=== PATIENT | male | born 1950 | race Caucasian/White ===

== ENCOUNTER 2016-10-09 05:18 | Inpatient (IN) | payer OTHER, MEDICAID ==
[2016-10-09 05:25] VITALS: BMI 26.4
--- NOTE | 2016-10-09 05:57 | ED PDOC ---
Arrival/HPI - General Chief Complaint: GI Problem Time Seen by Provider: 10/09/16 05:21 Historian: Patient, Family - History of Present Illness Narrative History of Present Illness (Text): 10/09/16 05:55 Everton Hearn is a 65 year old male, whose past medical history includes hyperparathyroidismm, perforated gastric ulcers, hypertension, and hypercalcemia , who presents to the ED tonight complaining of diffuse abdominal pain since yesterday. Patient also reports associated nausea and with one episode of vomiting this morning. Patient denies any fever, chills, chest pain, diarrhea, urinary symptoms, back pain, neck pain, headache, dizziness, or any other complaints. PMD: Dr. Carli Mercado Surgeon: Dr. Abdalla Time/Duration: Other (yesterday) Symptom Onset: Gradual Symptom Course: Unchanged Activities at Onset: Rest, Light Context: Home Past Medical History - Provider Review Nursing Documentation Reviewed: Yes - Infectious Disease Hx of Infectious Diseases: None - Tetanus Immunization Tetanus Immunization: Unknown - Reproductive Currently : No - Cardiac Hx MT: No - Neurological HX Cerebrovascular Accident: No Hx Transient Ischemic Attacks (TIA): No - Endocrine/Metabolic Hx Endocrine Disorders: Yes Hx Hyperthyroidism: Yes - Hematological/Oncological Hx Blood Transfusions: No - Musculoskeletal/Rheumatological Hx Falls: No Hx Fractures: No - Gastrointestinal Hx Gastrointestinal Disorders: Yes Hx Hemorrhoids: Yes - Psychiatric Hx Substance Use: No - Surgical History Other/Comment: HEMORRHOIDECTOMY - Anesthesia Hx Anesthesia: Yes Hx Anesthesia Reactions: No Hx Malignant Hyperthermia: No Family/Social History - Physician Review Nursing Documentation Reviewed: Yes Family/Social History: No Known Family HX Smoking Status: Never Smoked Hx Alcohol Use: No Hx Substance Use: No Allergies/Home Meds Allergies/Adverse Reactions: Allergies No Known Allergies Allergy (Verified 10/09/16 06:33) Home Medications: Home Meds Medication Instructions Recorded Confirmed Docusate Sodium/Sennosides A 1 tab PO DAILY PRN 09/09/16 09/09/16 [Senokot S 50 MG-8.6 MG] Review of Systems - Physician Review All systems were reviewed & negative as marked: Yes - Review of Systems Constitutional: Normal. absent: Fevers Eyes: Normal ENT: Normal Respiratory: Normal. absent: SOB, Cough Cardiovascular: Normal Gastrointestinal: Abdominal Pain, Nausea, Vomiting. absent: Diarrhea Genitourinary Male: Normal. absent: Dysuria, Frequency, Hematuria, Urinary Output Changes Musculoskeletal: Normal. absent: Back Pain, Neck Pain Skin: Normal. absent: Rash Neurological: Normal. absent: Headache, Dizziness Endocrine: Normal Hemo/Lymphatic: Normal Psychiatric: Normal Physical Exam Vital Signs Reviewed: Yes Vital Signs Temp Pulse Resp BP Pulse Ox 10/09/16 05:29 97.7 F 88 20 180/106 H 100 Temperature: Afebrile Blood Pressure: Normal Pulse: Regular Respiratory Rate: Normal Appearance: Positive for: Well-Appearing, Non-Toxic, Comfortable Pain Distress: None Mental Status: Positive for: Alert and Oriented X 3 - Systems Exam Head: Present: Atraumatic, Normocephalic Pupils: Present: PERRL Extroacular Muscles: Present: EOMI Conjunctiva: Present: Normal Mouth: Present: Moist Mucous Membranes Neck: Present: Normal Range of Motion Respiratory/Chest: Present: Clear to Auscultation, Good Air Exchange. No: Respiratory Distress, Accessory Muscle Use Cardiovascular: Present: Regular Rate and Rhythm, Normal S1, S2. No: Murmurs Abdomen: Present: Tenderness (LLQ tenderness), Normal Bowel Sounds. No: Distention, Peritoneal Signs Genitourinary Male: No: Testicle Tenderness, Hernias, Testicle Swelling Back: Present: Normal Inspection Upper Extremity: Present: Normal Inspection. No: Cyanosis, Edema Lower Extremity: Present: Normal Inspection. No: Edema Neurological: Present: GCS=15, CN II-XII Intact, Speech Normal Skin: Present: Warm, Dry, Normal Color. No: Rashes Psychiatric: Present: Alert, Oriented x 3, Normal Insight, Normal Concentration Medical Decision Making ED Course and Treatment: 10/09/16 05:55 Impression: 65 y/o male c/o diffuse lower abdominal pain since yesterday with nausea and 1 episode of vomiting today. Plan: -- CT Abdomen and Pelvis with PO and IV contrast -- Labs, lipase -- UA -- IV fluids -- Protonix -- Zofran -- Morphine -- Reassess and disposition Progress Notes: 10/09/16 07:[address] Manzanares, pending labs, CT Abdomen and Pelvis, re-assessment , and final disposition. - Lab Interpretations Lab Results: 10/09/16 05:56 Lab Results 10/09/16 06:10: Urine Color Yellow, Urine Appearance Slight-cloudy, Urine pH 8.5 , Ur Specific [place] 1.020, Urine Protein 30 H, Urine Glucose (UA) Negative, Urine Ketones Negative, Urine Blood Negative, Urine Nitrate Negative, Urine Bilirubin Negative, Urine Urobilinogen 0.2, Ur Leukocyte Esterase Negative, Urine RBC 0 - 2, Urine WBC 0 - 2, Ur Epithelial Cells 0 - 2, Urine Bacteria Mod 10/09/16 05:56: WBC 5.5, RBC 3.43 L, Hgb 9.6 L, Hct 30.3 L, MCV 88.3, MCH 28.0, MCHC 31.7, RDW 15.3 H, Plt Count 314, MPV 10.5 - RAD Interpretation Radiology Orders: 10/09/16 05:56 ABD PELVIS PO & IV CONTRAST [CT] Stat - Medication Orders Current Medication Orders: Sodium Chloride (Sodium Chloride 0.9%) 1,000 mls @ 100 mls/hr IV .Q10H JESSICA Last Admin: 10/09/16 06:20 Dose: 100 MLS/HR eMAR Start Stop Document 10/09/16 06:20 MIGUEL (Rec: 10/09/16 06:23 MIGUEL [id number]) Intravenous Solution Start Date 10/09/16 Start Time 06:20 Discontinued Medications Iohexol (Omnipaque 240 (50 Ml)) Confirm Administered Dose 50 ml .ROUTE .STK-MED ONE Stop: 10/09/16 06:05 Morphine Sulfate (Morphine) 4 mg IVP STAT STA Stop: 10/09/16 05:57 Last Admin: 10/09/16 06:20 Dose: 4 MG MAR Pain Assessment Document 10/09/16 06:20 MIGUEL (Rec: 10/09/16 06:[address] [id number] Pain Reassessment Is this a pain reassessment? Yes Sleep Is patient sleeping during reassessment? No Presence of Pain Presence of Pain Yes Location Left, Right or Bilateral Left Upper or Lower Lower Pain Location Body Site Abdomen IVP Administration Document 10/09/16 06:20 MIGUEL (Rec: 10/09/16 06:23 [facility]IGUEL [id number]) Charges for Administration # of IVP Administrations 1 Ondansetron HCl (Zofran Inj) 4 mg IVP ONCE ONE Stop: 10/09/16 05:57 Last Admin: 10/09/16 06:20 Dose: 4 MG IVP Administration Document 10/09/16 06:20 MIGUEL (Rec: 10/09/16 06:23 [facility]EL [id number]) Charges for Administration # of IVP Administrations 1 Pantoprazole Sodium (Protonix Inj) 40 mg IVP ONCE STA Stop: 10/09/16 05:57 Last Admin: 10/09/16 06:20 Dose: 40 MG IVP Administration Document 10/09/16 06:20 MIGUEL (Rec: 10/09/16 06:23 [id number]) Charges for Administration # of IVP Administrations 1 - Scribe Statement The provider has reviewed the documentation as recorded by the Betty El Provider Attestation: All medical record entries made by the Betty were at my direction and personally dictated by me. I have reviewed the chart and agree that the record accurately reflects my personal performance of the history, physical exam, medical decision making, and the department course for this patient. I have also personally directed, reviewed, and agree with the discharge instructions and disposition. Disposition/Present on Arrival - Present on Arrival Any Indicators Present on Arrival: No History of DVT/PE: No History of Uncontrolled Diabetes: No Urinary Catheter: No History of Decub. Ulcer: No History Surgical Site Infection Following: None - Disposition Have Diagnosis and Disposition been Completed?: No Diagnosis: Abdominal pain Disposition Time: 07:00 Patient Problems: Current Active Problems Problem Status Diagnosed Abdominal pain Acute Condition: GOOD
[2016-10-09] MEDS ORDERED: Iohexol 240 (50 ml) ONE (06:04)
[2016-10-09 06:12] LABS: HEMATOCRIT 30.3 % (42.0-52.0); MEAN CELL VOLUME 88.3 fL (80.0-105.0); MEAN CORPUSCULAR HGB CONC 31.7 g/dl (31.0-37.0); MEAN PLATELET VOLUME 10.5 fl (7.0-11.0); RED CELL DISTRIBUTION WIDTH 15.3 % (11.5-14.5); WHITE BLOOD COUNT 5.5 10^3/ul (4.5-11.0)
[2016-10-09] MEDS: Sodium Chloride 0.9% 1,000 ML IV SCH ×2 (06:20→16:00)
[2016-10-09] MEDS: Morphine 4 mg/ml ISec IVP STA (06:20)
[2016-10-09 06:25] LABS: PH,URINE 8.5 (4.7-8.0); URINE BILIRUBIN NEGATIVE (NEGATIVE); URINE BLOOD NEGATIVE (NEGATIVE); URINE GLUCOSE (UA) NEGATIVE (NEGATIVE); URINE KETONE NEGATIVE (NEGATIVE); URINE LEUKOCYTE ESTERASE NEGATIVE Leu/uL (NEGATIVE); URINE PROTEIN 30 mg/dL (<30 mg/dL); URINE UROBILINOGEN 0.2 E.U./dL (<1 E.U./dL)
[2016-10-09 06:26] LABS: URINE APPEARANCE SLIGHT-CLOUDY (CLEAR); URINE COLOR YELLOW (YELLOW)
[2016-10-09 06:42] LABS: URINE RBC 0 - 2 /hpf (0-2)
[2016-10-09 06:43] LABS: URINE EPITHELIAL CELLS 0 - 2 /hpf (0-5); URINE WBC 0 - 2 /hpf (0-6)
[2016-10-09 06:44] LABS: URINE BACTERIA MOD (NEG)
[2016-10-09 06:47] LABS: ALB/GLOB RATIO 1.1 (1.1-1.8); ALKALINE PHOSPHATASE 138 U/L (38-133); ALT/SGPT 20 U/L (7-56); AST/SGOT 44 U/L (15-59); BILIRUBIN,TOTAL 0.7 mg/dL (0.2-1.3); BLOOD UREA NITROGEN 13 mg/dL (7-21); CARBON DIOXIDE 28 mmol/L (21-33); CHLORIDE 99 mmol/L (95-110); GFR AFRICAN-AMERICAN > 60; GLUCOSE,RANDOM 137 mg/dL (70-110); LIPASE 69 U/L (23-300); POTASSIUM 4.2 mmol/L (3.6-5.0); SODIUM 142 mmol/L (132-148); TOTAL PROTEIN 8.9 g/dL (5.8-8.3)
[2016-10-09 07:27] LABS: CALCIUM 12.4 mg/dL (8.4-10.5)
[2016-10-09] MEDS ORDERED: Iohexol 350 MG/100 ML VIAL ONE (07:37)
--- NOTE | 2016-10-09 08:16 | ED PDOC ---
Physical Exam Vital Signs Reviewed: Yes Vital Signs Temp Pulse Resp BP Pulse Ox 10/09/16 09:29 90 18 141/80 97 10/09/16 07:03 84 18 145/92 H 99 10/09/16 05:29 97.7 F 88 20 180/106 H 100 Temperature: Afebrile Blood Pressure: Hypertensive Pulse: Regular Respiratory Rate: Normal Appearance: Positive for: Well-Appearing, Non-Toxic, Comfortable Pain Distress: None Mental Status: Positive for: Alert and Oriented X 3 Medical Decision Making ED Course and Treatment: 10/09/16 08:14 Patient endorsed to me by . Patient is a 65 year old male who presents to the emergency department for diffuse abdominal pain associated with nausea and 1 episode of vomiting. Pending labs, CT results and reevaluation. 10/09/16 09:08 CT abd/pel results reviewed: PROCEDURE: CT Abdomen and Pelvis with contrast FINDINGS: LOWER THORAX: Minimal basilar atelectasis bilaterally. Mild bilateral gynecomastia noted. LIVER: Unremarkable. No gross lesion or ductal dilatation. GALLBLADDER AND BILE DUCTS: Mild diffuse thickening of gallbladder wall. No calcified gallstones identified. Consider correlation with ultrasound examination in consideration of possible cholecystitis. No pericholecystic fluid. PANCREAS: No mass. Mild dilatation of pancreatic duct in pancreatic head and proximal body. This is unchanged from prior examination. . No peripancreatic fluid. SPLEEN: Unremarkable. ADRENALS: Mild bilateral adrenal hypertrophy. KIDNEYS AND URETERS: Unremarkable. No hydronephrosis. No solid mass. VASCULATURE: Unremarkable. No aortic aneurysm. BOWEL: Unremarkable. No obstruction. No gross mural thickening. APPENDIX: Normal appendix. PERITONEUM: Left inguinal hernia containing small portion of distal descending colon herniating into proximal inguinal canal. There is herniated mesenteric fat. LYMPH NODES: Unremarkable. No enlarged lymph nodes. BLADDER: Unremarkable. REPRODUCTIVE: Mild prostate enlargement. BONES: No acute fracture. Uniformly sclerotic vertebral endplates. This may be seen with osteoporosis but the possibility of hyperparathyroidism should be considered. Please correlate with laboratory testing. OTHER FINDINGS: None. IMPRESSION: Mild thickening of gallbladder wall. Rule out cholecystitis. Correlate with ultrasound examination. No evidence of diverticulitis. Mild dilatation of pancreatic duct in pancreatic head and proximal body. This is unchanged from prior examination. Normal common bile duct. Significance of this finding is uncertain but the possibility of an ampullary mass should be considered. Left inguinal hernia containing small portion of distal descending colon as well as mesenteric fat. Uniformly sclerotic vertebral endplates raising the possibility of hyperparathyroidism. Please correlate with laboratory testing. This may also merely reflect osteoporosis. 10/09/16 11:30 US abdomen pelvis results reviewed: FINDINGS: LIVER: Measures 15.3 cm in length. Normal echogenicity of the liver parenchyma. No mass. No intrahepatic bile duct dilatation. GALLBLADDER: Sludge. No gallstones. Mural thickening to 5 mm. Trace pericholecystic fluid. Negative sonographic Acosta's sign. Findings are equivocal for cholecystitis. COMMON BILE DUCT: Measures 4 mm. No stones. No dilatation. PANCREAS: Suboptimally evaluated due to overlying bowel gas. RIGHT KIDNEY: Measures 10.2 cm in length. Normal echogenicity. No calculus, mass, or hydronephrosis. AORTA: Poorly visualized due to bowel gas. IVC: Unremarkable. OTHER FINDINGS: None . IMPRESSION: Gallbladder with sludge, mural thickening and trace pericholecystic fluid. No gallstones. Negative sonographic Acosta's sign. Findings are equivocal for cholecystitis. No other significant abnormality. 10/09/16 11:35 Called , surgery scientific publications editor, for consultation on surgical intervention for possible cholecystitis. Dr estrella didnt call back but spoke to surgical appliances salesperson who will contact him. Case discussed with hospitalist who agrees with the plan to admit patient under his service for possible cholecystitis. iv zosyn ordered. anemia, possible pancreatic mass and hyperparathyroidism also noted. 10/09/16 15:26 - Lab Interpretations Lab Results: 10/09/16 05:56 10/09/16 06:10 Lab Results 10/09/16 06:10: Sodium 142, Potassium 4.2, Chloride 99, Carbon Dioxide 28, Anion Gap 19, BUN 13, Creatinine 1.0, Est GFR ( Amer) > 60, Est GFR (Non- Af Amer) > 60, Random Glucose 137 H, Calcium 12.4 H*, Total Bilirubin 0.7, AST 44, ALT 20, Alkaline Phosphatase 138 H, Total Protein 8.9 H, Albumin 4.7, Globulin 4.2, Albumin/Globulin Ratio 1.1, Lipase 69, Urine Color Yellow, Urine Appearance Slight-cloudy, Urine pH 8.5, Ur Specific [place] 1.020, Urine Protein 30 H, Urine Glucose (UA) Negative, Urine Ketones Negative, Urine Blood Negative, Urine Nitrate Negative, Urine Bilirubin Negative, Urine Urobilinogen 0.2, Ur Leukocyte Esterase Negative, Urine RBC 0 - 2, Urine WBC 0 - 2, Ur Epithelial Cells 0 - 2, Urine Bacteria Mod 10/09/16 05:56: WBC 5.5, RBC 3.43 L, Hgb 9.6 L, Hct 30.3 L, MCV 88.3, MCH 28.0, MCHC 31.7, RDW 15.3 H, Plt Count 314, MPV 10.5 I have reviewed the lab results: Yes - RAD Interpretation Radiology Orders: 10/09/16 05:56 ABD PELVIS PO & IV CONTRAST [CT] Stat 10/09/16 09:37 GALLBLADDER & PANCREAS [US] Stat Construction Worker: Radiologist - Medication Orders Current Medication Orders: Sodium Chloride (Sodium Chloride 0.9%) 1,000 mls @ 100 mls/hr IV .Q10H JESSICA Last Admin: 10/09/16 06:20 Dose: 100 MLS/HR eMAR Start Stop Document 10/09/16 06:20 MIGUEL (Rec: 10/09/16 06:23 [id number] Intravenous Solution Start Date 10/09/16 Start Time 06:20 Piperacillin Sod/Tazobactam Sod (Zosyn 4.5 Gm In Ns 100ml) 100 mls @ 200 mls/ hr IVPB STAT STA PRN Reason: Protocol Stop: 10/09/16 12:00 Discontinued Medications Iohexol (Omnipaque 240 (50 Ml)) Confirm Administered Dose 50 ml .ROUTE .STK-MED ONE Stop: 10/09/16 06:05 Iohexol (Omnipaque 350 100 Ml) Confirm Administered Dose 350 mg .ROUTE .STK-MED ONE Stop: 10/09/16 07:38 Morphine Sulfate (Morphine) 4 mg IVP STAT STA Stop: 10/09/16 05:57 Last Admin: 10/09/16 06:20 Dose: 4 MG MAR Pain Assessment Document 10/09/16 06:20 MIGUEL (Rec: 10/09/16 06:23 [id number] Pain Reassessment Is this a pain reassessment? Yes Sleep Is patient sleeping during reassessment? No Presence of Pain Presence of Pain Yes Location Left, Right or Bilateral Left Upper or Lower Lower Pain Location Body Site Abdomen IVP Administration Document 10/09/16 06:20 MIGUEL (Rec: 10/09/16 06:23 [facility]EL [id number]) Charges for Administration # of IVP Administrations 1 Ondansetron HCl (Zofran Inj) 4 mg IVP ONCE ONE Stop: 10/09/16 05:57 Last Admin: 10/09/16 06:20 Dose: 4 MG IVP Administration Document 10/09/16 06:20 MIGUEL (Rec: 10/09/16 06:23 [id number]) Charges for Administration # of IVP Administrations 1 Pantoprazole Sodium (Protonix Inj) 40 mg IVP ONCE STA Stop: 10/09/16 05:57 Last Admin: 10/09/16 06:20 Dose: 40 MG IVP Administration Document 10/09/16 06:20 MIGUEL (Rec: 10/09/16 06:23 [facility]EL [id number]) Charges for Administration # of IVP Administrations 1 - Scribe Statement The provider has reviewed the documentation as recorded by the Betty Epperson Provider Attestation: All medical record entries made by the Betty were at my direction and personally dictated by me. I have reviewed the chart and agree that the record accurately reflects my personal performance of the history, physical exam, medical decision making, and the department course for this patient. I have also personally directed, reviewed, and agree with the discharge instructions and disposition. Disposition/Present on Arrival - Present on Arrival Any Indicators Present on Arrival: No History of DVT/PE: No History of Uncontrolled Diabetes: No Urinary Catheter: No History of Decub. Ulcer: No History Surgical Site Infection Following: None - Disposition Have Diagnosis and Disposition been Completed?: Yes Diagnosis: Abdominal pain, Cholecystitis Disposition: HOSPITALIZED Disposition Time: 09:40 Patient Plan: Admission Patient Problems: Current Active Problems Problem Status Diagnosed Abdominal pain Acute Condition: STABLE
--- NOTE | 2016-10-09 08:39 | CT ---
PROCEDURE: CT Abdomen and Pelvis with contrast HISTORY: left lower abdominal pain COMPARISON: 05/23/2016 TECHNIQUE: Contrast dose: 100 mL Omnipaque 350 Radiation dose: Total exam DLP = 458.39 mGy-cm. FINDINGS: LOWER THORAX: Minimal basilar atelectasis bilaterally. Mild bilateral gynecomastia noted. LIVER: Unremarkable. No gross lesion or ductal dilatation. GALLBLADDER AND BILE DUCTS: Mild diffuse thickening of gallbladder wall. No calcified gallstones identified. Consider correlation with ultrasound examination in consideration of possible cholecystitis. No pericholecystic fluid. PANCREAS: No mass. Mild dilatation of pancreatic duct in pancreatic head and proximal body. This is unchanged from prior examination. . No peripancreatic fluid. SPLEEN: Unremarkable. ADRENALS: Mild bilateral adrenal hypertrophy. KIDNEYS AND URETERS: Unremarkable. No hydronephrosis. No solid mass. VASCULATURE: Unremarkable. No aortic aneurysm. BOWEL: Unremarkable. No obstruction. No gross mural thickening. APPENDIX: Normal appendix. PERITONEUM: Left inguinal hernia containing small portion of distal descending colon herniating into proximal inguinal canal. There is herniated mesenteric fat. LYMPH NODES: Unremarkable. No enlarged lymph nodes. BLADDER: Unremarkable. REPRODUCTIVE: Mild prostate enlargement. BONES: No acute fracture. Uniformly sclerotic vertebral endplates. This may be seen with osteoporosis but the possibility of hyperparathyroidism should be considered. Please correlate with laboratory testing. OTHER FINDINGS: None. IMPRESSION: Mild thickening of gallbladder wall. Rule out cholecystitis. Correlate with ultrasound examination. No evidence of diverticulitis. Mild dilatation of pancreatic duct in pancreatic head and proximal body. This is unchanged from prior examination. Normal common bile duct. Significance of this finding is uncertain but the possibility of an ampullary mass should be considered. Left inguinal hernia containing small portion of distal descending colon as well as mesenteric fat. Uniformly sclerotic vertebral endplates raising the possibility of hyperparathyroidism. Please correlate with laboratory testing. This may also merely reflect osteoporosis.
--- NOTE | 2016-10-09 11:10 | US ---
HISTORY: abdominal pain COMPARISON: None. TECHNIQUE: Sonographic evaluation of the right upper quadrant of the abdomen. FINDINGS: LIVER: Measures 15.3 cm in length. Normal echogenicity of the liver parenchyma. No mass. No intrahepatic bile duct dilatation. GALLBLADDER: Sludge. No gallstones. Mural thickening to 5 mm. Trace pericholecystic fluid. Negative sonographic Acosta's sign. Findings are equivocal for cholecystitis. COMMON BILE DUCT: Measures 4 mm. No stones. No dilatation. PANCREAS: Suboptimally evaluated due to overlying bowel gas. RIGHT KIDNEY: Measures 10.2 cm in length. Normal echogenicity. No calculus, mass, or hydronephrosis. AORTA: Poorly visualized due to bowel gas. IVC: Unremarkable. OTHER FINDINGS: None . IMPRESSION: Gallbladder with sludge, mural thickening and trace pericholecystic fluid. No gallstones. Negative sonographic Acosta's sign. Findings are equivocal for cholecystitis. No other significant abnormality.
[2016-10-09] MEDS ORDERED: Piperacill/Tazo 4.5gm in NS 100 ML IVPB STA (11:31)
--- NOTE | 2016-10-09 13:25 | CP.PCM.CON ---
<Corby Raymond - Last Filed: 10/09/16 13:51> History of Present Illness - History of Present Illness History of Present Illness: GENERAL SURGERY RESIDENT CONSULT NOTE FOR DR. ABDALLA Reason for consult: abdominal pain, cholecystitis CC:" Abdominal pain, vomiting" HPI: Pt is a 65 year old [place] male with a PMHx of hemorrhoids s/p hemorrhoidectomy, intraabdominal abscess s/p drainage, exploratory laparotomy, prepyloric peptic ulcer perforation s/p russel patch closure, and open unbilical hernia repair s/p closure without mesh all in May, as well as hyperparathyroidism and hypercalcemia, who presented with complaints of diffuse abdominal pain that began 3 days ago. Pt is accompanied by and daughter at beside. According to pt and family, the pain became worse yesterday. Pt also reports that he has been feeling nauseous and vomited once this morning. Pt also reports that he feels a hernia in his left groin that is exacerbated when lying supine and improved when walking. Pt reports that he occasionally notices a little bit of blood in his stool. Pt denies fever, chills, chest pain, shortness of breath, diarrhea, constipation. PMHx: hemorrhoids s/p hemorrhoidectomy, intraabdominal abscess s/p drainage, exploratory laparotomy, prepyloric peptic ulcer perforation s/p russel patch closure, and open unbilical hernia repair s/p closure without mesh (May 2016), hyperparathyroidism, hypercalcemia Past Surgical Hx: hemorrhoids s/p hemorrhoidectomy, intraabdominal abscess s/p drainage, exploratory laparotomy, prepyloric peptic ulcer perforation s/p russel patch closure, and open unbilical hernia repair s/p closure without mesh (May 2016) Home Medications: Multivitamins Allergies: NKDA Social Hx: denies tobacco, alcohol, drug use Fam Hx: Diabetes, HTN Review of Systems - Constitutional Constitutional: absent: Chills, Fever - EENT Eyes: absent: Blurred Vision Ears: absent: Dizziness - Cardiovascular Cardiovascular: absent: Chest Pain, Dyspnea - Respiratory Respiratory: absent: Cough - Gastrointestinal Gastrointestinal: Abdominal Pain, Hematochezia, Nausea, Vomiting. absent: Diarrhea, Hematemesis - Genitourinary Genitourinary: absent: Dysuria - Musculoskeletal Musculoskeletal: Other. absent: Atrophy Additional comments: Left leg pain - Neurological Neurological: absent: Dizziness, Weakness - Psychiatric Psychiatric: absent: Anxiety Past Patient History - Infectious Disease Hx of Infectious Diseases: None - Tetanus Immunizations Tetanus Immunization: Unknown - Past Medical History & Family History Past Medical History?: Yes - Past Social History Smoking Status: Never Smoked - CARDIAC Hx Heart Attack: No - NEUROLOGICAL HX Cerebrovascular Accident: No Hx Transient Ischemic Attacks (TIA): No - ENDOCRINE/METABOLIC Hx Endocrine Disorders: Yes Hx Hyperthyroidism: Yes - HEMATOLOGICAL/ONCOLOGICAL Hx Blood Transfusions: No - MUSCULOSKELETAL/RHEUMATOLOGICAL Hx Falls: No Hx Fractures: No - GASTROINTESTINAL Hx Gastrointestinal Disorders: Yes Hx Hemorrhoids: Yes - PSYCHIATRIC Hx Substance Use: No - SURGICAL HISTORY Other/Comment: HEMORRHOIDECTOMY - ANESTHESIA Hx Anesthesia: Yes Hx Anesthesia Reactions: No Hx Malignant Hyperthermia: No Meds Allergies/Adverse Reactions: Allergies Allergy/AdvReac Type Severity Reaction Status Date / Time No Known Allergies Allergy Verified 10/09/16 12:02 - Medications Medications: Current Medications Calcitonin [place] (Miacalcin) 200 iu NS DAILY [facility] Sodium Chloride (Sodium Chloride 0.9%) 1,000 mls @ 100 mls/hr IV .Q10H [facility] Last Admin: 10/09/16 06:20 Dose: 100 mls/hr Metronidazole (Flagyl) 100 mls @ 100 mls/hr IVPB Q8 [facility]ESS[facility] PRN Reason: Protocol Ceftriaxone Sodium (Rocephin 1 Gram Ivpb) 100 mls @ 100 mls/hr IVPB DAILY [facility] PRN Reason: Protocol Insulin Human Regular (Humulin R Low) 0 units SC ACHS [facility] Morphine Sulfate (Morphine) 2 mg IVP Q4H PRN PRN Reason: Pain, moderate (4-7) Ondansetron HCl (Zofran Inj) 4 mg IVP Q6H PRN PRN Reason: Nausea/Vomiting Pantoprazole Sodium (Protonix Inj) 40 mg IVP DAILY [facility] Physical Exam - Constitutional Appears: No Acute Distress - Head Exam Head Exam: ATRAUMATIC, NORMOCEPHALIC - Eye Exam Eye Exam: EOMI - ENT Exam ENT Exam: Mucous Membranes Moist. absent: Mucous Membranes Dry - Respiratory Exam Respiratory Exam: NORMAL BREATHING PATTERN. absent: Respiratory Distress - Cardiovascular Exam Cardiovascular Exam: +S1, +S2 - GI/Abdominal Exam GI & Abdominal Exam: Guarding, Normal Bowel Sounds, Soft, Tenderness. absent: Distended, Rigid Additional comments: RUQ and mid epigastric tenderness; positive Acosta's sign - Neurological Exam Neurological exam: Alert, Oriented x3 - Psychiatric Exam Psychiatric exam: Normal Affect, Normal Mood - Skin Skin Exam: Normal Color, Warm Results - Vital Signs Recent Vital Signs: Last Vital Signs Temp 98.3 F 10/09/16 12:20 Pulse 75 10/09/16 12:20 Resp 18 10/09/16 12:20 BP 137/85 10/09/16 12:20 Pulse Ox 98 10/09/16 12:20 - Labs Result Diagrams: 10/09/16 05:56 10/09/16 06:10 Assessment & Plan - Assessment and Plan (Free Text) Assessment: Assessment: Pt is a 65 y/o M with acute cholecystitis and pancreatic duct dilatation. 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 Abdalla <Poli Abdalla - Last Filed: 10/09/16 18:13> Meds - Medications Medications: Current Medications Acetaminophen (Tylenol 650 Mg Supp) 650 mg RC Q4H PRN PRN Reason: Fever >100.4 F Calcitonin [place] (Miacalcin) 200 iu NS DAILY [facility] Last Admin: 10/09/16 15:08 Dose: 1 spray Sodium Chloride (Sodium Chloride 0.9%) 1,000 mls @ 100 mls/hr IV .Q10H [facility] Last Admin: 10/09/16 06:20 Dose: 100 mls/hr Metronidazole (Flagyl) 100 mls @ 100 mls/hr IVPB Q8 [facility] PRN Reason: Protocol Last Admin: 10/09/16 15:08 Dose: 100 mls/hr Ceftriaxone Sodium (Rocephin 1 Gram Ivpb) 100 mls @ 100 mls/hr IVPB DAILY [facility] PRN Reason: Protocol Insulin Human Regular (Humulin R Low) 0 units SC ACHS [facility] Morphine Sulfate (Morphine) 2 mg IVP Q4H PRN PRN Reason: Pain, moderate (4-7) Ondansetron HCl (Zofran Inj) 4 mg IVP Q6H PRN PRN Reason: Nausea/Vomiting Pantoprazole Sodium (Protonix Inj) 40 mg IVP DAILY [facility] Results - Vital Signs Recent Vital Signs: Last Vital Signs Temp 101.6 F H 10/09/16 17:45 Pulse 103 H 10/09/16 17:45 Resp 20 10/09/16 17:45 BP 140/80 10/09/16 17:45 Pulse Ox 96 10/09/16 17:45 - Labs Result Diagrams: 10/09/16 05:56 10/09/16 06:10 Labs: Laboratory Results - last 24 hr 10/09/16 17:29 POC Glucose (mg/dL) 104 Attending/Attestation - Attestation I have personally seen and examined this patient.: Yes I have fully participated in the care of the patient.: Yes I have reviewed all pertinent clinical information: Yes Notes (Text): 10/09/16 18:12 Pt was seen and examined at bedside on 10/08/16 Agree with above note and assessment C/w current mx F/U MRCP and MRI of abdomen Serial abdominal exam Plan d/w pt and Primary team.
--- NOTE | 2016-10-09 13:31 | CP.PCM.HP ---
<Rl Segal - Last Filed: 10/09/16 13:12> History of Present Illness - History of Present Illness History of Present Illness: HPI: Patient is a 65 y/o [place] M with history of peptic ulcer disease, hyperparathyroism, hypertension, and hypercalcemia who presented to the ED with complaint of right sided abdominal pain for 1 day. As per family who translated , the patient has had nausea and one episode of vomiting a non-bloody emesis. He has been living in the [place] for almost 1 year and denies eating any foods out of the ordinary. He has not traveled back to [facility] and there are no sick contacts. He denies any fever, chills, diarrhea, dysuria, headache, back pain, chest pain or SOB. His daughter notes that he has recurrent constipation for which he takes laxatives. His last bowel movement was yesterday morning and he reports it was brown and non-bloody. PMD: Dr. Krishna Mercado Surgeon: Dr. Abdalla Past medical hx: peptic ulcer disease, hyperparathyroidism, hypertension, hypercalcemia Past surgical hx: hemorrhoid removal, hernia repair Family hx: mother had stroke Social hx: lives with family, denies tobacco, alcohol or drug use Allergies: NKDA Present on Admission - Present on Admission Any Indicators Present on Admission: No Review of Systems - Constitutional Constitutional: absent: Chills, Fever - EENT Eyes: absent: Change in Vision Ears: absent: Decreased Hearing Nose/Mouth/Throat: absent: Dry Mouth, Sore Throat, Neck Pain - Cardiovascular Cardiovascular: absent: Chest Pain, Dyspnea, Edema, Irregular Heart Rhythm - Respiratory Respiratory: absent: Cough, Dyspnea, Hemoptysis - Gastrointestinal Gastrointestinal: Nausea, Vomiting. absent: Cramping, Diarrhea, Hematemesis - Genitourinary Genitourinary: absent: Change in Urinary Stream - Musculoskeletal Musculoskeletal: absent: Back Pain, Numbness, Tingling - Integumentary Integumentary: absent: Lesions, Rash, Wounds - Neurological Neurological: absent: Dizziness, Tingling, Vertigo, Weakness - Psychiatric Psychiatric: absent: Anxiety, Confusion, Depression - Endocrine Endocrine: absent: Change in Body Appearance - Hematologic/Lymphatic Hematologic: absent: Easy Bleeding, Lymphadenopathy Past Patient History - Infectious Disease Hx of Infectious Diseases: None - Tetanus Immunizations Tetanus Immunization: Unknown - Past Medical History & Family History Past Medical History?: Yes - Past Social History Smoking Status: Never Smoked Alcohol: None Drugs: Denies Home Situation {Lives}: With Family - CARDIAC Hx Heart Attack: No - NEUROLOGICAL HX Cerebrovascular Accident: No Hx Transient Ischemic Attacks (TIA): No - ENDOCRINE/METABOLIC Hx Endocrine Disorders: Yes Hx Hyperthyroidism: Yes - HEMATOLOGICAL/ONCOLOGICAL Hx Blood Transfusions: No - MUSCULOSKELETAL/RHEUMATOLOGICAL Hx Falls: No Hx Fractures: No - GASTROINTESTINAL Hx Gastrointestinal Disorders: Yes Hx Hemorrhoids: Yes - PSYCHIATRIC Hx Substance Use: No - SURGICAL HISTORY Other/Comment: HEMORRHOIDECTOMY - ANESTHESIA Hx Anesthesia: Yes Hx Anesthesia Reactions: No Hx Malignant Hyperthermia: No Meds Allergies/Adverse Reactions: Allergies Allergy/AdvReac Type Severity Reaction Status Date / Time No Known Allergies Allergy Verified 10/09/16 12:02 Physical Exam - Constitutional Appears: Non-toxic, No Acute Distress - Head Exam Head Exam: ATRAUMATIC, NORMOCEPHALIC - Eye Exam Eye Exam: EOMI, Normal appearance, PERRL Pupil Exam: NORMAL ACCOMODATION, PERRL - ENT Exam ENT Exam: Mucous Membranes Moist, Normal Oropharynx - Neck Exam Neck exam: Positive for: Normal Inspection. Negative for: Tenderness, Thyromegaly - Respiratory Exam Respiratory Exam: Clear to Auscultation Bilateral, NORMAL BREATHING PATTERN. absent: Rales, Rhonchi, Wheezes - Cardiovascular Exam Cardiovascular Exam: REGULAR RHYTHM, +S1, +S2. absent: Gallop, Rubs, Systolic Murmur - GI/Abdominal Exam GI & Abdominal Exam: Guarding (RUQ), Normal Bowel Sounds, Soft, Tenderness (RUQ tenderness). absent: Distended, Hernia, Mass, Rigid - Rectal Exam Rectal Exam: Deferred - Extremities Exam Extremities exam: Positive for: normal capillary refill, normal inspection, pedal pulses present. Negative for: pedal edema, tenderness - Back Exam Back exam: NORMAL INSPECTION. absent: rash noted, tenderness - Neurological Exam Neurological exam: Alert, CN II-XII Intact, Oriented x3 - Psychiatric Exam Psychiatric exam: Normal Affect, Normal Mood - Skin Skin Exam: Dry, Intact, Warm Results - Vital Signs Recent Vital Signs: Last Vital Signs Temp 98.3 F 10/09/16 12:20 Pulse 75 10/09/16 12:20 Resp 18 10/09/16 12:20 BP 137/85 03/08/17 12:20 Pulse Ox 98 10/09/16 12:20 - Labs Result Diagrams: 10/09/16 05:56 10/09/16 06:10 Assessment & Plan - Assessment and Plan (Free Text) Assessment: 65 y/o [place] M with past medical hx or peptic ulcer disease, hyperparathyroidism, hypertension, hypercalcemia, presents with abdominal pain, nausea, and vomiting. CT of the abdomen showed mild thickening of the gallbladder wall; mild dilitation of the pancreating duct in the pancreating head and proximal body; left inguinal hernia. Abdominal US showed gallblader sludge, mural thickening and trace peripholecystic fluid. Surgery and GI consulted. Plan: 1) Abdominal pain * cholecystitis vs ascending cholangitis vs cholestasis * CT of the abdomen showed mild thickening of the gallbladder wall; mild dilitation of the pancreating duct in the pancreating head and proximal body; left inguinal hernia. [see ull report] * Abdominal US showed gallblader sludge, mural thickening and trace peripholecystic fluid. [see full report] * Surgery and GI consulted, help appreciated * patient remains afebrile w/o leukocytosis * alk phos elevated: 138 * started on IV abx: Rocephin and Flagyl * f/u blood cultures * NPO diet * Zofran for nausea * IVF hydration * F/U EKG 2) Hypercalcemia * likely secondary to hyperparathyroidism * Start Miacalcin daily 3) Anemia * hgb: 9.6 Hct 30.3 * F/U Iron studies * check stool for occult blood 4) PPX * protonix * anticoagulation held due to possible procedure * SCD's Assessment and plan discussed with attending physician. <Karina Mckenzie - Last Filed: 10/09/16 16:41> Results - Vital Signs Recent Vital Signs: Last Vital Signs Temp 98.3 F 10/09/16 14:03 Pulse 75 10/09/16 14:03 Resp 18 10/09/16 14:03 BP 137/85 10/09/16 14:03 Pulse Ox 98 10/09/16 12:20 - Labs Result Diagrams: 10/09/16 05:56 10/09/16 06:10 Assessment & Plan - Assessment and Plan (Free Text) Assessment: attending note; Patient seen and examined in ER. Patient's daughter by the bedside. Patient is a 65 y/o [place] M with history of peptic ulcer disease, hyperparathyroism, hypertension, and hypercalcemia who presented to the ED with complaint of right sided abdominal pain for 1 day. Abdominal ultrasound showed positive Acosta sign and thickening of the gallbladder wall. Surgery Evaluation requested. Nothing by mouth, IV fluids. Started on IV Rocephin and Flagyl. History of peptic ulcer disease; status post EGD last month. Continue IV Protonix. Dilated pancreatic duct; GI evaluation requested. MRCP ordered. Anemia; iron studies ordered. currently no active bleeding. primary hyperparathyroidism with hypercalcemia. Started on nasal calcitonin. follow-up with surgery and GI. upon discharge patient will follow-up with [facility]. Attending/Attestation - Attestation I have personally seen and examined this patient.: Yes I have fully participated in the care of the patient.: Yes I have reviewed all pertinent clinical information: Yes
--- NOTE | 2016-10-09 14:10 | CP.PCM.CON ---
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 Patient stated that the abdominal pain was associated with nausea and one episode of NBNB vomiting. Patient reported that he has never experienced pain like this in the past and prior to this was in good health. He reported that he has been living [place] the [place] for the past year from [facility] and denied sick contacts. Patient stated that the pain did not change with food intake and that he was able to have two normal bowel movements yesterday. On arrival to the ED, patient's vitals were as follows: temperature 97.7F, pulse 88bpm, BP 180/106, respiratory rate 20, o2 saturation 100% on room air. Labs were notable for a hgb of 9.6, hct 30.3, calcium 12.4, ALKP 138. CT abd/pelvis revealed mild thickening of the gallbladder wall, no evidence of diverticulitis, mild dilatation of the pancreatic duct in the pancreatic head and proximal body ( unchanged from a prior examination), left inguinal hernia containing small portion of distal descending colon and mesenteric fat. An abdominal US revealed gallbladder with sludge, mural thickening, and trace pericholecystic fluid however no gallstones. Patient denied hematemesis, melena, hematochezia, constipation, diarrhea, fever, chills, cough, chest pain, palpitations, SOB. 12 point ROS as per above, otherwise negative PHMx: PUD, Hyperparathyroidism, HTN PSHx: Hemorrhoid removal, hernia repair, gastric viscus perforation with russel patch repair Family hx: Mother: CVA/HTN; Father: unknown, passed when he was 4yo Social Hx: Denies tobacco, alcohol and illicit drug use Allergies: NKDA Endoscopy: Endoscopy from 09/09/16 revealed non-bleeding erosive gastropathy and pylorus abnormality; No hx of colonoscopy Review of Systems - Review of Systems Review of Systems: 12 point ROS as per HPI, otherwise negative Past Patient History - Infectious Disease Hx of Infectious Diseases: None - Tetanus Immunizations Tetanus Immunization: Unknown - Past Medical History & Family History Past Medical History?: Yes - Past Social History Smoking Status: Never Smoked - CARDIAC Hx Heart Attack: No - NEUROLOGICAL HX Cerebrovascular Accident: No Hx Transient Ischemic Attacks (TIA): No - ENDOCRINE/METABOLIC Hx Endocrine Disorders: Yes Hx Hyperthyroidism: Yes - HEMATOLOGICAL/ONCOLOGICAL Hx Blood Transfusions: No - MUSCULOSKELETAL/RHEUMATOLOGICAL Hx Falls: No Hx Fractures: No - GASTROINTESTINAL Hx Gastrointestinal Disorders: Yes Hx Hemorrhoids: Yes - PSYCHIATRIC Hx Substance Use: No - SURGICAL HISTORY Other/Comment: HEMORRHOIDECTOMY - ANESTHESIA Hx Anesthesia: Yes Hx Anesthesia Reactions: No Hx Malignant Hyperthermia: No Meds Allergies/Adverse Reactions: Allergies Allergy/AdvReac Type Severity Reaction Status Date / Time No Known Allergies Allergy Verified 10/09/16 12:02 - Medications Medications: Current Medications Calcitonin [place] (Miacalcin) 200 iu NS DAILY [facility] Sodium Chloride (Sodium Chloride 0.9%) 1,000 mls @ 100 mls/hr IV .Q10H [facility] Last Admin: 10/09/16 06:20 Dose: 100 mls/hr Metronidazole (Flagyl) 100 mls @ 100 mls/hr IVPB Q8 [facility] PRN Reason: Protocol Ceftriaxone Sodium (Rocephin 1 Gram Ivpb) 100 mls @ 100 mls/hr IVPB DAILY [facility] PRN Reason: Protocol Insulin Human Regular (Humulin R Low) 0 units SC ACHS [facility] Morphine Sulfate (Morphine) 2 mg IVP Q4H PRN PRN Reason: Pain, moderate (4-7) Ondansetron HCl (Zofran Inj) 4 mg IVP Q6H PRN PRN Reason: Nausea/Vomiting Pantoprazole Sodium (Protonix Inj) 40 mg IVP DAILY [facility] Physical Exam - Constitutional Appears: Non-toxic, No Acute Distress - Head Exam Head Exam: ATRAUMATIC, NORMAL INSPECTION, NORMOCEPHALIC - Eye Exam Eye Exam: EOMI Pupil Exam: PERRL - ENT Exam ENT Exam: Mucous Membranes Moist - Neck Exam Neck exam: Positive for: Normal Inspection. Negative for: Tenderness - Respiratory Exam Respiratory Exam: Clear to Auscultation Bilateral. absent: Rales, Rhonchi, Wheezes - Cardiovascular Exam Cardiovascular Exam: RRR, +S1, +S2. absent: Diastolic murmur, Gallop, JVD, Rubs , Systolic Murmur - GI/Abdominal Exam GI & Abdominal Exam: Hernia (left inguinal hernia), Hypoactive Bowel Sounds, Soft, Tenderness (RUQ tenderness). absent: Distended, Firm, Guarding - Extremities Exam Extremities exam: Positive for: normal inspection. Negative for: pedal edema, tenderness - Neurological Exam Neurological exam: Alert, Oriented x3 - Psychiatric Exam Psychiatric exam: Normal Affect, Normal Mood - Skin Skin Exam: Dry, Intact, Normal Color, Warm Results - Vital Signs Recent Vital Signs: Last Vital Signs Temp 98.3 F 10/09/16 12:20 Pulse 75 10/09/16 12:20 Resp 18 10/09/16 12:20 BP 137/85 10/09/16 12:20 Pulse Ox 98 10/09/16 12:20 - Labs Result Diagrams: 10/10/16 06:15 10/10/16 06:15 Assessment & Plan - Assessment and Plan (Free Text) Assessment: 65yo male with history of peptic ulcer disease, hyperparathyroidism and hypertension presented c/o intermittent, non-radiating RUQ abdominal pain for the past 1 day 1. Abdominal pain 2. Hx of PUD 3. Hyperparathyroidism 4. Hypertension Plan: -HIDA and MRCP pending for further evaluation -CT Abd/Pelvis reviewed -Abdominal US reviewed -Endoscopy from 09/09/16 reviewed; revealed non-bleeding erosive gastropathy and pylorus abnormality; negative for H.pylori -Surgery following - f/u recommendations -Continue supportive care: IVF, antiemetics, pain control -Recommend outpatient EUS to further evaluate pancreatic ductal dilatation Patient seen and case discussed with attending, Dr. Wallis - Date & Time Date: 10/09/16 Time: 14:35 <Hernandez Wallis - Last Filed: 10/10/16 16:29> Meds - Medications Medications: Current Medications Acetaminophen (Tylenol 650 Mg Supp) 650 mg RC Q4H PRN PRN Reason: Fever >100.4 F Last Admin: 10/10/16 07:39 Dose: 650 mg Calcitonin [place] (Miacalcin) 200 iu NS DAILY [facility] Last Admin: 10/10/16 09:28 Dose: 1 spray Sodium Chloride (Sodium Chloride 0.9%) 1,000 mls @ 100 mls/hr IV .Q10H [facility] Last Admin: 10/10/16 07:39 Dose: 100 mls/hr Metronidazole (Flagyl) 100 mls @ 100 mls/hr IVPB Q8 [facility] PRN Reason: Protocol Last Admin: 10/10/16 15:21 Dose: 100 mls/hr Piperacillin Sod/Tazobactam Sod (Zosyn 3.375 In Ns 100ml) 100 mls @ 200 mls/hr IVPB Q6 [facility]ESS[facility] PRN Reason: Protocol Stop: 10/11/16 00:29 Insulin Human Regular (Humulin R Low) 0 units SC ACHS [facility] Last Admin: 10/10/16 15:21 Dose: Not Given Morphine Sulfate (Morphine) 2 mg IVP Q4H PRN PRN Reason: Pain, moderate (4-7) Last Admin: 10/10/16 05:30 Dose: 2 mg Ondansetron HCl (Zofran Inj) 4 mg IVP Q6H PRN PRN Reason: Nausea/Vomiting Pantoprazole Sodium (Protonix Inj) 40 mg IVP DAILY [facility] Last Admin: 10/10/16 09:28 Dose: 40 mg Results - Vital Signs Recent Vital Signs: Last Vital Signs Temp 99.8 F H 10/10/16 08:00 Pulse 102 H 10/10/16 08:00 Resp 20 10/10/16 08:00 BP 146/86 10/10/16 08:00 Pulse Ox 97 10/10/16 08:00 - Labs Result Diagrams: 10/10/16 15:50 10/10/16 06:15 Labs: Laboratory Results - last 24 hr 10/09/16 10/09/16 10/10/16 17:29 21:12 06:15 WBC 20.2 H D RBC 5.70 Hgb 15.6 Hct 46.5 MCV 81.6 MCH 27.4 MCHC 33.5 RDW 13.2 Plt Count 227 MPV 9.5 Neutrophils % (Manual) 78 H Band Neutrophils % 3 H Lymphocytes % (Manual) 13 L Monocytes % (Manual) 6 Platelet Evaluation Normal Sodium 138 Potassium 4.2 Chloride 105 Carbon Dioxide 23 Anion Gap 14 BUN 12 Creatinine 1.1 Est GFR ( Amer) > 60 Est GFR (Non-Af Amer) > 60 POC Glucose (mg/dL) 104 94 Random Glucose 110 Calcium 11.4 H Iron 19 L TIBC 299 % Saturation 6 L Ferritin 65.0 Total Bilirubin 1.5 H AST 23 ALT 19 Alkaline Phosphatase 90 Total Protein 7.3 Albumin 3.8 Globulin 3.5 Albumin/Globulin Ratio 1.1 Folate 11.5 Blood Type O POSITIVE Antibody Screen Negative BBK History Checked Patient has bt 10/10/16 10/10/16 10/10/16 07:26 11:30 15:50 WBC 26.7 H* D RBC 5.73 Hgb 15.6 Hct 46.1 MCV 80.5 MCH 27.2 MCHC 33.8 RDW 13.1 Plt Count 236 MPV 9.5 Neutrophils % (Manual) Band Neutrophils % Lymphocytes % (Manual) Monocytes % (Manual) Platelet Evaluation Sodium Potassium Chloride Carbon Dioxide Anion Gap BUN Creatinine Est GFR ( Amer) Est GFR (Non-Af Amer) POC Glucose (mg/dL) 107 91 Random Glucose Calcium Iron TIBC % Saturation Ferritin Total Bilirubin AST ALT Alkaline Phosphatase Total Protein Albumin Globulin Albumin/Globulin Ratio Folate Blood Type Antibody Screen BBK History Checked 10/10/16 15:51 WBC RBC Hgb Hct MCV MCH MCHC RDW Plt Count MPV Neutrophils % (Manual) Band Neutrophils % Lymphocytes % (Manual) Monocytes % (Manual) Platelet Evaluation Sodium Potassium Chloride Carbon Dioxide Anion Gap BUN Creatinine Est GFR ( Amer) Est GFR (Non-Af Amer) POC Glucose (mg/dL) 86 Random Glucose Calcium Iron TIBC % Saturation Ferritin Total Bilirubin AST ALT Alkaline Phosphatase Total Protein Albumin Globulin Albumin/Globulin Ratio Folate Blood Type Antibody Screen BBK History Checked Attending/Attestation - Attestation I have personally seen and examined this patient.: Yes I have fully participated in the care of the patient.: Yes I have reviewed all pertinent clinical information: Yes Notes (Text): 10/10/16 16:27 65 year old male with history of PUD c/b perforation and russel patch, HTN, Hyperparathyroidism admitted with RUQ pain. 1. Acute cholecystitis 2. Pancreatic duct dilation Plan: -US abdomen, CT, and MRCP reviewed, all suggestive of acute cholecystitis -HIDA scan ordered -surgery consultation for cholecystectomy appreciated -RUQ tenderness noted -seems likely to need intervention this hopsitalization -outpatient EUS recommended for PD dilation evaluation; r/o panc head or ampullary lesion -continue antibiotics
--- NOTE | 2016-10-09 14:38 | CARD ---
APPROVED REPORT EKG Measurement Heart [id number] <Conclusion> Normal sinus rhythm Right bundle branch block Left anterior fascicular block Bifascicular block Moderate voltage criteria for LVH, may be normal variant Abnormal ECG
[2016-10-09] MEDS ORDERED: Pneumococcal 23-Valent Vaccine IM ONE (14:45)
[2016-10-09] MEDS ORDERED: Influenza Vaccine 45 MCG/0.5 ml IM ONE (14:45)
[2016-10-09] MEDS: Insulin Reg-LOW-Coverage SC SCH ×2 (14:52→23:05)
[2016-10-09] MEDS: metroNIDAZOLE IV 500 mg/100 ml 100 ML IVPB SCH ×2 (15:08→21:57)
[2016-10-09] MEDS: Calcitonin 200 Int Units/Inh Nasal Spray (3.7 ml) NS SCH (15:08)
[2016-10-10] MEDS: Morphine 2 mg/ml ISec IVP PRN ×2 (00:16→05:30)
[2016-10-10] MEDS: Morphine 4 mg/ml ISec IVP STA (04:20)
[2016-10-10] MEDS: metroNIDAZOLE IV 500 mg/100 ml 100 ML IVPB SCH ×2 (05:27→15:21)
[2016-10-10 06:30] LABS: HEMATOCRIT 46.5 % (42.0-52.0); MEAN CELL VOLUME 81.6 fL (80.0-105.0); MEAN CORPUSCULAR HEMOGLOBIN 27.4 pg (25.0-35.0); MEAN CORPUSCULAR HGB CONC 33.5 g/dl (31.0-37.0); MEAN PLATELET VOLUME 9.5 fl (7.0-11.0); PLATELET COUNT 227 10^3/uL (120.0-450.0); RED CELL DISTRIBUTION WIDTH 13.2 % (11.5-14.5); WHITE BLOOD COUNT 20.2 10^3/ul (4.5-11.0)
[2016-10-10 06:40] LABS: ADD MANUAL DIFF? YES
[2016-10-10 06:48] LABS: IRON 19 ug/dL (45-180)
[2016-10-10 06:53] LABS: ALB/GLOB RATIO 1.1 (1.1-1.8); ALKALINE PHOSPHATASE 90 U/L (38-133); ALT/SGPT 19 U/L (7-56); AST/SGOT 23 U/L (15-59); BILIRUBIN,TOTAL 1.5 mg/dL (0.2-1.3); BLOOD UREA NITROGEN 12 mg/dL (7-21); CALCIUM 11.4 mg/dL (8.4-10.5); CARBON DIOXIDE 23 mmol/L (21-33); CHLORIDE 105 mmol/L (98-107); GFR AFRICAN-AMERICAN > 60; GLUCOSE,RANDOM 110 mg/dL (70-110); POTASSIUM 4.2 mmol/L (3.6-5.0); SODIUM 138 mmol/L (132-148); TOTAL PROTEIN 7.3 g/dL (5.8-8.3)
[2016-10-10 07:00] LABS: NEUTROPHIL 78 % (50.0-70.0)
[2016-10-10 07:01] LABS: BAND 3 % (0-2); PLATELET ESTIMATE NORMAL (NORMAL)
[2016-10-10] MEDS: Sodium Chloride 0.9% 1,000 ML IV SCH ×2 (07:39→22:38)
[2016-10-10] MEDS: Insulin Reg-LOW-Coverage SC SCH ×4 (09:25→21:48)
[2016-10-10] MEDS: Calcitonin 200 Int Units/Inh Nasal Spray (3.7 ml) NS SCH (09:28)
[2016-10-10] MEDS ORDERED: cefTRIAXone 1 gm 100 ML IVPB SCH (10:00)
[2016-10-10 12:16] LABS: FOLATE 11.5 ng/mL
--- NOTE | 2016-10-10 12:23 | CP.PCM.PN ---
<Marianela Cortes - Last Filed: 10/10/16 12:20> Subjective - Date & Time of Evaluation Date of Evaluation: 10/10/16 Time of Evaluation: 07:10 - Subjective Subjective: General Surgery Dr. Abdalla Pt S&E @bedside. febrile overnight. Tmax 101.6F. c/o RUQ and LLQ/groin pain. denies N/V. NPO for MRCP later today. Objective - Vital Signs/Intake and Output Vital Signs (last 24 hours): Temp Pulse Resp BP Pulse Ox 99.8 F H 102 H 20 146/86 97 10/10/16 08:00 10/10/16 08:00 10/10/16 08:00 10/10/16 08:00 10/10/16 08:00 Intake and Output: 10/10/16 10/10/16 06:59 18:59 Intake Total 1800 Output Total 1000 Balance 800 - Medications Medications: Current Medications Acetaminophen (Tylenol 650 Mg Supp) 650 mg RC Q4H PRN PRN Reason: Fever >100.4 F Last Admin: 10/10/16 07:39 Dose: 650 mg Calcitonin [place] (Miacalcin) 200 iu NS DAILY [facility] Last Admin: 10/10/16 09:28 Dose: 1 spray Sodium Chloride (Sodium Chloride 0.9%) 1,000 mls @ 100 mls/hr IV .Q10H [facility] Last Admin: 10/10/16 07:39 Dose: 100 mls/hr Metronidazole (Flagyl) 100 mls @ 100 mls/hr IVPB Q8 [facility] PRN Reason: Protocol Last Admin: 10/10/16 05:27 Dose: 100 mls/hr Ceftriaxone Sodium (Rocephin 1 Gram Ivpb) 100 mls @ 100 mls/hr IVPB DAILY [facility] PRN Reason: Protocol Last Admin: 10/10/16 09:30 Dose: 100 mls/hr Insulin Human Regular (Humulin R Low) 0 units SC ACHS [facility] Last Admin: 10/10/16 09:25 Dose: Not Given Morphine Sulfate (Morphine) 2 mg IVP Q4H PRN PRN Reason: Pain, moderate (4-7) Last Admin: 10/10/16 05:30 Dose: 2 mg Ondansetron HCl (Zofran Inj) 4 mg IVP Q6H PRN PRN Reason: Nausea/Vomiting Pantoprazole Sodium (Protonix Inj) 40 mg IVP DAILY [facility] Last Admin: 10/10/16 09:28 Dose: 40 mg - Labs Labs: 10/10/16 06:15 10/10/16 06:15 Laboratory Tests 10/10/16 06:15 Calcium 11.4 H Iron 19 L TIBC 299 % Saturation 6 L Ferritin 65.0 Total Bilirubin 1.5 H AST 23 ALT 19 Alkaline Phosphatase 90 Total Protein 7.3 Albumin 3.8 Folate 11.5 - Constitutional Appears: Non-toxic, No Acute Distress - Head Exam Head Exam: NORMAL INSPECTION - Eye Exam Eye Exam: Normal appearance - ENT Exam ENT Exam: Mucous Membranes Moist - Respiratory Exam Respiratory Exam: NORMAL BREATHING PATTERN. absent: Accessory Muscle Use, Respiratory Distress - GI/Abdominal Exam GI & Abdominal Exam: Distended (minimal), Guarding, Soft, Tenderness (moderate TTP RUQ, L groin). absent: Rebound Additional comments: (+) Acosta's sign - Exam Exam: Testicular Tenderness (L inguinal hernia) - Extremities Exam Extremities Exam: Normal Inspection - Neurological Exam Neurological Exam: Alert, Awake, Oriented x3 - Psychiatric Exam Psychiatric exam: Normal Affect, Normal Mood - Skin Skin Exam: Dry, Intact, Normal Color, Warm Assessment and Plan - Assessment and Plan (Free Text) Assessment: 65 y/o male w/ cholecystitis and L incarcerated inguinal hernia - NPO - pain management - f/u MRCP results - f/u GI recs - trend labs - monitor vitals - surgery pending results of imaging Pt discussed w/ Dr. Lianne Cortes DO PGY1 <Poli Abdalla - Last Filed: 10/12/16 19:01> Objective - Vital Signs/Intake and Output Vital Signs (last 24 hours): Temp Pulse Resp BP Pulse Ox 100.7 F H 102 H 19 140/89 99 10/12/16 16:45 10/12/16 16:45 10/12/16 16:45 10/12/16 16:45 10/12/16 16:45 Intake and Output: 10/12/16 10/13/16 18:59 07:59 Intake Total 960 Output Total 700 Balance 260 - Medications Medications: Current Medications Acetaminophen (Tylenol 325mg Tab) 650 mg PO Q6H PRN PRN Reason: Fever >100.4 F Last Admin: 10/12/16 15:27 Dose: 650 mg Calcitonin [place] (Miacalcin) 200 iu NS DAILY [facility] Last Admin: 10/12/16 10:08 Dose: 1 spray Docusate Sodium (Colace) 100 mg PO BID [facility] Last Admin: 10/12/16 17:05 Dose: 100 mg Heparin Sodium (Porcine) (Heparin) 5,000 units SC Q12 [facility]ESS[facility] PRN Reason: Protocol Hydromorphone HCl (Dilaudid) 1 mg IVP Q4H PRN PRN Reason: Pain, moderate (4-7) Last Admin: 10/11/16 23:39 Dose: 1 mg Sodium Chloride (Sodium Chloride 0.9%) 1,000 mls @ 100 mls/hr IV .Q10H [facility] Last Admin: 10/11/16 09:50 Dose: 100 mls/hr Piperacillin Sod/Tazobactam Sod (Zosyn 3.375 In Ns 100ml) 100 mls @ 200 mls/hr IVPB Q6 [facility] PRN Reason: Protocol Stop: 10/17/16 18:01 Last Admin: 10/12/16 17:05 Dose: 200 mls/hr Lactated Ringer's (Lactated Ringer's) 1,000 mls @ 100 mls/hr IV .Q10H [facility] Last Admin: 10/12/16 10:31 Dose: 100 mls/hr Insulin Human Regular (Humulin R Low) 0 units SC ACHS [facility] Last Admin: 10/11/16 18:14 Dose: Not Given Morphine Sulfate (Morphine) 2 mg IVP Q4H PRN PRN Reason: Pain, moderate (4-7) Last Admin: 10/10/16 05:30 Dose: 2 mg Ondansetron HCl (Zofran Inj) 4 mg IVP Q6H PRN PRN Reason: Nausea/Vomiting Pantoprazole Sodium (Protonix Inj) 40 mg IVP DAILY [facility] Last Admin: 10/12/16 10:08 Dose: 40 mg - Labs Labs: 10/12/16 09:11 10/12/16 09:11 Attending/Attestation - Attestation I have personally seen and examined this patient.: Yes I have fully participated in the care of the patient.: Yes I have reviewed all pertinent clinical information, including history, physical exam and plan: Yes Notes (Text): 10/12/16 19:00 Pt was seen and examined at bedside on 10/10/16 Agree with above note and assessment. Pt would need Lap Cholecystectomy possible Open Consent C/w IV antibiotics Plan d.w pt in detail Risk and benefit explained in detail.
[2016-10-10] MEDS ORDERED: Gadodiamide 287 MG/ML VIAL (15ML) IV ONE (13:23)
--- NOTE | 2016-10-10 13:31 | CP.PCM.PN ---
Addendum entered and electronically signed by Rl Segal DO 10/10/16 16:30: MRCP was performed showing findings consistent with acalculous cholecystitis. Per surgery, patient will be taken to the OR for cholecystectomy tomorrow. Original Note: <Rl Segal - Last Filed: 10/10/16 13:27> Subjective - Date & Time of Evaluation Date of Evaluation: 10/10/16 Time of Evaluation: 07:30 - Subjective Subjective: Dr. 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 Patient states he continues to have pain in the right upper part of his abdomen and left side of pelvic region. He is aware that he has an inguinal hernia. He notes that he is hungry and aware that he can't eat until the MRCP is completed. He denies any current nausea, vomiting, chest pain, SOB, palpitations , fever, or chills. He has not had a bowel movement today. A 12 point review of systems was performed and is negative except where indicated above. Objective - Vital Signs/Intake and Output Vital Signs (last 24 hours): Temp Pulse Resp BP Pulse Ox 99.8 F H 102 H 20 146/86 97 10/10/16 08:00 10/10/16 08:00 10/10/16 08:00 10/10/16 08:00 10/10/16 08:00 Intake and Output: 10/10/16 10/10/16 06:59 18:59 Intake Total 1800 Output Total 1000 Balance 800 - Medications Medications: Current Medications Acetaminophen (Tylenol 650 Mg Supp) 650 mg RC Q4H PRN PRN Reason: Fever >100.4 F Last Admin: 10/10/16 07:39 Dose: 650 mg Calcitonin [place] (Miacalcin) 200 iu NS DAILY [facility] Last Admin: 10/10/16 09:28 Dose: 1 spray Sodium Chloride (Sodium Chloride 0.9%) 1,000 mls @ 100 mls/hr IV .Q10H [facility] Last Admin: 10/10/16 07:39 Dose: 100 mls/hr Metronidazole (Flagyl) 100 mls @ 100 mls/hr IVPB Q8 [facility] PRN Reason: Protocol Last Admin: 10/10/16 05:27 Dose: 100 mls/hr Ceftriaxone Sodium (Rocephin 1 Gram Ivpb) 100 mls @ 100 mls/hr IVPB DAILY [facility] PRN Reason: Protocol Last Admin: 10/10/16 09:30 Dose: 100 mls/hr Insulin Human Regular (Humulin R Low) 0 units SC ACHS [facility] Last Admin: 10/10/16 09:25 Dose: Not Given Morphine Sulfate (Morphine) 2 mg IVP Q4H PRN PRN Reason: Pain, moderate (4-7) Last Admin: 10/10/16 05:30 Dose: 2 mg Ondansetron HCl (Zofran Inj) 4 mg IVP Q6H PRN PRN Reason: Nausea/Vomiting Pantoprazole Sodium (Protonix Inj) 40 mg IVP DAILY [facility] Last Admin: 10/10/16 09:28 Dose: 40 mg - Labs Labs: 10/10/16 06:15 10/10/16 06:15 - Constitutional Appears: Non-toxic, No Acute Distress - Head Exam Head Exam: ATRAUMATIC, NORMOCEPHALIC - Eye Exam Eye Exam: EOMI, Normal appearance, PERRL Pupil Exam: NORMAL ACCOMODATION, PERRL - ENT Exam ENT Exam: Mucous Membranes Moist. absent: Normal Oropharynx (poor dentition) - Neck Exam Neck Exam: Normal Inspection. absent: Tenderness, Thyromegaly - Respiratory Exam Respiratory Exam: Clear to Ausculation Bilateral, NORMAL BREATHING PATTERN. absent: Rales, Rhonchi, Wheezes - Cardiovascular Exam Cardiovascular Exam: REGULAR RHYTHM, +S1, +S2. absent: Gallop, Rubs, Murmur - GI/Abdominal Exam GI & Abdominal Exam: Guarding (RUQ), Soft, Tenderness (RUQ and left pelvic retion), Hernia (left inguinal hernia) - Extremities Exam Extremities Exam: Normal Capillary Refill, Normal Inspection. absent: Pedal Edema, Tenderness - Neurological Exam Neurological Exam: Alert, Awake, CN II-XII Intact, Oriented x3 - Psychiatric Exam Psychiatric exam: Normal Affect, Normal Mood - Skin Skin Exam: Dry, Intact, Normal Color, Warm Assessment and Plan - Assessment and Plan (Free Text) Assessment: 65 y/o Citizen Of [place] M with past medical hx or peptic ulcer disease, hyperparathyroidism, hypertension, hypercalcemia, presents with abdominal pain, nausea, and vomiting. CT of the abdomen showed mild thickening of the gallbladder wall; mild dilatation of the pancreatic duct in the pancreatic head and proximal body; left inguinal hernia. Abdominal US showed gallblader sludge, mural thickening and trace peripholecystic fluid. Surgery and GI consulted. Patient NPO and awaiting MRCP Plan: 1) Abdominal pain * cholecystitis vs ascending cholangitis vs cholestasis * CT of the abdomen showed mild thickening of the gallbladder wall; mild dilatation of the pancreatic duct in the pancreatic head and proximal body; left inguinal hernia. [see ull report] * Abdominal US showed gallbladder sludge, mural thickening and trace peripholecystic fluid. [see full report] * Surgery and GI consulted, help appreciated * patient became febrile over night with leukocytosis of 20.2 * LFT's currently WNL * t Bili elevated to 1.5 today * Continue Rocephin and Flagyl * blood cultures negative at this time * continue NPO diet * Zofran for nausea * IVF hydration * EKG showed NSR w/ RBB and LAF block, moderate voltage criteria for LVH 2) Hypercalcemia * likely secondary to hyperparathyroidism * Improved today at 11.4 * Continue Miacalcin daily 3) Anemia * hgb: 15.6 Hct 46.5 * Iron studies show: Iron 19, TIBC 299, 6% Saturation, Ferritin 65, Folate 11.5 * check stool for occult blood 4) PPX * protonix * anticoagulation held due to possible procedure * SCD's Assessment and plan discussed with attending physician. <Karina Mckenzie - Last Filed: 10/10/16 16:38> Objective - Vital Signs/Intake and Output Vital Signs (last 24 hours): Temp Pulse Resp BP Pulse Ox 99.8 F H 102 H 20 146/86 97 10/10/16 08:00 10/10/16 08:00 10/10/16 08:00 10/10/16 08:00 10/10/16 08:00 Intake and Output: 10/10/16 10/10/16 06:59 18:59 Intake Total 1800 Output Total 1000 Balance 800 - Medications Medications: Current Medications Acetaminophen (Tylenol 650 Mg Supp) 650 mg RC Q4H PRN PRN Reason: Fever >100.4 F Last Admin: 10/10/16 07:39 Dose: 650 mg Calcitonin [place] (Miacalcin) 200 iu NS DAILY [facility] Last Admin: 10/10/16 09:28 Dose: 1 spray Sodium Chloride (Sodium Chloride 0.9%) 1,000 mls @ 100 mls/hr IV .Q10H [facility] Last Admin: 10/10/16 07:39 Dose: 100 mls/hr Metronidazole (Flagyl) 100 mls @ 100 mls/hr IVPB Q8 [facility] PRN Reason: Protocol Last Admin: 10/10/16 15:21 Dose: 100 mls/hr Piperacillin Sod/Tazobactam Sod (Zosyn 3.375 In Ns 100ml) 100 mls @ 200 mls/hr IVPB Q6 [facility] PRN Reason: Protocol Stop: 10/11/16 00:29 Insulin Human Regular (Humulin R Low) 0 units SC ACHS [facility] Last Admin: 10/10/16 15:21 Dose: Not Given Morphine Sulfate (Morphine) 2 mg IVP Q4H PRN PRN Reason: Pain, moderate (4-7) Last Admin: 10/10/16 05:30 Dose: 2 mg Ondansetron HCl (Zofran Inj) 4 mg IVP Q6H PRN PRN Reason: Nausea/Vomiting Pantoprazole Sodium (Protonix Inj) 40 mg IVP DAILY [facility] Last Admin: 10/10/16 09:28 Dose: 40 mg - Labs Labs: 10/10/16 15:50 10/10/16 06:15 Assessment and Plan - Assessment and Plan (Free Text) Assessment: attending note; Patient seen and examined in ER. Patient's daughter by the bedside. Patient is a 65 y/o Citizen [place] M with history of peptic ulcer disease, hyperparathyroism, hypertension, and hypercalcemia who presented to the ED with complaint of right sided abdominal pain. Abdominal ultrasound showed positive Acosta sign and thickening of the gallbladder wall. Surgery Evaluation Appreciated. Nothing by mouth, IV fluids. Started on IV Rocephin and Flagyl. patient had t MAX OF 101 last night. Started on IV Zosyn. ID evaluation requested. History of peptic ulcer disease; status post EGD last month. Continue IV Protonix. case discussed with GI in detail. MRCP is negative for any CBD stone. HIDA scan pending. primary hyperparathyroidism with hypercalcemia. Started on nasal calcitonin. case discussed with surgery in detail. Plan for lap cholecystectomy tomorrow. Attending/Attestation - Attestation I have personally seen and examined this patient.: Yes I have fully participated in the care of the patient.: Yes I have reviewed all pertinent clinical information, including history, physical exam and plan: Yes
--- NOTE | 2016-10-10 14:52 | MRI ---
PROCEDURE: Magnetic Resonance Cholangiopancreatography HISTORY: COMPARISON: None available. TECHNIQUE: Multiplanar, multisequence MR images of the abdomen were obtained, including heavily T2 weighted MRCP images of the biliary system. Rotating maximum intensity projection images of the biliary system were generated. FINDINGS: MRCP: The common bile duct is of a normal caliber. No evidence of choledocholithiasis. No intrahepatic biliary ductal dilatation. LIVER: Unremarkable. GALLBLADDER: The gallbladder is distended. There is no evidence of cholelithiasis. There is minimal pericholecystic edema. There is trace pericholecystic fluid appreciated. There is progressive heterogeneous enhancement of a thickened gallbladder wall on sequential post gadolinium images. In conjunction with CT and ultrasound imaging of the previous day, the findings are suggestive of acalculous cholecystitis. SPLEEN: Unremarkable. PANCREAS: Unremarkable. ADRENALS: Unremarkable. KIDNEYS: Unremarkable. AORTA: No aneurysm. ASCITES: Trace ascites about the liver and in the right pericolic gutter. This is best demonstrated on series 8. OTHER FINDINGS: None. IMPRESSION: Findings consistent with acalculous cholecystitis. No evidence of cholelithiasis or choledocholithiasis. Trace ascites. Otherwise unremarkable.
--- NOTE | 2016-10-10 15:52 | RAD ---
PROCEDURE: CHEST RADIOGRAPH, 1 VIEW HISTORY: per op COMPARISON: 05/13/2016. FINDINGS: LUNGS: Clear. PLEURA: No pneumothorax or pleural fluid seen. CARDIOVASCULAR: Normal. OSSEOUS STRUCTURES: No significant abnormalities. VISUALIZED UPPER ABDOMEN: Normal. OTHER FINDINGS: None. IMPRESSION: No active disease. No acute/significant interval changes.
[2016-10-10 16:04] LABS: HEMATOCRIT 46.1 % (42.0-52.0); MEAN CELL VOLUME 80.5 fL (80.0-105.0); MEAN CORPUSCULAR HEMOGLOBIN 27.2 pg (25.0-35.0); MEAN CORPUSCULAR HGB CONC 33.8 g/dl (31.0-37.0); MEAN PLATELET VOLUME 9.5 fl (7.0-11.0); RED CELL DISTRIBUTION WIDTH 13.1 % (11.5-14.5)
[2016-10-10 16:24] LABS: WHITE BLOOD COUNT 26.7 10^3/ul (4.5-11.0)
[2016-10-10] MEDS ORDERED: Piperacillin/Tazobact 3.375 gm 100 ML IVPB SCH (18:00)
[2016-10-10] MEDS: Piperacillin/Tazobact 3.375 gm 100 ML IVPB SCH (21:50)
[2016-10-11] MEDS: Piperacillin/Tazobact 3.375 gm 100 ML IVPB SCH ×4 (06:32→23:24)
[2016-10-11 06:39] LABS: ADD MANUAL DIFF? NO
[2016-10-11 07:08] LABS: BILIRUBIN,TOTAL 2.2 mg/dL (0.2-1.3); CALCIUM 11.9 mg/dL (8.4-10.5); POTASSIUM 4.4 mmol/L (3.6-5.0); TOTAL PROTEIN 7.3 g/dL (5.8-8.3)
[2016-10-11 07:13] LABS: BASO # 0.02 K/mm3 (0.0-2.0); BASO % 0.1 % (0.0-3.0); GRAN # 21.51 (1.4-6.5); GRAN % 83.4 % (50.0-68.0); HEMATOCRIT 44.4 % (42.0-52.0); LYMPH % 7.8 % (22.0-35.0); MEAN CELL VOLUME 80.3 fL (80.0-105.0); MEAN CORPUSCULAR HEMOGLOBIN 26.6 pg (25.0-35.0); MEAN CORPUSCULAR HGB CONC 33.1 g/dl (31.0-37.0); MEAN PLATELET VOLUME 10.2 fl (7.0-11.0); MONO # 2.3 (0.1-0.6); MONO % 8.7 % (1.0-6.0); PLATELET COUNT 229 10^3/uL (120.0-450.0); RED CELL DISTRIBUTION WIDTH 12.9 % (11.5-14.5)
[2016-10-11 07:28] LABS: WHITE BLOOD COUNT 25.8 10^3/ul (4.5-11.0)
--- NOTE | 2016-10-11 08:13 | CP.PCM.PN ---
<Pantera Hendrix - Last Filed: 10/11/16 12:49> Subjective - Date & Time of Evaluation Date of Evaluation: 10/11/16 Time of Evaluation: 08:09 - Subjective Subjective: Medicine PGY1 - GI service Patient seen and examined at bedside this morning. Reports feeling improvement of his abdominal pain since admission. Plan is for surgical intervention this morning. Denies nausea, vomiting, diarrhea. Per nursing, patient had a temperature of 100.1F this morning. Otherwise, no new issues or complaints. 12 point ROS as per above, otherwise negative. Objective - Vital Signs/Intake and Output Vital Signs (last 24 hours): Temp Pulse Resp BP Pulse Ox 100.1 F H 119 H 18 135/91 H 96 10/11/16 06:00 10/10/16 16:55 10/10/16 16:55 10/10/16 16:55 10/10/16 16:55 Intake and Output: 10/11/16 10/11/16 06:59 18:59 Intake Total 1000 Output Total 900 Balance 100 - Medications Medications: Current Medications Acetaminophen (Tylenol 650 Mg Supp) 650 mg RC Q4H PRN PRN Reason: Fever >100.4 F Last Admin: 10/11/16 06:47 Dose: 650 mg Calcitonin [place] (Miacalcin) 200 iu NS DAILY [facility] Last Admin: 10/10/16 09:28 Dose: 1 spray Sodium Chloride (Sodium Chloride 0.9%) 1,000 mls @ 100 mls/hr IV .Q10H [facility] Last Admin: 10/10/16 22:38 Dose: 100 mls/hr Piperacillin Sod/Tazobactam Sod (Zosyn 3.375 In Ns 100ml) 100 mls @ 200 mls/hr IVPB Q6 JESSICA PRN Reason: Protocol Stop: 10/17/16 18:01 Last Admin: 10/11/16 06:32 Dose: 200 mls/hr Insulin Human Regular (Humulin R Low) 0 units SC ACHS [facility] Last Admin: 10/10/16 21:48 Dose: Not Given Morphine Sulfate (Morphine) 2 mg IVP Q4H PRN PRN Reason: Pain, moderate (4-7) Last Admin: 10/10/16 05:30 Dose: 2 mg Ondansetron HCl (Zofran Inj) 4 mg IVP Q6H PRN PRN Reason: Nausea/Vomiting Pantoprazole Sodium (Protonix Inj) 40 mg IVP DAILY [facility] Last Admin: 10/10/16 09:28 Dose: 40 mg - Labs Labs: 10/11/16 05:30 10/11/16 05:30 - Constitutional Appears: Non-toxic, No Acute Distress - Head Exam Head Exam: ATRAUMATIC, NORMAL INSPECTION, NORMOCEPHALIC - Eye Exam Eye Exam: EOMI, PERRL - ENT Exam ENT Exam: Mucous Membranes Moist - Neck Exam Neck Exam: Normal Inspection - Respiratory Exam Respiratory Exam: Clear to Ausculation Bilateral. absent: Accessory Muscle Use , Rales, Rhonchi, Wheezes, Stridor - Cardiovascular Exam Cardiovascular Exam: RRR, +S1, +S2. absent: Gallop, Rubs, Murmur - GI/Abdominal Exam GI & Abdominal Exam: Soft, Tenderness (RUQ tenderness ), Normal Bowel Sounds. absent: Distended, Firm, Guarding, Rigid, Rebound - Neurological Exam Neurological Exam: Alert, Awake, Oriented x3 - Psychiatric Exam Psychiatric exam: Normal Affect, Normal Mood - Skin Skin Exam: Dry, Intact, Normal Color, Warm Assessment and Plan - Assessment and Plan (Free Text) Assessment: 65yo male with history of peptic ulcer disease, hyperparathyroidism and hypertension presented c/o intermittent, non-radiating RUQ abdominal pain for the past 1 day 1. Acute cholecystitis 2. Pancreatic duct dilation 3. Hx of PUD 4. Hyperparathyroidism 5. Hypertension Plan: -Plan for cholecystectomy this morning per surgical team -CT abd/pelv, Abdominal US, HIDA scan and MRCP reviewed; all suggestive of acute cholecystitis -MRCP revealed no pancreatic ductal dilatation; unremarkable -Endoscopy from 09/09/16 reviewed; revealed non-bleeding erosive gastropathy and pylorus abnormality; negative for H.pylori -Continue supportive care: IVF, antiemetics, pain control -Continue current medical management per primary/surgical teams -Thank you for allowing us to participate in this patient's care. GI will be signing off this case, please reconsult if needed. Patient seen and case discussed with attending, Dr. Diez <Carlos Diez - Last Filed: 10/11/16 14:13> Objective - Vital Signs/Intake and Output Vital Signs (last 24 hours): Temp Pulse Resp BP Pulse Ox 99 F 127 H 22 134/80 98 10/11/16 12:16 10/11/16 12:16 10/11/16 12:16 10/11/16 12:16 10/11/16 12:16 Intake and Output: 10/11/16 10/11/16 06:59 18:59 Intake Total 1000 0 Output Total 900 Balance 100 0 - Medications Medications: Current Medications Acetaminophen (Tylenol 650 Mg Supp) 650 mg RC Q4H PRN PRN Reason: Fever >100.4 F Last Admin: 10/11/16 06:47 Dose: 650 mg Calcitonin [place] (Miacalcin) 200 iu NS DAILY [facility] Last Admin: 10/11/16 09:48 Dose: 1 spray Sodium Chloride (Sodium Chloride 0.9%) 1,000 mls @ 100 mls/hr IV .Q10H [facility] Last Admin: 10/11/16 09:50 Dose: 100 mls/hr Piperacillin Sod/Tazobactam Sod (Zosyn 3.375 In Ns 100ml) 100 mls @ 200 mls/hr IVPB Q6 JESSICA PRN Reason: Protocol Stop: 10/17/16 18:01 Last Admin: 10/11/16 11:31 Dose: 200 mls/hr Insulin Human Regular (Humulin R Low) 0 units SC ACHS [facility] Last Admin: 10/11/16 09:48 Dose: Not Given Morphine Sulfate (Morphine) 2 mg IVP Q4H PRN PRN Reason: Pain, moderate (4-7) Last Admin: 10/10/16 05:30 Dose: 2 mg Ondansetron HCl (Zofran Inj) 4 mg IVP Q6H PRN PRN Reason: Nausea/Vomiting Pantoprazole Sodium (Protonix Inj) 40 mg IVP DAILY [facility] Last Admin: 10/11/16 09:49 Dose: 40 mg - Labs Labs: 10/11/16 05:30 10/11/16 05:30 Attending/Attestation - Attestation I have personally seen and examined this patient.: Yes I have fully participated in the care of the patient.: Yes I have reviewed all pertinent clinical information, including history, physical exam and plan: Yes Notes (Text): 10/11/16 14:11 I have seen and examined patient with medical doctor. No acute events overnight. Abdominal pain slightly improved, though still present. There is no reported nausea, vomiting. Acute acalculous cholecystitis HTN Hyperparathyroidism MRCP reviewed by me, showing no focal pancreatic abnormalities or biliary dilation. +acalculous cholecystitis - Patient planned for surgical intervention today (cholecystectomy) - Continue with antibiotic therapy - Further plan and management as per surgical team - No ongoing GI issues, will sign off case. Please reconsult as necessary, thank you.
[2016-10-11] MEDS ORDERED: Sodium Chloride 0.9% 1,000 ML IV STA (08:52)
--- NOTE | 2016-10-11 09:37 | NM ---
PROCEDURE: Nuclear Medicine Hepatobiliary Scan HISTORY: r/o cholecystitis COMPARISON: October 09, 2016. Summary of findings on the comparison examination: Gallbladder with sludge, mural thickening and trace pericholecystic fluid. No gallstones. Negative sonographic Acosta's sign. Findings are equivocal for cholecystitis. No other significant abnormality. TECHNIQUE: 5.6mCi of technetium 99m Mebrofenin was administered intravenously. Planar images of the abdomen were obtained at 5 min intervals to 60 mins. Delayed images were also obtained. FINDINGS: LIVER: Timely and homogenous uptake. COMMON BILE DUCT: identified at 5 mins. GALLBLADDER: not identified at 5 hours SMALL BOWEL: Identified at 15 mins. IMPRESSION: Positive Hepatobiliary Scan. The cystic duct is occluded. Concordant results (preliminary interpretation) provided by [facility]. Procedure Completed: 1908 Preliminary ([facility]) Report: Dictated and Authenticated: 1948 Final Interpretation: 929October 11, 2016.
[2016-10-11] MEDS: Calcitonin 200 Int Units/Inh Nasal Spray (3.7 ml) NS SCH (09:48)
[2016-10-11] MEDS: Insulin Reg-LOW-Coverage SC SCH ×2 (09:48→18:14)
[2016-10-11] MEDS: Sodium Chloride 0.9% 1,000 ML IV SCH (09:50)
--- NOTE | 2016-10-11 12:13 | CP.PCM.PN ---
<Rl Segal - Last Filed: 10/11/16 13:46> Subjective - Date & Time of Evaluation Date of Evaluation: 10/11/16 Time of Evaluation: 07:30 - Subjective Subjective: Dr Segal PGY 1 Hospitalist Note Patient seen and evaluated at bedside using [employer] service. He states he continues to have right sided abdominal pain and left sided pelvic pain. He says when he touches the area it hurts but when laying flat he has no pain. He denies any nausea, vomiting, chest pain, palpitations, or SOB. He is waiting for surgical team to come see him. A 12 point review of systems is negative except where indicated above. Objective - Vital Signs/Intake and Output Vital Signs (last 24 hours): Temp Pulse Resp BP Pulse Ox 100.9 F H 116 H 18 134/87 99 10/11/16 06:00 10/11/16 06:00 10/11/16 06:00 10/11/16 06:00 10/11/16 06:00 Intake and Output: 10/11/16 10/11/16 06:59 18:59 Intake Total 1000 Output Total 900 Balance 100 - Medications Medications: Current Medications Acetaminophen (Tylenol 650 Mg Supp) 650 mg RC Q4H PRN PRN Reason: Fever >100.4 F Last Admin: 10/11/16 06:47 Dose: 650 mg Calcitonin [place] (Miacalcin) 200 iu NS DAILY [facility] Last Admin: 10/11/16 09:48 Dose: 1 spray Sodium Chloride (Sodium Chloride 0.9%) 1,000 mls @ 100 mls/hr IV .Q10H [facility] Last Admin: 10/11/16 09:50 Dose: 100 mls/hr Piperacillin Sod/Tazobactam Sod (Zosyn 3.375 In Ns 100ml) 100 mls @ 200 mls/hr IVPB Q6 JESSICA PRN Reason: Protocol Stop: 10/17/16 18:01 Last Admin: 10/11/16 11:31 Dose: 200 mls/hr Insulin Human Regular (Humulin R Low) 0 units SC ACHS [facility] Last Admin: 10/11/16 09:48 Dose: Not Given Morphine Sulfate (Morphine) 2 mg IVP Q4H PRN PRN Reason: Pain, moderate (4-7) Last Admin: 10/10/16 05:30 Dose: 2 mg Ondansetron HCl (Zofran Inj) 4 mg IVP Q6H PRN PRN Reason: Nausea/Vomiting Pantoprazole Sodium (Protonix Inj) 40 mg IVP DAILY [facility] Last Admin: 10/11/16 09:49 Dose: 40 mg - Labs Labs: 10/11/16 05:30 10/11/16 05:30 - Constitutional Appears: Non-toxic, No Acute Distress - Head Exam Head Exam: ATRAUMATIC, NORMOCEPHALIC - Eye Exam Eye Exam: EOMI, Normal appearance, PERRL Pupil Exam: NORMAL ACCOMODATION, PERRL - ENT Exam ENT Exam: Mucous Membranes Moist. absent: Normal Oropharynx (poor dentition) - Respiratory Exam Respiratory Exam: Clear to Ausculation Bilateral, NORMAL BREATHING PATTERN. absent: Rales, Rhonchi, Wheezes - Cardiovascular Exam Cardiovascular Exam: REGULAR RHYTHM, +S1, +S2. absent: Gallop, Rubs, Murmur - GI/Abdominal Exam GI & Abdominal Exam: Distended, Rigid, Tenderness - Extremities Exam Extremities Exam: Normal Capillary Refill, Normal Inspection. absent: Pedal Edema, Tenderness - Neurological Exam Neurological Exam: Alert, Awake, CN II-XII Intact, Oriented x3 - Psychiatric Exam Psychiatric exam: Normal Affect, Normal Mood - Skin Skin Exam: Dry, Intact, Warm Assessment and Plan - Assessment and Plan (Free Text) Assessment: 65 y/o [place] M with past medical hx or peptic ulcer disease, hyperparathyroidism, hypertension, hypercalcemia, presents with abdominal pain, nausea, and vomiting. CT of the abdomen showed mild thickening of the gallbladder wall; mild dilatation of the pancreatic duct in the pancreatic head and proximal body; left inguinal hernia. Abdominal US showed gallbladder sludge , mural thickening and trace peripholecystic fluid. MRCP results consistent with acalculous cholecystitits. HIDA scan shows cystic duct occluded.. Surgery and GI consulted. Patient NPO and awaiting cholecystectomy. Plan: 1) Abdominal pain * cholecystitis vs ascending cholangitis vs cholestasis * incarcerated inguinal hernia * CT of the abdomen showed mild thickening of the gallbladder wall; mild dilatation of the pancreatic duct in the pancreatic head and proximal body; left inguinal hernia. [see ull report] * Abdominal US showed gallbladder sludge, mural thickening and trace peripholecystic fluid. [see full report] * EKG showed NSR w/ RBB and LAF block, moderate voltage criteria for LVH * MRCP was performed showing findings consistent with acalculous cholecystitis. * HIDA scan shows cystic duct is occluded * Surgery and GI consulted, help appreciated * patient remains mildly febrile with leukocytosis of 25.8 * LFT's currently WNL * t Bili elevated to 2.2 today * Continue Rocephin and Flagyl * blood cultures negative at this time * continue NPO diet * Zofran for nausea * IVF hydration * scheduled for cholecystectomy today 2) Hypercalcemia * likely secondary to hyperparathyroidism * today at 11.9 * Continue Miacalcin daily 3) Anemia * hgb: 14.7 Hct 44.4 * Iron studies show: Iron 19, TIBC 299, 6% Saturation, Ferritin 65, Folate 11.5 * check stool for occult blood 4) PPX * protonix * anticoagulation held due to possible procedure * SCD's Assessment and plan discussed with attending physician. <Karina Mckenzie - Last Filed: 10/11/16 14:23> Objective - Vital Signs/Intake and Output Vital Signs (last 24 hours): Temp Pulse Resp BP Pulse Ox 99 F 127 H 22 134/80 98 10/11/16 12:16 10/11/16 12:16 10/11/16 12:16 10/11/16 12:16 10/11/16 12:16 Intake and Output: 10/11/16 10/11/16 06:59 18:59 Intake Total 1000 0 Output Total 900 Balance 100 0 - Medications Medications: Current Medications Acetaminophen (Tylenol 650 Mg Supp) 650 mg RC Q4H PRN PRN Reason: Fever >100.4 F Last Admin: 10/11/16 06:47 Dose: 650 mg Calcitonin [place] (Miacalcin) 200 iu NS DAILY [facility] Last Admin: 10/11/16 09:48 Dose: 1 spray Sodium Chloride (Sodium Chloride 0.9%) 1,000 mls @ 100 mls/hr IV .Q10H [facility] Last Admin: 10/11/16 09:50 Dose: 100 mls/hr Piperacillin Sod/Tazobactam Sod (Zosyn 3.375 In Ns 100ml) 100 mls @ 200 mls/hr IVPB Q6 JESSICA PRN Reason: Protocol Stop: 10/17/16 18:01 Last Admin: 10/11/16 11:31 Dose: 200 mls/hr Insulin Human Regular (Humulin R Low) 0 units SC ACHS [facility] Last Admin: 10/11/16 09:48 Dose: Not Given Morphine Sulfate (Morphine) 2 mg IVP Q4H PRN PRN Reason: Pain, moderate (4-7) Last Admin: 10/10/16 05:30 Dose: 2 mg Ondansetron HCl (Zofran Inj) 4 mg IVP Q6H PRN PRN Reason: Nausea/Vomiting Pantoprazole Sodium (Protonix Inj) 40 mg IVP DAILY [facility] Last Admin: 10/11/16 09:49 Dose: 40 mg - Labs Labs: 10/11/16 05:30 10/11/16 05:30 Assessment and Plan - Assessment and Plan (Free Text) Assessment: attending note; Patient seen and examined in room 369. Patient is a 65 y/o [place] Male with history of peptic ulcer disease, hyperparathyroism, hypertension, and hypercalcemia who presented to the ED with complaint of right sided abdominal pain. Abdominal ultrasound showed positive Acosta sign and thickening of the gallbladder wall. HIDA is positive for cystic duct obstruction. NPO. IVF. for laparoscopic cholecystectomy today. Case discussed with surgery in detail. leukocytosis; continue antibiotics. ID evaluation requested. MRCP is negative for any CBD stone. primary hyperparathyroidism with hypercalcemia. Started on nasal calcitonin. monitor closely post surgery. Attending/Attestation - Attestation I have personally seen and examined this patient.: Yes I have fully participated in the care of the patient.: Yes I have reviewed all pertinent clinical information, including history, physical exam and plan: Yes
[2016-10-11] MEDS ORDERED: Propofol 10 mg/ml Inj (20 ML) ONE (12:39)
[2016-10-11] MEDS ORDERED: Rocuronium 10 mg/ml (5 ml) ONE ×2 (12:40→14:20)
[2016-10-11] MEDS ORDERED: Succinylcholine 200 mg/10 ml Inj IV ONE (12:40)
[2016-10-11] MEDS ORDERED: Lidocaine 1% Inj (20ml) ONE (12:40)
[2016-10-11] MEDS ORDERED: Sevoflurane - Inhalation Anesthetic Liq (250 ml) ONE (12:40)
[2016-10-11] MEDS ORDERED: Bupivacaine 0.5% Inj(30mL) ONE (12:43)
[2016-10-11] MEDS ORDERED: Lidocaine 1%/Epinephrine 1:100000 30 ml vial ONE (12:43)
[2016-10-11] MEDS ORDERED: Phenylephrine 10 mg/ml Inj ONE (13:42)
[2016-10-11] MEDS ORDERED: Neostigmine Methylsulfate 3mg/3ml Syringe IV ONE (14:56)
[2016-10-11] MEDS ORDERED: Bupivacaine 0.25% Inj(30mL) ONE (15:42)
--- NOTE | 2016-10-11 16:46 | PCM.SURG1 ---
Surgeon's Initial Post Op Note - Surgeon's Notes Surgeon: Lianne Supervisor [employer]or Recruiters: Kacie PGY2, Pool PGY1 Type of Anesthesia: General Endo, Local Pre-Operative Diagnosis: Acalculous cholecystitis Operative Findings: Acute gangegrenous gallbladder Post-Operative Diagnosis: same Operation Performed: laparoscopic lysis of adhesions and open subtotal cholecystectomy Specimen/Specimens Removed: gallbladder Estimated Blood Loss: EBL {In ML}: 300 Blood Products Given: N/A Drains Used: Nir Post-Op Condition: Fair Date of Surgery/Procedure: 10/11/16 Time of Surgery/Procedure: 16:46
[2016-10-11] MEDS ORDERED: Lactated Ringer's 1,000 ML IV SCH (17:00)
[2016-10-11] MEDS ORDERED: HYDROmorphone 0.5 mg/0.5 ml ISec IVP PRN (17:02)
[2016-10-11] MEDS ORDERED: HYDROmorphone 0.5 mg/0.5 ml ISec ONE (17:17)
--- NOTE | 2016-10-11 23:28 | CP.PCM.CON ---
History of Present Illness - History of Present Illness History of Present Illness: 65 year old male with PMH of hemorrhoids S/P removal, history of intra- abdominal abscess S/P ex-lap and drainage, peptic ulcer disease S/P perforation , S/P umiblical hernia repair, HTN, history of hyperparathyroidism came in to [facility] because of abdominal pain which started about 3-4 days ago, associated with nausea and episodes of vomiting. In the ED, work up revealed that the patient has acute cholecystitis. Today he underwent partial laparoscopic cholecystectomy and lysis of adhesions. Infectious Diseases consult is requested to recommend antibiotics. Currently the patient is afebrile , not in distress, has mild abdominal pain, no nausea, no headache or dizziness , no chest pain, no diarrhea, no dysuria. Review of Systems - Review of Systems All systems: reviewed and no additional remarkable complaints except (as per HPI ) Past Patient History - Infectious Disease Hx of Infectious Diseases: None - Tetanus Immunizations Tetanus Immunization: Unknown - Past Medical History & Family History Past Medical History?: Yes - Past Social History Smoking Status: Never Smoked - CARDIAC Hx Heart Attack: No - PULMONARY Hx Respiratory Disorders: No - NEUROLOGICAL HX Cerebrovascular Accident: No Hx Transient Ischemic Attacks (TIA): No - HEENT Hx HEENT Problems: No (WEARS RX GLASSES) - RENAL Hx Chronic Kidney Disease: No - ENDOCRINE/METABOLIC Hx Endocrine Disorders: Yes Hx Hyperthyroidism: Yes - HEMATOLOGICAL/ONCOLOGICAL Hx Blood Transfusions: No - INTEGUMENTARY Hx Dermatological Problems: Yes (LARGE SCAR MIDLINE.ABDOMINAL SX.) - MUSCULOSKELETAL/RHEUMATOLOGICAL Hx Falls: No Hx Fractures: No - GASTROINTESTINAL Hx Gastrointestinal Disorders: Yes Hx Hemorrhoids: Yes - GENITOURINARY/GYNECOLOGICAL Hx Genitourinary Disorders: No - PSYCHIATRIC Hx Substance Use: No - SURGICAL HISTORY Other/Comment: HEMORRHOIDECTOMY - ANESTHESIA Hx Anesthesia: Yes Hx Anesthesia Reactions: No Hx Malignant Hyperthermia: No Meds Allergies/Adverse Reactions: Allergies Allergy/AdvReac Type Severity Reaction Status Date / Time No Known Allergies Allergy Verified 10/09/16 12:02 - Medications Medications: Current Medications Acetaminophen (Tylenol 650 Mg Supp) 650 mg RC Q4H PRN PRN Reason: Fever >100.4 F Last Admin: 10/10/16 07:39 Dose: 650 mg Calcitonin [place] (Miacalcin) 200 iu NS DAILY [facility] Last Admin: 10/10/16 09:28 Dose: 1 spray Sodium Chloride (Sodium Chloride 0.9%) 1,000 mls @ 100 mls/hr IV .Q10H [facility] Last Admin: 10/10/16 07:39 Dose: 100 mls/hr Piperacillin Sod/Tazobactam Sod (Zosyn 3.375 In Ns 100ml) 100 mls @ 200 mls/hr IVPB Q6 JESSICA PRN Reason: Protocol Stop: 10/17/16 18:01 Insulin Human Regular (Humulin R Low) 0 units SC ACHS [facility] Last Admin: 10/10/16 15:21 Dose: Not Given Morphine Sulfate (Morphine) 2 mg IVP Q4H PRN PRN Reason: Pain, moderate (4-7) Last Admin: 10/10/16 05:30 Dose: 2 mg Ondansetron HCl (Zofran Inj) 4 mg IVP Q6H PRN PRN Reason: Nausea/Vomiting Pantoprazole Sodium (Protonix Inj) 40 mg IVP DAILY [facility] Last Admin: 10/10/16 09:28 Dose: 40 mg Physical Exam - Constitutional Appears: Non-toxic, No Acute Distress - Head Exam Head Exam: NORMAL INSPECTION - Neck Exam Neck exam: Negative for: Lymphadenopathy, Meningismus - Respiratory Exam Respiratory Exam: Decreased Breath Sounds - Cardiovascular Exam Cardiovascular Exam: +S1, +S2 - GI/Abdominal Exam GI & Abdominal Exam: Soft. absent: Tenderness Results - Vital Signs Recent Vital Signs: Last Vital Signs Temp 99.2 F 10/10/16 16:55 Pulse 119 H 10/10/16 16:55 Resp 18 10/10/16 16:55 BP 135/91 H 10/10/16 16:55 Pulse Ox 96 10/10/16 16:55 - Labs Result Diagrams: 10/11/16 05:30 10/11/16 05:30 Labs: Laboratory Results - last 24 hr 10/09/16 10/09/16 10/10/16 17:29 21:12 06:15 WBC 20.2 H D RBC 5.70 Hgb 15.6 Hct 46.5 MCV 81.6 MCH 27.4 MCHC 33.5 RDW 13.2 Plt Count 227 MPV 9.5 Neutrophils % (Manual) 78 H Band Neutrophils % 3 H Lymphocytes % (Manual) 13 L Monocytes % (Manual) 6 Platelet Evaluation Normal Sodium 138 Potassium 4.2 Chloride 105 Carbon Dioxide 23 Anion Gap 14 BUN 12 Creatinine 1.1 Est GFR ( Amer) > 60 Est GFR (Non-Af Amer) > 60 POC Glucose (mg/dL) 104 94 Random Glucose 110 Calcium 11.4 H Iron 19 L TIBC 299 % Saturation 6 L Ferritin 65.0 Total Bilirubin 1.5 H AST 23 ALT 19 Alkaline Phosphatase 90 Total Protein 7.3 Albumin 3.8 Globulin 3.5 Albumin/Globulin Ratio 1.1 Folate 11.5 Blood Type O POSITIVE Antibody Screen Negative BBK History Checked Patient has bt 10/10/16 10/10/16 10/10/16 07:26 11:30 15:50 WBC 26.7 H* D RBC 5.73 Hgb 15.6 Hct 46.1 MCV 80.5 MCH 27.2 MCHC 33.8 RDW 13.1 Plt Count 236 MPV 9.5 Neutrophils % (Manual) Band Neutrophils % Lymphocytes % (Manual) Monocytes % (Manual) Platelet Evaluation Sodium Potassium Chloride Carbon Dioxide Anion Gap BUN Creatinine Est GFR ( Amer) Est GFR (Non-Af Amer) POC Glucose (mg/dL) 107 91 Random Glucose Calcium Iron TIBC % Saturation Ferritin Total Bilirubin AST ALT Alkaline Phosphatase Total Protein Albumin Globulin Albumin/Globulin Ratio Folate Blood Type Antibody Screen BBK History Checked 10/10/16 15:51 WBC RBC Hgb Hct MCV MCH MCHC RDW Plt Count MPV Neutrophils % (Manual) Band Neutrophils % Lymphocytes % (Manual) Monocytes % (Manual) Platelet Evaluation Sodium Potassium Chloride Carbon Dioxide Anion Gap BUN Creatinine Est GFR ( Amer) Est GFR (Non-Af Amer) POC Glucose (mg/dL) 86 Random Glucose Calcium Iron TIBC % Saturation Ferritin Total Bilirubin AST ALT Alkaline Phosphatase Total Protein Albumin Globulin Albumin/Globulin Ratio Folate Blood Type Antibody Screen BBK History Checked Assessment & Plan - Assessment and Plan (Free Text) Plan: Assessment Sepsis secondary to acute cholecystitis S/P partial laparoscopic cholecystectomy and lysis of adhesions today hemorrhoids S/P removal history of intra-abdominal abscess S/P ex-lap and drainage peptic ulcer disease S/P perforation S/P umiblical hernia repair HTN history of hyperparathyroidism Plan Continue Zosyn and will monitor clinically, trend WBC count and fever curve
[2016-10-12] MEDS: Piperacillin/Tazobact 3.375 gm 100 ML IVPB SCH ×5 (05:26→23:18)
[2016-10-12 09:17] LABS: ADD MANUAL DIFF? NO
[2016-10-12 09:21] LABS: BASO # 0.01 K/mm3 (0.0-2.0); BASO % 0.1 % (0.0-3.0); GRAN # 14.09 (1.4-6.5); GRAN % 82.4 % (50.0-68.0); HEMATOCRIT 37.9 % (42.0-52.0); LYMPH # 1.5 (1.2-3.4); LYMPH % 8.5 % (22.0-35.0); MEAN CELL VOLUME 79.8 fL (80.0-105.0); MEAN CORPUSCULAR HEMOGLOBIN 26.1 pg (25.0-35.0); MEAN CORPUSCULAR HGB CONC 32.7 g/dl (31.0-37.0); MEAN PLATELET VOLUME 10.6 fl (7.0-11.0); MONO # 1.5 (0.1-0.6); PLATELET COUNT 230 10^3/uL (120.0-450.0); RED CELL DISTRIBUTION WIDTH 13.2 % (11.5-14.5); WHITE BLOOD COUNT 17.1 10^3/ul (4.5-11.0)
[2016-10-12 09:49] LABS: ALB/GLOB RATIO 0.9 (1.1-1.8); ALKALINE PHOSPHATASE 78 U/L (38-133); ALT/SGPT 51 U/L (7-56); AST/SGOT 103 U/L (15-59); BILIRUBIN,TOTAL 1.6 mg/dL (0.2-1.3); BLOOD UREA NITROGEN 20 mg/dL (7-21); CALCIUM 11.4 mg/dL (8.4-10.5); CARBON DIOXIDE 25 mmol/L (21-33); CHLORIDE 106 mmol/L (98-107); GFR AFRICAN-AMERICAN > 60; GLUCOSE,RANDOM 92 mg/dL (70-110); POTASSIUM 4.3 mmol/L (3.6-5.0); SODIUM 137 mmol/L (132-148); TOTAL PROTEIN 6.3 g/dL (5.8-8.3)
[2016-10-12] MEDS: Calcitonin 200 Int Units/Inh Nasal Spray (3.7 ml) NS SCH (10:08)
[2016-10-12] MEDS: Lactated Ringer's 1,000 ML IV SCH ×2 (10:31→21:27)
--- NOTE | 2016-10-12 10:44 | CP.PCM.PN ---
<GaelKatherine - Last Filed: 10/12/16 10:59> Subjective - Date & Time of Evaluation Date of Evaluation: 10/12/16 Time of Evaluation: 08:45 - Subjective Subjective: Pt seen and evaluated at the bedside. Pt claims that he is "fine," and has c/o R sided abdominal pain s/p day 1 of open cholecystectomy. Objective - Vital Signs/Intake and Output Vital Signs (last 24 hours): Temp Pulse Resp BP Pulse Ox 98.7 F 100 H 17 179/76 H 91 L 10/12/16 07:57 10/12/16 07:57 10/12/16 07:57 10/12/16 07:57 10/12/16 07:57 Intake and Output: 10/12/16 10/12/16 06:59 18:59 Output Total 210 Balance -210 - Medications Medications: Current Medications Acetaminophen (Tylenol 325mg Tab) 650 mg PO Q6H PRN PRN Reason: Fever >100.4 F Calcitonin [place] (Miacalcin) 200 iu NS DAILY [facility] Last Admin: 10/12/16 10:08 Dose: 1 spray Hydromorphone HCl (Dilaudid) 1 mg IVP Q4H PRN PRN Reason: Pain, moderate (4-7) Last Admin: 10/11/16 23:39 Dose: 1 mg Sodium Chloride (Sodium Chloride 0.9%) 1,000 mls @ 100 mls/hr IV .Q10H [facility] Last Admin: 10/11/16 09:50 Dose: 100 mls/hr Piperacillin Sod/Tazobactam Sod (Zosyn 3.375 In Ns 100ml) 100 mls @ 200 mls/hr IVPB Q6 JESSICA PRN Reason: Protocol Stop: 10/17/16 18:01 Last Admin: 10/12/16 08:16 Dose: 200 mls/hr Lactated Ringer's (Lactated Ringer's) 1,000 mls @ 100 mls/hr IV .Q10H [facility] Last Admin: 10/12/16 10:31 Dose: 100 mls/hr Insulin Human Regular (Humulin R Low) 0 units SC ACHS [facility] Last Admin: 10/11/16 18:14 Dose: Not Given Morphine Sulfate (Morphine) 2 mg IVP Q4H PRN PRN Reason: Pain, moderate (4-7) Last Admin: 10/10/16 05:30 Dose: 2 mg Ondansetron HCl (Zofran Inj) 4 mg IVP Q6H PRN PRN Reason: Nausea/Vomiting Pantoprazole Sodium (Protonix Inj) 40 mg IVP DAILY JESSICA Last Admin: 10/12/16 10:08 Dose: 40 mg - Labs Labs: 10/12/16 09:11 10/12/16 09:11 - Constitutional Appears: Non-toxic, No Acute Distress - Head Exam Head Exam: ATRAUMATIC, NORMOCEPHALIC - Eye Exam Eye Exam: EOMI, Normal appearance - Respiratory Exam Respiratory Exam: Clear to Ausculation Bilateral, NORMAL BREATHING PATTERN - Cardiovascular Exam Cardiovascular Exam: +S1, +S2 - GI/Abdominal Exam GI & Abdominal Exam: Tenderness. absent: Guarding Additional comments: ED drain draining slight sanguineous fluid. dressing c/d/i. - Exam External exam: absent: Ecchymosis, Erythema - Extremities Exam Extremities Exam: absent: Joint Swelling, Tenderness - Neurological Exam Neurological Exam: Alert, Awake - Skin Skin Exam: Normal Color, Warm Assessment and Plan - Assessment and Plan (Free Text) Plan: 65 y/o [place] M with past medical hx or peptic ulcer disease, hyperparathyroidism, hypertension, hypercalcemia, is s/p day 1 for open cholecystectomy for acalculous cholecystitis: Plan: 1) Acalculous Cholecystitis * also incarcerated inguinal hernia * CT of the abdomen showed mild thickening of the gallbladder wall; mild dilatation of the pancreatic duct in the pancreatic head and proximal body; left inguinal hernia. [see ull report] * Abdominal US showed gallbladder sludge, mural thickening and trace peripholecystic fluid. [see full report] * EKG showed NSR w/ RBB and LAF block, moderate voltage criteria for LVH * MRCP was performed showing findings w/o CBD stone and consistent with acalculous cholecystitis. * HIDA scan shows cystic duct is occluded * Surgery and GI consulted, help appreciated * patient afebrile overnight with leukocytosis of 25.8 yesterday and 17.1 today * LFT's currently AST 103, ALT 51 * t Bili elevated to 2.2 yesterday, 1.6 today * Continue Rocephin and Flagyl * blood cultures negative at this time * Liquid diet * Zofran for nausea * IVF hydration * open cholecystectomy with gangrenous gallbladder conducted on 10/11/2016 2) Hypercalcemia * likely secondary to hyperparathyroidism * today at 11.4 (11.9 yesterday) * Continue Miacalcin daily 3) Anemia * hgb: 12.4 Hct 37.9 * Iron studies show: Iron 19, TIBC 299, 6% Saturation, Ferritin 65, Folate 11.5 * check stool for occult blood 4) PPX * protonix * pharmacological anticoagulation still held s/p open sx * SCD's <Karina Mckenzie - Last Filed: 10/12/16 13:14> Objective - Vital Signs/Intake and Output Vital Signs (last 24 hours): Temp Pulse Resp BP Pulse Ox 98.7 F 100 H 17 179/76 H 91 L 10/12/16 07:57 10/12/16 07:57 10/12/16 07:57 10/12/16 07:57 10/12/16 07:57 Intake and Output: 10/12/16 10/12/16 06:59 18:59 Output Total 210 Balance -210 - Medications Medications: Current Medications Acetaminophen (Tylenol 325mg Tab) 650 mg PO Q6H PRN PRN Reason: Fever >100.4 F Calcitonin [place] (Miacalcin) 200 iu NS DAILY [facility] Last Admin: 10/12/16 10:08 Dose: 1 spray Docusate Sodium (Colace) 100 mg PO BID [facility] Last Admin: 10/12/16 12:37 Dose: 100 mg Hydromorphone HCl (Dilaudid) 1 mg IVP Q4H PRN PRN Reason: Pain, moderate (4-7) Last Admin: 10/11/16 23:39 Dose: 1 mg Sodium Chloride (Sodium Chloride 0.9%) 1,000 mls @ 100 mls/hr IV .Q10H [facility] Last Admin: 10/11/16 09:50 Dose: 100 mls/hr Piperacillin Sod/Tazobactam Sod (Zosyn 3.375 In Ns 100ml) 100 mls @ 200 mls/hr IVPB Q6 JESSICA PRN Reason: Protocol Stop: 10/17/16 18:01 Last Admin: 10/12/16 12:36 Dose: 200 mls/hr Lactated Ringer's (Lactated Ringer's) 1,000 mls @ 100 mls/hr IV .Q10H [facility] Last Admin: 10/12/16 10:31 Dose: 100 mls/hr Insulin Human Regular (Humulin R Low) 0 units SC ACHS [facility] Last Admin: 10/11/16 18:14 Dose: Not Given Morphine Sulfate (Morphine) 2 mg IVP Q4H PRN PRN Reason: Pain, moderate (4-7) Last Admin: 10/10/16 05:30 Dose: 2 mg Ondansetron HCl (Zofran Inj) 4 mg IVP Q6H PRN PRN Reason: Nausea/Vomiting Pantoprazole Sodium (Protonix Inj) 40 mg IVP DAILY [facility] Last Admin: 10/12/16 10:08 Dose: 40 mg - Labs Labs: 10/12/16 09:11 10/12/16 09:11 Assessment and Plan - Assessment and Plan (Free Text) Assessment: attending note; Patient seen and examined in room 369. Patient is a 65 y/o [place] Male with history of peptic ulcer disease, hyperparathyroism, hypertension, and hypercalcemia who presented to the ED with complaint of right sided abdominal pain. s/p open cholecystectomy for gangrenous gallbladder. Continue postop care per surgery. Leukocytosis is improving. Continue IV Zosyn. ID evaluation appreciated. primary hyperparathyroidism with hypercalcemia. Started on nasal calcitonin. GI/DVT prophylaxis. Attending/Attestation - Attestation I have personally seen and examined this patient.: Yes I have fully participated in the care of the patient.: Yes I have reviewed all pertinent clinical information, including history, physical exam and plan: Yes
--- NOTE | 2016-10-12 11:50 | CP.PCM.PN ---
Subjective - Date & Time of Evaluation Date of Evaluation: 10/12/16 Time of Evaluation: 11:47 - Subjective Subjective: Surgery: Dr. Abdalla Pt seen and examined. No acute overnight events. States he's feeling well. Admits to post-op pain around incision when he moves around but otherwise denies complaints. States he tolerated CLD this morning. Denies N/V, F/C. Objective - Vital Signs/Intake and Output Vital Signs (last 24 hours): Temp Pulse Resp BP Pulse Ox 98.7 F 100 H 17 179/76 H 91 L 10/12/16 07:57 10/12/16 07:57 10/12/16 07:57 10/12/16 07:57 10/12/16 07:57 Intake and Output: 10/12/16 10/12/16 06:59 18:59 Output Total 210 Balance -210 - Medications Medications: Current Medications Acetaminophen (Tylenol 325mg Tab) 650 mg PO Q6H PRN PRN Reason: Fever >100.4 F Calcitonin [place] (Miacalcin) 200 iu NS DAILY [facility] Last Admin: 10/12/16 10:08 Dose: 1 spray Hydromorphone HCl (Dilaudid) 1 mg IVP Q4H PRN PRN Reason: Pain, moderate (4-7) Last Admin: 10/11/16 23:39 Dose: 1 mg Sodium Chloride (Sodium Chloride 0.9%) 1,000 mls @ 100 mls/hr IV .Q10H [facility] Last Admin: 10/11/16 09:50 Dose: 100 mls/hr Piperacillin Sod/Tazobactam Sod (Zosyn 3.375 In Ns 100ml) 100 mls @ 200 mls/hr IVPB Q6 JESSICA PRN Reason: Protocol Stop: 10/17/16 18:01 Last Admin: 10/12/16 08:16 Dose: 200 mls/hr Lactated Ringer's (Lactated Ringer's) 1,000 mls @ 100 mls/hr IV .Q10H [facility] Last Admin: 10/12/16 10:31 Dose: 100 mls/hr Insulin Human Regular (Humulin R Low) 0 units SC ACHS [facility] Last Admin: 10/11/16 18:14 Dose: Not Given Morphine Sulfate (Morphine) 2 mg IVP Q4H PRN PRN Reason: Pain, moderate (4-7) Last Admin: 10/10/16 05:30 Dose: 2 mg Ondansetron HCl (Zofran Inj) 4 mg IVP Q6H PRN PRN Reason: Nausea/Vomiting Pantoprazole Sodium (Protonix Inj) 40 mg IVP DAILY JESSICA Last Admin: 10/12/16 10:08 Dose: 40 mg - Labs Labs: 10/12/16 09:11 10/12/16 09:11 - Constitutional Appears: Well, No Acute Distress - Head Exam Head Exam: ATRAUMATIC, NORMOCEPHALIC - Eye Exam Eye Exam: Normal appearance - ENT Exam ENT Exam: Mucous Membranes Moist - Respiratory Exam Respiratory Exam: NORMAL BREATHING PATTERN - Cardiovascular Exam Cardiovascular Exam: Tachycardia - GI/Abdominal Exam GI & Abdominal Exam: Distended, Soft, Tenderness (around incision site, dressing C/D/I, ON-Q and elke drain in place ). absent: Guarding, Rebound - Extremities Exam Extremities Exam: absent: Tenderness - Neurological Exam Neurological Exam: Alert, Awake, Oriented x3 - Skin Skin Exam: Dry, Intact, Warm Assessment and Plan - Assessment and Plan (Free Text) Assessment: 65M s/p open subtotal cholecystectomy; POD#1 Plan: - WBC trending down; cont IV ABX - Tbili and liver enzymes also trending down; monitor - Will slowly advance diet as tolerated - Encourage out of bed to chair/ambulation - d/w Dr. Lianne Ye, PGY-2 Surgery
--- NOTE | 2016-10-12 14:12 | PN ---
DATE: 10/12/2016 The patient is in bed, seen earlier this morning. The patient is complaining of weakness. He states he is doing better overall. PHYSICAL EXAMINATION: VITAL SIGNS: Temperature is down, this morning, temperature is 98.7, and T-max yesterday was 100.9, heart rate of 103.8, blood pressure is 170/70, respiratory rate of 18. HEENT: Unremarkable. NECK: Supple. LUNGS: Have decreased breath sounds. HEART: Normal S1, S2. ABDOMEN: Soft, nontender. LABORATORY DATA: Reveals the patient's white count is down to 17,000, hemoglobin of 12 and platelets of 230. BUN of 20, creatinine of 1.4. Urinalysis is noted. Blood cultures are negative. Review of the orders reveals the patient to be on Zosyn. Dr. ____ note is reviewed. ASSESSMENT AND PLAN: A 65-year-old male with a history of intra-abdominal abscess, status post explo ratory laparotomy and drainage, status post perforation and umbilical hernia repair, history of hyper parathyroidism, who was admitted with sepsis secondary to acute cholecystitis, partial laparoscopic c holecystectomy, lysis of adhesions, status post removal hemorrhoids and intraabdominal abscess and st atus post laparoscopic with drainage and peptic ulcer disease or perforation, umbilical hernia repair in face of hypertension, hyperparathyroidism on Zosyn. Will continue to follow the WBCs which today is down to 17,000. Will check on the final culture results, which are still pending. Will follow w ith you. Geovani Valladares MD cc: [id number] TT: 10/12/2016 14:11:22 Confirmation # [id number] Dictation # [id number] lauren
--- NOTE | 2016-10-12 23:48 | OP ---
PROCEDURE DATE: 10/11/2016 PREOPERATIVE DIAGNOSES: 1. Acute acalculous cholecystitis. 2. Severe sepsis. 3. Possible gallbladder abscess. 4. Possible postoperative adhesion due to the previous exploratory laparotomy. POSTOPERATIVE DIAGNOSES: 1. Acute phlegmonous gangrenous cholecystitis. 2. Severe sepsis. 3. Extensive postoperative adhesion due to the previous exploratory laparotomy. 4. Pericholecystic fluid collection. PROCEDURE DONE: 1. Laparoscopic extensive lysis of adhesions. 2. Laparoscopy converted to open subtotal cholecystectomy. 3. Drainage of right upper quadrant phlegmonous purulent collection. SURGEON: Poli Abdalla MD CORRECTIONAL SUPERVISOR LIEUTENANT: Piotr Hester and Grabiel Quinn, PGY-1 resident. ANESTHESIA: General endotracheal tube anesthesia. ESTIMATED BLOOD LOSS: Around 300 mL. DRAINS: Large 19-Martiniquais Nir drain was placed. COMPLICATIONS: None. INTRAOPERATIVE FINDINGS: The patient had extensive upper abdominal and right upper quadrant adhesions due to the previous ex-l ap and the patient also had phlegmonous acute on chronic necrotic cholecystitis with gallbladder absc ess as well as pericholecystic and right upper quadrant fluid collection. INTRAOPERATIVE FINDINGS: Due to the extensive nature of the disease, it took approximately 80-90 minutes extra for the routine procedure. INTRAOPERATIVE STEPS: This 65-year-old male who was diagnosed with acalculous cholecystitis and patient was managed initial ly with IV antibiotic and patient did not improve and continue to have sepsis and the patient was con sented for the laparoscopic cholecystectomy, possible open, brought to the OR, placed supine on the o perating table. After induction of the anesthesia, NG and Brooks catheter was placed. The abdomen wa s prepped and draped in usual sterile fashion and a left flank 5 mm incision was made and the periton eal cavity was entered. After creation of pneumoperitoneum, another 5 mm port was placed in the left upper quadrant. Extensive lysis of adhesion was done. After completion of lysis of adhesion, anoth er 12 mm port was placed in supraumbilical region and a 5 mm port was placed in right flank. Now, th e gallbladder phlegmon was dissected and gallbladder was drained. The gallbladder appeared to have n ecrosis of the wall and after drainage of the gallbladder, the pericholecystic collection was also dr ained and extensive lysis of adhesion was done and the gallbladder was retracted cranially. Due to e xtreme inflammation, the procedure was converted to open and gallbladder was taken down from the top down approach up to the infundibulum and hemostasis was achieved. Now, partial cholecystectomy was d one and the cuff of the infundibulum was kept surrounding the Calot's triangle and the rest of the ga llbladder was resected and sent off the table for the pathology and the gallbladder cuff was sutured in 2 layers with 0 silk continuous as well as interrupted sutures. After proper hemostasis, the gall bladder fossa and perihepatic collection was drained and 19-Martiniquais Nir drain was placed and the mel in was secured to the skin. The wound was irrigated and it was closed in 2 layers of the fascia and muscles with #1 looped PDS, skin with stapler. The fourth part of the procedure was On-Q pain cathet er pump placement. Before closure of the fascia, the On-Q pain catheter pump was placed and Marcaine was injected and the dry sterile dressing was applied. The patient tolerated the procedure well. C ount of instruments and gauze was correct. There was no apparent complication. The patient was extu bated in the OR, sent to the postanesthesia care unit in stable condition. Poli Abdalla MD cc: [id number] TT: 10/12/2016 23:47:28 hn
[2016-10-13] MEDS: Piperacillin/Tazobact 3.375 gm 100 ML IVPB SCH ×4 (05:48→23:16)
[2016-10-13 07:18] LABS: ADD MANUAL DIFF? NO
[2016-10-13 07:29] LABS: BASO # 0.01 K/mm3 (0.0-2.0); BASO % 0.1 % (0.0-3.0); EOS # 0.1 (0.0-0.7); EOS % 0.3 % (1.5-5.0); GRAN # 11.65 (1.4-6.5); GRAN % 76.6 % (50.0-68.0); LYMPH # 1.9 (1.2-3.4); LYMPH % 12.6 % (22.0-35.0); MEAN CELL VOLUME 79.1 fL (80.0-105.0); MEAN CORPUSCULAR HEMOGLOBIN 26.3 pg (25.0-35.0); MEAN CORPUSCULAR HGB CONC 33.2 g/dl (31.0-37.0); MEAN PLATELET VOLUME 9.6 fl (7.0-11.0); MONO # 1.6 (0.1-0.6); MONO % 10.4 % (1.0-6.0); PLATELET COUNT 219 10^3/uL (120.0-450.0); RED CELL DISTRIBUTION WIDTH 13.2 % (11.5-14.5); WHITE BLOOD COUNT 15.2 10^3/ul (4.5-11.0)
[2016-10-13 07:34] LABS: ALB/GLOB RATIO 0.8 (1.1-1.8); ALKALINE PHOSPHATASE 67 U/L (38-133); ALT/SGPT 40 U/L (7-56); AST/SGOT 62 U/L (15-59); BILIRUBIN,TOTAL 1.2 mg/dL (0.2-1.3); BLOOD UREA NITROGEN 16 mg/dL (7-21); CALCIUM 11.1 mg/dL (8.4-10.5); CARBON DIOXIDE 26 mmol/L (21-33); CHLORIDE 100 mmol/L (95-110); GFR AFRICAN-AMERICAN > 60; GLUCOSE,RANDOM 101 mg/dL (70-110); POTASSIUM 3.9 mmol/L (3.6-5.0); SODIUM 132 mmol/L (132-148); TOTAL PROTEIN 6.3 g/dL (5.8-8.3)
[2016-10-13] MEDS ORDERED: Vancomycin 1gm in NS 250ml 250 ML IVPB STA (09:07)
[2016-10-13] MEDS: Calcitonin 200 Int Units/Inh Nasal Spray (3.7 ml) NS SCH (09:23)
--- NOTE | 2016-10-13 09:46 | CP.PCM.PN ---
Subjective - Date & Time of Evaluation Date of Evaluation: 10/13/16 Time of Evaluation: 07:43 - Subjective Subjective: General Surgery Progress Note for Dr. Adballa This 65M was seen and examined this AM at bedside. Tmax overnight 100.6 no other acute events. Patient reports pain well controlled with OnQ. He denies flatus or BM. Patient is voiding and sitting up in chair. Dressings clean dry and intact with 10cc in Elke drain. Denies nausea, vomiting, diarrhea, chest pain or SOB. No new complaints at this time. Objective - Vital Signs/Intake and Output Vital Signs (last 24 hours): Temp Pulse Resp BP Pulse Ox 100.6 F H 78 18 132/88 100 10/13/16 08:00 10/13/16 08:00 10/13/16 08:00 10/13/16 08:00 10/13/16 08:00 Intake and Output: 10/13/16 10/13/16 06:59 18:59 Intake Total 0 Output Total 460 Balance -460 - Medications Medications: Current Medications Acetaminophen (Tylenol 325mg Tab) 650 mg PO Q6H PRN PRN Reason: Fever >100.4 F Last Admin: 10/12/16 15:27 Dose: 650 mg Calcitonin [place] (Miacalcin) 200 iu NS DAILY [facility] Last Admin: 10/13/16 09:23 Dose: 1 spray Docusate Sodium (Colace) 100 mg PO BID [facility] Last Admin: 10/13/16 09:23 Dose: 100 mg Heparin Sodium (Porcine) (Heparin) 5,000 units SC Q12 JESSICA PRN Reason: Protocol Last Admin: 10/13/16 09:24 Dose: 5,000 units Hydromorphone HCl (Dilaudid) 1 mg IVP Q4H PRN PRN Reason: Pain, moderate (4-7) Last Admin: 10/12/16 21:19 Dose: 1 mg Sodium Chloride (Sodium Chloride 0.9%) 1,000 mls @ 100 mls/hr IV .Q10H [facility] Last Admin: 10/11/16 09:50 Dose: 100 mls/hr Piperacillin Sod/Tazobactam Sod (Zosyn 3.375 In Ns 100ml) 100 mls @ 200 mls/hr IVPB Q6 JESSICA PRN Reason: Protocol Stop: 10/17/16 18:01 Last Admin: 10/13/16 05:48 Dose: 200 mls/hr Lactated Ringer's (Lactated Ringer's) 1,000 mls @ 100 mls/hr IV .Q10H [facility] Last Admin: 10/12/16 21:27 Dose: 100 mls/hr Vancomycin HCl (Vancomycin 1gm) 250 mls @ 167 mls/hr IVPB STAT STA PRN Reason: Protocol Stop: 10/13/16 10:36 Last Admin: 10/13/16 09:25 Dose: 167 mls/hr Insulin Human Regular (Humulin R Low) 0 units SC ACHS [facility] Last Admin: 10/11/16 18:14 Dose: Not Given Morphine Sulfate (Morphine) 2 mg IVP Q4H PRN PRN Reason: Pain, moderate (4-7) Last Admin: 10/10/16 05:30 Dose: 2 mg Ondansetron HCl (Zofran Inj) 4 mg IVP Q6H PRN PRN Reason: Nausea/Vomiting Pantoprazole Sodium (Protonix Inj) 40 mg IVP DAILY [facility] Last Admin: 10/13/16 09:23 Dose: 40 mg - Labs Labs: 10/13/16 07:16 10/13/16 07:16 - Constitutional Appears: Well, No Acute Distress - Head Exam Head Exam: ATRAUMATIC, NORMOCEPHALIC - Eye Exam Eye Exam: Normal appearance - ENT Exam ENT Exam: Mucous Membranes Moist - Respiratory Exam Respiratory Exam: NORMAL BREATHING PATTERN - Cardiovascular Exam Cardiovascular Exam: Tachycardia - GI/Abdominal Exam GI & Abdominal Exam: Distended, Soft, Tenderness (around incision site, dressing C/D/I, ON-Q and elke drain in place ). absent: Guarding, Rebound - Extremities Exam Extremities Exam: absent: Tenderness - Neurological Exam Neurological Exam: Alert, Awake, Oriented x3 - Skin Skin Exam: Dry, Intact, Warm Assessment and Plan - Assessment and Plan (Free Text) Assessment: 65M s/p open subtotal cholecystectomy; POD#2 Plan: - WBC trending down; cont IV ABX - Tbili WNL, AST trending down - Will slowly advance diet as tolerated - Encourage out of bed to chair/ambulation - d/w Dr. Lianne Gold PGY-1
--- NOTE | 2016-10-13 10:21 | PN ---
DATE: 10/13/2016 SUBJECTIVE: The patient seen earlier this morning in room 369, bed 2. He has still low grade fevers . He is weak. PHYSICAL EXAMINATION: VITAL SIGNS: His temperature is 100.6 and blood pressure is 130/80, respiratory rate of 18, heart ra te of 102. HEENT: Unremarkable. NECK: Supple. LUNGS: Have decreased breath sounds. HEART: Normal S1, S2. ABDOMEN: Soft. He has no rebound or guarding. LABORATORY DATA: Reveals a white count of 15,200, hemoglobin of 11, platelets of 219 and a BUN of 16 , creatinine of 1.1. The patient's calcium is 11. Urinalysis is noted. Culture results reveals Kle bsiella pneumoniae from the anaerobic wound culture is pansensitive, Klebsiella sensitive to ceftriax one, sensitive to Cipro and Bactrim. Resistant only to ampicillin. Review of the orders reveals the patient to be on Zosyn. Operative note from 10/11 reveals a laparoscopic cholecystectomy. The patient's LFTs are also normal this morning with mild elevation of AST of 62. ASSESSMENT AND PLAN: This is a 65-year-old male with intraabdominal abscess, status post laparotomy and drainage, status post perforation umbilical hernia repair, hyperparathyroidism, sepsis. This adm ission admitted with sepsis with acute cholecystitis and a gangrenous gallbladder, status post partia l laparoscopic cholecystectomy, lysis of adhesions, status post removal of hemorrhoids, intra-abdomin al abscess and laparoscopic drainage, improving white count. However, still with fevers, currently o n Zosyn, with sensitive Klebsiella. Will repeat franco cultures and a chest x-ray. Will follow closely with you. Case discussed with PMD. Geovani Valladares MD cc: [id number] TT: 10/13/2016 10:20:29 Confirmation # [id number] Dictation # [id number] david
[2016-10-13 11:28] LABS: PH,URINE 7.5 (4.7-8.0); URINE BILIRUBIN NEGATIVE (NEGATIVE); URINE BLOOD MODERATE (NEGATIVE); URINE GLUCOSE (UA) NEGATIVE (NEGATIVE); URINE KETONE NEGATIVE (NEGATIVE); URINE LEUKOCYTE ESTERASE NEGATIVE Leu/uL (NEGATIVE); URINE PROTEIN TRACE mg/dL (<30 mg/dL); URINE UROBILINOGEN 0.2 E.U./dL (<1 E.U./dL)
[2016-10-13 11:33] LABS: URINE APPEARANCE CLEAR (CLEAR); URINE COLOR YELLOW (YELLOW)
--- NOTE | 2016-10-13 11:43 | RAD ---
PROCEDURE: CHEST RADIOGRAPH, 1 VIEW HISTORY: fever COMPARISON: 10/10/2016. FINDINGS: LUNGS: Clear. PLEURA: No pneumothorax or pleural fluid seen. CARDIOVASCULAR: Cardiomegaly. No evidence of acute, significant cardiovascular disease. OSSEOUS STRUCTURES: No significant abnormalities. VISUALIZED UPPER ABDOMEN: Normal. OTHER FINDINGS: None. IMPRESSION: No active disease. No acute/significant interval changes.
[2016-10-13 11:48] LABS: URINE AMORPHOUS SEDIMENT FEW; URINE BACTERIA FEW (NEG); URINE EPITHELIAL CELLS 0 - 2 /hpf (0-5); URINE RBC 0 - 2 /hpf (0-2); URINE WBC 0 - 2 /hpf (0-6)
--- NOTE | 2016-10-13 13:27 | CP.PCM.PN ---
<Paul Torres - Last Filed: 10/13/16 18:01> Subjective - Date & Time of Evaluation Date of Evaluation: 10/13/16 Time of Evaluation: 07:40 - Subjective Subjective: Patient seen and examined at bedside. S/p open subtotal cholecystectomy day 2. Overnight patient had a fever of 100.6. Patient reports that he has not pass any bowel movement or flatus yet. Patient's pain is well managed with pain medication. Denies of having headache, dizziness, shortness of breath, chest pain, nausea, or vomiting. Objective - Vital Signs/Intake and Output Vital Signs (last 24 hours): Temp Pulse Resp BP Pulse Ox 100.6 F H 78 18 132/88 100 10/13/16 08:00 10/13/16 08:00 10/13/16 08:00 10/13/16 08:00 10/13/16 08:00 Intake and Output: 10/13/16 10/13/16 06:59 18:59 Intake Total 0 Output Total 460 Balance -460 - Medications Medications: Current Medications Acetaminophen (Tylenol 325mg Tab) 650 mg PO Q6H PRN PRN Reason: Fever >100.4 F Last Admin: 10/12/16 15:27 Dose: 650 mg Calcitonin [place] (Miacalcin) 200 iu NS DAILY [facility] Last Admin: 10/13/16 09:23 Dose: 1 spray Docusate Sodium (Colace) 100 mg PO BID [facility] Last Admin: 10/13/16 09:23 Dose: 100 mg Heparin Sodium (Porcine) (Heparin) 5,000 units SC Q12 [facility] PRN Reason: Protocol Last Admin: 10/13/16 09:24 Dose: 5,000 units Hydromorphone HCl (Dilaudid) 1 mg IVP Q4H PRN PRN Reason: Pain, moderate (4-7) Last Admin: 10/12/16 21:19 Dose: 1 mg Sodium Chloride (Sodium Chloride 0.9%) 1,000 mls @ 100 mls/hr IV .Q10H [facility] Last Admin: 10/11/16 09:50 Dose: 100 mls/hr Piperacillin Sod/Tazobactam Sod (Zosyn 3.375 In Ns 100ml) 100 mls @ 200 mls/hr IVPB Q6 [facility] PRN Reason: Protocol Stop: 10/17/16 18:01 Last Admin: 10/13/16 12:58 Dose: 200 mls/hr Lactated Ringer's (Lactated Ringer's) 1,000 mls @ 100 mls/hr IV .Q10H [facility] Last Admin: 10/12/16 21:27 Dose: 100 mls/hr Insulin Human Regular (Humulin R Low) 0 units SC ACHS [facility] Last Admin: 10/11/16 18:14 Dose: Not Given Morphine Sulfate (Morphine) 2 mg IVP Q4H PRN PRN Reason: Pain, moderate (4-7) Last Admin: 10/10/16 05:30 Dose: 2 mg Ondansetron HCl (Zofran Inj) 4 mg IVP Q6H PRN PRN Reason: Nausea/Vomiting Pantoprazole Sodium (Protonix Inj) 40 mg IVP DAILY [facility] Last Admin: 10/13/16 09:23 Dose: 40 mg - Labs Labs: 10/13/16 07:16 10/13/16 07:16 - Constitutional Appears: Non-toxic, No Acute Distress - Head Exam Head Exam: ATRAUMATIC, NORMOCEPHALIC - Eye Exam Eye Exam: Normal appearance, PERRL - ENT Exam ENT Exam: Mucous Membranes Moist - Neck Exam Neck Exam: Normal Inspection - Respiratory Exam Respiratory Exam: Clear to Ausculation Bilateral, NORMAL BREATHING PATTERN. absent: Respiratory Distress - Cardiovascular Exam Cardiovascular Exam: REGULAR RHYTHM, +S1, +S2. absent: Murmur - GI/Abdominal Exam GI & Abdominal Exam: Distended, Soft, Tenderness (at incision site) Additional comments: wound dressing dry, clean, intact. No signs of infection appreciated. - Extremities Exam Extremities Exam: Normal Inspection. absent: Tenderness - Neurological Exam Neurological Exam: Alert, Awake, Oriented x3 - Psychiatric Exam Psychiatric exam: Normal Affect, Normal Mood - Skin Skin Exam: Dry, Intact, Warm Assessment and Plan - Assessment and Plan (Free Text) Assessment: 65 y/o Moroc[place] M with past medical hx or peptic ulcer disease, hyperparathyroidism, hypertension, hypercalcemia, is s/p open cholecystectomy for gangrenous gallbladder day 2 Plan: Gangrenous Cholecystitis s/p open cholecystectomy day 2 * also incarcerated inguinal hernia * CT of the abdomen showed mild thickening of the gallbladder wall; mild dilatation of the pancreatic duct in the pancreatic head and proximal body; left inguinal hernia. [see ull report] * Abdominal US showed gallbladder sludge, mural thickening and trace peripholecystic fluid. [see full report] * EKG showed NSR w/ RBB and LAF block, moderate voltage criteria for LVH * MRCP was performed showing findings w/o CBD stone and consistent with acalculous cholecystitis. * HIDA scan shows cystic duct is occluded * Surgery and GI consulted, help appreciated * patient febrile overnight 100.6 with leukocytosis of 17.1 yesterday and 15.2 today * LFT improving AST 62, ALT 40 * t Bili improved to 1.6 yesterday, 1.2 today * Wound culture positive for Klebsiella, continue zosyn * blood cultures negative at this time * Liquid diet * Zofran for nausea * IVF LR 100ml/hr Hypercalcemia * likely secondary to hyperparathyroidism * today at 11.1 (11.4 yesterday) * Continue Miacalcin daily Anemia * hgb: 12.4 Hct 37.9 * Iron studies show: Iron 19, TIBC 299, 6% Saturation, Ferritin 65, Folate 11.5 * check stool for occult blood PX * protonix * pharmacological anticoagulation still held s/p open sx * SCD's <Karina Mckenzie - Last Filed: 10/14/16 11:32> Objective - Vital Signs/Intake and Output Vital Signs (last 24 hours): Temp Pulse Resp BP Pulse Ox 99.3 F 79 20 132/86 99 10/14/16 08:01 10/14/16 08:01 10/14/16 08:01 10/14/16 08:01 10/14/16 08:01 Intake and Output: 10/14/16 10/14/16 06:59 18:59 Intake Total 2400 Output Total 760 Balance 1640 - Medications Medications: Current Medications Acetaminophen (Tylenol 325mg Tab) 650 mg PO Q6H PRN PRN Reason: Fever >100.4 F Last Admin: 10/13/16 16:33 Dose: 650 mg Calcitonin [place] (Miacalcin) 200 iu NS DAILY [facility] Last Admin: 10/14/16 09:24 Dose: 1 spray Docusate Sodium (Colace) 100 mg PO BID [facility] Last Admin: 10/14/16 09:22 Dose: 100 mg Heparin Sodium (Porcine) (Heparin) 5,000 units SC Q12 [facility] PRN Reason: Protocol Last Admin: 10/14/16 09:22 Dose: 5,000 units Hydromorphone HCl (Dilaudid) 1 mg IVP Q4H PRN PRN Reason: Pain, moderate (4-7) Last Admin: 10/13/16 21:52 Dose: 1 mg Sodium Chloride (Sodium Chloride 0.9%) 1,000 mls @ 100 mls/hr IV .Q10H [facility] Last Admin: 10/11/16 09:50 Dose: 100 mls/hr Piperacillin Sod/Tazobactam Sod (Zosyn 3.375 In Ns 100ml) 100 mls @ 200 mls/hr IVPB Q6 [facility] PRN Reason: Protocol Stop: 10/17/16 18:01 Last Admin: 10/14/16 11:22 Dose: 200 mls/hr Ondansetron HCl (Zofran Inj) 4 mg IVP Q6H PRN PRN Reason: Nausea/Vomiting Last Admin: 10/14/16 11:24 Dose: 4 mg Pantoprazole Sodium (Protonix Inj) 40 mg IVP DAILY [facility] Last Admin: 10/14/16 09:23 Dose: 40 mg - Labs Labs: 10/14/16 07:15 10/14/16 07:15 Assessment and Plan - Assessment and Plan (Free Text) Assessment: attending note; Patient seen and examined in room 369. patient's daughter by the bedside. Patient is a 65 y/o [place]oc[place] Male with history of peptic ulcer disease, hyperparathyroism, hypertension, and hypercalcemia who presented to the ED with complaint of right sided abdominal pain. s/p open cholecystectomy for gangrenous gallbladder. postop day #1. Ordered on clear liquid diet. No BM yet. Continue postop care per surgery. Leukocytosis is improving. Continue IV Zosyn. ID evaluation appreciated. primary hyperparathyroidism with hypercalcemia. Started on nasal calcitonin. GI/DVT prophylaxis. Incentive spirometry. out of bed to chair as tolerated. Attending/Attestation - Attestation I have personally seen and examined this patient.: Yes I have fully participated in the care of the patient.: Yes I have reviewed all pertinent clinical information, including history, physical exam and plan: Yes
[2016-10-13] MEDS: Lactated Ringer's 1,000 ML IV SCH ×2 (16:33→23:16)
[2016-10-14] MEDS: Lactated Ringer's 1,000 ML IV SCH ×2 (05:02→05:03)
[2016-10-14] MEDS: Piperacillin/Tazobact 3.375 gm 100 ML IVPB SCH ×3 (05:02→23:19)
[2016-10-14 08:01] LABS: ADD MANUAL DIFF? NO
[2016-10-14 08:07] LABS: BASO # 0.02 K/mm3 (0.0-2.0); BASO % 0.2 % (0.0-3.0); EOS # 0.2 (0.0-0.7); EOS % 1.4 % (1.5-5.0); GRAN # 9.55 (1.4-6.5); GRAN % 74.6 % (50.0-68.0); LYMPH # 1.8 (1.2-3.4); LYMPH % 13.8 % (22.0-35.0); MEAN CELL VOLUME 78.2 fL (80.0-105.0); MEAN CORPUSCULAR HEMOGLOBIN 26.1 pg (25.0-35.0); MEAN CORPUSCULAR HGB CONC 33.3 g/dl (31.0-37.0); MEAN PLATELET VOLUME 9.6 fl (7.0-11.0); MONO # 1.3 (0.1-0.6); PLATELET COUNT 244 10^3/uL (120.0-450.0); RED CELL DISTRIBUTION WIDTH 13.1 % (11.5-14.5); WHITE BLOOD COUNT 12.8 10^3/ul (4.5-11.0)
[2016-10-14 08:20] LABS: ALB/GLOB RATIO 0.8 (1.1-1.8); ALKALINE PHOSPHATASE 80 U/L (38-133); ALT/SGPT 37 U/L (7-56); AST/SGOT 55 U/L (15-59); BILIRUBIN,TOTAL 1.1 mg/dL (0.2-1.3); BLOOD UREA NITROGEN 13 mg/dL (7-21); CALCIUM 11.7 mg/dL (8.4-10.5); CARBON DIOXIDE 27 mmol/L (21-33); CHLORIDE 103 mmol/L (98-107); GFR AFRICAN-AMERICAN > 60; GLUCOSE,RANDOM 90 mg/dL (70-110); POTASSIUM 3.9 mmol/L (3.6-5.0); SODIUM 136 mmol/L (132-148); TOTAL PROTEIN 6.2 g/dL (5.8-8.3)
[2016-10-14] MEDS: Calcitonin 200 Int Units/Inh Nasal Spray (3.7 ml) NS SCH (09:24)
--- NOTE | 2016-10-14 11:42 | CP.PCM.PN ---
<RichyrobertdedePiotr - Last Filed: 10/14/16 11:38> Subjective - Date & Time of Evaluation Date of Evaluation: 10/14/16 Time of Evaluation: 11:39 - Subjective Subjective: Surgery: Dr. Abdalla Pt seen and examined. Resting comfortably in bed. Pain controlled. Limited appetite. No N/V. Passing flatus, no BM. Fever of 102 yesterday, afebrile this morning. Objective - Vital Signs/Intake and Output Vital Signs (last 24 hours): Temp Pulse Resp BP Pulse Ox 99.3 F 79 20 132/86 99 10/14/16 08:01 10/14/16 08:01 10/14/16 08:01 10/14/16 08:01 10/14/16 08:01 Intake and Output: 10/14/16 10/14/16 06:59 18:59 Intake Total 2400 Output Total 760 Balance 1640 - Medications Medications: Current Medications Acetaminophen (Tylenol 325mg Tab) 650 mg PO Q6H PRN PRN Reason: Fever >100.4 F Last Admin: 10/13/16 16:33 Dose: 650 mg Calcitonin [place] (Miacalcin) 200 iu NS DAILY [facility] Last Admin: 10/14/16 09:24 Dose: 1 spray Docusate Sodium (Colace) 100 mg PO BID [facility] Last Admin: 10/14/16 09:22 Dose: 100 mg Heparin Sodium (Porcine) (Heparin) 5,000 units SC Q12 [facility] PRN Reason: Protocol Last Admin: 10/14/16 09:22 Dose: 5,000 units Hydromorphone HCl (Dilaudid) 1 mg IVP Q4H PRN PRN Reason: Pain, moderate (4-7) Last Admin: 10/13/16 21:52 Dose: 1 mg Sodium Chloride (Sodium Chloride 0.9%) 1,000 mls @ 100 mls/hr IV .Q10H [facility] Last Admin: 10/11/16 09:50 Dose: 100 mls/hr Piperacillin Sod/Tazobactam Sod (Zosyn 3.375 In Ns 100ml) 100 mls @ 200 mls/hr IVPB Q6 [facility] PRN Reason: Protocol Stop: 10/17/16 18:01 Last Admin: 10/14/16 11:22 Dose: 200 mls/hr Ondansetron HCl (Zofran Inj) 4 mg IVP Q6H PRN PRN Reason: Nausea/Vomiting Last Admin: 10/14/16 11:24 Dose: 4 mg Pantoprazole Sodium (Protonix Inj) 40 mg IVP DAILY [facility] Last Admin: 10/14/16 09:23 Dose: 40 mg - Labs Labs: 10/14/16 07:15 10/14/16 07:15 - Constitutional Appears: Non-toxic, No Acute Distress - Head Exam Head Exam: ATRAUMATIC, NORMOCEPHALIC - Eye Exam Eye Exam: EOMI. absent: Scleral icterus - ENT Exam ENT Exam: Mucous Membranes Moist - Respiratory Exam Respiratory Exam: NORMAL BREATHING PATTERN. absent: Accessory Muscle Use, Respiratory Distress - GI/Abdominal Exam GI & Abdominal Exam: Soft. absent: Distended, Firm, Guarding, Rigid, Tenderness Additional comments: Drain in place, serosang drainage, ON-Q ball in place, dressings C/D/I - Extremities Exam Extremities Exam: absent: Calf Tenderness, Pedal Edema - Neurological Exam Neurological Exam: Alert, Awake, Oriented x3 Assessment and Plan - Assessment and Plan (Free Text) Assessment: 65M w. cholecystitis, s/p open pierce, POD#3 -Pain control -monitor bowel fxn, ADAT -c/w abx -drain 45cc/24 hr serosang, continue to monitor -encourage OOB and IS use -c/w PT -GI/DVT prophylaxis -d/w attending Zemaitis PGY2 <Poli Abdalla B - Last Filed: 10/15/16 14:00> Objective - Vital Signs/Intake and Output Vital Signs (last 24 hours): Temp Pulse Resp BP Pulse Ox 98.6 F 81 17 133/81 98 10/15/16 06:00 10/15/16 06:00 10/15/16 06:00 10/15/16 06:00 10/15/16 06:00 Intake and Output: 10/15/16 10/15/16 06:59 18:59 Intake Total 1680 0 Output Total 1120 600 Balance 560 -600 - Medications Medications: Current Medications Acetaminophen (Tylenol 325mg Tab) 650 mg PO Q6H PRN PRN Reason: Fever >100.4 F Last Admin: 10/13/16 16:33 Dose: 650 mg Bisacodyl (Dulcolax) 10 mg RC DAILY [facility] Last Admin: 10/15/16 09:39 Dose: 10 mg Calcitonin [place] (Miacalcin) 200 iu NS DAILY [facility] Last Admin: 10/15/16 09:39 Dose: 1 spray Docusate Sodium (Colace) 100 mg PO BID [facility] Last Admin: 10/15/16 09:39 Dose: 100 mg Heparin Sodium (Porcine) (Heparin) 5,000 units SC Q12 [facility] PRN Reason: Protocol Last Admin: 10/15/16 09:39 Dose: 5,000 units Sodium Chloride (Sodium Chloride 0.9%) 1,000 mls @ 100 mls/hr IV .Q10H [facility] Last Admin: 10/15/16 11:34 Dose: 100 mls/hr Meropenem 1 gm/ Sodium (Chloride) 100 mls @ 100 mls/hr IVPB Q8 [facility] PRN Reason: Protocol Stop: 10/22/16 09:46 Last Admin: 10/15/16 11:33 Dose: 100 mls/hr Ketorolac Tromethamine (Toradol) 15 mg IVP Q6 PRN PRN Reason: Pain, moderate (4-7) Last Admin: 10/15/16 05:24 Dose: 15 mg Metoclopramide HCl (Reglan) 10 mg IVP Q6 [facility] Last Admin: 10/15/16 11:44 Dose: 10 mg Ondansetron HCl (Zofran Inj) 4 mg IVP Q6H PRN PRN Reason: Nausea/Vomiting Last Admin: 10/14/16 11:24 Dose: 4 mg Pantoprazole Sodium (Protonix Inj) 40 mg IVP DAILY [facility] Last Admin: 10/15/16 09:38 Dose: 40 mg - Labs Labs: 10/15/16 09:22 10/15/16 07:15 Attending/Attestation - Attestation I have personally seen and examined this patient.: Yes I have fully participated in the care of the patient.: Yes I have reviewed all pertinent clinical information, including history, physical exam and plan: Yes Notes (Text): 10/15/16 14:00 Pt was seen and examine at bedside on 10/14/16 Agree with above note and assessment. Pt with narcotic induced ileus Stop narcotics Enema OOB to walk Plan d.w pt in detail.
[2016-10-14] MEDS ORDERED: Oxycodone/Acetaminophen 5/325 mg Tab PO PRN (11:45)
--- NOTE | 2016-10-14 14:58 | CP.PCM.PN ---
Subjective - Date & Time of Evaluation Date of Evaluation: 10/14/16 Time of Evaluation: 10:35 - Subjective Subjective: Comfortable in bed, not in distress but still having intermittent nausea. Objective - Vital Signs/Intake and Output Vital Signs (last 24 hours): Temp Pulse Resp BP Pulse Ox 99.3 F 79 20 132/86 99 10/14/16 08:01 10/14/16 08:01 10/14/16 08:01 10/14/16 08:01 10/14/16 08:01 Intake and Output: 10/14/16 10/14/16 06:59 18:59 Intake Total 2400 Output Total 760 Balance 1640 - Medications Medications: Current Medications Acetaminophen (Tylenol 325mg Tab) 650 mg PO Q6H PRN PRN Reason: Fever >100.4 F Last Admin: 10/13/16 16:33 Dose: 650 mg Calcitonin [place] (Miacalcin) 200 iu NS DAILY [facility] Last Admin: 10/14/16 09:24 Dose: 1 spray Docusate Sodium (Colace) 100 mg PO BID [facility] Last Admin: 10/14/16 09:22 Dose: 100 mg Heparin Sodium (Porcine) (Heparin) 5,000 units SC Q12 [facility] PRN Reason: Protocol Last Admin: 10/14/16 09:22 Dose: 5,000 units Hydromorphone HCl (Dilaudid) 1 mg IVP Q4H PRN PRN Reason: Pain, moderate (4-7) Last Admin: 10/13/16 21:52 Dose: 1 mg Sodium Chloride (Sodium Chloride 0.9%) 1,000 mls @ 100 mls/hr IV .Q10H [facility] Last Admin: 10/11/16 09:50 Dose: 100 mls/hr Piperacillin Sod/Tazobactam Sod (Zosyn 3.375 In Ns 100ml) 100 mls @ 200 mls/hr IVPB Q6 [facility] PRN Reason: Protocol Stop: 10/17/16 18:01 Last Admin: 10/14/16 05:02 Dose: 200 mls/hr Ondansetron HCl (Zofran Inj) 4 mg IVP Q6H PRN PRN Reason: Nausea/Vomiting Pantoprazole Sodium (Protonix Inj) 40 mg IVP DAILY [facility] Last Admin: 10/14/16 09:23 Dose: 40 mg - Labs Labs: 10/14/16 07:15 10/14/16 07:15 - Constitutional Appears: Other (Feels nauseated) - ENT Exam ENT Exam: Mucous Membranes Moist - Neck Exam Neck Exam: absent: Lymphadenopathy, Meningismus - Respiratory Exam Respiratory Exam: Decreased Breath Sounds - Cardiovascular Exam Cardiovascular Exam: +S1, +S2 - GI/Abdominal Exam GI & Abdominal Exam: Soft. absent: Tenderness Additional comments: abdominal drain in place, still with serosanguinous discharge Assessment and Plan - Assessment and Plan (Free Text) Plan: Assessment Sepsis secondary to acute gangrenous cholecystitis S/P partial laparoscopic cholecystectomy and lysis of adhesions POD #3; new onset fever yesterday R/O new onset sepsis hemorrhoids S/P removal history of intra-abdominal abscess S/P ex-lap and drainage peptic ulcer disease S/P perforation S/P umiblical hernia repair HTN history of hyperparathyroidism Plan sputum cx growing gram negative bacilli but there is no infiltrate in the CXR; repeat blood cx are negative so far - will follow up final culture results; patient has been given one dose of IV Vancomycin and will continue Zosyn Will monitor clinically and monitor abdominal drain output
--- NOTE | 2016-10-14 15:42 | CP.PCM.PN ---
<Corby Raymond - Last Filed: 10/14/16 15:38> Subjective - Date & Time of Evaluation Date of Evaluation: 10/14/16 Time of Evaluation: 07:35 - Subjective Subjective: Pt seen and examined. Pt reports that he has pain in the right upper quadrant of abdomen. Pt reports that he is passing gas and had a small bowel movement yesterday. Pt reports that he had a fever yesterday. Pt reports that he has an appetite. Pt denies nausea, vomiting, chest pain, shortness of breath. Objective - Vital Signs/Intake and Output Vital Signs (last 24 hours): Temp Pulse Resp BP Pulse Ox 99.3 F 79 20 132/86 99 10/14/16 08:01 10/14/16 08:01 10/14/16 08:01 10/14/16 08:01 10/14/16 08:01 Intake and Output: 10/14/16 10/14/16 06:59 18:59 Intake Total 2400 1200 Output Total 760 Balance 1640 1200 - Medications Medications: Current Medications Acetaminophen (Tylenol 325mg Tab) 650 mg PO Q6H PRN PRN Reason: Fever >100.4 F Last Admin: 10/13/16 16:33 Dose: 650 mg Bisacodyl (Dulcolax) 10 mg RC DAILY [facility] Last Admin: 10/14/16 13:38 Dose: 10 mg Calcitonin [place] (Miacalcin) 200 iu NS DAILY [facility] Last Admin: 10/14/16 09:24 Dose: 1 spray Docusate Sodium (Colace) 100 mg PO BID [facility] Last Admin: 10/14/16 09:22 Dose: 100 mg Heparin Sodium (Porcine) (Heparin) 5,000 units SC Q12 [facility] PRN Reason: Protocol Last Admin: 10/14/16 09:22 Dose: 5,000 units Sodium Chloride (Sodium Chloride 0.9%) 1,000 mls @ 100 mls/hr IV .Q10H [facility] Last Admin: 10/11/16 09:50 Dose: 100 mls/hr Piperacillin Sod/Tazobactam Sod (Zosyn 3.375 In Ns 100ml) 100 mls @ 200 mls/hr IVPB Q6 [facility] PRN Reason: Protocol Stop: 10/17/16 18:01 Last Admin: 10/14/16 11:22 Dose: 200 mls/hr Ketorolac Tromethamine (Toradol) 15 mg IVP Q6 PRN PRN Reason: Pain, moderate (4-7) Last Admin: 10/14/16 13:38 Dose: 15 mg Metoclopramide HCl (Reglan) 10 mg IVP Q6 [facility] Ondansetron HCl (Zofran Inj) 4 mg IVP Q6H PRN PRN Reason: Nausea/Vomiting Last Admin: 10/14/16 11:24 Dose: 4 mg Pantoprazole Sodium (Protonix Inj) 40 mg IVP DAILY [facility] Last Admin: 10/14/16 09:23 Dose: 40 mg - Labs Labs: 10/14/16 07:15 10/14/16 07:15 - Constitutional Appears: No Acute Distress - Head Exam Head Exam: ATRAUMATIC, NORMOCEPHALIC - Eye Exam Eye Exam: EOMI - ENT Exam ENT Exam: Mucous Membranes Moist. absent: Mucous Membranes Dry - Respiratory Exam Respiratory Exam: Clear to Ausculation Bilateral. absent: Rales, Rhonchi, Wheezes - Cardiovascular Exam Cardiovascular Exam: +S1, +S2. absent: Gallop, Rubs - GI/Abdominal Exam GI & Abdominal Exam: Distended, Soft, Tenderness, Normal Bowel Sounds Additional comments: Right lateral abdomen distended and slightly firm; wound dry; drain in place; serosanguinous fluid - Extremities Exam Extremities Exam: Full ROM. absent: Pedal Edema - Neurological Exam Neurological Exam: Alert, Awake, Oriented x3 - Psychiatric Exam Psychiatric exam: Normal Affect, Normal Mood - Skin Skin Exam: Normal Color, Warm Assessment and Plan - Assessment and Plan (Free Text) Assessment: Sepsis: Tmax - 102.0 WBC - 12.8, trending down Wound cultures positive for klebsiella Sputum cultures positive for gram negative rods ID, Dr. Pimentel, consulted. Help appreciated. Tylenol prn for fever > 100.4 Zosyn 3.375 gm IV q6h NS 100 cc/hr Cholecystitis: Day 3 s/p open subtotal cholecystectomy CT of the abdomen showed mild thickening of the gallbladder wall; mild dilatation of the pancreatic duct in the pancreatic head and proximal body; left inguinal hernia (please see full report) Abdominal US showed gallbladder sludge, mural thickening and trace peripholecystic fluid (please see full report) EKG showed NSR w/ RBB and LAF block, moderate voltage criteria for LVH MRCP was performed showing findings w/o CBD stone and consistent with acalculous cholecystitis (please see full report) HIDA scan shows cystic duct is occluded (please see full report) WBC - 12.8 today, trending down T.bili - 1.1 AST/ALT: 55/37 Alk Phos - 80 Wound cultures positive for klebsiella Hypercalcemia: Likely secondary to hyperparathyroidism 11.7 Calcitonin 200 iu NS daily Anemia: H/H: 11.0/33.0 Iron studies show: Iron 19, TIBC 299, 6% Saturation, Ferritin 65, Folate 11.5 Continue to monitor Prophylactic Measures: GI: Protonix 40 mg IV qd DVT: Heparin 5000 units sc q12h Toradol prn for pain Zofran prn for nausea Reglan prn for nausea Dulcolac, colace for constipation <Karina Mckenzie - Last Filed: 10/14/16 16:20> Objective - Vital Signs/Intake and Output Vital Signs (last 24 hours): Temp Pulse Resp BP Pulse Ox 99.3 F 79 20 132/86 99 10/14/16 08:01 10/14/16 08:01 10/14/16 08:01 10/14/16 08:01 10/14/16 08:01 Intake and Output: 10/14/16 10/14/16 06:59 18:59 Intake Total 2400 1200 Output Total 760 Balance 1640 1200 - Medications Medications: Current Medications Acetaminophen (Tylenol 325mg Tab) 650 mg PO Q6H PRN PRN Reason: Fever >100.4 F Last Admin: 10/13/16 16:33 Dose: 650 mg Bisacodyl (Dulcolax) 10 mg RC DAILY [facility] Last Admin: 10/14/16 13:38 Dose: 10 mg Calcitonin [place] (Miacalcin) 200 iu NS DAILY [facility] Last Admin: 10/14/16 09:24 Dose: 1 spray Docusate Sodium (Colace) 100 mg PO BID [facility] Last Admin: 10/14/16 09:22 Dose: 100 mg Heparin Sodium (Porcine) (Heparin) 5,000 units SC Q12 [facility] PRN Reason: Protocol Last Admin: 10/14/16 09:22 Dose: 5,000 units Sodium Chloride (Sodium Chloride 0.9%) 1,000 mls @ 100 mls/hr IV .Q10H [facility] Last Admin: 10/11/16 09:50 Dose: 100 mls/hr Piperacillin Sod/Tazobactam Sod (Zosyn 3.375 In Ns 100ml) 100 mls @ 200 mls/hr IVPB Q6 [facility] PRN Reason: Protocol Stop: 10/17/16 18:01 Last Admin: 10/14/16 11:22 Dose: 200 mls/hr Ketorolac Tromethamine (Toradol) 15 mg IVP Q6 PRN PRN Reason: Pain, moderate (4-7) Last Admin: 10/14/16 13:38 Dose: 15 mg Metoclopramide HCl (Reglan) 10 mg IVP Q6 [facility] Ondansetron HCl (Zofran Inj) 4 mg IVP Q6H PRN PRN Reason: Nausea/Vomiting Last Admin: 10/14/16 11:24 Dose: 4 mg Pantoprazole Sodium (Protonix Inj) 40 mg IVP DAILY [facility] Last Admin: 10/14/16 09:23 Dose: 40 mg - Labs Labs: 10/14/16 07:15 10/14/16 07:15 Assessment and Plan - Assessment and Plan (Free Text) Assessment: attending note; Patient seen and examined in room 369. patient's daughter by the bedside. Patient is a 65 y/o [place]ian Male with history of peptic ulcer disease, hyperparathyroism, hypertension, and hypercalcemia who presented to the ED with complaint of right sided abdominal pain. s/p open cholecystectomy for gangrenous gallbladder. postop day #3. npo. continue IVF. Continue postop care per surgery. Leukocytosis is improving. Continue IV Zosyn. ID evaluation appreciated. blood culture is negative. Urine cultures negative. Abdominal wound Grew Klebsiella. primary hyperparathyroidism with hypercalcemia. Started on nasal calcitonin. GI/DVT prophylaxis. Incentive spirometry. out of bed to chair as tolerated. Attending/Attestation - Attestation I have personally seen and examined this patient.: Yes I have fully participated in the care of the patient.: Yes I have reviewed all pertinent clinical information, including history, physical exam and plan: Yes
[2016-10-14] MEDS: Sodium Chloride 0.9% 1,000 ML IV SCH ×2 (17:15→23:12)
[2016-10-15] MEDS: Piperacillin/Tazobact 3.375 gm 100 ML IVPB SCH ×2 (05:20→20:19)
--- NOTE | 2016-10-15 07:14 | CP.PCM.PN ---
<Kyree Pulido - Last Filed: 10/15/16 07:17> Subjective - Date & Time of Evaluation Date of Evaluation: 10/15/16 Time of Evaluation: 07:11 - Subjective Subjective: SURGERY NOTE FOR DR. ABDALLA 65M seen and examined at bedside. Patient denies pain, denies nausea/vomiting, admits to passing gas but denies bowel movement. Objective - Vital Signs/Intake and Output Vital Signs (last 24 hours): Temp Pulse Resp BP Pulse Ox 98.3 F 72 18 108/66 100 10/15/16 00:00 10/15/16 00:00 10/15/16 00:00 10/15/16 00:00 10/15/16 00:00 Intake and Output: 10/15/16 10/15/16 06:59 18:59 Intake Total 1680 0 Output Total 1120 600 Balance 560 -600 - Medications Medications: Current Medications Acetaminophen (Tylenol 325mg Tab) 650 mg PO Q6H PRN PRN Reason: Fever >100.4 F Last Admin: 10/13/16 16:33 Dose: 650 mg Bisacodyl (Dulcolax) 10 mg RC DAILY [facility] Last Admin: 10/14/16 13:38 Dose: 10 mg Calcitonin [place] (Miacalcin) 200 iu NS DAILY [facility] Last Admin: 10/14/16 09:24 Dose: 1 spray Docusate Sodium (Colace) 100 mg PO BID [facility] Last Admin: 10/14/16 17:21 Dose: 100 mg Heparin Sodium (Porcine) (Heparin) 5,000 units SC Q12 [facility] PRN Reason: Protocol Last Admin: 10/14/16 21:43 Dose: 5,000 units Sodium Chloride (Sodium Chloride 0.9%) 1,000 mls @ 100 mls/hr IV .Q10H [facility] Last Admin: 10/14/16 23:12 Dose: 100 mls/hr Piperacillin Sod/Tazobactam Sod (Zosyn 3.375 In Ns 100ml) 100 mls @ 200 mls/hr IVPB Q6 [facility] PRN Reason: Protocol Stop: 10/17/16 18:01 Last Admin: 10/15/16 05:20 Dose: 200 mls/hr Ketorolac Tromethamine (Toradol) 15 mg IVP Q6 PRN PRN Reason: Pain, moderate (4-7) Last Admin: 10/15/16 05:24 Dose: 15 mg Metoclopramide HCl (Reglan) 10 mg IVP Q6 [facility] Last Admin: 10/15/16 05:20 Dose: 10 mg Ondansetron HCl (Zofran Inj) 4 mg IVP Q6H PRN PRN Reason: Nausea/Vomiting Last Admin: 10/14/16 11:24 Dose: 4 mg Pantoprazole Sodium (Protonix Inj) 40 mg IVP DAILY [facility] Last Admin: 10/14/16 09:23 Dose: 40 mg - Labs Labs: 10/14/16 07:15 10/14/16 07:15 - Constitutional Appears: Well, Non-toxic, No Acute Distress - Head Exam Head Exam: ATRAUMATIC - Respiratory Exam Respiratory Exam: Clear to Ausculation Bilateral, NORMAL BREATHING PATTERN - Cardiovascular Exam Cardiovascular Exam: REGULAR RHYTHM, +S1, +S2 - GI/Abdominal Exam GI & Abdominal Exam: Soft. absent: Distended, Firm, Guarding, Rigid, Tenderness , Rebound Additional comments: drain output serosang, incisions clean dry intact. On-Q ball is out. - Neurological Exam Neurological Exam: Alert, Awake Assessment and Plan - Assessment and Plan (Free Text) Assessment: 65M w. cholecystitis, s/p open pierce, POD#4 -Pain control -monitor bowel movement - diet advanced to liquid -c/w abx -Monitor drain -encourage OOB and IS use -GI/DVT prophylaxis Further recs discuss with Dr. Lianne Pulido, PGY1 <Poli Abdalla B - Last Filed: 10/20/16 17:59> Objective - Vital Signs/Intake and Output Vital Signs (last 24 hours): Temp Pulse Resp BP Pulse Ox 98.4 F 74 20 114/74 100 10/20/16 16:36 10/20/16 16:36 10/20/16 16:36 10/20/16 16:36 10/20/16 16:36 Intake and Output: 10/20/16 10/20/16 06:59 18:59 Intake Total 420 0 Output Total 910 230 Balance -490 -230 - Medications Medications: Current Medications Acetaminophen (Tylenol 325mg Tab) 650 mg PO Q6H PRN PRN Reason: Fever >100.4 F Last Admin: 10/15/16 16:18 Dose: 650 mg Acetaminophen (Tylenol 325mg Tab) 650 mg PO Q6H PRN PRN Reason: Pain, Mild (1-3) Aspirin (Ecotrin) 81 mg PO DAILY [facility] Last Admin: 10/20/16 17:14 Dose: 81 mg Calcitonin [place] (Miacalcin) 200 iu NS DAILY [facility] Last Admin: 10/20/16 09:47 Dose: 1 spray Ferrous Sulfate (Feosol) 324 mg PO TID [facility] Last Admin: 10/20/16 09:46 Dose: 324 mg Heparin Sodium (Porcine) (Heparin) 5,000 units SC Q12 [facility] PRN Reason: Protocol Last Admin: 10/20/16 09:47 Dose: Not Given Meropenem 1 gm/ Sodium (Chloride) 100 mls @ 100 mls/hr IVPB Q8 [facility] PRN Reason: Protocol Stop: 10/22/16 09:46 Last Admin: 10/20/16 14:10 Dose: 100 mls/hr Dextrose/Sodium Chloride (Dextrose 5%/0.45% Ns 1000 Ml) 1,000 mls @ 100 mls/hr IV .Q10H [facility] Last Admin: 10/20/16 09:46 Dose: 100 mls/hr Iron Sucrose 100 mg/ Sodium (Chloride) 105 mls @ 210 mls/hr IVPB DAILY [facility] Last Admin: 10/20/16 11:31 Dose: 210 mls/hr Lactobacillus Acidophilus (Bacid Acidophilus) 1 cap PO BID [facility] Last Admin: 10/20/16 17:14 Dose: 1 cap Oxycodone/Acetaminophen (Percocet 5/325 Mg Tab) 1 tab PO Q4H PRN PRN Reason: Pain, moderate (4-7) Stop: 10/22/16 13:45 Last Admin: 10/20/16 17:12 Dose: 1 tab Pantoprazole Sodium (Protonix Inj) 40 mg IVP DAILY [facility] Last Admin: 10/20/16 09:46 Dose: 40 mg Potassium Phos/Sodium Phos (Neutra-Phos) 1 pkt PO TID [facility] Last Admin: 10/20/16 17:12 Dose: 1 pkt - Labs Labs: 10/20/16 06:20 10/20/16 06:20 Attending/Attestation - Attestation I have personally seen and examined this patient.: Yes I have fully participated in the care of the patient.: Yes I have reviewed all pertinent clinical information, including history, physical exam and plan: Yes Notes (Text): 10/20/16 17:57 Pt was seen and examined at bedside on 10/15/16 Agree with above note and assessment Pt is improving clinically.
[2016-10-15 09:30] LABS: HEMATOCRIT 32.5 % (42.0-52.0); MEAN CELL VOLUME 76.5 fL (80.0-105.0); MEAN CORPUSCULAR HEMOGLOBIN 26.1 pg (25.0-35.0); MEAN CORPUSCULAR HGB CONC 34.2 g/dl (31.0-37.0); MEAN PLATELET VOLUME 10.2 fl (7.0-11.0); RED CELL DISTRIBUTION WIDTH 12.8 % (11.5-14.5); WHITE BLOOD COUNT 13.7 10^3/ul (4.5-11.0)
[2016-10-15] MEDS: Calcitonin 200 Int Units/Inh Nasal Spray (3.7 ml) NS SCH (09:39)
[2016-10-15 09:43] LABS: ALB/GLOB RATIO 0.8 (1.1-1.8); ALKALINE PHOSPHATASE 83 U/L (38-133); ALT/SGPT 34 U/L (7-56); AST/SGOT 52 U/L (15-59); BILIRUBIN,TOTAL 1.1 mg/dL (0.2-1.3); BLOOD UREA NITROGEN 17 mg/dL (7-21); CALCIUM 11.8 mg/dL (8.4-10.5); CARBON DIOXIDE 25 mmol/L (21-33); CHLORIDE 102 mmol/L (95-110); GFR AFRICAN-AMERICAN > 60; GLUCOSE,RANDOM 75 mg/dL (70-110); POTASSIUM 4.1 mmol/L (3.6-5.0); SODIUM 134 mmol/L (132-148); TOTAL PROTEIN 6.3 g/dL (5.8-8.3)
[2016-10-15 10:02] LABS: MAGNESIUM 2.1 mg/dL (1.7-2.2); PHOSPHOROUS 2.4 mg/dL (2.5-4.5)
[2016-10-15] MEDS: Meropenem 1 GM in Sodium Chloride 0.9% 100 ML IVPB SCH ×3 (11:33→21:35)
[2016-10-15] MEDS: Sodium Chloride 0.9% 1,000 ML IV SCH ×2 (11:34→23:49)
--- NOTE | 2016-10-15 16:49 | CP.PCM.PN ---
<Corby Raymond - Last Filed: 10/15/16 16:43> Subjective - Date & Time of Evaluation Date of Evaluation: 10/15/16 Time of Evaluation: 07:26 - Subjective Subjective: Pt seen and examined. Pt reports that his pain has improved. Pt rpeorts that he is passing gas, but has not had a bowel movement yet. Pt denies fever, chills, chest pain, shortness of breath, nausea, vomiting. Objective - Vital Signs/Intake and Output Vital Signs (last 24 hours): Temp Pulse Resp BP Pulse Ox 102.8 F H 81 17 133/81 98 10/15/16 16:18 10/15/16 06:00 10/15/16 06:00 10/15/16 06:00 10/15/16 06:00 Intake and Output: 10/15/16 10/15/16 06:59 18:59 Intake Total 1680 900 Output Total 1120 600 Balance 560 300 - Medications Medications: Current Medications Acetaminophen (Tylenol 325mg Tab) 650 mg PO Q6H PRN PRN Reason: Fever >100.4 F Last Admin: 10/15/16 16:18 Dose: 650 mg Bisacodyl (Dulcolax) 10 mg RC DAILY [facility] Last Admin: 10/15/16 09:39 Dose: 10 mg Calcitonin [place] (Miacalcin) 200 iu NS DAILY [facility] Last Admin: 10/15/16 09:39 Dose: 1 spray Docusate Sodium (Colace) 100 mg PO BID [facility] Last Admin: 10/15/16 09:39 Dose: 100 mg Heparin Sodium (Porcine) (Heparin) 5,000 units SC Q12 [facility] PRN Reason: Protocol Last Admin: 10/15/16 09:39 Dose: 5,000 units Sodium Chloride (Sodium Chloride 0.9%) 1,000 mls @ 100 mls/hr IV .Q10H [facility] Last Admin: 10/15/16 11:34 Dose: 100 mls/hr Meropenem 1 gm/ Sodium (Chloride) 100 mls @ 100 mls/hr IVPB Q8 [facility] PRN Reason: Protocol Stop: 10/22/16 09:46 Last Admin: 10/15/16 13:58 Dose: 100 mls/hr Ketorolac Tromethamine (Toradol) 15 mg IVP Q6 PRN PRN Reason: Pain, moderate (4-7) Last Admin: 10/15/16 05:24 Dose: 15 mg Metoclopramide HCl (Reglan) 10 mg IVP Q6 [facility] Last Admin: 10/15/16 11:44 Dose: 10 mg Ondansetron HCl (Zofran Inj) 4 mg IVP Q6H PRN PRN Reason: Nausea/Vomiting Last Admin: 10/14/16 11:24 Dose: 4 mg Pantoprazole Sodium (Protonix Inj) 40 mg IVP DAILY [facility] Last Admin: 10/15/16 09:38 Dose: 40 mg - Labs Labs: 10/15/16 09:22 10/15/16 07:15 - Constitutional Appears: No Acute Distress - Head Exam Head Exam: ATRAUMATIC, NORMOCEPHALIC - Eye Exam Eye Exam: EOMI, PERRL - ENT Exam ENT Exam: Mucous Membranes Moist. absent: Mucous Membranes Dry - Neck Exam Neck Exam: Full ROM. absent: Lymphadenopathy - Respiratory Exam Respiratory Exam: Clear to Ausculation Bilateral. absent: Rales, Rhonchi, Wheezes - Cardiovascular Exam Cardiovascular Exam: +S1, +S2 - GI/Abdominal Exam GI & Abdominal Exam: Firm, Tenderness, Hypoactive Bowel Sounds Additional comments: Firm kim incisional area, tenderness - Extremities Exam Extremities Exam: absent: Pedal Edema - Neurological Exam Neurological Exam: Alert, Awake, Oriented x3 - Psychiatric Exam Psychiatric exam: Normal Affect, Normal Mood - Skin Skin Exam: Normal Color, Warm Assessment and Plan - Assessment and Plan (Free Text) Assessment: Assessment: Sepsis: Tmax - 102.8 WBC - 13.7, increased from yesterday Wound cultures positive for klebsiella Sputum cultures positive for gram negative rods ID, Dr. Pimentel, consulted. Help appreciated. Tylenol prn for fever > 100.4 Repeat blood cultures, wound cultures, procalcitoni pending NS 100 cc/hr Meropenem 1 gm q8h Cholecystitis: Day 4 s/p open subtotal cholecystectomy CT of the abdomen showed mild thickening of the gallbladder wall; mild dilatation of the pancreatic duct in the pancreatic head and proximal body; left inguinal hernia (please see full report) Abdominal US showed gallbladder sludge, mural thickening and trace peripholecystic fluid (please see full report) EKG showed NSR w/ RBB and LAF block, moderate voltage criteria for LVH MRCP was performed showing findings w/o CBD stone and consistent with acalculous cholecystitis (please see full report) HIDA scan shows cystic duct ws occluded (please see full report) T.bili - 1.1 AST/ALT: 55/37 Alk Phos - 80 Wound cultures positive for klebsiella Repeat Abd/Pelvis CTpending Hypercalcemia: Likely secondary to hyperparathyroidism 11.7 Calcitonin 200 iu NS daily Anemia: H/H: 11.1/32.5 Iron studies show: Iron 19, TIBC 299, 6% Saturation, Ferritin 65, Folate 11.5 Continue to monitor Prophylactic Measures: GI: Protonix 40 mg IV qd DVT: Heparin 5000 units sc q12h Toradol prn for pain Zofran prn for nausea Reglan prn for nausea Dulcolac, colace for constipation <Chandni Bee - Last Filed: 10/15/16 17:30> Objective - Vital Signs/Intake and Output Vital Signs (last 24 hours): Temp Pulse Resp BP Pulse Ox 102.8 F H 81 17 133/81 98 10/15/16 16:18 10/15/16 06:00 10/15/16 06:00 10/15/16 06:00 10/15/16 06:00 Intake and Output: 10/15/16 10/15/16 06:59 18:59 Intake Total 1680 900 Output Total 1120 600 Balance 560 300 - Medications Medications: Current Medications Acetaminophen (Tylenol 325mg Tab) 650 mg PO Q6H PRN PRN Reason: Fever >100.4 F Last Admin: 10/15/16 16:18 Dose: 650 mg Bisacodyl (Dulcolax) 10 mg RC DAILY [facility] Last Admin: 10/15/16 09:39 Dose: 10 mg Calcitonin [place] (Miacalcin) 200 iu NS DAILY [facility] Last Admin: 10/15/16 09:39 Dose: 1 spray Docusate Sodium (Colace) 100 mg PO BID [facility] Last Admin: 10/15/16 09:39 Dose: 100 mg Heparin Sodium (Porcine) (Heparin) 5,000 units SC Q12 [facility] PRN Reason: Protocol Last Admin: 10/15/16 09:39 Dose: 5,000 units Sodium Chloride (Sodium Chloride 0.9%) 1,000 mls @ 100 mls/hr IV .Q10H [facility] Last Admin: 10/15/16 11:34 Dose: 100 mls/hr Meropenem 1 gm/ Sodium (Chloride) 100 mls @ 100 mls/hr IVPB Q8 [facility] PRN Reason: Protocol Stop: 10/22/16 09:46 Last Admin: 10/15/16 13:58 Dose: 100 mls/hr Ketorolac Tromethamine (Toradol) 15 mg IVP Q6 PRN PRN Reason: Pain, moderate (4-7) Last Admin: 10/15/16 05:24 Dose: 15 mg Metoclopramide HCl (Reglan) 10 mg IVP Q6 [facility] Last Admin: 10/15/16 11:44 Dose: 10 mg Ondansetron HCl (Zofran Inj) 4 mg IVP Q6H PRN PRN Reason: Nausea/Vomiting Last Admin: 10/14/16 11:24 Dose: 4 mg Pantoprazole Sodium (Protonix Inj) 40 mg IVP DAILY [facility] Last Admin: 10/15/16 09:38 Dose: 40 mg - Labs Labs: 10/15/16 09:22 10/15/16 07:15 Attending/Attestation - Attestation I have personally seen and examined this patient.: Yes I have fully participated in the care of the patient.: Yes I have reviewed all pertinent clinical information, including history, physical exam and plan: Yes Notes (Text): I have seen and examined patient at bedside with the resident. Patients daughter provided translation. This is 65 year old male with history of PUD, hyperparathyroidism induced hypercalcemia on intranasal calcitonin, HTN , hemorrhoids s/p resection, intra abdominal abscess s/p I&D, umbilical hernia repair who got admitted for evaluation of right sided abdominal pain and found to have acute gangrenous cholecystitis s/p partial laparoscopic cholecystectomy and BASIL. Today is POD #4. Today he had a temp of 102.8. Repeat cultures, CXR, CT abdomen and pelvis ordered. ABx changed to meropenem. Blood culture and urine cultures are negative so far. Procal is 6.3. Abdominal wound culture is growing klebsiella. Serosanguinous fluid noted in the drain. Today he is also complaining of nausea and also feels weak. Discussed with ID and surgery team. Dr Chandni Bee
[2016-10-15] MEDS ORDERED: Iohexol 240 (50 ml) ONE (17:27)
--- NOTE | 2016-10-15 17:44 | RAD ---
HISTORY: cough, fever COMPARISON: 10/13/2016 TECHNIQUE: Chest PA and lateral FINDINGS: LUNGS: Lateral view technically limited. Linear scar/atelectasis at right base. No pulmonary infiltrate. PLEURA: No pleural effusion identified. No pneumothorax. CARDIOVASCULAR: Normal. OSSEOUS STRUCTURES: No significant abnormalities. VISUALIZED UPPER ABDOMEN: Normal. OTHER FINDINGS: None. IMPRESSION: Linear scar/atelectasis at right base. Otherwise unremarkable.
[2016-10-15] MEDS ORDERED: Vancomycin 1gm in NS 250ml 250 ML IVPB STA (18:28)
--- NOTE | 2016-10-15 18:36 | CP.PCM.PN ---
Subjective - Date & Time of Evaluation Date of Evaluation: 10/15/16 Time of Evaluation: 10:40 - Subjective Subjective: Patient is comfortable, no nausea, no fever this morning, no diarrhea. Objective - Vital Signs/Intake and Output Vital Signs (last 24 hours): Temp Pulse Resp BP Pulse Ox 98.6 F 81 17 133/81 98 10/15/16 06:00 10/15/16 06:00 10/15/16 06:00 10/15/16 06:00 10/15/16 06:00 Intake and Output: 10/15/16 10/15/16 06:59 18:59 Intake Total 1680 0 Output Total 1120 600 Balance 560 -600 - Medications Medications: Current Medications Acetaminophen (Tylenol 325mg Tab) 650 mg PO Q6H PRN PRN Reason: Fever >100.4 F Last Admin: 10/13/16 16:33 Dose: 650 mg Bisacodyl (Dulcolax) 10 mg RC DAILY [facility] Last Admin: 10/14/16 13:38 Dose: 10 mg Calcitonin [place] (Miacalcin) 200 iu NS DAILY [facility] Last Admin: 10/14/16 09:24 Dose: 1 spray Docusate Sodium (Colace) 100 mg PO BID [facility] Last Admin: 10/14/16 17:21 Dose: 100 mg Heparin Sodium (Porcine) (Heparin) 5,000 units SC Q12 [facility] PRN Reason: Protocol Last Admin: 10/14/16 21:43 Dose: 5,000 units Sodium Chloride (Sodium Chloride 0.9%) 1,000 mls @ 100 mls/hr IV .Q10H [facility] Last Admin: 10/14/16 23:12 Dose: 100 mls/hr Meropenem 1 gm/ Sodium (Chloride) 100 mls @ 100 mls/hr IVPB Q8 [facility] PRN Reason: Protocol Stop: 10/22/16 09:46 Ketorolac Tromethamine (Toradol) 15 mg IVP Q6 PRN PRN Reason: Pain, moderate (4-7) Last Admin: 10/15/16 05:24 Dose: 15 mg Metoclopramide HCl (Reglan) 10 mg IVP Q6 [facility] Last Admin: 10/15/16 05:20 Dose: 10 mg Ondansetron HCl (Zofran Inj) 4 mg IVP Q6H PRN PRN Reason: Nausea/Vomiting Last Admin: 10/14/16 11:24 Dose: 4 mg Pantoprazole Sodium (Protonix Inj) 40 mg IVP DAILY [facility] Last Admin: 10/14/16 09:23 Dose: 40 mg - Labs Labs: 10/14/16 07:15 10/14/16 07:15 - Constitutional Appears: Non-toxic, No Acute Distress - Head Exam Head Exam: NORMAL INSPECTION - ENT Exam ENT Exam: Mucous Membranes Moist - Neck Exam Neck Exam: absent: Lymphadenopathy, Meningismus - Respiratory Exam Respiratory Exam: Decreased Breath Sounds - Cardiovascular Exam Cardiovascular Exam: +S1, +S2 - GI/Abdominal Exam GI & Abdominal Exam: Soft. absent: Tenderness Additional comments: abdominal drain with serosanguinous drainage Assessment and Plan - Assessment and Plan (Free Text) Plan: Assessment Sepsis secondary to acute gangrenous cholecystitis S/P partial laparoscopic cholecystectomy and lysis of adhesions POD #4; new onset fever again today hemorrhoids S/P removal history of intra-abdominal abscess S/P ex-lap and drainage peptic ulcer disease S/P perforation S/P umiblical hernia repair HTN history of hyperparathyroidism Plan give one dose of IV Vancomycin and changed antibiotics to Merrem pending repeat septic work up; recommend repeat CT abdomen and pelvis - discussed with Dr. Bee Will follow clinically
[2016-10-15] MEDS ORDERED: Iohexol 350 MG/100 ML VIAL ONE (20:24)
[2016-10-16] MEDS: Meropenem 1 GM in Sodium Chloride 0.9% 100 ML IVPB SCH ×3 (06:54→21:45)
[2016-10-16 07:20] LABS: ADD MANUAL DIFF? NO
[2016-10-16 07:28] LABS: BASO # 0.04 K/mm3 (0.0-2.0); BASO % 0.2 % (0.0-3.0); EOS # 0.2 (0.0-0.7); EOS % 1.1 % (1.5-5.0); GRAN # 14.66 (1.4-6.5); GRAN % 78.3 % (50.0-68.0); HEMATOCRIT 32.4 % (42.0-52.0); LYMPH # 2.2 (1.2-3.4); LYMPH % 11.8 % (22.0-35.0); MEAN CELL VOLUME 77.1 fL (80.0-105.0); MEAN CORPUSCULAR HEMOGLOBIN 26.2 pg (25.0-35.0); MONO # 1.6 (0.1-0.6); MONO % 8.6 % (1.0-6.0); PLATELET COUNT 411 10^3/uL (120.0-450.0); RED CELL DISTRIBUTION WIDTH 12.9 % (11.5-14.5); WHITE BLOOD COUNT 18.7 10^3/ul (4.5-11.0)
[2016-10-16 07:46] LABS: ALB/GLOB RATIO 0.8 (1.1-1.8); ALKALINE PHOSPHATASE 88 U/L (38-133); ALT/SGPT 29 U/L (7-56); AST/SGOT 57 U/L (15-59); BILIRUBIN,TOTAL 0.7 mg/dL (0.2-1.3); BLOOD UREA NITROGEN 13 mg/dL (7-21); CALCIUM 11.5 mg/dL (8.4-10.5); CARBON DIOXIDE 26 mmol/L (21-33); CHLORIDE 103 mmol/L (95-110); GFR AFRICAN-AMERICAN > 60; GLUCOSE,RANDOM 92 mg/dL (70-110); MAGNESIUM 2.1 mg/dL (1.7-2.2); PHOSPHOROUS 2.2 mg/dL (2.5-4.5); POTASSIUM 3.9 mmol/L (3.6-5.0); SODIUM 135 mmol/L (132-148); TOTAL PROTEIN 6.4 g/dL (5.8-8.3)
--- NOTE | 2016-10-16 07:59 | CP.PCM.PN ---
<Marianela Cortes - Last Filed: 10/16/16 08:33> Subjective - Date & Time of Evaluation Date of Evaluation: 10/16/16 Time of Evaluation: 06:45 - Subjective Subjective: General Surgery Dr. Abdalla Pt S&E @bedside. febrile overnight Tmax 102.8. denies N/V. reports kim- incisional RUQ pain. (+)BM/Flatus. tolerating diet. Nir 25cc serosang w/ bile x24hrs Objective - Vital Signs/Intake and Output Vital Signs (last 24 hours): Temp Pulse Resp BP Pulse Ox 98.4 F 81 17 133/81 98 10/15/16 18:35 10/15/16 06:00 10/15/16 06:00 10/15/16 06:00 10/15/16 06:00 Intake and Output: 10/16/16 10/16/16 06:59 18:59 Intake Total 120 1450 Output Total 700 20 Balance -580 1430 - Medications Medications: Current Medications Acetaminophen (Tylenol 325mg Tab) 650 mg PO Q6H PRN PRN Reason: Fever >100.4 F Last Admin: 10/15/16 16:18 Dose: 650 mg Bisacodyl (Dulcolax) 10 mg RC DAILY [facility] Last Admin: 10/15/16 09:39 Dose: 10 mg Calcitonin [place] (Miacalcin) 200 iu NS DAILY [facility] Last Admin: 10/15/16 09:39 Dose: 1 spray Docusate Sodium (Colace) 100 mg PO BID [facility] Last Admin: 10/15/16 18:14 Dose: Not Given Heparin Sodium (Porcine) (Heparin) 5,000 units SC Q12 [facility] PRN Reason: Protocol Last Admin: 10/15/16 21:36 Dose: 5,000 units Sodium Chloride (Sodium Chloride 0.9%) 1,000 mls @ 100 mls/hr IV .Q10H [facility] Last Admin: 10/15/16 23:49 Dose: 100 mls/hr Meropenem 1 gm/ Sodium (Chloride) 100 mls @ 100 mls/hr IVPB Q8 [facility] PRN Reason: Protocol Stop: 10/22/16 09:46 Last Admin: 10/16/16 06:54 Dose: 100 mls/hr Ketorolac Tromethamine (Toradol) 15 mg IVP Q6 PRN PRN Reason: Pain, moderate (4-7) Last Admin: 10/15/16 05:24 Dose: 15 mg Metoclopramide HCl (Reglan) 10 mg IVP Q6 [facility] Last Admin: 10/16/16 06:54 Dose: 10 mg Ondansetron HCl (Zofran Inj) 4 mg IVP Q6H PRN PRN Reason: Nausea/Vomiting Last Admin: 10/14/16 11:24 Dose: 4 mg Pantoprazole Sodium (Protonix Inj) 40 mg IVP DAILY [facility] Last Admin: 10/15/16 09:38 Dose: 40 mg - Labs Labs: 10/16/16 07:10 10/16/16 07:10 Laboratory Tests 10/15/16 10/16/16 17:00 07:10 Calcium 11.5 H Phosphorus 2.2 L Magnesium 2.1 Total Bilirubin 0.7 AST 57 ALT 29 Alkaline Phosphatase 88 Total Protein 6.4 Albumin 2.9 L Procalcitonin 2.49 H Microbiology 10/13/16 16:50 Sputum Gram Stain - Final 10/13/16 16:50 Sputum Sputum Culture - Final Klebsiella Pneumoniae Ssp Pneu 10/13/16 11:19 Urine Urine Culture - Final No Growth (<1,000 CFU/ML) 10/13/16 14:14 Blood Blood Culture - Preliminary 10/13/16 14:14 Blood NO GROWTH AFTER 48 HOURS 10/13/16 14:14 Blood Blood Culture - Preliminary 10/13/16 14:14 Blood NO GROWTH AFTER 48 HOURS - Constitutional Appears: Non-toxic, No Acute Distress - Head Exam Head Exam: NORMAL INSPECTION - Eye Exam Eye Exam: Normal appearance - ENT Exam ENT Exam: Mucous Membranes Moist - Respiratory Exam Respiratory Exam: NORMAL BREATHING PATTERN. absent: Accessory Muscle Use, Respiratory Distress - GI/Abdominal Exam GI & Abdominal Exam: Distended (minimal), Soft, Tenderness (minimal TTP kim- incisional). absent: Guarding, Rigid, Rebound Additional comments: incisions c/d/i, well approximated dressing w/ serosang staining - changed nir drain present - Neurological Exam Neurological Exam: Alert, Awake, Oriented x3 - Psychiatric Exam Psychiatric exam: Normal Affect, Normal Mood - Skin Skin Exam: Dry, Intact, Normal Color, Warm Assessment and Plan - Assessment and Plan (Free Text) Assessment: 65 y/o M w/ cholecystitis, POD#5 s/p lap, converted to open, subtotal cholecystectomy - GI consult for possible bile leak - Pain management - liquid diet - cont abx per ID - Monitor drain output - monitor bowel fxn - encourage OOB to chair/Amb/IS use - GI/DVT PPX Pt discussed w/ Dr. Lianne Cortes DO PGY1 <Poli Abdalla - Last Filed: 10/20/16 18:13> Objective - Vital Signs/Intake and Output Vital Signs (last 24 hours): Temp Pulse Resp BP Pulse Ox 98.4 F 74 20 114/74 100 10/20/16 16:36 10/20/16 16:36 10/20/16 16:36 10/20/16 16:36 10/20/16 16:36 Intake and Output: 10/20/16 10/20/16 06:59 18:59 Intake Total 420 0 Output Total 910 230 Balance -490 -230 - Medications Medications: Current Medications Acetaminophen (Tylenol 325mg Tab) 650 mg PO Q6H PRN PRN Reason: Fever >100.4 F Last Admin: 10/15/16 16:18 Dose: 650 mg Acetaminophen (Tylenol 325mg Tab) 650 mg PO Q6H PRN PRN Reason: Pain, Mild (1-3) Aspirin (Ecotrin) 81 mg PO DAILY [facility] Last Admin: 10/20/16 17:14 Dose: 81 mg Calcitonin [place] (Miacalcin) 200 iu NS DAILY [facility] Last Admin: 10/20/16 09:47 Dose: 1 spray Ferrous Sulfate (Feosol) 324 mg PO TID [facility] Last Admin: 10/20/16 09:46 Dose: 324 mg Heparin Sodium (Porcine) (Heparin) 5,000 units SC Q12 [facility] PRN Reason: Protocol Last Admin: 10/20/16 09:47 Dose: Not Given Meropenem 1 gm/ Sodium (Chloride) 100 mls @ 100 mls/hr IVPB Q8 [facility] PRN Reason: Protocol Stop: 10/22/16 09:46 Last Admin: 10/20/16 14:10 Dose: 100 mls/hr Dextrose/Sodium Chloride (Dextrose 5%/0.45% Ns 1000 Ml) 1,000 mls @ 100 mls/hr IV .Q10H [facility] Last Admin: 03/19/17 09:46 Dose: 100 mls/hr Iron Sucrose 100 mg/ Sodium (Chloride) 105 mls @ 210 mls/hr IVPB DAILY [facility] Last Admin: 10/20/16 11:31 Dose: 210 mls/hr Lactobacillus Acidophilus (Bacid Acidophilus) 1 cap PO BID [facility] Last Admin: 10/20/16 17:14 Dose: 1 cap Oxycodone/Acetaminophen (Percocet 5/325 Mg Tab) 1 tab PO Q4H PRN PRN Reason: Pain, moderate (4-7) Stop: 10/22/16 13:45 Last Admin: 10/20/16 17:12 Dose: 1 tab Pantoprazole Sodium (Protonix Inj) 40 mg IVP DAILY [facility] Last Admin: 10/20/16 09:46 Dose: 40 mg Potassium Phos/Sodium Phos (Neutra-Phos) 1 pkt PO TID [facility] Last Admin: 10/20/16 17:12 Dose: 1 pkt - Labs Labs: 10/20/16 06:20 10/20/16 06:20 Attending/Attestation - Attestation I have personally seen and examined this patient.: Yes I have fully participated in the care of the patient.: Yes I have reviewed all pertinent clinical information, including history, physical exam and plan: Yes Notes (Text): 10/20/16 18:13 Pt was seen and examined at bedside on 10/16/16 Agree with above note and assessment
[2016-10-16] MEDS: Calcitonin 200 Int Units/Inh Nasal Spray (3.7 ml) NS SCH (09:17)
[2016-10-16] MEDS ORDERED: Sodium Phosphate 15 MMOLE in Dextrose 5% In Water 250 ML IVPB ONE (09:28)
[2016-10-16] MEDS: Potassium & Sodium Phosphate PO SCH ×3 (10:23→17:14)
[2016-10-16] MEDS: Sodium Chloride 0.9% 1,000 ML IV SCH ×2 (11:59→17:43)
--- NOTE | 2016-10-16 12:09 | CP.PCM.PN ---
Subjective - Date & Time of Evaluation Date of Evaluation: 10/16/16 Time of Evaluation: 07:05 - Subjective Subjective: Pt seen and examined. Pt reports that he experiences right upper quadrant pain Objective - Vital Signs/Intake and Output Vital Signs (last 24 hours): Temp Pulse Resp BP Pulse Ox 98.6 F 89 17 121/70 99 10/16/16 08:03 10/16/16 08:03 10/16/16 08:03 10/16/16 08:03 10/16/16 08:03 Intake and Output: 10/16/16 10/16/16 06:59 18:59 Intake Total 120 1450 Output Total 700 20 Balance -580 1430 - Medications Medications: Current Medications Acetaminophen (Tylenol 325mg Tab) 650 mg PO Q6H PRN PRN Reason: Fever >100.4 F Last Admin: 10/15/16 16:18 Dose: 650 mg Bisacodyl (Dulcolax) 10 mg RC DAILY [facility] Last Admin: 10/16/16 12:01 Dose: Not Given Calcitonin [place] (Miacalcin) 200 iu NS DAILY [facility] Last Admin: 10/16/16 09:17 Dose: 1 spray Docusate Sodium (Colace) 100 mg PO BID [facility] Last Admin: 10/16/16 09:17 Dose: 100 mg Heparin Sodium (Porcine) (Heparin) 5,000 units SC Q12 JESSICA PRN Reason: Protocol Last Admin: 10/16/16 09:17 Dose: 5,000 units Sodium Chloride (Sodium Chloride 0.9%) 1,000 mls @ 100 mls/hr IV .Q10H [facility] Last Admin: 10/16/16 11:59 Dose: Not Given Meropenem 1 gm/ Sodium (Chloride) 100 mls @ 100 mls/hr IVPB Q8 JESSICA PRN Reason: Protocol Stop: 10/22/16 09:46 Last Admin: 10/16/16 06:54 Dose: 100 mls/hr Sodium Phosphate 15 mmole/ (Dextrose) 255 mls @ 42.5 mls/hr IVPB ONCE ONE Stop: 10/16/16 15:27 Last Admin: 10/16/16 10:18 Dose: 42.5 mls/hr Ketorolac Tromethamine (Toradol) 15 mg IVP Q6 PRN PRN Reason: Pain, moderate (4-7) Last Admin: 10/15/16 05:24 Dose: 15 mg Metoclopramide HCl (Reglan) 10 mg IVP Q6 JESSICA Last Admin: 10/16/16 11:23 Dose: 10 mg Ondansetron HCl (Zofran Inj) 4 mg IVP Q6H PRN PRN Reason: Nausea/Vomiting Last Admin: 10/14/16 11:24 Dose: 4 mg Pantoprazole Sodium (Protonix Inj) 40 mg IVP DAILY [facility] Last Admin: 10/16/16 09:17 Dose: 40 mg Potassium Phos/Sodium Phos (Neutra-Phos) 1 pkt PO TID [facility] Last Admin: 10/16/16 10:23 Dose: 1 pkt - Labs Labs: 10/16/16 07:10 10/16/16 07:10
--- NOTE | 2016-10-16 12:23 | CT ---
PROCEDURE: CT Abdomen and Pelvis with contrast HISTORY: s/p open pierce, r/o collection, fevers COMPARISON: 10/09/2016 TECHNIQUE: Contrast dose: 100 cc of Omni 350 Radiation dose: Total exam DLP = 364 mGy-cm. FINDINGS: LOWER THORAX: There is some linear atelectasis at the right lung base. LIVER: Unremarkable. No gross lesion or ductal dilatation. GALLBLADDER AND BILE DUCTS: There has been recent cholecystectomy. There is some residual fluid and air in the gallbladder fossa and a small fluid collection adjacent to the anterior surface of the liver. A surgical drain remains in place. There is some edema in the right-sided abdominal wall musculature. PANCREAS: Unremarkable. No gross lesion or ductal dilatation. SPLEEN: Unremarkable. ADRENALS: Unremarkable. No mass. KIDNEYS AND URETERS: Unremarkable. No hydronephrosis. No solid mass. VASCULATURE: Unremarkable. No aortic aneurysm. BOWEL: Unremarkable. No obstruction. No gross mural thickening. There is a fat containing left inguinal hernia. APPENDIX: Normal appendix. PERITONEUM: Unremarkable. No free fluid. No free air. LYMPH NODES: Unremarkable. No enlarged lymph nodes. BLADDER: Unremarkable. REPRODUCTIVE: Unremarkable. BONES: No acute fracture. OTHER FINDINGS: The report concurs with the preliminary [facility] report IMPRESSION: Postoperative changes from recent cholecystectomy. No evidence of drainable collection
--- NOTE | 2016-10-16 13:37 | NM ---
PROCEDURE: Nuclear Medicine Hepatobiliary Scan HISTORY: r/o bile leak, RUQ pain COMPARISON: October 15, 2016. CT abdomen and pelvis. TECHNIQUE: mCi of technetium 99m Mebrofenin was administered intravenously. Planar images of the abdomen were obtained at 5 min intervals to 60 mins. Delayed images were also obtained. FINDINGS: LIVER: Timely and homogenous uptake. COMMON BILE DUCT: identified at 8 mins. GALLBLADDER: Status post cholecystectomy. There is no evidence of bile leak on the present study. SMALL BOWEL: Identified at 10 mins. IMPRESSION: Expected visualization of liver, common bile duct and small bowel. Status post cholecystectomy without scintigraphic evidence of bile leak.
--- NOTE | 2016-10-16 15:36 | CP.PCM.PN ---
<VenitaandrewstivenRichard - Last Filed: 10/16/16 15:36> Subjective - Date & Time of Evaluation Date of Evaluation: 10/16/16 Time of Evaluation: 15:34 - Subjective Subjective: PGY4 GI Fellow Progress Note Patient seen and examined bedside this afternoon. The patient's daughter and are at bedside. We were re-consulted by surgery team with concern for bile leak in setting of ongoing RUQ pain and bilious drainage noted in ED drain. He does admit to persistent RUQ abdominal pain but currently is more comfortable than earlier. He has just returned from HIDA. Passing BM/urine without issue. 12 system ROS performed and negative except where stated. Objective - Vital Signs/Intake and Output Vital Signs (last 24 hours): Temp Pulse Resp BP Pulse Ox 98.6 F 89 17 121/70 99 10/16/16 08:03 10/16/16 08:03 10/16/16 08:03 10/16/16 08:03 10/16/16 08:03 Intake and Output: 10/16/16 10/16/16 06:59 18:59 Intake Total 120 2430 Output Total 700 20 Balance -580 2410 - Medications Medications: Current Medications Acetaminophen (Tylenol 325mg Tab) 650 mg PO Q6H PRN PRN Reason: Fever >100.4 F Last Admin: 10/15/16 16:18 Dose: 650 mg Bisacodyl (Dulcolax) 10 mg RC DAILY [facility] Last Admin: 10/16/16 12:01 Dose: Not Given Calcitonin [place] (Miacalcin) 200 iu NS DAILY [facility] Last Admin: 10/16/16 09:17 Dose: 1 spray Docusate Sodium (Colace) 100 mg PO BID [facility] Last Admin: 10/16/16 09:17 Dose: 100 mg Heparin Sodium (Porcine) (Heparin) 5,000 units SC Q12 JESSICA PRN Reason: Protocol Last Admin: 10/16/16 09:17 Dose: 5,000 units Sodium Chloride (Sodium Chloride 0.9%) 1,000 mls @ 100 mls/hr IV .Q10H [facility] Last Admin: 10/16/16 11:59 Dose: Not Given Meropenem 1 gm/ Sodium (Chloride) 100 mls @ 100 mls/hr IVPB Q8 JESSICA PRN Reason: Protocol Stop: 10/22/16 09:46 Last Admin: 10/16/16 13:22 Dose: 100 mls/hr Ketorolac Tromethamine (Toradol) 15 mg IVP Q6 PRN PRN Reason: Pain, moderate (4-7) Last Admin: 10/15/16 05:24 Dose: 15 mg Metoclopramide HCl (Reglan) 10 mg IVP Q6 [facility] Last Admin: 10/16/16 11:23 Dose: 10 mg Ondansetron HCl (Zofran Inj) 4 mg IVP Q6H PRN PRN Reason: Nausea/Vomiting Last Admin: 10/14/16 11:24 Dose: 4 mg Pantoprazole Sodium (Protonix Inj) 40 mg IVP DAILY [facility] Last Admin: 10/16/16 09:17 Dose: 40 mg Potassium Phos/Sodium Phos (Neutra-Phos) 1 pkt PO TID [facility] Last Admin: 10/16/16 13:22 Dose: 1 pkt - Labs Labs: 10/16/16 07:10 10/16/16 07:10 - Constitutional Appears: Non-toxic, No Acute Distress - Eye Exam Eye Exam: EOMI, PERRL - ENT Exam ENT Exam: Mucous Membranes Moist - Respiratory Exam Respiratory Exam: Clear to Ausculation Bilateral. absent: Rales, Rhonchi, Wheezes - Cardiovascular Exam Cardiovascular Exam: RRR, +S1, +S2 - GI/Abdominal Exam GI & Abdominal Exam: Distended, Soft, Tenderness (RUQ), Normal Bowel Sounds. absent: Firm, Guarding, Rigid, Organomegaly Additional comments: ED in RUQ, serosanguinous discharge - Extremities Exam Extremities Exam: Normal Inspection. absent: Pedal Edema - Neurological Exam Neurological Exam: Alert, Awake, Oriented x3 - Psychiatric Exam Psychiatric exam: Normal Affect, Normal Mood - Skin Skin Exam: Dry, Warm Assessment and Plan - Assessment and Plan (Free Text) Assessment: 65yo male with history of peptic ulcer disease, hyperparathyroidism and hypertension who initially presented with intermittent, non-radiating RUQ abdominal pain, nausea and vomiting for one day. -Acute cholecystitis s/p open subtotal cholecystectomy -Persistent RUQ abdominal pain with concern for post-operative biliary leak -Culture from bile on 10/11 with Kelbisella pneumoniae and now with Klebsiella pnumoniae ESBL in sputum Plan: -HIDA scan performed and reviewed; no evidence of biliary leak noted; gallbladder not noted on scan despite patient having had subtotal cholecystectomy -Continue ABX as ordered -NPO past MN except medications -HOLD Heparin -Tentatively scheduled for ERCP at 2PM tomorrow; monitor clinical status <Marleni Garcia MD - Last Filed: 10/16/16 17:56> Objective - Vital Signs/Intake and Output Vital Signs (last 24 hours): Temp Pulse Resp BP Pulse Ox 98.6 F 89 17 121/70 99 10/16/16 08:03 10/16/16 08:03 10/16/16 08:03 10/16/16 08:03 10/16/16 08:03 Intake and Output: 10/16/16 10/16/16 06:59 18:59 Intake Total 120 2430 Output Total 700 20 Balance -580 2410 - Medications Medications: Current Medications Acetaminophen (Tylenol 325mg Tab) 650 mg PO Q6H PRN PRN Reason: Fever >100.4 F Last Admin: 10/15/16 16:18 Dose: 650 mg Bisacodyl (Dulcolax) 10 mg RC DAILY [facility] Last Admin: 10/16/16 12:01 Dose: Not Given Calcitonin [place] (Miacalcin) 200 iu NS DAILY [facility] Last Admin: 10/16/16 09:17 Dose: 1 spray Docusate Sodium (Colace) 100 mg PO BID [facility] Last Admin: 10/16/16 17:13 Dose: Not Given Heparin Sodium (Porcine) (Heparin) 5,000 units SC Q12 JESSICA PRN Reason: Protocol Last Admin: 10/16/16 09:17 Dose: 5,000 units Sodium Chloride (Sodium Chloride 0.9%) 1,000 mls @ 100 mls/hr IV .Q10H [facility] Last Admin: 10/16/16 17:43 Dose: 100 mls/hr Meropenem 1 gm/ Sodium (Chloride) 100 mls @ 100 mls/hr IVPB Q8 JESSICA PRN Reason: Protocol Stop: 10/22/16 09:46 Last Admin: 10/16/16 13:22 Dose: 100 mls/hr Ketorolac Tromethamine (Toradol) 15 mg IVP Q6 PRN PRN Reason: Pain, moderate (4-7) Last Admin: 10/16/16 17:04 Dose: 15 mg Metoclopramide HCl (Reglan) 10 mg IVP Q6 [facility] Last Admin: 10/16/16 17:14 Dose: 10 mg Ondansetron HCl (Zofran Inj) 4 mg IVP Q6H PRN PRN Reason: Nausea/Vomiting Last Admin: 10/14/16 11:24 Dose: 4 mg Pantoprazole Sodium (Protonix Inj) 40 mg IVP DAILY [facility] Last Admin: 10/16/16 09:17 Dose: 40 mg Potassium Phos/Sodium Phos (Neutra-Phos) 1 pkt PO TID [facility] Last Admin: 10/16/16 17:14 Dose: 1 pkt - Labs Labs: 10/16/16 07:10 10/16/16 07:10 Attending/Attestation - Attestation I have personally seen and examined this patient.: Yes I have fully participated in the care of the patient.: Yes I have reviewed all pertinent clinical information, including history, physical exam and plan: Yes Notes (Text): 10/16/16 17:47 Patient seen and examined with GI fellow on rounds. This is a 65yo male with history of peptic ulcer disease, hyperparathyroidism and hypertension who presented with acute cholecystitis s/p open subtotal cholecystectomy. Now has ESBL urine and Klebsiella sputum on contact isolation with leukocytosis and fever spike. Concern for bile leak with persistent RUQ pain. HIDA negative. Minimal output thorugh ED drain. Contineu current antibiotics and trend fever and wbc curve. Scheduled for ERCP tomorrow. NPO past midnight.
--- NOTE | 2016-10-16 17:23 | CP.PCM.PN ---
Subjective - Date & Time of Evaluation Date of Evaluation: 10/16/16 Time of Evaluation: 10:50 - Subjective Subjective: Still having abdominal pain, no fevers currently. Objective - Vital Signs/Intake and Output Vital Signs (last 24 hours): Temp Pulse Resp BP Pulse Ox 98.6 F 89 17 121/70 99 10/16/16 08:03 10/16/16 08:03 10/16/16 08:03 10/16/16 08:03 10/16/16 08:03 Intake and Output: 10/16/16 10/16/16 06:59 18:59 Intake Total 120 1450 Output Total 700 20 Balance -580 1430 - Medications Medications: Current Medications Acetaminophen (Tylenol 325mg Tab) 650 mg PO Q6H PRN PRN Reason: Fever >100.4 F Last Admin: 10/15/16 16:18 Dose: 650 mg Bisacodyl (Dulcolax) 10 mg RC DAILY [facility] Last Admin: 10/15/16 09:39 Dose: 10 mg Calcitonin [place] (Miacalcin) 200 iu NS DAILY [facility] Last Admin: 10/15/16 09:39 Dose: 1 spray Docusate Sodium (Colace) 100 mg PO BID [facility] Last Admin: 10/15/16 18:14 Dose: Not Given Heparin Sodium (Porcine) (Heparin) 5,000 units SC Q12 JESSICA PRN Reason: Protocol Last Admin: 10/15/16 21:36 Dose: 5,000 units Sodium Chloride (Sodium Chloride 0.9%) 1,000 mls @ 100 mls/hr IV .Q10H [facility] Last Admin: 10/15/16 23:49 Dose: 100 mls/hr Meropenem 1 gm/ Sodium (Chloride) 100 mls @ 100 mls/hr IVPB Q8 JESSICA PRN Reason: Protocol Stop: 10/22/16 09:46 Last Admin: 10/16/16 06:54 Dose: 100 mls/hr Ketorolac Tromethamine (Toradol) 15 mg IVP Q6 PRN PRN Reason: Pain, moderate (4-7) Last Admin: 10/15/16 05:24 Dose: 15 mg Metoclopramide HCl (Reglan) 10 mg IVP Q6 [facility] Last Admin: 10/16/16 06:54 Dose: 10 mg Ondansetron HCl (Zofran Inj) 4 mg IVP Q6H PRN PRN Reason: Nausea/Vomiting Last Admin: 10/14/16 11:24 Dose: 4 mg Pantoprazole Sodium (Protonix Inj) 40 mg IVP DAILY [facility] Last Admin: 10/15/16 09:38 Dose: 40 mg - Labs Labs: 10/16/16 07:10 10/16/16 07:10 - Constitutional Appears: Non-toxic, No Acute Distress - Head Exam Head Exam: NORMAL INSPECTION - Neck Exam Neck Exam: absent: Lymphadenopathy, Meningismus - Respiratory Exam Respiratory Exam: Decreased Breath Sounds - Cardiovascular Exam Cardiovascular Exam: +S1, +S2 - GI/Abdominal Exam GI & Abdominal Exam: Soft, Tenderness (mild, RUQ). absent: Distended, Guarding , Rigid Assessment and Plan - Assessment and Plan (Free Text) Plan: Assessment Sepsis secondary to acute gangrenous cholecystitis S/P partial laparoscopic cholecystectomy and lysis of adhesions POD #5; new onset fever yesterday hemorrhoids S/P removal history of intra-abdominal abscess S/P ex-lap and drainage peptic ulcer disease S/P perforation S/P umiblical hernia repair HTN history of hyperparathyroidism Plan given one dose of IV Vancomycin and will continue Merrem pending repeat septic work up; reviewed CT abdomen and pelvis which did not reveal acute findings - discussed with Dr. Bee Follow up surgery re-evaluation Will continue to follow clinically
--- NOTE | 2016-10-16 19:19 | CP.PCM.PN ---
<Corby Raymond - Last Filed: 10/16/16 19:15> Subjective - Date & Time of Evaluation Date of Evaluation: 10/16/16 Time of Evaluation: 10:14 - Subjective Subjective: Pt seen and examined. Pt reports that he has pain in the RUQ when he coughs. Pt reports that he had a bowel movement last night. Pt reports passing gas. He reports that his appetite is good. Pt denies fever, chills, chest pain, shortness of breath, nausea, and vomiting. Objective - Vital Signs/Intake and Output Vital Signs (last 24 hours): Temp Pulse Resp BP Pulse Ox 98.6 F 89 17 121/70 99 10/16/16 08:03 10/16/16 08:03 10/16/16 08:03 10/16/16 08:03 10/16/16 08:03 Intake and Output: 10/16/16 10/17/16 18:59 06:59 Intake Total 2430 Output Total 20 Balance 2410 - Medications Medications: Current Medications Acetaminophen (Tylenol 325mg Tab) 650 mg PO Q6H PRN PRN Reason: Fever >100.4 F Last Admin: 10/15/16 16:18 Dose: 650 mg Bisacodyl (Dulcolax) 10 mg RC DAILY [facility] Last Admin: 10/16/16 12:01 Dose: Not Given Calcitonin [place] (Miacalcin) 200 iu NS DAILY [facility] Last Admin: 10/16/16 09:17 Dose: 1 spray Docusate Sodium (Colace) 100 mg PO BID [facility] Last Admin: 10/16/16 17:13 Dose: Not Given Heparin Sodium (Porcine) (Heparin) 5,000 units SC Q12 JESSICA PRN Reason: Protocol Last Admin: 10/16/16 09:17 Dose: 5,000 units Sodium Chloride (Sodium Chloride 0.9%) 1,000 mls @ 100 mls/hr IV .Q10H [facility] Last Admin: 10/16/16 17:43 Dose: 100 mls/hr Meropenem 1 gm/ Sodium (Chloride) 100 mls @ 100 mls/hr IVPB Q8 JESSICA PRN Reason: Protocol Stop: 10/22/16 09:46 Last Admin: 10/16/16 13:22 Dose: 100 mls/hr Ketorolac Tromethamine (Toradol) 15 mg IVP Q6 PRN PRN Reason: Pain, moderate (4-7) Last Admin: 10/16/16 17:04 Dose: 15 mg Metoclopramide HCl (Reglan) 10 mg IVP Q6 [facility] Last Admin: 10/16/16 17:14 Dose: 10 mg Ondansetron HCl (Zofran Inj) 4 mg IVP Q6H PRN PRN Reason: Nausea/Vomiting Last Admin: 10/14/16 11:24 Dose: 4 mg Pantoprazole Sodium (Protonix Inj) 40 mg IVP DAILY [facility] Last Admin: 10/16/16 09:17 Dose: 40 mg Potassium Phos/Sodium Phos (Neutra-Phos) 1 pkt PO TID [facility] Last Admin: 10/16/16 17:14 Dose: 1 pkt - Labs Labs: 10/16/16 07:10 10/16/16 07:10 - Constitutional Appears: No Acute Distress - Head Exam Head Exam: ATRAUMATIC, NORMOCEPHALIC - Eye Exam Eye Exam: EOMI, PERRL - ENT Exam ENT Exam: Mucous Membranes Moist. absent: Mucous Membranes Dry - Respiratory Exam Respiratory Exam: Clear to Ausculation Bilateral. absent: Rales, Rhonchi, Wheezes - Cardiovascular Exam Cardiovascular Exam: +S1, +S2. absent: Gallop, Rubs - GI/Abdominal Exam GI & Abdominal Exam: Firm, Tenderness, Normal Bowel Sounds. absent: Distended Additional comments: kim incisional rigidness and tenderness - Extremities Exam Extremities Exam: Full ROM. absent: Pedal Edema - Neurological Exam Neurological Exam: Alert, Awake, Oriented x3 - Psychiatric Exam Psychiatric exam: Normal Affect, Normal Mood - Skin Skin Exam: Normal Color, Warm Assessment and Plan - Assessment and Plan (Free Text) Assessment: Sepsis: Afebrile today WBC - 18.7, increased from yesterday Wound cultures positive for klebsiella Sputum cultures positive for gram negative rods ID, Dr. Pimentel, consulted. Help appreciated. Tylenol prn for fever > 100.4 Repeat blood cultures, wound cultures, procalcitoni pending NS 100 cc/hr Meropenem 1 gm q8h Abd/Pelvis CT - small collection of fluid, no drainable collection (please see full report) HIDA scan negative for bile leak (please see full report) As per surgery, superficial abscess present at site of incision. Bedside I&D was performed with about 40-50 cc of fluid drained. Site packed and dressed. Wound cultures sent. Cholecystitis: Day 5 s/p open subtotal cholecystectomy CT of the abdomen showed mild thickening of the gallbladder wall; mild dilatation of the pancreatic duct in the pancreatic head and proximal body; left inguinal hernia (please see full report) Abdominal US showed gallbladder sludge, mural thickening and trace peripholecystic fluid (please see full report) EKG showed NSR w/ RBB and LAF block, moderate voltage criteria for LVH MRCP was performed showing findings w/o CBD stone and consistent with acalculous cholecystitis (please see full report) HIDA scan shows cystic duct ws occluded (please see full report) T.bili - 1.1 AST/ALT: 55/37 Alk Phos - 80 Wound cultures positive for klebsiella Abd/Pelvis CT - small collection of fluid, no drainable collection (please see full report) HIDA scan negative for bile leak (please see full report) GI consulted, Dr. Wallis, help appreciated. As per surgery, superficial abscess present at site of incision. Bedside I&D was performed with about 40-50 cc of fluid drained. Site packed and dressed. Wound cultures sent. ERCP tomorrow as per GI NPO after midnight Hypercalcemia: Likely secondary to hyperparathyroidism 11.5 Calcitonin 200 iu NS daily Anemia: H/H: 11.0/32.4 Iron studies show: Iron 19, TIBC 299, 6% Saturation, Ferritin 65, Folate 11.5 Continue to monitor Prophylactic Measures: GI: Protonix 40 mg IV qd DVT: Heparin 5000 units sc q12h Toradol prn for pain Zofran prn for nausea Reglan prn for nausea Dulcolac, colace for constipation <Chandni Bee - Last Filed: 10/17/16 15:32> Objective - Vital Signs/Intake and Output Vital Signs (last 24 hours): Temp Pulse Resp BP Pulse Ox 98.4 F 70 19 128/82 99 10/17/16 06:00 10/17/16 06:00 10/17/16 06:00 10/17/16 06:00 10/17/16 06:00 Intake and Output: 10/17/16 10/17/16 06:59 18:59 Intake Total 2400 720 Output Total 200 Balance 2200 720 - Medications Medications: Current Medications Acetaminophen (Tylenol 325mg Tab) 650 mg PO Q6H PRN PRN Reason: Fever >100.4 F Last Admin: 10/15/16 16:18 Dose: 650 mg Calcitonin [place] (Miacalcin) 200 iu NS DAILY [facility] Last Admin: 10/17/16 09:47 Dose: 1 spray Heparin Sodium (Porcine) (Heparin) 5,000 units SC Q12 JESSICA PRN Reason: Protocol Last Admin: 10/16/16 09:17 Dose: 5,000 units Sodium Chloride (Sodium Chloride 0.9%) 1,000 mls @ 100 mls/hr IV .Q10H [facility] Last Admin: 10/17/16 05:12 Dose: 100 mls/hr Meropenem 1 gm/ Sodium (Chloride) 100 mls @ 100 mls/hr IVPB Q8 JESSICA PRN Reason: Protocol Stop: 10/22/16 09:46 Last Admin: 10/17/16 13:19 Dose: 100 mls/hr Dextrose/Sodium Chloride (Dextrose 5%/0.45% Ns 1000 Ml) 1,000 mls @ 100 mls/hr IV .Q10H [facility] Last Admin: 10/17/16 06:26 Dose: 100 mls/hr Ketorolac Tromethamine (Toradol) 15 mg IVP Q6 PRN PRN Reason: Pain, moderate (4-7) Last Admin: 10/17/16 00:11 Dose: 15 mg Lactobacillus Acidophilus (Bacid Acidophilus) 1 cap PO BID [facility] Metoclopramide HCl (Reglan) 10 mg IVP Q6 [facility] Last Admin: 10/17/16 12:14 Dose: 10 mg Ondansetron HCl (Zofran Inj) 4 mg IVP Q6H PRN PRN Reason: Nausea/Vomiting Last Admin: 10/14/16 11:24 Dose: 4 mg Pantoprazole Sodium (Protonix Inj) 40 mg IVP DAILY [facility] Last Admin: 10/17/16 09:47 Dose: 40 mg Potassium Phos/Sodium Phos (Neutra-Phos) 1 pkt PO TID [facility] Last Admin: 10/17/16 13:20 Dose: 1 pkt - Labs Labs: 10/17/16 08:15 10/17/16 08:15 Attending/Attestation - Attestation I have personally seen and examined this patient.: Yes I have fully participated in the care of the patient.: Yes I have reviewed all pertinent clinical information, including history, physical exam and plan: Yes Notes (Text): I have seen and examined patient at bedside with the resident. Patients daughter provided translation. This is 65 year old male with history of PUD, hyperparathyroidism induced hypercalcemia on intranasal calcitonin, HTN, hemorrhoids s/p resection, intra abdominal abscess s/p I&D, umbilical hernia repair who got admitted for evaluation of right sided abdominal pain and found to have acute gangrenous cholecystitis s/p partial laparoscopic cholecystectomy and BASIL. Today is POD #5. Today his abdominal pain at surgical site got worse. Wbc went up to 18.7. Wound culture is positive for klebsiella. Sputum culture positive for GNR. CT abdomen and pelvis showed small collection of fluid. HIDA showed no bile leak. ABx changed to meropenem. Serosanguinous fluid noted in the drain. Discussed with ID, GI and surgery team. Dr Chandni Bee
[2016-10-17] MEDS: Meropenem 1 GM in Sodium Chloride 0.9% 100 ML IVPB SCH ×3 (05:12→21:53)
[2016-10-17] MEDS: Sodium Chloride 0.9% 1,000 ML IV SCH (05:12)
[2016-10-17] MEDS ORDERED: Morphine 4 mg/ml ISec IVP STA (06:23)
[2016-10-17] MEDS: Dextrose 5%/0.45% NS 1,000 ML IV SCH ×2 (06:26→17:17)
--- NOTE | 2016-10-17 07:29 | CP.PCM.PN ---
<Kyree Pulido - Last Filed: 10/17/16 07:31> Subjective - Date & Time of Evaluation Date of Evaluation: 10/17/16 Time of Evaluation: 07:19 - Subjective Subjective: SURGERY NOTE FOR DR. ABDALLA 65M seen and examined at bedside. Patient states he is having right upper quadrant pain of the same intensity as yesterday. Patient denies nausea/vomiting , fever, or chills. Yesterday, a moderate amount of pus was expressed from the incision site. Every other staple was removed and the incision was packed with iodoform. Objective - Vital Signs/Intake and Output Vital Signs (last 24 hours): Temp Pulse Resp BP Pulse Ox 98.4 F 70 19 128/82 99 10/17/16 06:00 10/17/16 06:00 10/17/16 06:00 10/17/16 06:00 10/17/16 06:00 Intake and Output: 10/17/16 10/17/16 06:59 18:59 Intake Total 2400 Output Total 200 Balance 2200 - Medications Medications: Current Medications Acetaminophen (Tylenol 325mg Tab) 650 mg PO Q6H PRN PRN Reason: Fever >100.4 F Last Admin: 10/15/16 16:18 Dose: 650 mg Bisacodyl (Dulcolax) 10 mg RC DAILY [facility] Last Admin: 10/16/16 12:01 Dose: Not Given Calcitonin [place] (Miacalcin) 200 iu NS DAILY [facility] Last Admin: 10/16/16 09:17 Dose: 1 spray Docusate Sodium (Colace) 100 mg PO BID [facility] Last Admin: 10/16/16 17:13 Dose: Not Given Heparin Sodium (Porcine) (Heparin) 5,000 units SC Q12 [facility] PRN Reason: Protocol Last Admin: 10/16/16 09:17 Dose: 5,000 units Sodium Chloride (Sodium Chloride 0.9%) 1,000 mls @ 100 mls/hr IV .Q10H [facility] Last Admin: 10/17/16 05:12 Dose: 100 mls/hr Meropenem 1 gm/ Sodium (Chloride) 100 mls @ 100 mls/hr IVPB Q8 [facility] PRN Reason: Protocol Stop: 10/22/16 09:46 Last Admin: 10/17/16 05:12 Dose: 100 mls/hr Dextrose/Sodium Chloride (Dextrose 5%/0.45% Ns 1000 Ml) 1,000 mls @ 100 mls/hr IV .Q10H [facility] Last Admin: 10/17/16 06:26 Dose: 100 mls/hr Ketorolac Tromethamine (Toradol) 15 mg IVP Q6 PRN PRN Reason: Pain, moderate (4-7) Last Admin: 10/17/16 00:11 Dose: 15 mg Metoclopramide HCl (Reglan) 10 mg IVP Q6 [facility] Last Admin: 10/17/16 05:13 Dose: 10 mg Ondansetron HCl (Zofran Inj) 4 mg IVP Q6H PRN PRN Reason: Nausea/Vomiting Last Admin: 10/14/16 11:24 Dose: 4 mg Pantoprazole Sodium (Protonix Inj) 40 mg IVP DAILY [facility] Last Admin: 10/16/16 09:17 Dose: 40 mg Potassium Phos/Sodium Phos (Neutra-Phos) 1 pkt PO TID [facility] Last Admin: 10/16/16 17:14 Dose: 1 pkt - Labs Labs: 10/16/16 07:10 10/16/16 07:10 - Constitutional Appears: Non-toxic, No Acute Distress - Head Exam Head Exam: ATRAUMATIC - ENT Exam ENT Exam: Mucous Membranes Moist - Respiratory Exam Respiratory Exam: Clear to Ausculation Bilateral, NORMAL BREATHING PATTERN - Cardiovascular Exam Cardiovascular Exam: REGULAR RHYTHM, +S1, +S2 - GI/Abdominal Exam GI & Abdominal Exam: Soft, Tenderness (tenderness along incision site, packing removed and re-packed. pus/serosang staining of dressing). absent: Distended, Firm, Guarding, Rigid, Rebound Additional comments: 25cc/24hr, dark brown fluid - Neurological Exam Neurological Exam: Alert, Awake - Skin Skin Exam: Dry, Intact, Normal Color, Warm Assessment and Plan - Assessment and Plan (Free Text) Assessment: 65M cholecystitis, POD#6 s/p lap, converted to open, subtotal cholecystectomy Plan: - HIDA scan negative for leak - f/u GI recs - wound care/daily packing - cont abx per ID - Monitor drain output - encourage OOB to chair/Amb/IS use - GI/DVT PPX Further recs discuss with Dr. Lianne Pulido, PGY1 <oPli Abdalla B - Last Filed: 10/20/16 18:15> Objective - Vital Signs/Intake and Output Vital Signs (last 24 hours): Temp Pulse Resp BP Pulse Ox 98.4 F 74 20 114/74 100 10/20/16 16:36 10/20/16 16:36 10/20/16 16:36 10/20/16 16:36 10/20/16 16:36 Intake and Output: 10/20/16 10/20/16 06:59 18:59 Intake Total 420 0 Output Total 910 230 Balance -490 -230 - Medications Medications: Current Medications Acetaminophen (Tylenol 325mg Tab) 650 mg PO Q6H PRN PRN Reason: Fever >100.4 F Last Admin: 10/15/16 16:18 Dose: 650 mg Acetaminophen (Tylenol 325mg Tab) 650 mg PO Q6H PRN PRN Reason: Pain, Mild (1-3) Aspirin (Ecotrin) 81 mg PO DAILY [facility] Last Admin: 10/20/16 17:14 Dose: 81 mg Calcitonin [place] (Miacalcin) 200 iu NS DAILY [facility] Last Admin: 10/20/16 09:47 Dose: 1 spray Ferrous Sulfate (Feosol) 324 mg PO TID [facility] Last Admin: 10/20/16 09:46 Dose: 324 mg Heparin Sodium (Porcine) (Heparin) 5,000 units SC Q12 [facility] PRN Reason: Protocol Last Admin: 10/20/16 09:47 Dose: Not Given Meropenem 1 gm/ Sodium (Chloride) 100 mls @ 100 mls/hr IVPB Q8 [facility] PRN Reason: Protocol Stop: 10/22/16 09:46 Last Admin: 10/20/16 14:10 Dose: 100 mls/hr Dextrose/Sodium Chloride (Dextrose 5%/0.45% Ns 1000 Ml) 1,000 mls @ 100 mls/hr IV .Q10H [facility] Last Admin: 10/20/16 09:46 Dose: 100 mls/hr Iron Sucrose 100 mg/ Sodium (Chloride) 105 mls @ 210 mls/hr IVPB DAILY [facility] Last Admin: 10/20/16 11:31 Dose: 210 mls/hr Lactobacillus Acidophilus (Bacid Acidophilus) 1 cap PO BID [facility] Last Admin: 03/19/17 17:14 Dose: 1 cap Oxycodone/Acetaminophen (Percocet 5/325 Mg Tab) 1 tab PO Q4H PRN PRN Reason: Pain, moderate (4-7) Stop: 10/22/16 13:45 Last Admin: 10/20/16 17:12 Dose: 1 tab Pantoprazole Sodium (Protonix Inj) 40 mg IVP DAILY [facility] Last Admin: 10/20/16 09:46 Dose: 40 mg Potassium Phos/Sodium Phos (Neutra-Phos) 1 pkt PO TID [facility] Last Admin: 10/20/16 17:12 Dose: 1 pkt - Labs Labs: 10/20/16 06:20 10/20/16 06:20 Attending/Attestation - Attestation I have personally seen and examined this patient.: Yes I have fully participated in the care of the patient.: Yes I have reviewed all pertinent clinical information, including history, physical exam and plan: Yes Notes (Text): 10/20/16 18:15 Pt was seen and examined at bedside on 10/17/16 Agree with above note and assessment
[2016-10-17 08:20] LABS: ADD MANUAL DIFF? NO
[2016-10-17 08:24] LABS: BASO # 0.04 K/mm3 (0.0-2.0); BASO % 0.3 % (0.0-3.0); EOS # 0.5 (0.0-0.7); EOS % 3.3 % (1.5-5.0); GRAN # 10.57 (1.4-6.5); GRAN % 74.8 % (50.0-68.0); HEMATOCRIT 30.3 % (42.0-52.0); LYMPH # 2.3 (1.2-3.4); LYMPH % 15.9 % (22.0-35.0); MEAN CELL VOLUME 76.1 fL (80.0-105.0); MEAN CORPUSCULAR HEMOGLOBIN 26.1 pg (25.0-35.0); MEAN CORPUSCULAR HGB CONC 34.3 g/dl (31.0-37.0); MEAN PLATELET VOLUME 9.6 fl (7.0-11.0); MONO # 0.8 (0.1-0.6); MONO % 5.7 % (1.0-6.0); PLATELET COUNT 456 10^3/uL (120.0-450.0); RED CELL DISTRIBUTION WIDTH 12.8 % (11.5-14.5); WHITE BLOOD COUNT 14.1 10^3/ul (4.5-11.0)
[2016-10-17 08:34] LABS: ALB/GLOB RATIO 0.8 (1.1-1.8); ALKALINE PHOSPHATASE 75 U/L (38-133); ALT/SGPT 29 U/L (7-56); AST/SGOT 46 U/L (15-59); BILIRUBIN,TOTAL 0.6 mg/dL (0.2-1.3); BLOOD UREA NITROGEN 15 mg/dL (7-21); CALCIUM 11.2 mg/dL (8.4-10.5); CARBON DIOXIDE 27 mmol/L (21-33); CHLORIDE 104 mmol/L (95-110); GFR AFRICAN-AMERICAN > 60; GLUCOSE,RANDOM 99 mg/dL (70-110); POTASSIUM 3.6 mmol/L (3.6-5.0); SODIUM 139 mmol/L (132-148); TOTAL PROTEIN 5.9 g/dL (5.8-8.3)
--- NOTE | 2016-10-17 09:37 | CP.PCM.PN ---
<Richard Luz - Last Filed: 10/17/16 12:38> Subjective - Date & Time of Evaluation Date of Evaluation: 10/17/16 Time of Evaluation: 09:33 - Subjective Subjective: PGY4 GI Fellow Progress Note Patient seen and examined bedside this morning. Patient's daughter and at bedside to assist with translation. The patient admits to persistent RUQ abdominal pain but states it is improved from yesterday. Denies any fever, chills, nausea, vomiting. Did have two episodes of loose stool today. Patient is hungry and eager to eat. 12 system ROS performed and negative except where stated. Objective - Vital Signs/Intake and Output Vital Signs (last 24 hours): Temp Pulse Resp BP Pulse Ox 98.4 F 70 19 128/82 99 10/17/16 06:00 10/17/16 06:00 10/17/16 06:00 10/17/16 06:00 10/17/16 06:00 Intake and Output: 10/17/16 10/17/16 06:59 18:59 Intake Total 2400 Output Total 200 Balance 2200 - Medications Medications: Current Medications Acetaminophen (Tylenol 325mg Tab) 650 mg PO Q6H PRN PRN Reason: Fever >100.4 F Last Admin: 10/15/16 16:18 Dose: 650 mg Bisacodyl (Dulcolax) 10 mg RC DAILY [facility] Last Admin: 10/16/16 12:01 Dose: Not Given Calcitonin [place] (Miacalcin) 200 iu NS DAILY [facility] Last Admin: 10/16/16 09:17 Dose: 1 spray Docusate Sodium (Colace) 100 mg PO BID [facility] Last Admin: 10/16/16 17:13 Dose: Not Given Heparin Sodium (Porcine) (Heparin) 5,000 units SC Q12 [facility] PRN Reason: Protocol Last Admin: 10/16/16 09:17 Dose: 5,000 units Sodium Chloride (Sodium Chloride 0.9%) 1,000 mls @ 100 mls/hr IV .Q10H [facility] Last Admin: 10/17/16 05:12 Dose: 100 mls/hr Meropenem 1 gm/ Sodium (Chloride) 100 mls @ 100 mls/hr IVPB Q8 [facility] PRN Reason: Protocol Stop: 10/22/16 09:46 Last Admin: 10/17/16 05:12 Dose: 100 mls/hr Dextrose/Sodium Chloride (Dextrose 5%/0.45% Ns 1000 Ml) 1,000 mls @ 100 mls/hr IV .Q10H [facility] Last Admin: 10/17/16 06:26 Dose: 100 mls/hr Ketorolac Tromethamine (Toradol) 15 mg IVP Q6 PRN PRN Reason: Pain, moderate (4-7) Last Admin: 10/17/16 00:11 Dose: 15 mg Metoclopramide HCl (Reglan) 10 mg IVP Q6 [facility] Last Admin: 10/17/16 05:13 Dose: 10 mg Ondansetron HCl (Zofran Inj) 4 mg IVP Q6H PRN PRN Reason: Nausea/Vomiting Last Admin: 10/14/16 11:24 Dose: 4 mg Pantoprazole Sodium (Protonix Inj) 40 mg IVP DAILY [facility] Last Admin: 10/16/16 09:17 Dose: 40 mg Potassium Phos/Sodium Phos (Neutra-Phos) 1 pkt PO TID [facility] Last Admin: 10/16/16 17:14 Dose: 1 pkt - Labs Labs: 10/17/16 08:15 10/17/16 08:15 - Constitutional Appears: Non-toxic, No Acute Distress - Eye Exam Eye Exam: EOMI, PERRL - ENT Exam ENT Exam: Mucous Membranes Moist - Respiratory Exam Respiratory Exam: Clear to Ausculation Bilateral. absent: Rales, Rhonchi, Wheezes - Cardiovascular Exam Cardiovascular Exam: RRR, +S1, +S2 - GI/Abdominal Exam GI & Abdominal Exam: Distended, Soft, Tenderness (RUQ), Normal Bowel Sounds. absent: Firm, Guarding, Rigid, Organomegaly Additional comments: serosanguinous drainage in ED drain - Extremities Exam Extremities Exam: Normal Inspection. absent: Pedal Edema - Neurological Exam Neurological Exam: Alert, Awake, Oriented x3 - Psychiatric Exam Psychiatric exam: Normal Affect, Normal Mood - Skin Skin Exam: Dry, Warm Assessment and Plan - Assessment and Plan (Free Text) Assessment: 65yo male with history of peptic ulcer disease, hyperparathyroidism and hypertension who initially presented with intermittent, non-radiating RUQ abdominal pain, nausea and vomiting for one day. -Acute cholecystitis s/p open subtotal cholecystectomy -Culture from bile on 10/11 with Kelbisella pneumoniae and now with Klebsiella pnumoniae ESBL in sputum Plan: -HIDA scan negative for bile leak -ABX as ordered -Restart Heparin -Monitor CBC, CMP - both improving; pt afebrile -Continue to follow output from ED drain -Recommend advancing diet as tolerated -No plan for ERCP at this juncture -Post-operative care per surgical service -Will sign off. Thank you for allowing us to participate in the care of your patient. Please reconsult if needed. <Hernandez Wallis - Last Filed: 10/17/16 12:43> Objective - Vital Signs/Intake and Output Vital Signs (last 24 hours): Temp Pulse Resp BP Pulse Ox 98.4 F 70 19 128/82 99 10/17/16 06:00 10/17/16 06:00 10/17/16 06:00 10/17/16 06:00 10/17/16 06:00 Intake and Output: 10/17/16 10/17/16 06:59 18:59 Intake Total 2400 Output Total 200 Balance 2200 - Medications Medications: Current Medications Acetaminophen (Tylenol 325mg Tab) 650 mg PO Q6H PRN PRN Reason: Fever >100.4 F Last Admin: 10/15/16 16:18 Dose: 650 mg Calcitonin [place] (Miacalcin) 200 iu NS DAILY [facility] Last Admin: 10/17/16 09:47 Dose: 1 spray Heparin Sodium (Porcine) (Heparin) 5,000 units SC Q12 [facility] PRN Reason: Protocol Last Admin: 10/16/16 09:17 Dose: 5,000 units Sodium Chloride (Sodium Chloride 0.9%) 1,000 mls @ 100 mls/hr IV .Q10H [facility] Last Admin: 10/17/16 05:12 Dose: 100 mls/hr Meropenem 1 gm/ Sodium (Chloride) 100 mls @ 100 mls/hr IVPB Q8 [facility] PRN Reason: Protocol Stop: 10/22/16 09:46 Last Admin: 10/17/16 05:12 Dose: 100 mls/hr Dextrose/Sodium Chloride (Dextrose 5%/0.45% Ns 1000 Ml) 1,000 mls @ 100 mls/hr IV .Q10H [facility] Last Admin: 10/17/16 06:26 Dose: 100 mls/hr Ketorolac Tromethamine (Toradol) 15 mg IVP Q6 PRN PRN Reason: Pain, moderate (4-7) Last Admin: 10/17/16 00:11 Dose: 15 mg Lactobacillus Acidophilus (Bacid Acidophilus) 1 cap PO BID [facility] Metoclopramide HCl (Reglan) 10 mg IVP Q6 [facility] Last Admin: 10/17/16 12:14 Dose: 10 mg Ondansetron HCl (Zofran Inj) 4 mg IVP Q6H PRN PRN Reason: Nausea/Vomiting Last Admin: 10/14/16 11:24 Dose: 4 mg Pantoprazole Sodium (Protonix Inj) 40 mg IVP DAILY [facility] Last Admin: 10/17/16 09:47 Dose: 40 mg Potassium Phos/Sodium Phos (Neutra-Phos) 1 pkt PO TID [facility] Last Admin: 10/17/16 09:46 Dose: 1 pkt - Labs Labs: 10/17/16 08:15 10/17/16 08:15 Attending/Attestation - Attestation I have personally seen and examined this patient.: Yes I have fully participated in the care of the patient.: Yes I have reviewed all pertinent clinical information, including history, physical exam and plan: Yes Notes (Text): 10/17/16 12:42 65 year old male with history of PUD, HTN a/w acute cholecystitis s/p cholecystectomy. 1. Acute cholecystitis Plan: -we were consulted due to concern over bile leak -HIDA scan was negative for bile leak -reviewed the images of HIDA and CT -normal LFTs -there was a wound infection debrided by surgery with WBC decreasing -no plans for ERCP -antibiotics per surgery/ID -will sign off -advance diet as tolerated
[2016-10-17] MEDS: Potassium & Sodium Phosphate PO SCH ×3 (09:46→17:18)
[2016-10-17] MEDS: Calcitonin 200 Int Units/Inh Nasal Spray (3.7 ml) NS SCH (09:47)
--- NOTE | 2016-10-17 12:37 | CP.PCM.PN ---
<Corby Raymond - Last Filed: 10/17/16 12:29> Subjective - Date & Time of Evaluation Date of Evaluation: 10/17/16 Time of Evaluation: 07:16 - Subjective Subjective: Pt seen and examined. Pt reports that he still feels pain in his RUQ, although he reports that the pain has improved since yesterday. Pt reports that his cough has improved. Pt reports he had a little bit of diarrhea today. Pt denies fever, chills, chest pain, shortness of breath, nausea, and vomiting. Objective - Vital Signs/Intake and Output Vital Signs (last 24 hours): Temp Pulse Resp BP Pulse Ox 98.4 F 70 19 128/82 99 10/17/16 06:00 10/17/16 06:00 10/17/16 06:00 10/17/16 06:00 10/17/16 06:00 Intake and Output: 10/17/16 10/17/16 06:59 18:59 Intake Total 2400 Output Total 200 Balance 2200 - Medications Medications: Current Medications Acetaminophen (Tylenol 325mg Tab) 650 mg PO Q6H PRN PRN Reason: Fever >100.4 F Last Admin: 10/15/16 16:18 Dose: 650 mg Bisacodyl (Dulcolax) 10 mg RC DAILY [facility] Last Admin: 10/17/16 09:47 Dose: Not Given Calcitonin [place] (Miacalcin) 200 iu NS DAILY [facility] Last Admin: 10/17/16 09:47 Dose: 1 spray Docusate Sodium (Colace) 100 mg PO BID [facility] Last Admin: 10/17/16 09:47 Dose: Not Given Heparin Sodium (Porcine) (Heparin) 5,000 units SC Q12 [facility] PRN Reason: Protocol Last Admin: 10/16/16 09:17 Dose: 5,000 units Sodium Chloride (Sodium Chloride 0.9%) 1,000 mls @ 100 mls/hr IV .Q10H [facility] Last Admin: 10/17/16 05:12 Dose: 100 mls/hr Meropenem 1 gm/ Sodium (Chloride) 100 mls @ 100 mls/hr IVPB Q8 [facility] PRN Reason: Protocol Stop: 10/22/16 09:46 Last Admin: 10/17/16 05:12 Dose: 100 mls/hr Dextrose/Sodium Chloride (Dextrose 5%/0.45% Ns 1000 Ml) 1,000 mls @ 100 mls/hr IV .Q10H [facility] Last Admin: 10/17/16 06:26 Dose: 100 mls/hr Ketorolac Tromethamine (Toradol) 15 mg IVP Q6 PRN PRN Reason: Pain, moderate (4-7) Last Admin: 10/17/16 00:11 Dose: 15 mg Metoclopramide HCl (Reglan) 10 mg IVP Q6 [facility] Last Admin: 10/17/16 12:14 Dose: 10 mg Ondansetron HCl (Zofran Inj) 4 mg IVP Q6H PRN PRN Reason: Nausea/Vomiting Last Admin: 10/14/16 11:24 Dose: 4 mg Pantoprazole Sodium (Protonix Inj) 40 mg IVP DAILY [facility] Last Admin: 10/17/16 09:47 Dose: 40 mg Potassium Phos/Sodium Phos (Neutra-Phos) 1 pkt PO TID [facility] Last Admin: 10/17/16 09:46 Dose: 1 pkt - Labs Labs: 10/17/16 08:15 10/17/16 08:15 - Constitutional Appears: No Acute Distress - Head Exam Head Exam: ATRAUMATIC, NORMOCEPHALIC - Eye Exam Eye Exam: EOMI, PERRL - ENT Exam ENT Exam: Mucous Membranes Moist. absent: Mucous Membranes Dry - Neck Exam Neck Exam: Full ROM. absent: Lymphadenopathy - Respiratory Exam Respiratory Exam: Clear to Ausculation Bilateral. absent: Rales, Rhonchi, Wheezes - Cardiovascular Exam Cardiovascular Exam: +S1, +S2. absent: Gallop, Rubs, Murmur - GI/Abdominal Exam GI & Abdominal Exam: Firm, Soft, Tenderness, Normal Bowel Sounds. absent: Distended, Rebound Additional comments: Firm around surgical scar, RUQ tenderness, minimal amount of blood in drain - Extremities Exam Extremities Exam: Full ROM. absent: Pedal Edema - Neurological Exam Neurological Exam: Alert, Awake, Oriented x3 - Psychiatric Exam Psychiatric exam: Normal Affect, Normal Mood - Skin Skin Exam: Normal Color, Warm Assessment and Plan - Assessment and Plan (Free Text) Assessment: Cholecystitis: Day 6 s/p open subtotal cholecystectomy Afebrile, nontachycardic WBC -14.1 today, trending down CT of the abdomen showed mild thickening of the gallbladder wall; mild dilatation of the pancreatic duct in the pancreatic head and proximal body; left inguinal hernia (please see full report) Abdominal US showed gallbladder sludge, mural thickening and trace peripholecystic fluid (please see full report) EKG showed NSR w/ RBB and LAF block, moderate voltage criteria for LVH MRCP was performed showing findings w/o CBD stone and consistent with acalculous cholecystitis (please see full report) HIDA scan shows cystic duct ws occluded (please see full report) LFTs within normal range Wound cultures positive for klebsiella Abd/Pelvis CT - small collection of fluid, no drainable collection (please see full report) HIDA scan negative for bile leak (please see full report) GI consulted, Dr. Wallis, help appreciated. As per surgery, superficial abscess present at site of incision. Bedside I&D was performed with about 40-50 cc of fluid drained. Site packed and dressed. Wound cultures sent. ERCP cancelled as per GI Pt on regular diet GI signing off Tylenol prn for fever BS 100 cc/hr Wound Abscess: Day 1 s/p bedside I&D Daily packing/dressing changes as per ID Wound cultures positive for gram negative rods Hypercalcemia: Likely secondary to hyperparathyroidism 11.5 Calcitonin 200 iu NS daily Anemia: H/H: 10.4/30.3 Iron studies show: Iron 19, TIBC 299, 6% Saturation, Ferritin 65, Folate 11.5 Continue to monitor Diarrhea: likely due to constipation medications duclolax, colace discontinued will monitor Prophylactic Measures: GI: Protonix 40 mg IV qd DVT: Heparin 5000 units sc q12h Toradol prn for pain Zofran prn for nausea Reglan prn for nausea <Chandni Bee B - Last Filed: 10/19/16 19:55> Objective - Vital Signs/Intake and Output Vital Signs (last 24 hours): Temp Pulse Resp BP Pulse Ox 98.4 F 70 19 128/82 99 10/17/16 06:00 10/17/16 06:00 10/17/16 06:00 10/17/16 06:00 10/17/16 06:00 Intake and Output: 10/17/16 10/17/16 06:59 18:59 Intake Total 2400 720 Output Total 200 Balance 2200 720 - Medications Medications: Current Medications Acetaminophen (Tylenol 325mg Tab) 650 mg PO Q6H PRN PRN Reason: Fever >100.4 F Last Admin: 10/15/16 16:18 Dose: 650 mg Calcitonin [place] (Miacalcin) 200 iu NS DAILY [facility] Last Admin: 10/17/16 09:47 Dose: 1 spray Heparin Sodium (Porcine) (Heparin) 5,000 units SC Q12 [facility] PRN Reason: Protocol Last Admin: 10/16/16 09:17 Dose: 5,000 units Sodium Chloride (Sodium Chloride 0.9%) 1,000 mls @ 100 mls/hr IV .Q10H [facility] Last Admin: 10/17/16 05:12 Dose: 100 mls/hr Meropenem 1 gm/ Sodium (Chloride) 100 mls @ 100 mls/hr IVPB Q8 [facility] PRN Reason: Protocol Stop: 10/22/16 09:46 Last Admin: 10/17/16 13:19 Dose: 100 mls/hr Dextrose/Sodium Chloride (Dextrose 5%/0.45% Ns 1000 Ml) 1,000 mls @ 100 mls/hr IV .Q10H [facility] Last Admin: 10/17/16 06:26 Dose: 100 mls/hr Ketorolac Tromethamine (Toradol) 15 mg IVP Q6 PRN PRN Reason: Pain, moderate (4-7) Last Admin: 10/17/16 00:11 Dose: 15 mg Lactobacillus Acidophilus (Bacid Acidophilus) 1 cap PO BID [facility] Metoclopramide HCl (Reglan) 10 mg IVP Q6 [facility] Last Admin: 10/17/16 12:14 Dose: 10 mg Ondansetron HCl (Zofran Inj) 4 mg IVP Q6H PRN PRN Reason: Nausea/Vomiting Last Admin: 10/14/16 11:24 Dose: 4 mg Pantoprazole Sodium (Protonix Inj) 40 mg IVP DAILY [facility] Last Admin: 10/17/16 09:47 Dose: 40 mg Potassium Phos/Sodium Phos (Neutra-Phos) 1 pkt PO TID [facility] Last Admin: 10/17/16 13:20 Dose: 1 pkt - Labs Labs: 10/17/16 08:15 10/17/16 08:15 Attending/Attestation - Attestation I have personally seen and examined this patient.: Yes I have fully participated in the care of the patient.: Yes I have reviewed all pertinent clinical information, including history, physical exam and plan: Yes Notes (Text): I have seen and examined patient at bedside with the resident. Patients daughter provided translation. This is 65 year old male with history of PUD, hyperparathyroidism induced hypercalcemia on intranasal calcitonin, HTN, hemorrhoids s/p resection, intra abdominal abscess s/p I&D, umbilical hernia repair who got admitted for evaluation of right sided abdominal pain and found to have acute gangrenous cholecystitis s/p partial laparoscopic cholecystectomy and BASIL. He also underwent bedside I&D. He continues to have abdominal pain in the RUQ. Leukocytosis is persistent. Wound and sputum culture positive for klebsiella. CT abdomen and pelvis did not show any acute process. As HIDA showed no bile leak therefore ERCP was cancelled. Continue meropenem. Serosanguinous fluid noted in the drain. Also has iron deficiency anemia on po iron. Today he complained of diarrhea. CDiff ordered. Colace, dulcolax and reglan discontinued. Discussed with patients daughter. Dr Chandni Bee
--- NOTE | 2016-10-17 15:57 | CP.PCM.PN ---
Subjective - Date & Time of Evaluation Date of Evaluation: 10/17/16 Time of Evaluation: 10:10 - Subjective Subjective: Comfortable in bed, afebrile, less abdominal pain, less nausea, no diarrhea. Objective - Vital Signs/Intake and Output Vital Signs (last 24 hours): Temp Pulse Resp BP Pulse Ox 98.4 F 70 19 128/82 99 10/17/16 06:00 10/17/16 06:00 10/17/16 06:00 10/17/16 06:00 10/17/16 06:00 Intake and Output: 10/17/16 10/17/16 06:59 18:59 Intake Total 2400 Output Total 200 Balance 2200 - Medications Medications: Current Medications Acetaminophen (Tylenol 325mg Tab) 650 mg PO Q6H PRN PRN Reason: Fever >100.4 F Last Admin: 10/15/16 16:18 Dose: 650 mg Bisacodyl (Dulcolax) 10 mg RC DAILY [facility] Last Admin: 10/16/16 12:01 Dose: Not Given Calcitonin [place] (Miacalcin) 200 iu NS DAILY [facility] Last Admin: 10/16/16 09:17 Dose: 1 spray Docusate Sodium (Colace) 100 mg PO BID [facility] Last Admin: 10/16/16 17:13 Dose: Not Given Heparin Sodium (Porcine) (Heparin) 5,000 units SC Q12 JESSICA PRN Reason: Protocol Last Admin: 10/16/16 09:17 Dose: 5,000 units Sodium Chloride (Sodium Chloride 0.9%) 1,000 mls @ 100 mls/hr IV .Q10H [facility] Last Admin: 10/17/16 05:12 Dose: 100 mls/hr Meropenem 1 gm/ Sodium (Chloride) 100 mls @ 100 mls/hr IVPB Q8 JESSICA PRN Reason: Protocol Stop: 10/22/16 09:46 Last Admin: 10/17/16 05:12 Dose: 100 mls/hr Dextrose/Sodium Chloride (Dextrose 5%/0.45% Ns 1000 Ml) 1,000 mls @ 100 mls/hr IV .Q10H [facility] Last Admin: 10/17/16 06:26 Dose: 100 mls/hr Ketorolac Tromethamine (Toradol) 15 mg IVP Q6 PRN PRN Reason: Pain, moderate (4-7) Last Admin: 10/17/16 00:11 Dose: 15 mg Metoclopramide HCl (Reglan) 10 mg IVP Q6 [facility] Last Admin: 10/17/16 05:13 Dose: 10 mg Ondansetron HCl (Zofran Inj) 4 mg IVP Q6H PRN PRN Reason: Nausea/Vomiting Last Admin: 10/14/16 11:24 Dose: 4 mg Pantoprazole Sodium (Protonix Inj) 40 mg IVP DAILY [facility] Last Admin: 10/16/16 09:17 Dose: 40 mg Potassium Phos/Sodium Phos (Neutra-Phos) 1 pkt PO TID [facility] Last Admin: 10/16/16 17:14 Dose: 1 pkt - Labs Labs: 10/17/16 08:15 10/17/16 08:15 - Constitutional Appears: Non-toxic, No Acute Distress - Head Exam Head Exam: NORMAL INSPECTION - ENT Exam ENT Exam: Mucous Membranes Moist - Neck Exam Neck Exam: absent: Lymphadenopathy, Meningismus - Respiratory Exam Respiratory Exam: Decreased Breath Sounds - Cardiovascular Exam Cardiovascular Exam: +S1, +S2 - GI/Abdominal Exam GI & Abdominal Exam: Soft. absent: Tenderness Additional comments: right upper quadrant mild tenderness, abdominal drain in place with serosanguinous drainage Assessment and Plan - Assessment and Plan (Free Text) Plan: Assessment Sepsis secondary to acute gangrenous cholecystitis S/P partial laparoscopic cholecystectomy and lysis of adhesions POD #5; new onset fever yesterday hemorrhoids S/P removal history of intra-abdominal abscess S/P ex-lap and drainage peptic ulcer disease S/P perforation S/P umiblical hernia repair HTN history of hyperparathyroidism Plan given one dose of IV Vancomycin and will continue Merrem pending final results of the repeat septic work up; reviewed CT abdomen and pelvis which did not reveal acute findings; also reviewed HIDA scan which was normal Will continue to follow clinically
[2016-10-17] MEDS: Lactobacillus Acidophilus 500 MU Cap PO SCH (17:18)
[2016-10-18] MEDS: Sodium Chloride 0.9% 1,000 ML IV SCH ×2 (00:31→19:59)
[2016-10-18] MEDS: Meropenem 1 GM in Sodium Chloride 0.9% 100 ML IVPB SCH ×3 (05:05→21:45)
[2016-10-18] MEDS: Dextrose 5%/0.45% NS 1,000 ML IV SCH ×2 (05:08→18:15)
[2016-10-18] MEDS ORDERED: Morphine 4 mg/ml ISec IVP STA (06:31)
[2016-10-18 06:54] LABS: ADD MANUAL DIFF? NO
[2016-10-18 07:20] LABS: ALB/GLOB RATIO 0.9 (1.1-1.8); ALKALINE PHOSPHATASE 81 U/L (38-133); ALT/SGPT 34 U/L (7-56); AST/SGOT 47 U/L (15-59); BILIRUBIN,TOTAL 0.6 mg/dL (0.2-1.3); BLOOD UREA NITROGEN 9 mg/dL (7-21); CARBON DIOXIDE 28 mmol/L (21-33); CHLORIDE 105 mmol/L (98-107); GFR AFRICAN-AMERICAN > 60; GLUCOSE,RANDOM 119 mg/dL (70-110); MAGNESIUM 2.1 mg/dL (1.7-2.2); PHOSPHOROUS 2.4 mg/dL (2.5-4.5); POTASSIUM 3.6 mmol/L (3.6-5.0); SODIUM 138 mmol/L (132-148); TOTAL PROTEIN 6.3 g/dL (5.8-8.3)
[2016-10-18 07:21] LABS: BASO # 0.02 K/mm3 (0.0-2.0); BASO % 0.1 % (0.0-3.0); EOS # 0.4 (0.0-0.7); EOS % 2.5 % (1.5-5.0); GRAN # 11.48 (1.4-6.5); GRAN % 76.3 % (50.0-68.0); HEMATOCRIT 31.6 % (42.0-52.0); LYMPH # 2.4 (1.2-3.4); LYMPH % 15.8 % (22.0-35.0); MEAN CELL VOLUME 76.9 fL (80.0-105.0); MEAN CORPUSCULAR HEMOGLOBIN 25.8 pg (25.0-35.0); MEAN CORPUSCULAR HGB CONC 33.5 g/dl (31.0-37.0); MONO # 0.8 (0.1-0.6); MONO % 5.3 % (1.0-6.0); PLATELET COUNT 606 10^3/uL (120.0-450.0)
--- NOTE | 2016-10-18 09:18 | CP.PCM.PN ---
Subjective - Date & Time of Evaluation Date of Evaluation: 10/18/16 Time of Evaluation: 09:14 - Subjective Subjective: SURGERY NOTE FOR DR. BOWEN 65M seen and examined at bedside. Continue to have incisional pain. Denied nausea, vomiting, and he is tolerating regular diet. Patient has been having bowel movements. Objective - Vital Signs/Intake and Output Vital Signs (last 24 hours): Temp Pulse Resp BP Pulse Ox 98.4 F 68 20 129/80 100 10/18/16 06:00 10/18/16 06:00 10/18/16 06:00 10/18/16 06:00 10/18/16 06:00 Intake and Output: 10/18/16 10/18/16 06:59 18:59 Intake Total 2520 Output Total 950 Balance 1570 - Medications Medications: Current Medications Acetaminophen (Tylenol 325mg Tab) 650 mg PO Q6H PRN PRN Reason: Fever >100.4 F Last Admin: 10/15/16 16:18 Dose: 650 mg Calcitonin [place] (Miacalcin) 200 iu NS DAILY [facility] Last Admin: 10/17/16 09:47 Dose: 1 spray Heparin Sodium (Porcine) (Heparin) 5,000 units SC Q12 JESSICA PRN Reason: Protocol Last Admin: 10/16/16 09:17 Dose: 5,000 units Sodium Chloride (Sodium Chloride 0.9%) 1,000 mls @ 100 mls/hr IV .Q10H [facility] Last Admin: 10/18/16 00:31 Dose: Not Given Meropenem 1 gm/ Sodium (Chloride) 100 mls @ 100 mls/hr IVPB Q8 JESSICA PRN Reason: Protocol Stop: 10/22/16 09:46 Last Admin: 10/18/16 05:05 Dose: 100 mls/hr Dextrose/Sodium Chloride (Dextrose 5%/0.45% Ns 1000 Ml) 1,000 mls @ 100 mls/hr IV .Q10H [facility] Last Admin: 10/18/16 05:08 Dose: 100 mls/hr Ketorolac Tromethamine (Toradol) 15 mg IVP Q6 PRN PRN Reason: Pain, moderate (4-7) Last Admin: 10/17/16 00:11 Dose: 15 mg Lactobacillus Acidophilus (Bacid Acidophilus) 1 cap PO BID JESSICA Last Admin: 10/17/16 17:18 Dose: 1 cap Metoclopramide HCl (Reglan) 10 mg IVP Q6 [facility] Last Admin: 10/18/16 05:05 Dose: 10 mg Ondansetron HCl (Zofran Inj) 4 mg IVP Q6H PRN PRN Reason: Nausea/Vomiting Last Admin: 10/14/16 11:24 Dose: 4 mg Pantoprazole Sodium (Protonix Inj) 40 mg IVP DAILY [facility] Last Admin: 10/17/16 09:47 Dose: 40 mg Potassium Phos/Sodium Phos (Neutra-Phos) 1 pkt PO TID [facility] Last Admin: 10/17/16 17:18 Dose: 1 pkt - Labs Labs: 10/18/16 06:30 10/18/16 06:30 - Constitutional Appears: Non-toxic, No Acute Distress - Head Exam Head Exam: ATRAUMATIC - Respiratory Exam Respiratory Exam: Clear to Ausculation Bilateral, NORMAL BREATHING PATTERN - Cardiovascular Exam Cardiovascular Exam: REGULAR RHYTHM, +S1, +S2 - GI/Abdominal Exam GI & Abdominal Exam: Soft, Tenderness. absent: Distended, Firm, Guarding, Rigid , Rebound Additional comments: RUQ incision packed with iodoform, other incisions are clean, dry, intact, Drain has minimal drainage - serosang with discoloring from surgicell - Neurological Exam Neurological Exam: Alert, Awake - Skin Skin Exam: Dry, Intact, Normal Color, Warm Assessment and Plan - Assessment and Plan (Free Text) Assessment: 65M cholecystitis, POD#7 s/p lap, converted to open, subtotal cholecystectomy Plan: - HIDA scan negative for leak - GI rec no ERCP- signed off - wound care/daily packing - cont abx per ID - Monitor drain output - encourage OOB to chair/Amb/IS use - Patient can return to ED for packing changes Discussed with Dr. Lianne Pulido, PGY1
[2016-10-18] MEDS: Calcitonin 200 Int Units/Inh Nasal Spray (3.7 ml) NS SCH (09:58)
[2016-10-18] MEDS: Potassium & Sodium Phosphate PO SCH ×3 (09:58→18:15)
[2016-10-18] MEDS: Lactobacillus Acidophilus 500 MU Cap PO SCH ×2 (09:58→18:15)
--- NOTE | 2016-10-18 12:32 | CP.PCM.PN ---
<Corby Raymond - Last Filed: 10/18/16 12:28> Subjective - Date & Time of Evaluation Date of Evaluation: 10/18/16 Time of Evaluation: 07:14 - Subjective Subjective: Pt seen and examined. Pt complaining of RUQ and mid epigrastric pain and tenderness. Pt reports that is having normal bowel movement and passing gas. Pt reports that he is tolerating diet well. Pt denies subjective fever, chills, chest pain, shortness of breath, nausea, vomiting, diarrhea, Objective - Vital Signs/Intake and Output Vital Signs (last 24 hours): Temp Pulse Resp BP Pulse Ox 98.4 F 68 20 129/80 100 10/18/16 06:00 10/18/16 06:00 10/18/16 06:00 10/18/16 06:00 10/18/16 06:00 Intake and Output: 10/18/16 10/18/16 06:59 18:59 Intake Total 2520 Output Total 950 Balance 1570 - Medications Medications: Current Medications Acetaminophen (Tylenol 325mg Tab) 650 mg PO Q6H PRN PRN Reason: Fever >100.4 F Last Admin: 10/15/16 16:18 Dose: 650 mg Calcitonin [place] (Miacalcin) 200 iu NS DAILY [facility] Last Admin: 10/18/16 09:58 Dose: 1 spray Heparin Sodium (Porcine) (Heparin) 5,000 units SC Q12 JESSICA PRN Reason: Protocol Last Admin: 10/16/16 09:17 Dose: 5,000 units Sodium Chloride (Sodium Chloride 0.9%) 1,000 mls @ 100 mls/hr IV .Q10H [facility] Last Admin: 10/18/16 00:31 Dose: Not Given Meropenem 1 gm/ Sodium (Chloride) 100 mls @ 100 mls/hr IVPB Q8 JESSICA PRN Reason: Protocol Stop: 10/22/16 09:46 Last Admin: 10/18/16 05:05 Dose: 100 mls/hr Dextrose/Sodium Chloride (Dextrose 5%/0.45% Ns 1000 Ml) 1,000 mls @ 100 mls/hr IV .Q10H [facility] Last Admin: 10/18/16 05:08 Dose: 100 mls/hr Ketorolac Tromethamine (Toradol) 15 mg IVP Q6 PRN PRN Reason: Pain, moderate (4-7) Last Admin: 10/17/16 00:11 Dose: 15 mg Lactobacillus Acidophilus (Bacid Acidophilus) 1 cap PO BID [facility] Last Admin: 10/18/16 09:58 Dose: 1 cap Ondansetron HCl (Zofran Inj) 4 mg IVP Q6H PRN PRN Reason: Nausea/Vomiting Last Admin: 10/14/16 11:24 Dose: 4 mg Pantoprazole Sodium (Protonix Inj) 40 mg IVP DAILY [facility] Last Admin: 10/18/16 09:58 Dose: 40 mg Potassium Phos/Sodium Phos (Neutra-Phos) 1 pkt PO TID [facility] Last Admin: 10/18/16 09:58 Dose: 1 pkt - Labs Labs: 10/18/16 06:30 10/18/16 06:30 - Constitutional Appears: No Acute Distress - Head Exam Head Exam: ATRAUMATIC, NORMOCEPHALIC - Eye Exam Eye Exam: EOMI, PERRL Pupil Exam: PERRL - ENT Exam ENT Exam: Mucous Membranes Moist. absent: Mucous Membranes Dry - Neck Exam Neck Exam: Full ROM. absent: Lymphadenopathy - Respiratory Exam Respiratory Exam: Clear to Ausculation Bilateral. absent: Rales, Rhonchi, Wheezes - Cardiovascular Exam Cardiovascular Exam: +S1, +S2. absent: Gallop, Rubs - GI/Abdominal Exam GI & Abdominal Exam: Guarding, Tenderness Additional comments: kmi incisional rigidity, RUQ and midepigastric tenderness; remained of abdomen soft - Extremities Exam Extremities Exam: Full ROM. absent: Pedal Edema - Neurological Exam Neurological Exam: Alert, Awake, Oriented x3 - Psychiatric Exam Psychiatric exam: Normal Affect, Normal Mood - Skin Skin Exam: Normal Color, Warm Assessment and Plan - Assessment and Plan (Free Text) Assessment: Cholecystitis: Day 7 s/p open subtotal cholecystectomy Afebrile, nontachycardic WBC -15.0 today, increaased from yesterday Infectious Disease, consulted, Dr. Pimentel. Help appreciated. CT of the abdomen showed mild thickening of the gallbladder wall; mild dilatation of the pancreatic duct in the pancreatic head and proximal body; left inguinal hernia (please see full report) Abdominal US showed gallbladder sludge, mural thickening and trace peripholecystic fluid (please see full report) EKG showed NSR w/ RBB and LAF block, moderate voltage criteria for LVH MRCP was performed showing findings w/o CBD stone and consistent with acalculous cholecystitis (please see full report) HIDA scan shows cystic duct ws occluded (please see full report) LFTs within normal range Wound cultures positive for klebsiella Abd/Pelvis CT - small collection of fluid, no drainable collection (please see full report) HIDA scan negative for bile leak (please see full report) GI consulted, Dr. Wallis, help appreciated. Pt on regular diet Tylenol prn for fever NS IVF 100 cc/hr Meropenem 1 gm q8h as per ID Continue trend WBC count, assess clinically Wound Abscess: Day 2 s/p bedside I&D Daily packing/dressing changes as per surgery Wound cultures positive for klebsiella pneumoniae Meropenem 1 gm q8h as per ID Hypercalcemia: Likely secondary to hyperparathyroidism 11.0 Calcitonin 200 iu NS daily Anemia: H/H: 10.6/31.6 Iron studies show: Iron 19, TIBC 299, 6% Saturation, Ferritin 65, Folate 11.5 Continue to monitor Prophylactic Measures: GI: Protonix 40 mg IV qd DVT: Heparin 5000 units sc q12h Toradol prn for pain Zofran prn for nausea <Chandni Bee B - Last Filed: 10/19/16 19:59> Objective - Vital Signs/Intake and Output Vital Signs (last 24 hours): Temp Pulse Resp BP Pulse Ox 98.6 F 78 20 132/81 100 10/19/16 16:18 18 16:18 10/19/16 16:18 10/19/16 16:18 10/19/16 16:18 - Medications Medications: Current Medications Acetaminophen (Tylenol 325mg Tab) 650 mg PO Q6H PRN PRN Reason: Fever >100.4 F Last Admin: 10/15/16 16:18 Dose: 650 mg Acetaminophen (Tylenol 325mg Tab) 650 mg PO Q6H PRN PRN Reason: Pain, Mild (1-3) Calcitonin [place] (Miacalcin) 200 iu NS DAILY [facility] Last Admin: 10/19/16 09:28 Dose: 1 spray Ferrous Sulfate (Feosol) 324 mg PO TID [facility] Last Admin: 10/19/16 17:16 Dose: 324 mg Heparin Sodium (Porcine) (Heparin) 5,000 units SC Q12 JESSICA PRN Reason: Protocol Last Admin: 10/16/16 09:17 Dose: 5,000 units Sodium Chloride (Sodium Chloride 0.9%) 1,000 mls @ 100 mls/hr IV .Q10H [facility] Last Admin: 10/19/16 12:42 Dose: 100 mls/hr Meropenem 1 gm/ Sodium (Chloride) 100 mls @ 100 mls/hr IVPB Q8 JESSICA PRN Reason: Protocol Stop: 10/22/16 09:46 Last Admin: 10/19/16 13:04 Dose: 100 mls/hr Lactobacillus Acidophilus (Bacid Acidophilus) 1 cap PO BID [facility] Last Admin: 10/19/16 17:16 Dose: 1 cap Oxycodone/Acetaminophen (Percocet 5/325 Mg Tab) 1 tab PO Q4H PRN PRN Reason: Pain, moderate (4-7) Stop: 10/22/16 13:45 Last Admin: 10/19/16 17:20 Dose: 1 tab Pantoprazole Sodium (Protonix Inj) 40 mg IVP DAILY [facility] Last Admin: 10/19/16 09:28 Dose: 40 mg Potassium Phos/Sodium Phos (Neutra-Phos) 1 pkt PO TID [facility] Last Admin: 10/19/16 17:16 Dose: 1 pkt - Labs Labs: 10/19/16 06:33 10/19/16 06:33 Attending/Attestation - Attestation I have personally seen and examined this patient.: Yes I have fully participated in the care of the patient.: Yes I have reviewed all pertinent clinical information, including history, physical exam and plan: Yes Notes (Text): I have seen and examined patient at bedside with the resident. Patients daughter provided translation. This is 65 year old male with history of PUD, hyperparathyroidism induced hypercalcemia on intranasal calcitonin, HTN, hemorrhoids s/p resection, intra abdominal abscess s/p I&D, umbilical hernia repair who got admitted for evaluation of right sided abdominal pain and found to have acute gangrenous cholecystitis s/p partial laparoscopic cholecystectomy and BASIL. He also underwent bedside I&D. He continues to have abdominal pain in the RUQ. Leukocytosis is persistent. Wound and sputum culture positive for klebsiella. CT abdomen and pelvis did not show any acute process. As HIDA showed no bile leak therefore ERCP was cancelled. Continue meropenem. Serosanguinous fluid noted in the drain. Surgery team is doing daily packing changes. Patient continues to complain of severe pain in RUQ. Also has iron deficiency anemia on po iron. No more episodes of diarrhea. CDiff ordered. Colace, dulcolax and reglan discontinued. Discussed with patients daughter. Dr Chandni Bee
[2016-10-18] MEDS ORDERED: Barium Sulfate Susp 2.1% w/v, 2.0% w/w 450 mL Bottle PO ONE (14:11)
[2016-10-18] MEDS ORDERED: Iohexol 350 MG/100 ML VIAL ONE (17:51)
--- NOTE | 2016-10-18 19:49 | CP.PCM.PN ---
Subjective - Date & Time of Evaluation Date of Evaluation: 10/18/16 Time of Evaluation: 10:20 - Subjective Subjective: Feeling better, less abdominal pain, no fevers, no nausea or vomiting. Objective - Vital Signs/Intake and Output Vital Signs (last 24 hours): Temp Pulse Resp BP Pulse Ox 98.4 F 68 20 129/80 100 10/18/16 06:00 10/18/16 06:00 10/18/16 06:00 10/18/16 06:00 10/18/16 06:00 Intake and Output: 10/18/16 10/18/16 06:59 18:59 Intake Total 2520 Output Total 950 Balance 1570 - Medications Medications: Current Medications Acetaminophen (Tylenol 325mg Tab) 650 mg PO Q6H PRN PRN Reason: Fever >100.4 F Last Admin: 10/15/16 16:18 Dose: 650 mg Calcitonin [place] (Miacalcin) 200 iu NS DAILY [facility] Last Admin: 10/18/16 09:58 Dose: 1 spray Heparin Sodium (Porcine) (Heparin) 5,000 units SC Q12 JESSICA PRN Reason: Protocol Last Admin: 10/16/16 09:17 Dose: 5,000 units Sodium Chloride (Sodium Chloride 0.9%) 1,000 mls @ 100 mls/hr IV .Q10H [facility] Last Admin: 10/18/16 00:31 Dose: Not Given Meropenem 1 gm/ Sodium (Chloride) 100 mls @ 100 mls/hr IVPB Q8 JESSICA PRN Reason: Protocol Stop: 10/22/16 09:46 Last Admin: 10/18/16 05:05 Dose: 100 mls/hr Dextrose/Sodium Chloride (Dextrose 5%/0.45% Ns 1000 Ml) 1,000 mls @ 100 mls/hr IV .Q10H [facility] Last Admin: 10/18/16 05:08 Dose: 100 mls/hr Ketorolac Tromethamine (Toradol) 15 mg IVP Q6 PRN PRN Reason: Pain, moderate (4-7) Last Admin: 10/17/16 00:11 Dose: 15 mg Lactobacillus Acidophilus (Bacid Acidophilus) 1 cap PO BID [facility] Last Admin: 10/18/16 09:58 Dose: 1 cap Metoclopramide HCl (Reglan) 10 mg IVP Q6 [facility] Last Admin: 10/18/16 05:05 Dose: 10 mg Ondansetron HCl (Zofran Inj) 4 mg IVP Q6H PRN PRN Reason: Nausea/Vomiting Last Admin: 10/14/16 11:24 Dose: 4 mg Pantoprazole Sodium (Protonix Inj) 40 mg IVP DAILY [facility] Last Admin: 10/18/16 09:58 Dose: 40 mg Potassium Phos/Sodium Phos (Neutra-Phos) 1 pkt PO TID [facility] Last Admin: 10/18/16 09:58 Dose: 1 pkt - Labs Labs: 10/18/16 06:30 10/18/16 06:30 - Constitutional Appears: Non-toxic, No Acute Distress - Head Exam Head Exam: NORMAL INSPECTION - ENT Exam ENT Exam: Mucous Membranes Moist - Neck Exam Neck Exam: absent: Lymphadenopathy, Meningismus - Respiratory Exam Respiratory Exam: Decreased Breath Sounds - Cardiovascular Exam Cardiovascular Exam: +S1, +S2 - GI/Abdominal Exam GI & Abdominal Exam: Soft, Tenderness (mild RUQ). absent: Distended, Firm, Guarding, Rigid Additional comments: RUQ abdominal drain, with serosanguinous drainage Assessment and Plan - Assessment and Plan (Free Text) Plan: Assessment Sepsis secondary to acute gangrenous cholecystitis S/P partial laparoscopic cholecystectomy and lysis of adhesions POD #6; new onset fever yesterday; wound cx growing ESBL-producing Klebsiella hemorrhoids S/P removal history of intra-abdominal abscess S/P ex-lap and drainage peptic ulcer disease S/P perforation S/P umiblical hernia repair HTN history of hyperparathyroidism Plan continue Merrem and will monitor clinically - abdominal drain still with significant drainage and will monitor the amount; reviewed CT abdomen and pelvis which did not reveal acute findings; also reviewed HIDA scan which was normal Will continue to follow clinically
[2016-10-19] MEDS: Meropenem 1 GM in Sodium Chloride 0.9% 100 ML IVPB SCH ×3 (06:04→21:43)
[2016-10-19] MEDS: Dextrose 5%/0.45% NS 1,000 ML IV SCH (06:05)
[2016-10-19 06:36] LABS: ADD MANUAL DIFF? NO
[2016-10-19 06:39] LABS: BASO # 0.03 K/mm3 (0.0-2.0); BASO % 0.2 % (0.0-3.0); EOS # 0.4 (0.0-0.7); EOS % 2.7 % (1.5-5.0); GRAN # 9.92 (1.4-6.5); GRAN % 75.2 % (50.0-68.0); HEMATOCRIT 32.4 % (42.0-52.0); LYMPH # 2.2 (1.2-3.4); LYMPH % 16.7 % (22.0-35.0); MEAN CELL VOLUME 77.9 fL (80.0-105.0); MEAN CORPUSCULAR HGB CONC 33.3 g/dl (31.0-37.0); MEAN PLATELET VOLUME 9.7 fl (7.0-11.0); MONO # 0.7 (0.1-0.6); MONO % 5.2 % (1.0-6.0); RED CELL DISTRIBUTION WIDTH 13.4 % (11.5-14.5); WHITE BLOOD COUNT 13.2 10^3/ul (4.5-11.0)
[2016-10-19 06:49] LABS: PLATELET COUNT 703 10^3/uL (120.0-450.0)
[2016-10-19 06:51] LABS: ALB/GLOB RATIO 0.8 (1.1-1.8); ALKALINE PHOSPHATASE 81 U/L (38-133); ALT/SGPT 29 U/L (7-56); AST/SGOT 56 U/L (15-59); BILIRUBIN,TOTAL 0.6 mg/dL (0.2-1.3); BLOOD UREA NITROGEN 8 mg/dL (7-21); CALCIUM 11.3 mg/dL (8.4-10.5); CARBON DIOXIDE 28 mmol/L (21-33); CHLORIDE 104 mmol/L (98-107); GFR AFRICAN-AMERICAN > 60; GLUCOSE,RANDOM 112 mg/dL (70-110); MAGNESIUM 2.1 mg/dL (1.7-2.2); PHOSPHOROUS 2.6 mg/dL (2.5-4.5); SODIUM 138 mmol/L (132-148); TOTAL PROTEIN 6.6 g/dL (5.8-8.3)
[2016-10-19] MEDS: Sodium Chloride 0.9% 1,000 ML IV SCH ×2 (09:28→12:42)
[2016-10-19] MEDS: Lactobacillus Acidophilus 500 MU Cap PO SCH ×2 (09:28→17:16)
[2016-10-19] MEDS: Calcitonin 200 Int Units/Inh Nasal Spray (3.7 ml) NS SCH (09:28)
[2016-10-19] MEDS: Potassium & Sodium Phosphate PO SCH ×3 (09:28→17:16)
--- NOTE | 2016-10-19 11:51 | PN ---
DATE: 10/19/2016 The patient is in bed in no acute distress, nontoxic. PHYSICAL EXAMINATION: VITAL SIGNS: Temperature is 98, blood pressure is 129/80, respiratory rate of 18, heart rate of 68. HEENT: Unremarkable. NECK: Supple. LUNGS: Have decreased breath sounds. HEART: Normal S1, S2. ABDOMEN: Soft. LABORATORY EXAMINATION: Reveals a white count of 13,000, hemoglobin of 10, platelets of 703. Chemis tries reveal the BUN of 8, creatinine of 0.9. Procalcitonin is 2.49. Urinalysis is noted. Review o f the patient's orders reveals the patient to be on meropenem. ASSESSMENT AND PLAN: A 65-year-old male seen earlier in 369, bed 2 with sepsis secondary to acute ga ngrenous cholecystitis, status post partial laparoscopic cholecystectomy and lysis of adhesions, post -procedure day #7 and had a fever, growing extended spectrum beta-lactamase producing Klebsiella and currently on meropenem with abdominal drain noted. The patient did have a repeat CAT scan and the re sults are pending. The patient's meropenem requires renewal which I will renew and continue the edna penem. We will follow closely with you. Geovani Valladares MD cc: [id number] TT: 10/19/2016 11:51:10 Confirmation # [id number] Dictation # [id number] tn
--- NOTE | 2016-10-19 11:56 | CT ---
PROCEDURE: CT Abdomen and Pelvis with oral and IV contrast. HISTORY: r/o abscess in RUQ, post open cholecystectomy COMPARISON: CT abdomen and pelvis with contrast performed 10/15/16 TECHNIQUE: Contiguous axial images of the abdomen and pelvis. Oral and IV contrast was administered. Coronal and Sagittal reformats generated and reviewed. Contrast dose: 100 cc Omnipaque 350 ; please note technologist reports that IV infiltrated and that the patient's nurse was notified and aware. Radiation dose: Total exam DLP = 716.10 mGy-cm. FINDINGS: IV infiltration with resultant essentially non enhanced examination. LOWER THORAX: Bibasilar atelectasis. Small right pleural effusion. There is no visible pleural effusion or pneumothorax. LIVER: Unremarkable. GALLBLADDER AND BILE DUCTS: Cholecystectomy. Right upper quadrant drainage catheter present. Small fluid within the gallbladder fossa. PANCREAS: Unremarkable. SPLEEN: Unremarkable. ADRENALS: Bilateral adrenal gland hypertrophy. KIDNEYS AND URETERS: No hydronephrosis or obstructing renal calculus. Punctate nonobstructing left renal calculus. BLADDER: The urinary bladder appears unremarkable. REPRODUCTIVE: The prostate gland measures approximately 3.3 x 4.4 cm and contains calcifications. APPENDIX: Appendix appears within normal limits of caliber. No secondary signs of acute appendicitis. BOWEL: The stomach is nondistended. Bowel containing left inguinal hernia without evidence of obstruction. The bowel loops appear within normal limits of caliber without evidence of intestinal obstruction. Fat containing right inguinal hernia. PERITONEUM: Small perihepatic ascites. Tiny focus of pneumatosis anterior to liver. LYMPH NODES: No bulky lymphadenopathy identified. VASCULATURE: No aortic aneurysm. BONES: Degenerative changes. Overall sclerotic heterogeneous appearance of the osseous structures. OTHER FINDINGS: Bilateral gynecomastia. Right upper quadrant surgical cory. Subcutaneous bubbles of gas and small fluid within the anterior abdomen. IMPRESSION: Postoperative changes consistent with recent cholecystectomy. Punctate focus of pneumatosis anterior to the liver. Right upper quadrant drainage catheter. Small fluid within the gallbladder fossa. Right upper quadrant surgical cory. Subcutaneous bubbles of gas and small fluid within the anterior abdomen. Bibasilar atelectasis. Small right pleural effusion. Bowel containing left inguinal hernia without evidence of obstruction. Fat containing right inguinal hernia. Overall sclerotic and heterogeneous appearance of the osseous structures. Correlate clinically. Suggest nuclear medicine bone scan for further evaluation. Additional findings as above. Preliminary impression was provided by virtual radiologic.
--- NOTE | 2016-10-19 12:35 | CP.PCM.PN ---
Subjective - Date & Time of Evaluation Date of Evaluation: 10/19/16 Time of Evaluation: 12:30 - Subjective Subjective: Patient has very poor veins,needs iv access. Objective - Vital Signs/Intake and Output Vital Signs (last 24 hours): Temp Pulse Resp BP Pulse Ox 98.2 F 64 19 141/88 96 10/19/16 06:00 10/19/16 06:00 10/19/16 06:00 10/19/16 06:00 10/19/16 06:00 Intake and Output: 10/19/16 10/19/16 06:59 18:59 Intake Total 0 Output Total 510 Balance -510 - Medications Medications: Current Medications Acetaminophen (Tylenol 325mg Tab) 650 mg PO Q6H PRN PRN Reason: Fever >100.4 F Last Admin: 10/15/16 16:18 Dose: 650 mg Calcitonin [place] (Miacalcin) 200 iu NS DAILY [facility] Last Admin: 10/19/16 09:28 Dose: 1 spray Ferrous Sulfate (Feosol) 324 mg PO TID [facility] Last Admin: 10/19/16 09:28 Dose: 324 mg Heparin Sodium (Porcine) (Heparin) 5,000 units SC Q12 [facility]ESSICA PRN Reason: Protocol Last Admin: 10/16/16 09:17 Dose: 5,000 units Sodium Chloride (Sodium Chloride 0.9%) 1,000 mls @ 100 mls/hr IV .Q10H [facility] Last Admin: 10/19/16 09:28 Dose: 100 mls/hr Meropenem 1 gm/ Sodium (Chloride) 100 mls @ 100 mls/hr IVPB Q8 JESSICA PRN Reason: Protocol Stop: 10/22/16 09:46 Last Admin: 10/19/16 06:04 Dose: 100 mls/hr Ketorolac Tromethamine (Toradol) 15 mg IVP Q6 PRN PRN Reason: Pain, moderate (4-7) Last Admin: 10/18/16 19:55 Dose: 15 mg Lactobacillus Acidophilus (Bacid Acidophilus) 1 cap PO BID [facility] Last Admin: 10/19/16 09:28 Dose: 1 cap Pantoprazole Sodium (Protonix Inj) 40 mg IVP DAILY [facility] Last Admin: 10/19/16 09:28 Dose: 40 mg Potassium Phos/Sodium Phos (Neutra-Phos) 1 pkt PO TID [facility] Last Admin: 03/18/17 09:28 Dose: 1 pkt - Labs Labs: 10/19/16 06:33 10/19/16 06:33 - Constitutional Appears: No Acute Distress Assessment and Plan - Assessment and Plan (Free Text) Assessment: Poor venous access Plan: Hep lock inserted in the L hand. # 24 angiocath used.
--- NOTE | 2016-10-19 13:30 | CP.PCM.PN ---
<Aaliyah Mirza - Last Filed: 10/19/16 21:11> Subjective - Date & Time of Evaluation Date of Evaluation: 10/19/16 Time of Evaluation: 07:30 - Subjective Subjective: General Surgery progress note for Dr. Abdalla Pt s/e at bedside this AM. NAEO. Patient states that his pain at the RUQ incision site is worse than yesterday but denies any other pain, nausea, vomiting, and fevers. Explained to patient that he should ask the nurse for pain medication when he has pain. No other complaints or concerns. Changed patient's RUQ wound dressing. Scant output in ED abdominal drain. Objective - Vital Signs/Intake and Output Vital Signs (last 24 hours): Temp Pulse Resp BP Pulse Ox 98.2 F 64 19 141/88 96 10/19/16 06:00 10/19/16 06:00 10/19/16 06:00 10/19/16 06:00 10/19/16 06:00 Intake and Output: 10/19/16 10/19/16 06:59 18:59 Intake Total 0 Output Total 510 Balance -510 - Medications Medications: Current Medications Acetaminophen (Tylenol 325mg Tab) 650 mg PO Q6H PRN PRN Reason: Fever >100.4 F Last Admin: 10/15/16 16:18 Dose: 650 mg Calcitonin [place] (Miacalcin) 200 iu NS DAILY [facility] Last Admin: 10/19/16 09:28 Dose: 1 spray Ferrous Sulfate (Feosol) 324 mg PO TID [facility] Last Admin: 10/19/16 13:07 Dose: 324 mg Heparin Sodium (Porcine) (Heparin) 5,000 units SC Q12 JESSICA PRN Reason: Protocol Last Admin: 10/16/16 09:17 Dose: 5,000 units Sodium Chloride (Sodium Chloride 0.9%) 1,000 mls @ 100 mls/hr IV .Q10H [facility] Last Admin: 10/19/16 12:42 Dose: 100 mls/hr Meropenem 1 gm/ Sodium (Chloride) 100 mls @ 100 mls/hr IVPB Q8 JESSICA PRN Reason: Protocol Stop: 10/22/16 09:46 Last Admin: 10/19/16 13:04 Dose: 100 mls/hr Ketorolac Tromethamine (Toradol) 15 mg IVP Q6 PRN PRN Reason: Pain, moderate (4-7) Last Admin: 10/18/16 19:55 Dose: 15 mg Lactobacillus Acidophilus (Bacid Acidophilus) 1 cap PO BID [facility] Last Admin: 10/19/16 09:28 Dose: 1 cap Pantoprazole Sodium (Protonix Inj) 40 mg IVP DAILY [facility] Last Admin: 10/19/16 09:28 Dose: 40 mg Potassium Phos/Sodium Phos (Neutra-Phos) 1 pkt PO TID [facility] Last Admin: 10/19/16 13:07 Dose: 1 pkt - Labs Labs: 10/19/16 06:33 10/19/16 06:33 - Constitutional Appears: Well, Non-toxic, No Acute Distress - Head Exam Head Exam: ATRAUMATIC, NORMOCEPHALIC - Eye Exam Eye Exam: Normal appearance. absent: Conjunctival injection, Scleral icterus - ENT Exam ENT Exam: Mucous Membranes Moist - Respiratory Exam Respiratory Exam: NORMAL BREATHING PATTERN. absent: Accessory Muscle Use, Respiratory Distress - GI/Abdominal Exam GI & Abdominal Exam: Soft, Tenderness (Tenderness to palpation along the RUQ surgical incision). absent: Distended Additional comments: RUQ surgical incision with opening in the skin edges in the middle of the wound packed with iodoform gauze saturated with sero-purulent fluid. Opening surrounded by 2-3 cm ring of indurated tissue. No other areas with signs of infection. ED abdominal drain in place with scant fluid output - Neurological Exam Neurological Exam: Alert, Awake, Oriented x3 - Psychiatric Exam Psychiatric exam: Normal Affect, Normal Mood - Skin Skin Exam: Dry, Normal Color, Warm Assessment and Plan - Assessment and Plan (Free Text) Assessment: 65M cholecystitis, POD#8 s/p lap, converted to open, subtotal cholecystectomy Abd CT with PO contrast: post-op changes in the gallbladder fossa, air in gallbladder fossa, non-obstructive left inguinal hernia containing bowel, right inguinal hernia containing fat WBC 13.2 down from 15.0 Tolerating diet Plan: - wound care/daily packing - cont abx per ID - Monitor drain output - Monitor WBC - encourage OOB to chair/Amb/IS use Discussed and examined with Dr. Lianne Mirza, PGY1 <Poli Abdalla - Last Filed: 10/20/16 18:25> Objective - Vital Signs/Intake and Output Vital Signs (last 24 hours): Temp Pulse Resp BP Pulse Ox 98.4 F 74 20 114/74 100 10/20/16 16:36 10/20/16 16:36 10/20/16 16:36 10/20/16 16:36 10/20/16 16:36 Intake and Output: 10/20/16 10/20/16 06:59 18:59 Intake Total 420 0 Output Total 910 230 Balance -490 -230 - Medications Medications: Current Medications Acetaminophen (Tylenol 325mg Tab) 650 mg PO Q6H PRN PRN Reason: Fever >100.4 F Last Admin: 10/15/16 16:18 Dose: 650 mg Acetaminophen (Tylenol 325mg Tab) 650 mg PO Q6H PRN PRN Reason: Pain, Mild (1-3) Aspirin (Ecotrin) 81 mg PO DAILY [facility] Last Admin: 10/20/16 17:14 Dose: 81 mg Calcitonin [place] (Miacalcin) 200 iu NS DAILY [facility] Last Admin: 10/20/16 09:47 Dose: 1 spray Ferrous Sulfate (Feosol) 324 mg PO TID [facility] Last Admin: 10/20/16 09:46 Dose: 324 mg Heparin Sodium (Porcine) (Heparin) 5,000 units SC Q12 JESSICA PRN Reason: Protocol Last Admin: 10/20/16 09:47 Dose: Not Given Meropenem 1 gm/ Sodium (Chloride) 100 mls @ 100 mls/hr IVPB Q8 JESSICA PRN Reason: Protocol Stop: 10/22/16 09:46 Last Admin: 10/20/16 14:10 Dose: 100 mls/hr Dextrose/Sodium Chloride (Dextrose 5%/0.45% Ns 1000 Ml) 1,000 mls @ 100 mls/hr IV .Q10H [facility] Last Admin: 10/20/16 09:46 Dose: 100 mls/hr Iron Sucrose 100 mg/ Sodium (Chloride) 105 mls @ 210 mls/hr IVPB DAILY [facility] Last Admin: 10/20/16 11:31 Dose: 210 mls/hr Lactobacillus Acidophilus (Bacid Acidophilus) 1 cap PO BID [facility] Last Admin: 10/20/16 17:14 Dose: 1 cap Oxycodone/Acetaminophen (Percocet 5/325 Mg Tab) 1 tab PO Q4H PRN PRN Reason: Pain, moderate (4-7) Stop: 10/22/16 13:45 Last Admin: 10/20/16 17:12 Dose: 1 tab Pantoprazole Sodium (Protonix Inj) 40 mg IVP DAILY [facility] Last Admin: 10/20/16 09:46 Dose: 40 mg Potassium Phos/Sodium Phos (Neutra-Phos) 1 pkt PO TID [facility] Last Admin: 10/20/16 17:12 Dose: 1 pkt - Labs Labs: 10/20/16 06:20 10/20/16 06:20 Attending/Attestation - Attestation I have personally seen and examined this patient.: Yes I have fully participated in the care of the patient.: Yes I have reviewed all pertinent clinical information, including history, physical exam and plan: Yes Notes (Text): 10/20/16 18:25 Pt was seen and examined at bedside on 10/19/16 Agree with above note and assessment
--- NOTE | 2016-10-19 16:47 | CP.PCM.PN ---
<Corby Raymond - Last Filed: 10/19/16 16:41> Subjective - Date & Time of Evaluation Date of Evaluation: 10/19/16 Time of Evaluation: 08:22 - Subjective Subjective: Pt seen and examined. Pt oob to chair. Pt reports he feels better today. Pt still complains of pain in RUQ. Pt reports that he is tolerating diet and has a good appetite. Pt reports that he is passing gas and having bowel movements. Pt denies fever, chills, chest pain, shortness of breath, nausea, and vomiting. Objective - Vital Signs/Intake and Output Vital Signs (last 24 hours): Temp Pulse Resp BP Pulse Ox 98.6 F 78 20 132/81 100 10/19/16 16:18 10/19/16 16:18 10/19/16 16:18 10/19/16 16:18 10/19/16 16:18 Intake and Output: 10/19/16 10/19/16 06:59 18:59 Intake Total 0 Output Total 510 Balance -510 - Medications Medications: Current Medications Acetaminophen (Tylenol 325mg Tab) 650 mg PO Q6H PRN PRN Reason: Fever >100.4 F Last Admin: 10/15/16 16:18 Dose: 650 mg Acetaminophen (Tylenol 325mg Tab) 650 mg PO Q6H PRN PRN Reason: Pain, Mild (1-3) Calcitonin [place] (Miacalcin) 200 iu NS DAILY [facility] Last Admin: 10/19/16 09:28 Dose: 1 spray Ferrous Sulfate (Feosol) 324 mg PO TID [facility] Last Admin: 10/19/16 13:07 Dose: 324 mg Heparin Sodium (Porcine) (Heparin) 5,000 units SC Q12 JESSICA PRN Reason: Protocol Last Admin: 10/16/16 09:17 Dose: 5,000 units Sodium Chloride (Sodium Chloride 0.9%) 1,000 mls @ 100 mls/hr IV .Q10H [facility] Last Admin: 10/19/16 12:42 Dose: 100 mls/hr Meropenem 1 gm/ Sodium (Chloride) 100 mls @ 100 mls/hr IVPB Q8 JESSICA PRN Reason: Protocol Stop: 10/22/16 09:46 Last Admin: 10/19/16 13:04 Dose: 100 mls/hr Lactobacillus Acidophilus (Bacid Acidophilus) 1 cap PO BID [facility] Last Admin: 10/19/16 09:28 Dose: 1 cap Oxycodone/Acetaminophen (Percocet 5/325 Mg Tab) 1 tab PO Q4H PRN PRN Reason: Pain, moderate (4-7) Stop: 10/22/16 13:45 Pantoprazole Sodium (Protonix Inj) 40 mg IVP DAILY [facility] Last Admin: 10/19/16 09:28 Dose: 40 mg Potassium Phos/Sodium Phos (Neutra-Phos) 1 pkt PO TID [facility] Last Admin: 10/19/16 13:07 Dose: 1 pkt - Labs Labs: 10/19/16 06:33 10/19/16 06:33 - Constitutional Appears: No Acute Distress - Head Exam Head Exam: ATRAUMATIC, NORMOCEPHALIC - Eye Exam Eye Exam: EOMI, PERRL - ENT Exam ENT Exam: Mucous Membranes Moist. absent: Mucous Membranes Dry - Neck Exam Neck Exam: Full ROM. absent: Lymphadenopathy - Respiratory Exam Respiratory Exam: Clear to Ausculation Bilateral. absent: Rales, Rhonchi, Wheezes - Cardiovascular Exam Cardiovascular Exam: +S1, +S2. absent: Gallop, Rubs, Murmur - GI/Abdominal Exam GI & Abdominal Exam: Firm, Tenderness. absent: Distended - Extremities Exam Extremities Exam: Full ROM. absent: Pedal Edema - Neurological Exam Neurological Exam: Alert, Awake, Oriented x3 - Psychiatric Exam Psychiatric exam: Normal Affect, Normal Mood - Skin Skin Exam: Normal Color, Warm Assessment and Plan - Assessment and Plan (Free Text) Assessment: Cholecystitis: Day 8 s/p open subtotal cholecystectomy Afebrile, nontachycardic WBC -13.2 Infectious Disease, consulted, Dr. Pimentel. Help appreciated. CT of the abdomen showed mild thickening of the gallbladder wall; mild dilatation of the pancreatic duct in the pancreatic head and proximal body; left inguinal hernia (please see full report) Abdominal US showed gallbladder sludge, mural thickening and trace peripholecystic fluid (please see full report) EKG showed NSR w/ RBB and LAF block, moderate voltage criteria for LVH MRCP was performed showing findings w/o CBD stone and consistent with acalculous cholecystitis (please see full report) HIDA scan shows cystic duct ws occluded (please see full report) LFTs within normal range Wound cultures positive for klebsiella Repeat Abd/Pelvis CT - small collection of fluid, no drainable collection ( please see full report) HIDA scan negative for bile leak (please see full report) GI consulted, Dr. Wallis, help appreciated. Pt on regular diet Tylenol prn for fever NS IVF 100 cc/hr Meropenem 1 gm q8h as per ID Continue trend WBC count, assess clinically Third Abd/Pelvis CT - subcutaneous bubbles of gas and small fluid within the anterior abdomen, punctate focus of pneumatosis anterior to the liver, small amount of fluid within the gallbladder fossa, small right pleural effusion ( please see full report) Wound Abscess: Day 3 s/p bedside I&D Daily packing/dressing changes as per surgery Wound cultures positive for klebsiella pneumoniae Meropenem 1 gm q8h as per ID Thrombocytosis: Platelets 703, continuing an upward trend Hypercalcemia: Likely secondary to hyperparathyroidism 11.3 Calcitonin 200 iu NS daily Anemia: H/H: 10.8/32.4 Iron studies show: Iron 19, TIBC 299, 6% Saturation, Ferritin 65, Folate 11.5 Continue to monitor Prophylactic Measures: GI: Protonix 40 mg IV qd DVT: Heparin 5000 units sc q12h Toradol prn for pain Zofran prn for nausea <Chandni Bee - Last Filed: 10/20/16 13:21> Objective - Vital Signs/Intake and Output Vital Signs (last 24 hours): Temp Pulse Resp BP Pulse Ox 98.1 F 73 18 125/83 99 10/20/16 06:00 10/20/16 06:00 10/20/16 06:00 10/20/16 06:00 10/20/16 06:00 Intake and Output: 10/20/16 10/20/16 06:59 18:59 Intake Total 420 0 Output Total 910 230 Balance -490 -230 - Medications Medications: Current Medications Acetaminophen (Tylenol 325mg Tab) 650 mg PO Q6H PRN PRN Reason: Fever >100.4 F Last Admin: 10/15/16 16:18 Dose: 650 mg Acetaminophen (Tylenol 325mg Tab) 650 mg PO Q6H PRN PRN Reason: Pain, Mild (1-3) Calcitonin [place] (Miacalcin) 200 iu NS DAILY [facility] Last Admin: 10/20/16 09:47 Dose: 1 spray Ferrous Sulfate (Feosol) 324 mg PO TID [facility] Last Admin: 10/20/16 09:46 Dose: 324 mg Heparin Sodium (Porcine) (Heparin) 5,000 units SC Q12 JESSICA PRN Reason: Protocol Last Admin: 10/20/16 09:47 Dose: Not Given Meropenem 1 gm/ Sodium (Chloride) 100 mls @ 100 mls/hr IVPB Q8 JESSICA PRN Reason: Protocol Stop: 10/22/16 09:46 Last Admin: 10/20/16 05:15 Dose: 100 mls/hr Dextrose/Sodium Chloride (Dextrose 5%/0.45% Ns 1000 Ml) 1,000 mls @ 100 mls/hr IV .Q10H [facility] Last Admin: 10/20/16 09:46 Dose: 100 mls/hr Iron Sucrose 100 mg/ Sodium (Chloride) 105 mls @ 210 mls/hr IVPB DAILY [facility] Last Admin: 10/20/16 11:31 Dose: 210 mls/hr Lactobacillus Acidophilus (Bacid Acidophilus) 1 cap PO BID [facility] Last Admin: 10/20/16 09:46 Dose: 1 cap Oxycodone/Acetaminophen (Percocet 5/325 Mg Tab) 1 tab PO Q4H PRN PRN Reason: Pain, moderate (4-7) Stop: 10/22/16 13:45 Last Admin: 10/20/16 11:35 Dose: 1 tab Pantoprazole Sodium (Protonix Inj) 40 mg IVP DAILY [facility] Last Admin: 10/20/16 09:46 Dose: 40 mg Potassium Phos/Sodium Phos (Neutra-Phos) 1 pkt PO TID [facility] Last Admin: 10/20/16 09:45 Dose: 1 pkt - Labs Labs: 10/20/16 06:20 10/20/16 06:20 Attending/Attestation - Attestation I have personally seen and examined this patient.: Yes I have fully participated in the care of the patient.: Yes I have reviewed all pertinent clinical information, including history, physical exam and plan: Yes Notes (Text): I have seen and examined patient at bedside with the resident. Patients daughter provided translation. This is 65 year old male with history of PUD, hyperparathyroidism induced hypercalcemia on intranasal calcitonin, HTN, hemorrhoids s/p resection, intra abdominal abscess s/p I&D, umbilical hernia repair who got admitted for evaluation of right sided abdominal pain and found to have acute gangrenous cholecystitis s/p partial laparoscopic cholecystectomy and BASIL. He also underwent bedside I&D. He continues to have abdominal pain in the RUQ which has improved in intensity. Leukocytosis is persistent. Wound and sputum culture positive for klebsiella. CT abdomen and pelvis did not show any acute process. As HIDA showed no bile leak therefore ERCP was cancelled. Continue meropenem. Serosanguinous fluid noted in the drain. Surgery team is doing daily packing changes. Patient continues to complain of severe pain in RUQ. CT abdomen was repeated. Also has iron deficiency anemia on po iron. Thrombocytosis noted which is most likely reactive secondary to recent surgery and trauma. Will closely observe the patient. Consider further testing if it continues to rise. No more episodes of diarrhea. CDiff negative. Colace, dulcolax and reglan discontinued. Discussed with patients daughter. Dr Chandni Bee
[2016-10-19] MEDS: Oxycodone/Acetaminophen 5/325 mg Tab PO PRN (17:20)
--- NOTE | 2016-10-20 00:07 | CP.PCM.PN ---
Subjective - Date & Time of Evaluation Date of Evaluation: 10/20/16 Time of Evaluation: 06:30 - Subjective Subjective: General Surgery progress note for Dr. Abdalla Pt s/e at bedside. KERI. Pt states that his pain at the RUQ incision has improved. Pt denies nausea, vomiting, fevers, chills, SOB. Changed RUQ dressing. Objective - Vital Signs/Intake and Output Vital Signs (last 24 hours): Temp Pulse Resp BP Pulse Ox 98.6 F 78 20 132/81 100 10/19/16 16:18 10/19/16 16:18 10/19/16 16:18 10/19/16 16:18 10/19/16 16:18 Intake and Output: 10/19/16 10/20/16 18:59 06:59 Intake Total 420 Output Total 710 Balance -290 - Medications Medications: Current Medications Acetaminophen (Tylenol 325mg Tab) 650 mg PO Q6H PRN PRN Reason: Fever >100.4 F Last Admin: 10/15/16 16:18 Dose: 650 mg Acetaminophen (Tylenol 325mg Tab) 650 mg PO Q6H PRN PRN Reason: Pain, Mild (1-3) Calcitonin [place] (Miacalcin) 200 iu NS DAILY [facility] Last Admin: 10/19/16 09:28 Dose: 1 spray Ferrous Sulfate (Feosol) 324 mg PO TID [facility] Last Admin: 10/19/16 17:16 Dose: 324 mg Heparin Sodium (Porcine) (Heparin) 5,000 units SC Q12 [facility]ESS[facility] PRN Reason: Protocol Last Admin: 10/16/16 09:17 Dose: 5,000 units Meropen[place] 1 gm/ Sodium (Chloride) 100 mls @ 100 mls/hr IVPB Q8 [facility] PRN Reason: Protocol Stop: 10/22/16 09:46 Last Admin: 10/19/16 21:43 Dose: 100 mls/hr Lactobacillus Acidophilus (Bacid Acidophilus) 1 cap PO BID [facility] Last Admin: 10/19/16 17:16 Dose: 1 cap Oxycodone/Acetaminophen (Percocet 5/325 Mg Tab) 1 tab PO Q4H PRN PRN Reason: Pain, moderate (4-7) Stop: 10/22/16 13:45 Last Admin: 10/19/16 17:20 Dose: 1 tab Pantoprazole Sodium (Protonix Inj) 40 mg IVP DAILY [facility] Last Admin: 10/19/16 09:28 Dose: 40 mg Potassium Phos/Sodium Phos (Neutra-Phos) 1 pkt PO TID [facility] Last Admin: 10/19/16 17:16 Dose: 1 pkt - Labs Labs: 10/19/16 06:33 10/19/16 06:33 - Constitutional Appears: Well, Non-toxic, No Acute Distress - Head Exam Head Exam: ATRAUMATIC, NORMOCEPHALIC - Eye Exam Eye Exam: Normal appearance - ENT Exam ENT Exam: Mucous Membranes Moist - Respiratory Exam Respiratory Exam: NORMAL BREATHING PATTERN. absent: Accessory Muscle Use, Respiratory Distress - GI/Abdominal Exam GI & Abdominal Exam: Soft. absent: Distended, Tenderness Additional comments: RUQ incision packed with iodoform gauze saturated in seropurulent fluid - Extremities Exam Extremities Exam: absent: Calf Tenderness, Pedal Edema, Tenderness - Neurological Exam Neurological Exam: Alert, Awake, Oriented x3 - Psychiatric Exam Psychiatric exam: Normal Affect, Normal Mood - Skin Skin Exam: Dry, Normal Color, Warm Assessment and Plan - Assessment and Plan (Free Text) Assessment: 65M cholecystitis, POD#9 s/p lap, converted to open, subtotal cholecystectomy WBC: unchanged at 13.2 Tolerating diet Plan: - wound care/daily packing - cont abx per ID - Monitor drain output - Monitor WBC - encourage ambulation Discussed with Dr. Lianne Mirza, PGY1
[2016-10-20] MEDS: Meropenem 1 GM in Sodium Chloride 0.9% 100 ML IVPB SCH ×3 (05:15→22:51)
[2016-10-20 06:35] LABS: ADD MANUAL DIFF? NO
[2016-10-20] MEDS: Oxycodone/Acetaminophen 5/325 mg Tab PO PRN ×3 (06:35→17:12)
[2016-10-20 06:46] LABS: BASO # 0.03 K/mm3 (0.0-2.0); BASO % 0.2 % (0.0-3.0); EOS # 0.3 (0.0-0.7); EOS % 2.3 % (1.5-5.0); GRAN # 9.53 (1.4-6.5); GRAN % 72.4 % (50.0-68.0); HEMATOCRIT 33.1 % (42.0-52.0); LYMPH # 2.5 (1.2-3.4); LYMPH % 18.8 % (22.0-35.0); MEAN CELL VOLUME 78.1 fL (80.0-105.0); MEAN CORPUSCULAR HEMOGLOBIN 26.2 pg (25.0-35.0); MEAN CORPUSCULAR HGB CONC 33.5 g/dl (31.0-37.0); MONO # 0.8 (0.1-0.6); MONO % 6.3 % (1.0-6.0); RED CELL DISTRIBUTION WIDTH 13.5 % (11.5-14.5); WHITE BLOOD COUNT 13.2 10^3/ul (4.5-11.0)
[2016-10-20 07:01] LABS: ALB/GLOB RATIO 0.8 (1.1-1.8); ALKALINE PHOSPHATASE 95 U/L (38-133); ALT/SGPT 25 U/L (7-56); AST/SGOT 54 U/L (15-59); BILIRUBIN,TOTAL 0.6 mg/dL (0.2-1.3); BLOOD UREA NITROGEN 9 mg/dL (7-21); CALCIUM 11.7 mg/dL (8.4-10.5); CARBON DIOXIDE 25 mmol/L (21-33); CHLORIDE 105 mmol/L (98-107); GFR AFRICAN-AMERICAN > 60; GLUCOSE,RANDOM 102 mg/dL (70-110); MAGNESIUM 2.2 mg/dL (1.7-2.2); PHOSPHOROUS 2.8 mg/dL (2.5-4.5); POTASSIUM 4.3 mmol/L (3.6-5.0); SODIUM 136 mmol/L (132-148); TOTAL PROTEIN 7.1 g/dL (5.8-8.3)
[2016-10-20 07:09] LABS: PLATELET COUNT 848 10^3/uL (120.0-450.0)
[2016-10-20] MEDS ORDERED: Dextrose 5%/0.45% NS 1,000 ML IV SCH (09:45)
[2016-10-20] MEDS: Potassium & Sodium Phosphate PO SCH ×3 (09:45→17:12)
[2016-10-20] MEDS: Lactobacillus Acidophilus 500 MU Cap PO SCH ×2 (09:46→17:14)
[2016-10-20] MEDS: Calcitonin 200 Int Units/Inh Nasal Spray (3.7 ml) NS SCH (09:47)
[2016-10-20] MEDS ORDERED: Iron Sucrose 100 mg/5 ml Inj IVP SCH (11:00)
--- NOTE | 2016-10-20 12:25 | CP.PCM.PN ---
<Corby Raymond - Last Filed: 10/20/16 15:18> Subjective - Date & Time of Evaluation Date of Evaluation: 10/20/16 Time of Evaluation: 08:34 - Subjective Subjective: Pt seen and examined. Pt reports he is feeling much better today. Pt reports that his abdominal pain has improved since yesterday. Pt reports that he is passing gas and having bowel movements. Pt denies fever, chills, chest pain, shortness of breath, nausea, and vomiting. Objective - Vital Signs/Intake and Output Vital Signs (last 24 hours): Temp Pulse Resp BP Pulse Ox 98.1 F 73 18 125/83 99 10/20/16 06:00 10/20/16 06:00 10/20/16 06:00 10/20/16 06:00 10/20/16 06:00 Intake and Output: 10/20/16 10/20/16 06:59 18:59 Intake Total 420 0 Output Total 910 230 Balance -490 -230 - Medications Medications: Current Medications Acetaminophen (Tylenol 325mg Tab) 650 mg PO Q6H PRN PRN Reason: Fever >100.4 F Last Admin: 10/15/16 16:18 Dose: 650 mg Acetaminophen (Tylenol 325mg Tab) 650 mg PO Q6H PRN PRN Reason: Pain, Mild (1-3) Calcitonin [place] (Miacalcin) 200 iu NS DAILY [facility] Last Admin: 10/20/16 09:47 Dose: 1 spray Ferrous Sulfate (Feosol) 324 mg PO TID [facility] Last Admin: 10/20/16 09:46 Dose: 324 mg Heparin Sodium (Porcine) (Heparin) 5,000 units SC Q12 [facility] PRN Reason: Protocol Last Admin: 10/20/16 09:47 Dose: Not Given Meropenem 1 gm/ Sodium (Chloride) 100 mls @ 100 mls/hr IVPB Q8 [facility] PRN Reason: Protocol Stop: 10/22/16 09:46 Last Admin: 10/20/16 05:15 Dose: 100 mls/hr Dextrose/Sodium Chloride (Dextrose 5%/0.45% Ns 1000 Ml) 1,000 mls @ 100 mls/hr IV .Q10H [facility] Last Admin: 10/20/16 09:46 Dose: 100 mls/hr Iron Sucrose 100 mg/ Sodium (Chloride) 105 mls @ 210 mls/hr IVPB DAILY [facility] Last Admin: 10/20/16 11:31 Dose: 210 mls/hr Lactobacillus Acidophilus (Bacid Acidophilus) 1 cap PO BID [facility] Last Admin: 10/20/16 09:46 Dose: 1 cap Oxycodone/Acetaminophen (Percocet 5/325 Mg Tab) 1 tab PO Q4H PRN PRN Reason: Pain, moderate (4-7) Stop: 10/22/16 13:45 Last Admin: 10/20/16 11:35 Dose: 1 tab Pantoprazole Sodium (Protonix Inj) 40 mg IVP DAILY [facility] Last Admin: 10/20/16 09:46 Dose: 40 mg Potassium Phos/Sodium Phos (Neutra-Phos) 1 pkt PO TID [facility] Last Admin: 10/20/16 09:45 Dose: 1 pkt - Labs Labs: 10/20/16 06:20 10/20/16 06:20 - Constitutional Appears: No Acute Distress - Head Exam Head Exam: ATRAUMATIC, NORMOCEPHALIC - Eye Exam Eye Exam: EOMI, PERRL Pupil Exam: PERRL - ENT Exam ENT Exam: Mucous Membranes Moist. absent: Mucous Membranes Dry - Neck Exam Neck Exam: Full ROM. absent: Lymphadenopathy - Respiratory Exam Respiratory Exam: Clear to Ausculation Bilateral. absent: Rales, Rhonchi, Wheezes - Cardiovascular Exam Cardiovascular Exam: +S1, +S2. absent: Gallop, Rubs, Murmur - GI/Abdominal Exam GI & Abdominal Exam: Soft, Tenderness. absent: Distended, Guarding, Rebound Additional comments: Slightly firm kim incisional area - Extremities Exam Extremities Exam: absent: Pedal Edema - Neurological Exam Neurological Exam: Alert, Awake, Oriented x3 - Psychiatric Exam Psychiatric exam: Normal Affect, Normal Mood - Skin Skin Exam: Normal Color, Warm Assessment and Plan - Assessment and Plan (Free Text) Assessment: Cholecystitis: Day 9 s/p open subtotal cholecystectomy Afebrile, nontachycardic WBC -13.2 Infectious Disease, consulted, Dr. Pimentel. Help appreciated. CT of the abdomen showed mild thickening of the gallbladder wall; mild dilatation of the pancreatic duct in the pancreatic head and proximal body; left inguinal hernia (please see full report) Abdominal US showed gallbladder sludge, mural thickening and trace peripholecystic fluid (please see full report) EKG showed NSR w/ RBB and LAF block, moderate voltage criteria for LVH MRCP was performed showing findings w/o CBD stone and consistent with acalculous cholecystitis (please see full report) HIDA scan shows cystic duct ws occluded (please see full report) LFTs within normal range Wound cultures positive for klebsiella Repeat Abd/Pelvis CT - small collection of fluid, no drainable collection ( please see full report) HIDA scan negative for bile leak (please see full report) GI consulted, Dr. Wallis, help appreciated. Pt on regular diet Tylenol prn for fever D5 1/2 NS 100 cc/hr Meropenem 1 gm q8h as per ID Continue trend WBC count, assess clinically Third Abd/Pelvis CT - subcutaneous bubbles of gas and small fluid within the anterior abdomen, punctate focus of pneumatosis anterior to the liver, small amount of fluid within the gallbladder fossa, small right pleural effusion ( please see full report) Wound Abscess: Day 4 s/p bedside I&D Daily packing/dressing changes as per surgery Wound cultures positive for klebsiella pneumoniae Meropenem 1 gm q8h as per ID Thrombocytosis: Platelets 808, continuing an upward trend Aspirin 81 mg po qd Heme/onc, Dr. Lowry, consulted. Help appreciated. Hypercalcemia: Likely secondary to hyperparathyroidism 11.7 Calcitonin 200 iu NS daily Anemia: H/H:stable Iron studies show: Iron 19, TIBC 299, 6% Saturation, Ferritin 65, Folate 11.5 Continue to monitor Prophylactic Measures: GI: Protonix 40 mg IV qd DVT: Heparin 5000 units sc q12h Toradol prn for pain Zofran prn for nausea <Chandni Bee - Last Filed: 10/20/16 15:49> Objective - Vital Signs/Intake and Output Vital Signs (last 24 hours): Temp Pulse Resp BP Pulse Ox 98.1 F 73 18 125/83 99 10/20/16 06:00 10/20/16 06:00 10/20/16 06:00 10/20/16 06:00 10/20/16 06:00 Intake and Output: 10/20/16 10/20/16 06:59 18:59 Intake Total 420 0 Output Total 910 230 Balance -490 -230 - Medications Medications: Current Medications Acetaminophen (Tylenol 325mg Tab) 650 mg PO Q6H PRN PRN Reason: Fever >100.4 F Last Admin: 10/15/16 16:18 Dose: 650 mg Acetaminophen (Tylenol 325mg Tab) 650 mg PO Q6H PRN PRN Reason: Pain, Mild (1-3) Aspirin (Ecotrin) 81 mg PO DAILY [facility] Calcitonin [place] (Miacalcin) 200 iu NS DAILY [facility] Last Admin: 10/20/16 09:47 Dose: 1 spray Ferrous Sulfate (Feosol) 324 mg PO TID [facility] Last Admin: 10/20/16 09:46 Dose: 324 mg Heparin Sodium (Porcine) (Heparin) 5,000 units SC Q12 [facility] PRN Reason: Protocol Last Admin: 10/20/16 09:47 Dose: Not Given Meropenem 1 gm/ Sodium (Chloride) 100 mls @ 100 mls/hr IVPB Q8 [facility] PRN Reason: Protocol Stop: 10/22/16 09:46 Last Admin: 10/20/16 14:10 Dose: 100 mls/hr Dextrose/Sodium Chloride (Dextrose 5%/0.45% Ns 1000 Ml) 1,000 mls @ 100 mls/hr IV .Q10H [facility] Last Admin: 10/20/16 09:46 Dose: 100 mls/hr Iron Sucrose 100 mg/ Sodium (Chloride) 105 mls @ 210 mls/hr IVPB DAILY [facility] Last Admin: 10/20/16 11:31 Dose: 210 mls/hr Lactobacillus Acidophilus (Bacid Acidophilus) 1 cap PO BID [facility] Last Admin: 10/20/16 09:46 Dose: 1 cap Oxycodone/Acetaminophen (Percocet 5/325 Mg Tab) 1 tab PO Q4H PRN PRN Reason: Pain, moderate (4-7) Stop: 10/22/16 13:45 Last Admin: 10/20/16 11:35 Dose: 1 tab Pantoprazole Sodium (Protonix Inj) 40 mg IVP DAILY [facility] Last Admin: 10/20/16 09:46 Dose: 40 mg Potassium Phos/Sodium Phos (Neutra-Phos) 1 pkt PO TID [facility] Last Admin: 10/20/16 14:10 Dose: 1 pkt - Labs Labs: 10/20/16 06:20 10/20/16 06:20 Attending/Attestation - Attestation I have personally seen and examined this patient.: Yes I have fully participated in the care of the patient.: Yes I have reviewed all pertinent clinical information, including history, physical exam and plan: Yes Notes (Text): I have seen and examined patient at bedside with the resident. Patients daughter provided translation. This is 65 year old male with history of PUD, hyperparathyroidism induced hypercalcemia on intranasal calcitonin, HTN, hemorrhoids s/p resection, intra abdominal abscess s/p I&D, umbilical hernia repair who got admitted for evaluation of right sided abdominal pain and found to have acute gangrenous cholecystitis s/p partial laparoscopic cholecystectomy and BASIL. He also underwent bedside I&D. Today he feels much better and was sitting in the chair. Reports that his appetite is also better. He was able to walk in the room without any problem. He has been afebrile however leukocytosis is persistent. Wound and sputum culture positive for klebsiella. CT abdomen and pelvis did not show any acute process. As HIDA showed no bile leak therefore ERCP was cancelled. Continue meropenem. Serosanguinous fluid noted in the drain. Surgery team is doing daily packing changes. Discussed with ID. Plan to continue meropenem. Will follow up on wbc tomorrow. Also has iron deficiency anemia on po iron. Thrombocytosis noted which is most likely reactive secondary to recent surgery and infection. Will start aspirin and consider hematology consult. Dr Chandni Bee
--- NOTE | 2016-10-20 13:21 | PN ---
DATE: 10/20/2016 The patient is in bed in no acute distress, nontoxic. No fevers. PHYSICAL EXAMINATION: VITAL SIGNS: Temperature is 98, blood pressure is 120/80, respiratory rate of 16. HEENT: Unremarkable. NECK: Supple. LUNGS: Have decreased breath sounds. HEART: Normal S1, S2. ABDOMEN: Soft, nontender. LABORATORY DATA: Reveals a white count of 13,200, hemoglobin 11, platelets of 848. Chemistries reve al the BUN of 9, creatinine of 0.9. Procalcitonin is noted to be improving. Urinalysis is noted. M icrobiology reveals Klebsiella from the incision site. The patient also has Klebsiella from the sput um. Also has Klebsiella from the original gallbladder culture. Currently on meropenem. The Klebsiel la is ESBL positive. ASSESSMENT AND PLAN: This is a 65-year-old with sepsis secondary to acute gangrenous cholecystitis a nd status post laparoscopic cholecystectomy and lysis of adhesions, post-procedure, day 8. The patie nt also had an abdominal drain and has packing, and wound care and daily packing. Will continue to f ollow WBCs. Today's white count is 13,200 with patient currently on meropenem. We will follow with you. Geovani Valladares MD cc: [phone] TT: 10/20/2016 13:20:51 Confirmation # [id number] Dictation # [id number] david
--- NOTE | 2016-10-20 15:07 | CP.PCM.PN ---
Subjective - Date & Time of Evaluation Date of Evaluation: 10/20/16 Time of Evaluation: 15:04 - Subjective Subjective: Pt has very poor veins,needs iv access Objective - Vital Signs/Intake and Output Vital Signs (last 24 hours): Temp Pulse Resp BP Pulse Ox 98.1 F 73 18 125/83 99 10/20/16 06:00 10/20/16 06:00 10/20/16 06:00 10/20/16 06:00 10/20/16 06:00 Intake and Output: 10/20/16 10/20/16 06:59 18:59 Intake Total 420 0 Output Total 910 230 Balance -490 -230 - Medications Medications: Current Medications Acetaminophen (Tylenol 325mg Tab) 650 mg PO Q6H PRN PRN Reason: Fever >100.4 F Last Admin: 10/15/16 16:18 Dose: 650 mg Acetaminophen (Tylenol 325mg Tab) 650 mg PO Q6H PRN PRN Reason: Pain, Mild (1-3) Calcitonin Alexis (Miacalcin) 200 iu NS DAILY [facility] Last Admin: 10/20/16 09:47 Dose: 1 spray Ferrous Sulfate (Feosol) 324 mg PO TID [facility] Last Admin: 10/20/16 09:46 Dose: 324 mg Heparin Sodium (Porcine) (Heparin) 5,000 units SC Q12 [facility] PRN Reason: Protocol Last Admin: 10/20/16 09:47 Dose: Not Given Meropenem 1 gm/ Sodium (Chloride) 100 mls @ 100 mls/hr IVPB Q8 [facility] PRN Reason: Protocol Stop: 10/22/16 09:46 Last Admin: 10/20/16 14:10 Dose: 100 mls/hr Dextrose/Sodium Chloride (Dextrose 5%/0.45% Ns 1000 Ml) 1,000 mls @ 100 mls/hr IV .Q10H [facility] Last Admin: 10/20/16 09:46 Dose: 100 mls/hr Iron Sucrose 100 mg/ Sodium (Chloride) 105 mls @ 210 mls/hr IVPB DAILY [facility] Last Admin: 10/20/16 11:31 Dose: 210 mls/hr Lactobacillus Acidophilus (Bacid Acidophilus) 1 cap PO BID [facility] Last Admin: 10/20/16 09:46 Dose: 1 cap Oxycodone/Acetaminophen (Percocet 5/325 Mg Tab) 1 tab PO Q4H PRN PRN Reason: Pain, moderate (4-7) Stop: 10/22/16 13:45 Last Admin: 10/20/16 11:35 Dose: 1 tab Pantoprazole Sodium (Protonix Inj) 40 mg IVP DAILY [facility] Last Admin: 10/20/16 09:46 Dose: 40 mg Potassium Phos/Sodium Phos (Neutra-Phos) 1 pkt PO TID [facility] Last Admin: 10/20/16 14:10 Dose: 1 pkt - Labs Labs: 10/20/16 06:20 10/20/16 06:20 - Constitutional Appears: No Acute Distress Assessment and Plan - Assessment and Plan (Free Text) Assessment: Poor venous access Plan: Hep lock inserted in the L forearm. # 24 angiocath used.
[2016-10-21] MEDS: Meropenem 1 GM in Sodium Chloride 0.9% 100 ML IVPB SCH ×3 (05:07→21:12)
--- NOTE | 2016-10-21 08:47 | CP.PCM.PN ---
<Marianela Cortes - Last Filed: 10/21/16 11:58> Subjective - Date & Time of Evaluation Date of Evaluation: 10/21/16 Time of Evaluation: 06:20 - Subjective Subjective: General Surgery Dr. Abdalla Pt S&E @bedside. NAEO. c/o pain along incision. denies N/V, F/C. (+) BM/Flatus. tolerating diet. Objective - Vital Signs/Intake and Output Vital Signs (last 24 hours): Temp Pulse Resp BP Pulse Ox 98.9 F 63 18 113/79 100 10/21/16 07:57 10/21/16 07:57 10/21/16 07:57 10/21/16 07:57 10/21/16 07:57 Intake and Output: 10/21/16 10/21/16 06:59 18:59 Intake Total 2800 Output Total 1710 Balance 1090 - Medications Medications: Current Medications Acetaminophen (Tylenol 325mg Tab) 650 mg PO Q6H PRN PRN Reason: Fever >100.4 F Last Admin: 10/15/16 16:18 Dose: 650 mg Acetaminophen (Tylenol 325mg Tab) 650 mg PO Q6H PRN PRN Reason: Pain, Mild (1-3) Aspirin (Ecotrin) 81 mg PO DAILY [facility] Last Admin: 10/20/16 17:14 Dose: 81 mg Calcitonin [place] (Miacalcin) 200 iu NS DAILY [facility] Last Admin: 10/20/16 09:47 Dose: 1 spray Ferrous Sulfate (Feosol) 324 mg PO TID [facility] Last Admin: 10/20/16 09:46 Dose: 324 mg Heparin Sodium (Porcine) (Heparin) 5,000 units SC Q12 [facility] PRN Reason: Protocol Last Admin: 10/20/16 22:50 Dose: 5,000 units Meropenem 1 gm/ Sodium (Chloride) 100 mls @ 100 mls/hr IVPB Q8 [facility] PRN Reason: Protocol Stop: 10/22/16 09:46 Last Admin: 10/21/16 05:07 Dose: 100 mls/hr Dextrose/Sodium Chloride (Dextrose 5%/0.45% Ns 1000 Ml) 1,000 mls @ 100 mls/hr IV .Q10H [facility] Last Admin: 10/20/16 09:46 Dose: 100 mls/hr Iron Sucrose 100 mg/ Sodium (Chloride) 105 mls @ 210 mls/hr IVPB DAILY [facility] Last Admin: 10/20/16 11:31 Dose: 210 mls/hr Lactobacillus Acidophilus (Bacid Acidophilus) 1 cap PO BID [facility] Last Admin: 10/20/16 17:14 Dose: 1 cap Oxycodone/Acetaminophen (Percocet 5/325 Mg Tab) 1 tab PO Q4H PRN PRN Reason: Pain, moderate (4-7) Stop: 10/22/16 13:45 Last Admin: 10/20/16 17:12 Dose: 1 tab Pantoprazole Sodium (Protonix Inj) 40 mg IVP DAILY [facility] Last Admin: 10/20/16 09:46 Dose: 40 mg Potassium Phos/Sodium Phos (Neutra-Phos) 1 pkt PO TID [facility] Last Admin: 10/20/16 17:12 Dose: 1 pkt - Labs Labs: no new labs - Constitutional Appears: Non-toxic, No Acute Distress - Head Exam Head Exam: NORMAL INSPECTION - Eye Exam Eye Exam: Normal appearance - ENT Exam ENT Exam: Mucous Membranes Moist - Respiratory Exam Respiratory Exam: NORMAL BREATHING PATTERN. absent: Accessory Muscle Use, Respiratory Distress - GI/Abdominal Exam GI & Abdominal Exam: Soft, Tenderness (TTP kim-incisional). absent: Distended , Guarding, Rebound Additional comments: packing changed Nir drain w/ minimal bilious output - Neurological Exam Neurological Exam: Alert, Awake, Oriented x3 - Psychiatric Exam Psychiatric exam: Normal Affect, Normal Mood - Skin Skin Exam: Dry, Intact, Normal Color, Warm Assessment and Plan - Assessment and Plan (Free Text) Assessment: 65 y/o M w/ gangrenous cholecystitis, POD#10 s/p lap, converted to open, subtotal cholecystectomy. - daily packing changes - cont abx per ID - possible D/C drain today - Monitor WBC - encourage ambulation - follow up in clinic w/ Dr. Abdalla T/ Pt Discussed with Dr. Lianne Cortes DO PGY1 <Poli Abdalla - Last Filed: 10/23/16 16:22> Objective - Vital Signs/Intake and Output Vital Signs (last 24 hours): Temp Pulse Resp BP Pulse Ox 98 F 80 20 116/74 97 10/23/16 08:02 10/23/16 08:02 10/23/16 08:02 10/23/16 08:02 10/23/16 08:02 Intake and Output: 10/23/16 10/23/16 06:59 18:59 Intake Total 3000 Output Total 5 Balance 3000 -5 - Medications Medications: Current Medications Acetaminophen (Tylenol 325mg Tab) 650 mg PO Q6H PRN PRN Reason: Fever >100.4 F Last Admin: 10/22/16 06:40 Dose: 650 mg Acetaminophen (Tylenol 325mg Tab) 650 mg PO Q6H PRN PRN Reason: Pain, Mild (1-3) Acetaminophen (Tylenol 325mg Tab) 650 mg PO Q6H PRN PRN Reason: Pain, moderate (4-7) Aspirin (Ecotrin) 81 mg PO DAILY [facility] Last Admin: 10/23/16 09:47 Dose: 81 mg Calcitonin [place] (Miacalcin) 200 iu NS DAILY [facility] Last Admin: 10/23/16 09:47 Dose: 1 spray Ferrous Sulfate (Feosol) 324 mg PO TID [facility] Last Admin: 10/20/16 09:46 Dose: 324 mg Heparin Sodium (Porcine) (Heparin) 5,000 units SC Q12 [facility] PRN Reason: Protocol Last Admin: 10/23/16 09:49 Dose: 5,000 units Iron Sucrose 100 mg/ Sodium (Chloride) 105 mls @ 210 mls/hr IVPB DAILY [facility] Last Admin: 10/23/16 09:50 Dose: 210 mls/hr MEROPENEM-0.9% SODIUM CHLORIDE (Meropenem 1g/Ns 100ml Ivpb) 100 mls @ 100 mls/ hr IVPB Q8 [facility] PRN Reason: Protocol Stop: 10/30/16 11:26 Last Admin: 10/23/16 13:37 Dose: Not Given Lactobacillus Acidophilus (Bacid Acidophilus) 1 cap PO BID [facility] Last Admin: 10/23/16 09:47 Dose: 1 cap Pantoprazole Sodium (Protonix Ec Tab) 40 mg PO ACB [facility] Last Admin: 10/23/16 08:11 Dose: 40 mg Potassium Phos/Sodium Phos (Neutra-Phos) 1 pkt PO TID [facility] Last Admin: 10/23/16 14:29 Dose: 1 pkt - Labs Labs: 10/23/16 07:00 10/23/16 07:15 Attending/Attestation - Attestation I have personally seen and examined this patient.: Yes I have fully participated in the care of the patient.: Yes I have reviewed all pertinent clinical information, including history, physical exam and plan: Yes Notes (Text): 10/23/16 16:22 Pt was seen and examined at bedside on 10/21/16 Agree with above note and assessment.
[2016-10-21 10:02] LABS: HEMATOCRIT 36.6 % (42.0-52.0); MEAN CELL VOLUME 79.4 fL (80.0-105.0); MEAN CORPUSCULAR HEMOGLOBIN 26.5 pg (25.0-35.0); MEAN CORPUSCULAR HGB CONC 33.3 g/dl (31.0-37.0); MEAN PLATELET VOLUME 9.9 fl (7.0-11.0); RED CELL DISTRIBUTION WIDTH 13.6 % (11.5-14.5); WHITE BLOOD COUNT 12.2 10^3/ul (4.5-11.0)
[2016-10-21 10:05] LABS: ADD MANUAL DIFF? YES
[2016-10-21 10:06] LABS: PLATELET COUNT 998 10^3/uL (120.0-450.0)
[2016-10-21 10:10] LABS: ALB/GLOB RATIO 0.9 (1.1-1.8); ALKALINE PHOSPHATASE 104 U/L (38-133); ALT/SGPT 34 U/L (7-56); AST/SGOT 50 U/L (15-59); BILIRUBIN,TOTAL 0.6 mg/dL (0.2-1.3); BLOOD UREA NITROGEN 9 mg/dL (7-21); CARBON DIOXIDE 25 mmol/L (21-33); CHLORIDE 102 mmol/L (98-107); GFR AFRICAN-AMERICAN > 60; GLUCOSE,RANDOM 106 mg/dL (70-110); MAGNESIUM 2.4 mg/dL (1.7-2.2); SODIUM 137 mmol/L (132-148)
[2016-10-21 10:15] LABS: CALCIUM 12.6 mg/dL (8.4-10.5)
[2016-10-21] MEDS: Potassium & Sodium Phosphate PO SCH ×3 (10:33→17:50)
[2016-10-21] MEDS: Calcitonin 200 Int Units/Inh Nasal Spray (3.7 ml) NS SCH (10:33)
[2016-10-21] MEDS: Lactobacillus Acidophilus 500 MU Cap PO SCH ×2 (10:34→17:50)
[2016-10-21] MEDS: Oxycodone/Acetaminophen 5/325 mg Tab PO PRN (10:46)
[2016-10-21 12:05] LABS: ATYPICAL LYMPHOCYTE 2 % (0.0-0.0)
[2016-10-21 12:06] LABS: ANISOCYTOSIS 1+; EOSINOPHIL 2 % (0.0-3.0); MICROCYTOSIS 1+; NEUTROPHIL 64 % (50.0-70.0); PLATELET ESTIMATE HIGH (NORMAL)
[2016-10-21] MEDS: Dextrose 5%/0.45% NS 1,000 ML IV SCH ×2 (13:30→21:12)
--- NOTE | 2016-10-21 16:06 | CP.PCM.PN ---
Subjective - Date & Time of Evaluation Date of Evaluation: 10/21/16 Time of Evaluation: 10:20 - Subjective Subjective: Comfortable in bed, less pain in the abdomen, no nausea or vomiting, no fevers overnight. Able to eat solid foods, solid BM's. Objective - Vital Signs/Intake and Output Vital Signs (last 24 hours): Temp Pulse Resp BP Pulse Ox 98.9 F 63 18 113/79 100 10/21/16 07:57 10/21/16 07:57 10/21/16 07:57 10/21/16 07:57 10/21/16 07:57 Intake and Output: 10/21/16 10/21/16 06:59 18:59 Intake Total 2800 Output Total 1710 Balance 1090 - Medications Medications: Current Medications Acetaminophen (Tylenol 325mg Tab) 650 mg PO Q6H PRN PRN Reason: Fever >100.4 F Last Admin: 10/15/16 16:18 Dose: 650 mg Acetaminophen (Tylenol 325mg Tab) 650 mg PO Q6H PRN PRN Reason: Pain, Mild (1-3) Aspirin (Ecotrin) 81 mg PO DAILY [facility] Last Admin: 10/20/16 17:14 Dose: 81 mg Calcitonin [place] (Miacalcin) 200 iu NS DAILY [facility] Last Admin: 10/20/16 09:47 Dose: 1 spray Ferrous Sulfate (Feosol) 324 mg PO TID [facility] Last Admin: 10/20/16 09:46 Dose: 324 mg Heparin Sodium (Porcine) (Heparin) 5,000 units SC Q12 [facility] PRN Reason: Protocol Last Admin: 10/20/16 22:50 Dose: 5,000 units Meropenem 1 gm/ Sodium (Chloride) 100 mls @ 100 mls/hr IVPB Q8 [facility] PRN Reason: Protocol Stop: 10/22/16 09:46 Last Admin: 10/21/16 05:07 Dose: 100 mls/hr Dextrose/Sodium Chloride (Dextrose 5%/0.45% Ns 1000 Ml) 1,000 mls @ 100 mls/hr IV .Q10H [facility] Last Admin: 10/20/16 09:46 Dose: 100 mls/hr Iron Sucrose 100 mg/ Sodium (Chloride) 105 mls @ 210 mls/hr IVPB DAILY [facility] Last Admin: 10/20/16 11:31 Dose: 210 mls/hr Lactobacillus Acidophilus (Bacid Acidophilus) 1 cap PO BID [facility] Last Admin: 10/20/16 17:14 Dose: 1 cap Oxycodone/Acetaminophen (Percocet 5/325 Mg Tab) 1 tab PO Q4H PRN PRN Reason: Pain, moderate (4-7) Stop: 10/22/16 13:45 Last Admin: 10/20/16 17:12 Dose: 1 tab Pantoprazole Sodium (Protonix Inj) 40 mg IVP DAILY [facility] Last Admin: 10/20/16 09:46 Dose: 40 mg Potassium Phos/Sodium Phos (Neutra-Phos) 1 pkt PO TID [facility] Last Admin: 10/20/16 17:12 Dose: 1 pkt - Labs Labs: 10/20/16 06:20 10/20/16 06:20 - Constitutional Appears: Non-toxic, No Acute Distress - Head Exam Head Exam: NORMAL INSPECTION - Neck Exam Neck Exam: absent: Lymphadenopathy, Meningismus - Respiratory Exam Respiratory Exam: Decreased Breath Sounds - Cardiovascular Exam Cardiovascular Exam: +S1, +S2 - GI/Abdominal Exam GI & Abdominal Exam: Soft, Tenderness (mild, RUQ, with abdominal drain in place , still with some serosanguinous discharge) Assessment and Plan - Assessment and Plan (Free Text) Plan: Assessment Sepsis secondary to acute gangrenous cholecystitis S/P partial laparoscopic cholecystectomy and lysis of adhesions POD #9; new onset fever yesterday; wound cx growing ESBL-producing Klebsiella hemorrhoids S/P removal history of intra-abdominal abscess S/P ex-lap and drainage peptic ulcer disease S/P perforation S/P umiblical hernia repair HTN history of hyperparathyroidism Plan continue Merrem and will monitor clinically - abdominal drain still with drainage and will continue to monitor the amount; reviewed CT abdomen and pelvis which did not reveal acute findings; also reviewed HIDA scan which was normal - follow up Surgery recommendations Will continue to follow clinically
--- NOTE | 2016-10-21 17:15 | CP.PCM.PN ---
<Corby Raymond - Last Filed: 10/21/16 17:11> Subjective - Date & Time of Evaluation Date of Evaluation: 10/21/16 Time of Evaluation: 07:34 - Subjective Subjective: Pt seen and examined. Pt reports that his pain is improved from yesterday. Pt reports that he is tolerating his diet well and having bowel movements.Pt denies fever, chills, chest pain, shortness of breath, nausea, and vomiting. Objective - Vital Signs/Intake and Output Vital Signs (last 24 hours): Temp Pulse Resp BP Pulse Ox 98.9 F 63 18 113/79 100 10/21/16 07:57 10/21/16 07:57 10/21/16 07:57 10/21/16 07:57 10/21/16 07:57 Intake and Output: 10/21/16 10/21/16 06:59 18:59 Intake Total 2800 Output Total 1710 Balance 1090 - Medications Medications: Current Medications Acetaminophen (Tylenol 325mg Tab) 650 mg PO Q6H PRN PRN Reason: Fever >100.4 F Last Admin: 10/15/16 16:18 Dose: 650 mg Acetaminophen (Tylenol 325mg Tab) 650 mg PO Q6H PRN PRN Reason: Pain, Mild (1-3) Aspirin (Ecotrin) 81 mg PO DAILY [facility] Last Admin: 10/21/16 10:35 Dose: 81 mg Calcitonin [place] (Miacalcin) 200 iu NS DAILY [facility] Last Admin: 10/21/16 10:33 Dose: 1 spray Ferrous Sulfate (Feosol) 324 mg PO TID [facility] Last Admin: 10/20/16 09:46 Dose: 324 mg Heparin Sodium (Porcine) (Heparin) 5,000 units SC Q12 [facility] PRN Reason: Protocol Last Admin: 10/21/16 10:34 Dose: 5,000 units Meropenem 1 gm/ Sodium (Chloride) 100 mls @ 100 mls/hr IVPB Q8 [facility] PRN Reason: Protocol Stop: 10/22/16 09:46 Last Admin: 10/21/16 13:31 Dose: 100 mls/hr Iron Sucrose 100 mg/ Sodium (Chloride) 105 mls @ 210 mls/hr IVPB DAILY [facility] Last Admin: 10/21/16 10:34 Dose: 210 mls/hr Dextrose/Sodium Chloride (Dextrose 5%/0.45% Ns 1000 Ml) 1,000 mls @ 125 mls/hr IV .Q8H [facility] Last Admin: 10/21/16 13:30 Dose: Not Given Lactobacillus Acidophilus (Bacid Acidophilus) 1 cap PO BID [facility] Last Admin: 10/21/16 10:34 Dose: 1 cap Oxycodone/Acetaminophen (Percocet 5/325 Mg Tab) 1 tab PO Q4H PRN PRN Reason: Pain, moderate (4-7) Stop: 10/22/16 13:45 Last Admin: 10/21/16 10:46 Dose: 1 tab Pantoprazole Sodium (Protonix Inj) 40 mg IVP DAILY [facility] Last Admin: 10/21/16 10:33 Dose: 40 mg Potassium Phos/Sodium Phos (Neutra-Phos) 1 pkt PO TID [facility] Last Admin: 10/21/16 13:52 Dose: 1 pkt - Labs Labs: 10/21/16 09:50 10/21/16 09:50 - Constitutional Appears: No Acute Distress - Head Exam Head Exam: ATRAUMATIC, NORMOCEPHALIC - Eye Exam Eye Exam: EOMI, PERRL - ENT Exam ENT Exam: Mucous Membranes Moist. absent: Mucous Membranes Dry - Neck Exam Neck Exam: Full ROM. absent: Lymphadenopathy - Respiratory Exam Respiratory Exam: Clear to Ausculation Bilateral. absent: Rales, Rhonchi, Wheezes - Cardiovascular Exam Cardiovascular Exam: +S1, +S2. absent: Gallop, Rubs - GI/Abdominal Exam GI & Abdominal Exam: Tenderness, Normal Bowel Sounds. absent: Distended Additional comments: Abdomen firm around incision, otherwise soft, still has tenderness in RUQ, ED drain in place - Extremities Exam Extremities Exam: Full ROM. absent: Pedal Edema - Neurological Exam Neurological Exam: Alert, Awake, Oriented x3 - Psychiatric Exam Psychiatric exam: Normal Affect, Normal Mood - Skin Skin Exam: Normal Color, Warm Assessment and Plan - Assessment and Plan (Free Text) Assessment: Assessment: Cholecystitis: Day 10 s/p open subtotal cholecystectomy Afebrile, nontachycardic WBC -12.2 today Infectious Disease, consulted, Dr. Pimentel. Help appreciated. CT of the abdomen showed mild thickening of the gallbladder wall; mild dilatation of the pancreatic duct in the pancreatic head and proximal body; left inguinal hernia (please see full report) Abdominal US showed gallbladder sludge, mural thickening and trace peripholecystic fluid (please see full report) EKG showed NSR w/ RBB and LAF block, moderate voltage criteria for LVH MRCP was performed showing findings w/o CBD stone and consistent with acalculous cholecystitis (please see full report) HIDA scan shows cystic duct ws occluded (please see full report) LFTs within normal range Wound cultures positive for klebsiella Repeat Abd/Pelvis CT - small collection of fluid, no drainable collection ( please see full report) HIDA scan negative for bile leak (please see full report) GI consulted, Dr. Wallis, help appreciated. Pt on regular diet Tylenol prn for fever D5 1/2 NS 100 cc/hr Meropenem 1 gm q8h as per ID Continue trend WBC count, assess clinically Third Abd/Pelvis CT - subcutaneous bubbles of gas and small fluid within the anterior abdomen, punctate focus of pneumatosis anterior to the liver, small amount of fluid within the gallbladder fossa, small right pleural effusion ( please see full report) Wound Abscess: Day 5 s/p bedside I&D Daily packing/dressing changes as per surgery Wound cultures positive for klebsiella pneumoniae Meropenem 1 gm q8h as per ID Thrombocytosis: Platelets 998, continuing to go up Aspirin 81 mg po qd Heme/onc, Dr. Lowry, consulted. Help appreciated. JAK2, Bcr-abl assays pending Platelet smear pending Pending care consultant recs Hypercalcemia: Secondary to hyperparathyroidism 12.6 Calcitonin 200 iu NS daily Endocrinolgy consulted, Dr. Rios, help appreciated. Anemia: H/H:stable Iron studies show: Iron 19, TIBC 299, 6% Saturation, Ferritin 65, Folate 11.5 Continue to monitor Prophylactic Measures: GI: Protonix 40 mg IV qd DVT: Heparin 5000 units sc q12h Toradol prn for pain Zofran prn for nausea <Chandni Bee - Last Filed: 10/29/16 17:24> Objective - Vital Signs/Intake and Output Vital Signs (last 24 hours): Temp Pulse Resp BP Pulse Ox 98.5 F 81 18 115/74 98 10/26/16 08:38 10/26/16 08:38 10/26/16 08:38 10/26/16 08:38 10/26/16 08:38 - Labs Labs: 10/25/16 07:00 03/24/17 07:00 Attending/Attestation - Attestation I have personally seen and examined this patient.: Yes I have fully participated in the care of the patient.: Yes I have reviewed all pertinent clinical information, including history, physical exam and plan: Yes Notes (Text): I have seen and examined patient at bedside with the resident. Patients daughter provided translation. This is 65 year old male with history of PUD, hyperparathyroidism induced hypercalcemia on intranasal calcitonin, HTN, hemorrhoids s/p resection, intra abdominal abscess s/p I&D, umbilical hernia repair who got admitted for evaluation of right sided abdominal pain and found to have acute gangrenous cholecystitis s/p partial laparoscopic cholecystectomy and BASIL. He also underwent bedside I&D. Today he feels much better and was sitting in the chair. Reports that his appetite is also better. He was able to walk in the room without any problem. He has been afebrile however leukocytosis is persistent. Wound and sputum culture positive for klebsiella. CT abdomen and pelvis did not show any acute process. As HIDA showed no bile leak therefore ERCP was cancelled. Continue meropenem. Serosanguinous fluid noted in the drain. Surgery team is doing daily packing changes. Discussed with ID. Plan to continue meropenem. Also has iron deficiency anemia on po iron. Thrombocytosis noted which is most likely reactive secondary to recent surgery and infection vs iron deficiency anemia. Continue aspirin and hematology consult appreciated. Hypercalcemia noted. Will give one dose of aredia. Awaiting for endo consult.upon discharge patient will follow-up with [facility]. Dr Chandni Bee
[2016-10-21] MEDS ORDERED: Morphine 4 mg/ml ISec IVP STA (18:53)
[2016-10-22] MEDS: Dextrose 5%/0.45% NS 1,000 ML IV SCH ×3 (05:11→23:39)
[2016-10-22] MEDS: Meropenem 1 GM in Sodium Chloride 0.9% 100 ML IVPB SCH (05:12)
[2016-10-22 07:20] LABS: BASO # 0.02 K/mm3 (0.0-2.0); BASO % 0.2 % (0.0-3.0); EOS # 0.2 (0.0-0.7); EOS % 1.3 % (1.5-5.0); GRAN # 10.17 (1.4-6.5); GRAN % 88.1 % (50.0-68.0); HEMATOCRIT 38.3 % (42.0-52.0); LYMPH # 0.9 (1.2-3.4); LYMPH % 7.4 % (22.0-35.0); MEAN CELL VOLUME 80.1 fL (80.0-105.0); MEAN CORPUSCULAR HEMOGLOBIN 26.4 pg (25.0-35.0); MEAN CORPUSCULAR HGB CONC 32.9 g/dl (31.0-37.0); MEAN PLATELET VOLUME 9.8 fl (7.0-11.0); MONO # 0.4 (0.1-0.6); RED CELL DISTRIBUTION WIDTH 13.6 % (11.5-14.5); WHITE BLOOD COUNT 11.6 10^3/ul (4.5-11.0)
[2016-10-22 07:46] LABS: ADD MANUAL DIFF? NO; PLATELET COUNT 1067 10^3/uL (120.0-450.0)
[2016-10-22] MEDS ORDERED: Vancomycin 1gm in NS 250ml 250 ML IVPB STA (07:51)
[2016-10-22 07:56] LABS: ALB/GLOB RATIO 0.8 (1.1-1.8); ALKALINE PHOSPHATASE 114 U/L (38-133); ALT/SGPT 26 U/L (7-56); AST/SGOT 74 U/L (15-59); BILIRUBIN,TOTAL 0.5 mg/dL (0.2-1.3); BLOOD UREA NITROGEN 10 mg/dL (7-21); CARBON DIOXIDE 26 mmol/L (21-33); CHLORIDE 98 mmol/L (98-107); GFR AFRICAN-AMERICAN > 60; GLUCOSE,RANDOM 108 mg/dL (70-110); MAGNESIUM 2.1 mg/dL (1.7-2.2); PHOSPHOROUS 2.2 mg/dL (2.5-4.5); POTASSIUM 5.2 mmol/L (3.6-5.0); SODIUM 133 mmol/L (132-148); TOTAL PROTEIN 7.9 g/dL (5.8-8.3)
[2016-10-22 08:20] LABS: CALCIUM 12.1 mg/dL (8.4-10.5)
[2016-10-22] MEDS: Pantoprazole 40 mg EC Tab PO SCH (08:42)
[2016-10-22] MEDS ORDERED: Meropenem 1g/NS 100mL IVPB 100 ML IVPB SCH (09:06)
--- NOTE | 2016-10-22 09:14 | CON ---
DATE: 10/21/2016 ROOM: 369. HISTORY OF PRESENT ILLNESS: This is a 65-year-old male referred for persistent hypercalcemia related to primary hyperparathyroidism and is now being referred for further endocrine evaluation and manage ment. He is undergoing GI workup and management for recent evaluation of acute cholecystitis with pe rsistent abdominal pain as noted thereof. PAST MEDICAL HISTORY: As mentioned above, recent diagnosis of acalculous cholecystitis with recent l aparoscopic procedure and was found to have an acute gangrenous gallbladder and underwent a laparosco pic lysis of adhesions and subsequent open subtotal cholecystectomy, history of hypertension and dysl ipidemia, known history of recent peptic ulcer disease and chronic gastritis. FAMILY HISTORY: Positive for hypertension and heart disease. SOCIAL HISTORY: The patient has supportive family. No known substance use. REVIEW OF SYSTEMS: As mentioned above, admits to generalized body weakness with easy fatigability an d tiredness and suboptimal energy level. No chest pains or palpitations or PNDs. His oral intake is variable and suboptimal, but has tolerated the solid foods as given. He previously had severe upper abdominal pain with dyspepsia and nausea and anorexia as noted. No recent alterations of bowel or u rinary patterns. PHYSICAL EXAMINATION: GENERAL: Average built male in no apparent distress. VITAL SIGNS: Blood pressure of 140/80, pulse of 70 beats per minute and regular, temperature 98, res pirations 20. Height is 5 feet 4. Weight is 154 pounds. HEENT: Head normocephalic. Eyes anicteric with pink conjunctivae. Fundoscopy not possible at this time. Ears, nose and throat otherwise normal. NECK: Supple. Thyroid gland is normal size. No carotid bruits. No cervical adenopathy. CARDIOPULMONARY: There is an adynamic precordium. S1, S2 is rapid and regular. LUNGS: Clear to auscultation. ABDOMEN: Shows the recent incisions from the laparoscopic procedure and cholecystectomy undertaken w hich are healing as noted thereof. Bowel sounds are present. EXTREMITIES: No peripheral edema. Pulses are +2 bilaterally. LABORATORY DATA: The latest chemistries shows a BUN of 9, sodium 137, potassium 5.0, chloride 102, C O2 of 25, glucose 106 and creatinine 0.9. The calcium level is 12.6 with albumin level of 3.7 and a corrected calcium of 12.9 mg/dL. ASSESSMENT: This is a 65-year-old male with recent acute cholecystitis and underwent open cholecyste ctomy and is now being referred for endocrine evaluation of persistent hypercalcemia related to under lying primary hyperparathyroidism. He is currently on nasal Miacalcin spray as given. Moreover, he also received 1 dose of Aredia (or pamidronate), at 60 mg as a stat dose. We do not have in our hosp ital formulary the subcutaneous or parenteral calcitonin which is actually more effective in terms of calcium lowering potency. However, these are all temporizing measures to lower the calcium levels, but the most definitive management for significant hypercalcemia would be actually a surgical explora tion and resection of the parathyroid adenoma, or the so-called parathyroid adenomectomy procedure. The subcutaneous calcitonin is actually quite formidably expensive and, again, is only a temporizing measure to lower the malignant range calcium levels as noted. It would still be definitive surgical procedure of the aforementioned procedure as given. Will obtain serial chemistries and supplement ac cordingly as needed. Will follow. Courtney Rios MD cc: [id number] TT: 10/22/2016 09:13:09 Confirmation # [id number] Dictation # [id number] cassidy
[2016-10-22] MEDS: Lactobacillus Acidophilus 500 MU Cap PO SCH ×2 (10:30→17:45)
[2016-10-22] MEDS: Calcitonin 200 Int Units/Inh Nasal Spray (3.7 ml) NS SCH (10:31)
[2016-10-22] MEDS: Potassium & Sodium Phosphate PO SCH ×3 (10:31→17:45)
[2016-10-22] MEDS: Oxycodone/Acetaminophen 5/325 mg Tab PO PRN (10:44)
--- NOTE | 2016-10-22 11:04 | CP.PCM.PN ---
<Corby Raymond - Last Filed: 10/22/16 13:28> Subjective - Date & Time of Evaluation Date of Evaluation: 10/22/16 Time of Evaluation: 06:55 - Subjective Subjective: Pt seen and examined. Pt reports that is continuing to improve. Pt denies fever , chills, chest pain, shortness of breath, nausea, and vomiting. Objective - Vital Signs/Intake and Output Vital Signs (last 24 hours): Temp Pulse Resp BP Pulse Ox 102.5 F H 98 H 18 121/80 95 10/22/16 08:14 10/22/16 08:14 10/22/16 08:14 10/22/16 08:14 10/22/16 08:14 Intake and Output: 10/22/16 10/22/16 06:59 18:59 Intake Total 1500 0 Output Total 160 Balance 1500 -160 - Medications Medications: Current Medications Acetaminophen (Tylenol 325mg Tab) 650 mg PO Q6H PRN PRN Reason: Fever >100.4 F Last Admin: 10/22/16 06:40 Dose: 650 mg Acetaminophen (Tylenol 325mg Tab) 650 mg PO Q6H PRN PRN Reason: Pain, Mild (1-3) Aspirin (Ecotrin) 81 mg PO DAILY [facility] Last Admin: 10/22/16 10:31 Dose: 81 mg Calcitonin [place] (Miacalcin) 200 iu NS DAILY [facility] Last Admin: 10/22/16 10:31 Dose: 1 spray Ferrous Sulfate (Feosol) 324 mg PO TID [facility] Last Admin: 10/20/16 09:46 Dose: 324 mg Heparin Sodium (Porcine) (Heparin) 5,000 units SC Q12 [facility] PRN Reason: Protocol Last Admin: 10/22/16 10:31 Dose: 5,000 units Iron Sucrose 100 mg/ Sodium (Chloride) 105 mls @ 210 mls/hr IVPB DAILY [facility] Last Admin: 10/22/16 10:31 Dose: 210 mls/hr Dextrose/Sodium Chloride (Dextrose 5%/0.45% Ns 1000 Ml) 1,000 mls @ 125 mls/hr IV .Q8H [facility] Last Admin: 10/22/16 05:11 Dose: 125 mls/hr Lactobacillus Acidophilus (Bacid Acidophilus) 1 cap PO BID [facility] Last Admin: 10/22/16 10:30 Dose: 1 cap Oxycodone/Acetaminophen (Percocet 5/325 Mg Tab) 1 tab PO Q4H PRN PRN Reason: Pain, moderate (4-7) Stop: 10/22/16 13:45 Last Admin: 10/22/16 10:44 Dose: 1 tab Pantoprazole Sodium (Protonix Ec Tab) 40 mg PO ACB [facility] Last Admin: 10/22/16 08:42 Dose: 40 mg Potassium Phos/Sodium Phos (Neutra-Phos) 1 pkt PO TID [facility] Last Admin: 10/22/16 10:31 Dose: 1 pkt - Labs Labs: 10/22/16 07:00 10/22/16 07:00 - Constitutional Appears: No Acute Distress - Head Exam Head Exam: ATRAUMATIC, NORMOCEPHALIC - Eye Exam Eye Exam: EOMI, PERRL - ENT Exam ENT Exam: Mucous Membranes Moist. absent: Mucous Membranes Dry - Respiratory Exam Respiratory Exam: Clear to Ausculation Bilateral. absent: Rales, Rhonchi, Wheezes - Cardiovascular Exam Cardiovascular Exam: +S1, +S2. absent: Gallop, Rubs - GI/Abdominal Exam GI & Abdominal Exam: Guarding, Tenderness Additional comments: Exquisite right upper quadrant tenderness; guarding on the right side, Firm kim -incisional area. - Extremities Exam Extremities Exam: Full ROM. absent: Pedal Edema - Neurological Exam Neurological Exam: Alert, Awake, Oriented x3 - Psychiatric Exam Psychiatric exam: Normal Affect, Normal Mood - Skin Skin Exam: Normal Color, Warm Assessment and Plan - Assessment and Plan (Free Text) Assessment: SIRS: Tmax 102.5, nontachycardic WBC - 11.6 CXR - no significant interval changes in the lungs noted Repeat Blood, urine cultures pending Procalcitonin pending Vancomycin 1 gm once Meropenem 1 gm q8h Cholecystitis: Day 11 s/p open subtotal cholecystectomy Pt spiked fever today of 102.5 after being afebrile for more than 5 days; nontachycardic WBC -11.6 today, trending down Infectious Disease, consulted, Dr. Pimentel. Help appreciated. CT of the abdomen showed mild thickening of the gallbladder wall; mild dilatation of the pancreatic duct in the pancreatic head and proximal body; left inguinal hernia (please see full report) Abdominal US showed gallbladder sludge, mural thickening and trace peripholecystic fluid (please see full report) EKG showed NSR w/ RBB and LAF block, moderate voltage criteria for LVH MRCP was performed showing findings w/o CBD stone and consistent with acalculous cholecystitis (please see full report) HIDA scan shows cystic duct ws occluded (please see full report) LFTs within normal range Wound cultures positive for klebsiella Repeat Abd/Pelvis CT - small collection of fluid, no drainable collection ( please see full report) HIDA scan negative for bile leak (please see full report) GI consulted, Dr. Wallis, help appreciated. Pt on regular diet Tylenol prn for fever D5 1/2 NS 100 cc/hr Meropenem 1 gm q8h as per ID Continue trend WBC count, assess clinically Third Abd/Pelvis CT - subcutaneous bubbles of gas and small fluid within the anterior abdomen, punctate focus of pneumatosis anterior to the liver, small amount of fluid within the gallbladder fossa, small right pleural effusion ( please see full report) Wound Abscess: Day 6 s/p bedside I&D Daily packing/dressing changes as per surgery Wound cultures positive for klebsiella pneumoniae Meropenem 1 gm q8h as per ID Thrombocytosis: Platelets 1067, continuing to go up Aspirin 81 mg po qd Heme/onc, Dr. Lowry, consulted. Help appreciated. JAK2, Bcr-abl assays pending Platelet smear pending As per oncologist, pt can follow up in office as outpatient Hypercalcemia: Secondary to primary hyperparathyroidism Ca+ - 12.1 today Calcitonin 200 iu NS daily Endocrinolgy consulted, Dr. Rios, help appreciated. As per Dr. Rios, pt will need surgical exploration and parathyroid adenectomy Serial chemistries as per endocrinology Anemia: H/H:stable Iron studies show: Iron 19, TIBC 299, 6% Saturation, Ferritin 65, Folate 11.5 Continue to monitor Prophylactic Measures: GI: Protonix 40 mg IV qd DVT: Heparin 5000 units sc q12h Toradol prn for pain Zofran prn for nausea <RangasaKarina person - Last Filed: 10/22/16 19:09> Objective - Vital Signs/Intake and Output Vital Signs (last 24 hours): Temp Pulse Resp BP Pulse Ox 102.5 F H 98 H 18 121/80 95 10/22/16 08:14 10/22/16 08:14 10/22/16 08:14 10/22/16 08:14 10/22/16 08:14 Intake and Output: 10/22/16 10/23/16 18:59 06:59 Intake Total 0 Output Total 170 Balance -170 - Medications Medications: Current Medications Acetaminophen (Tylenol 325mg Tab) 650 mg PO Q6H PRN PRN Reason: Fever >100.4 F Last Admin: 10/22/16 06:40 Dose: 650 mg Acetaminophen (Tylenol 325mg Tab) 650 mg PO Q6H PRN PRN Reason: Pain, Mild (1-3) Aspirin (Ecotrin) 81 mg PO DAILY [facility] Last Admin: 10/22/16 10:31 Dose: 81 mg Calcitonin [place] (Miacalcin) 200 iu NS DAILY [facility] Last Admin: 10/22/16 10:31 Dose: 1 spray Ferrous Sulfate (Feosol) 324 mg PO TID [facility] Last Admin: 10/20/16 09:46 Dose: 324 mg Heparin Sodium (Porcine) (Heparin) 5,000 units SC Q12 [facility] PRN Reason: Protocol Last Admin: 10/22/16 10:31 Dose: 5,000 units Iron Sucrose 100 mg/ Sodium (Chloride) 105 mls @ 210 mls/hr IVPB DAILY [facility] Last Admin: 10/22/16 10:31 Dose: 210 mls/hr Dextrose/Sodium Chloride (Dextrose 5%/0.45% Ns 1000 Ml) 1,000 mls @ 125 mls/hr IV .Q8H [facility] Last Admin: 10/22/16 12:41 Dose: Not Given Lactobacillus Acidophilus (Bacid Acidophilus) 1 cap PO BID [facility] Last Admin: 10/22/16 17:45 Dose: 1 cap Pantoprazole [place]odium (Protonix Ec Tab) 40 mg PO ACB [facility] Last Admin: 10/22/16 08:42 Dose: 40 mg Potassium Phos/Sodium Phos (Neutra-Phos) 1 pkt PO TID [facility] Last Admin: 10/22/16 17:45 Dose: 1 pkt - Labs Labs: 10/22/16 07:00 10/22/16 07:00 Assessment and Plan - Assessment and Plan (Free Text) Assessment: attending note; Patient seen and examined With the resident. Patient's family by the bedside. Patient is a 65 year old male with history of PUD, hyperparathyroidism induced hypercalcemia on intranasal calcitonin, HTN, hemorrhoids s/p resection, intra abdominal abscess s/p I&D, umbilical hernia repair who got admitted for evaluation of right sided abdominal pain and found to have acute gangrenous cholecystitis s/p partial laparoscopic cholecystectomy. He also underwent bedside I&D. patient is afebrile today. Case discussed with ID in detail. Chest x-ray, panculture ordered. Case discussed with surgery in detail.Continues to have ED drain. Has tenderness on the right upper quadrant. Wound and sputum culture positive for klebsiella.Continue meropenem. Got 1 dose of vancomycin. Follow-up culture results. CT abdomen and pelvis did not show any acute process. As HIDA showed no bile leak therefore ERCP was Thrombocytosis noted which is most likely reactive secondary to recent surgery and infection. Hematology consult appreciated. Workup in process. Continue aspirin. Endocrinology consult appreciated. Patient will follow-up with [facility] for possible parathyroid exploration. upon discharge patient will follow-up with [facility]. Attending/Attestation - Attestation I have personally seen and examined this patient.: Yes I have fully participated in the care of the patient.: Yes I have reviewed all pertinent clinical information, including history, physical exam and plan: Yes
--- NOTE | 2016-10-22 11:30 | RAD ---
HISTORY: rule out pneumonia COMPARISON: Comparison is made to the previous study dated 10/15/2016 FINDINGS: LUNGS: No significant interval change in the lungs noted. PLEURA: No significant pleural effusion identified, no pneumothorax apparent. CARDIOVASCULAR: Normal. OSSEOUS STRUCTURES: No significant abnormalities. VISUALIZED UPPER ABDOMEN: Normal. OTHER FINDINGS: None. IMPRESSION: No significant interval change.
[2016-10-22] MEDS ORDERED: Sod Polystyrene Sulf 15 gm/60 ml Oral Susp PO ONE (12:29)
--- NOTE | 2016-10-22 13:49 | CP.PCM.PN ---
Subjective - Date & Time of Evaluation Date of Evaluation: 10/22/16 Time of Evaluation: 09:15 - Subjective Subjective: Patient had fever this morning, still having right upper quadrant pain around site of surgery, still with abdominal drain with serosanguinous discharge, no nausea. Objective - Vital Signs/Intake and Output Vital Signs (last 24 hours): Temp Pulse Resp BP Pulse Ox 102.5 F H 76 18 105/74 98 10/22/16 06:40 10/21/16 16:00 10/21/16 16:00 10/21/16 16:00 10/21/16 16:00 Intake and Output: 10/22/16 10/22/16 06:59 18:59 Intake Total 1500 0 Output Total 160 Balance 1500 -160 - Medications Medications: Current Medications Acetaminophen (Tylenol 325mg Tab) 650 mg PO Q6H PRN PRN Reason: Fever >100.4 F Last Admin: 10/22/16 06:40 Dose: 650 mg Acetaminophen (Tylenol 325mg Tab) 650 mg PO Q6H PRN PRN Reason: Pain, Mild (1-3) Aspirin (Ecotrin) 81 mg PO DAILY [facility] Last Admin: 10/21/16 10:35 Dose: 81 mg Calcitonin [place] (Miacalcin) 200 iu NS DAILY [facility] Last Admin: 10/21/16 10:33 Dose: 1 spray Ferrous Sulfate (Feosol) 324 mg PO TID [facility] Last Admin: 10/20/16 09:46 Dose: 324 mg Heparin Sodium (Porcine) (Heparin) 5,000 units SC Q12 [facility] PRN Reason: Protocol Last Admin: 10/21/16 21:12 Dose: 5,000 units Meropenem 1 gm/ Sodium (Chloride) 100 mls @ 100 mls/hr IVPB Q8 [facility] PRN Reason: Protocol Stop: 10/22/16 09:46 Last Admin: 10/22/16 05:12 Dose: 100 mls/hr Iron Sucrose 100 mg/ Sodium (Chloride) 105 mls @ 210 mls/hr IVPB DAILY [facility] Last Admin: 10/21/16 10:34 Dose: 210 mls/hr Dextrose/Sodium Chloride (Dextrose 5%/0.45% Ns 1000 Ml) 1,000 mls @ 125 mls/hr IV .Q8H [facility] Last Admin: 10/22/16 05:11 Dose: 125 mls/hr Vancomycin HCl (Vancomycin 1gm) 250 mls @ 167 mls/hr IVPB STAT ST[facility] PRN Reason: Protocol Stop: 10/22/16 09:20 Lactobacillus Acidophilus (Bacid Acidophilus) 1 cap PO BID [facility] Last Admin: 10/21/16 17:50 Dose: 1 cap Oxycodone/Acetaminophen (Percocet 5/325 Mg Tab) 1 tab PO Q4H PRN PRN Reason: Pain, moderate (4-7) Stop: 10/22/16 13:45 Last Admin: 10/21/16 10:46 Dose: 1 tab Pantoprazole Sodium (Protonix Ec Tab) 40 mg PO ACB [facility] Potassium Phos/Sodium Phos (Neutra-Phos) 1 pkt PO TID [facility] Last Admin: 10/21/16 17:50 Dose: 1 pkt - Labs Labs: 10/22/16 07:00 10/21/16 09:50 - Constitutional Appears: Other (With some abdominal discomfort) - Head Exam Head Exam: NORMAL INSPECTION - ENT Exam ENT Exam: Mucous Membranes Moist - Neck Exam Neck Exam: absent: Lymphadenopathy, Meningismus - Respiratory Exam Respiratory Exam: Decreased Breath Sounds - Cardiovascular Exam Cardiovascular Exam: +S1, +S2 - GI/Abdominal Exam GI & Abdominal Exam: Soft, Tenderness (right upper quadrant area, mild guarding ). absent: Firm, Rigid Additional comments: abdominal drain in place in the right upper quadrant area Assessment and Plan - Assessment and Plan (Free Text) Plan: Assessment Sepsis secondary to acute gangrenous cholecystitis S/P partial laparoscopic cholecystectomy and lysis of adhesions POD #10; new onset fever today; wound cx growing ESBL-producing Klebsiella hemorrhoids S/P removal history of intra-abdominal abscess S/P ex-lap and drainage peptic ulcer disease S/P perforation S/P umiblical hernia repair HTN history of hyperparathyroidism Plan continue Merrem and gave a dose of IV Vancomycin pending repeat blood cx, urine cx, PCT, CXR done today; will monitor clinically - abdominal drain still with drainage and the patient continues to have pain in the right upper quadrant; should consider reimaging the abdomen - discussed with medical team and residents Will continue to follow clinically
--- NOTE | 2016-10-22 19:52 | PN ---
DATE: 10/22/2016 ROOM: 369. This is a 65-year-old male with recent acute cholecystitis and underwent an open cholecystectomy and currently undergoing IV antibiotic management postoperatively as noted. He also has persistent hyper calcemia related to primary hyperparathyroidism and has been given a stat dose of Aredia 60 mg for ma nagement of the same. He is also currently on nasal calcitonin once a day as noted. His latest chem istry showed a BUN of 10, sodium 133, potassium 5.2, chloride 98, CO2 26, glucose 108, and creatinine 1.1. His calcium level is 12.1 with an albumin of 3.6. So at this time, we will concur with the pr esent medical management as there really is no other more definitive management for hypercalcemia teja n doing a surgical neck resection of the parathyroid adenoma. All the medical management of using an tiresorptive medications such as calcitonin or bisphosphonates are only temporizing measures to trans iently lower calcium, but unless he goes to a definitive management, then we would expect normalizati on of the calcium levels otherwise. For now, most people with primary hyperparathyroidism will stabi lize the calcium between 11 and 12 mg/dL. We will concur with the present medical management as orde red. Courtney Rios MD cc: [id number] TT: 10/22/2016 19:51:22 Confirmation # [id number] Dictation # [id number] david
[2016-10-22] MEDS: Meropenem 500 MG in Sodium Chloride 0.9% 100 ML IVPB SCH (21:21)
[2016-10-23] MEDS: Meropenem 500 MG in Sodium Chloride 0.9% 100 ML IVPB SCH (05:18)
--- NOTE | 2016-10-23 07:19 | CON ---
DATE: 10/22/2016 The patient speaks only Portuguese. Most of the history and other information obtained through interpret ation talking to the daughter and to the resident taking care of the patient. The patient examined by the bedside. I have been requested to see the patient in view of the rising platelet count, which is most likely reactive. The patient is already on aspirin. Today's platelet count is 1,067,000. SUBJECTIVE: The patient reports that he has continued to improve. Denies any significant fevers, ch ills, chest pain, shortness of breath, nausea, or vomiting. PHYSICAL EXAMINATION: VITAL SIGNS: Revealed T-max of 102.5, pulse is 98, respirations 18, blood pressure is 121/80, pulse ox is 95%. The patient's medications were reviewed. He is on Tylenol 650 p.o. q. 6 h p.r.n. He is on Ecotrin 8 1 mg daily. He is on calcitonin, Miacalcin 200 international units nasal spray daily. He is o n ferrous sulfate 324 mg t.i.d. He is on heparin 5000 units subQ q. 12 hours. He is on iron sucros e IV piggyback daily. He is on IV fluids at 125 mL an hour of D5 half-normal saline. He is on acido philus 1 b.i.d. He is on Percocet 1 tab q. 4 h p.r.n. He is on pantoprazole 40 mg p.o. daily, and h e is on Neutra-Phos 1 packet t.i.d. PHYSICAL EXAMINATION The patient appears to be in no acute distress. HEAD: Normocephalic, atraumatic. Conjunctivae pale, sclerae are anicteric. Pupils are equally reac tive to light and accommodation. EXAMINATION OF THE EAR, NOSE, AND THROAT: Reveals moist mucous mem branes. No oral lesions are seen. Tongue is moist. NECK: Supple. There is no adenopathy. No rales, rhonchi, or wheezes. EXAMINATION OF CARDIOVASCULAR SYSTEM: Reveals S1 and S2 to be normal. No gallop or murmur is noted. ABDOMEN: The patient has exquisite right upper quadrant tenderness with voluntary guarding on the ri ght side. It is firm in the kim-incisional area. The patient is status post lap cholecystectomy fo r gangrenous gallbladder, post I and D incision by the bedside as well. EXTREMITIES: Reveals a full range of motion. There is no cyanosis, clubbing, or edema. Higher functions are normal. No focal deficits are noted. SKIN: Normal in color. No skin lesions are noted. ASSESSMENT NOTES AND PLAN: The patient is status post cholecystectomy day 11. Spiked a fever up to 102 earlier today, but has been afebrile most of the time. ID is on the case. CAT scan of the abdom en showed mild thickening of the gallbladder, and mild dilatation of the pancreatic duct and the panc reatic head, left inguinal hernia. Abdominal ultrasound showed gallbladder sludge, but there is no g ross evidence of any collection that would raise the concern for intra-abdominal causes for fever, in fection, and that thereby reactive thrombocytosis. The patient had an MRCP done which has shown CBD stone consistent with acalculous cholecystitis without CBD stone. LFTs have been within normal limit s. Wound cultures were positive for Klebsiella, for which the patient is on antibiotics. His most r ecent PET/CT scan showed bubbles of gas and a small fluid in the anterior abdominal consistent with p neumatosis anterior to the liver with small amount of fluid in the gallbladder fossa. The patient is being closely followed by the surgical team. The patient is still on IV meropenem q. 8 hours for th e suspected wound infection. I reviewed the peripheral smear which shows increase in platelets, but there are no abnormal forms se en. Most likely this is reactive thrombocytosis from an underlying process within the abdomen, from which the patient is gradually recovering and is still on antibiotics. Blood work has already been sent for JAK2 mutation and BCR-ABL gene by PCR. Hopefully with these yessenia ts they will be able to determine whether the patient has a primary myeloproliferative disorder as a cause for the thrombocytosis which was triggered with the underlying infection in this age group, or if it is evolving disorder such as very early CML presenting with thrombocytosis. I told the residen t in charge that if the patient's platelet count continues to be persistently elevated, then we could do a bone marrow aspiration biopsy to further ascertain and make sure there is no intrinsic marrow p athology. Will follow the patient very carefully with you and make appropriate recommendations in th e near future. Thanking you for allowing me to participate in the management of this interesting case. Very truly yours, Uzma Lowry MD cc: [id number] TT: 10/22/2016 23:41:10 Confirmation # [id number] Dictation # [id number] jn
[2016-10-23 07:39] LABS: ADD MANUAL DIFF? NO
[2016-10-23 07:46] LABS: BASO # 0.05 K/mm3 (0.0-2.0); BASO % 0.8 % (0.0-3.0); EOS # 0.1 (0.0-0.7); EOS % 1.8 % (1.5-5.0); GRAN # 4.32 (1.4-6.5); GRAN % 65.5 % (50.0-68.0); HEMATOCRIT 36.2 % (42.0-52.0); LYMPH # 1.5 (1.2-3.4); LYMPH % 23.4 % (22.0-35.0); MEAN CELL VOLUME 80.3 fL (80.0-105.0); MEAN CORPUSCULAR HEMOGLOBIN 25.7 pg (25.0-35.0); MEAN PLATELET VOLUME 9.8 fl (7.0-11.0); MONO # 0.6 (0.1-0.6); MONO % 8.5 % (1.0-6.0); RED CELL DISTRIBUTION WIDTH 13.6 % (11.5-14.5); WHITE BLOOD COUNT 6.6 10^3/ul (4.5-11.0)
[2016-10-23 07:48] LABS: PLATELET COUNT 868 10^3/uL (120.0-450.0)
[2016-10-23] MEDS: Pantoprazole 40 mg EC Tab PO SCH (08:11)
[2016-10-23 08:18] LABS: ALB/GLOB RATIO 0.8 (1.1-1.8); ALKALINE PHOSPHATASE 106 U/L (38-133); ALT/SGPT 39 U/L (7-56); AST/SGOT 82 U/L (15-59); BILIRUBIN,TOTAL 0.4 mg/dL (0.2-1.3); BLOOD UREA NITROGEN 10 mg/dL (7-21); CALCIUM 10.9 mg/dL (8.4-10.5); CARBON DIOXIDE 24 mmol/L (21-33); CHLORIDE 103 mmol/L (98-107); GFR AFRICAN-AMERICAN > 60; GLUCOSE,RANDOM 98 mg/dL (70-110); MAGNESIUM 2.3 mg/dL (1.7-2.2); PHOSPHOROUS 2.8 mg/dL (2.5-4.5); POTASSIUM 4.7 mmol/L (3.6-5.0); SODIUM 135 mmol/L (132-148); TOTAL PROTEIN 7.4 g/dL (5.8-8.3)
[2016-10-23] MEDS ORDERED: Morphine 4 mg/ml ISec IVP STA (09:33)
[2016-10-23] MEDS: Lactobacillus Acidophilus 500 MU Cap PO SCH ×2 (09:47→17:23)
[2016-10-23] MEDS: Calcitonin 200 Int Units/Inh Nasal Spray (3.7 ml) NS SCH (09:47)
[2016-10-23] MEDS: Potassium & Sodium Phosphate PO SCH ×3 (09:47→17:23)
[2016-10-23] MEDS ORDERED: Meropenem 1 GM in Sodium Chloride 0.9% 100 ML IVPB SCH (11:25)
--- NOTE | 2016-10-23 11:32 | CP.PCM.PN ---
Subjective - Date & Time of Evaluation Date of Evaluation: 10/23/16 Time of Evaluation: 09:55 - Subjective Subjective: Patient is comfortable, no nausea, eating better but still had fever 4PM yesterday, still has some abdominal pain. No diarrhea. Objective - Vital Signs/Intake and Output Vital Signs (last 24 hours): Temp Pulse Resp BP Pulse Ox 98 F 80 20 116/74 97 10/23/16 08:02 10/23/16 08:02 10/23/16 08:02 10/23/16 08:02 10/23/16 08:02 Intake and Output: 10/23/16 10/23/16 06:59 18:59 Intake Total 3000 Balance 3000 - Medications Medications: Current Medications Acetaminophen (Tylenol 325mg Tab) 650 mg PO Q6H PRN PRN Reason: Fever >100.4 F Last Admin: 10/22/16 06:40 Dose: 650 mg Acetaminophen (Tylenol 325mg Tab) 650 mg PO Q6H PRN PRN Reason: Pain, Mild (1-3) Aspirin (Ecotrin) 81 mg PO DAILY [facility] Last Admin: 10/23/16 09:47 Dose: 81 mg Calcitonin [place] (Miacalcin) 200 iu NS DAILY [facility] Last Admin: 10/23/16 09:47 Dose: 1 spray Ferrous Sulfate (Feosol) 324 mg PO TID [facility] Last Admin: 10/20/16 09:46 Dose: 324 mg Heparin Sodium (Porcine) (Heparin) 5,000 units SC Q12 [facility]ESS[facility] PRN Reason: Protocol Last Admin: 10/23/16 09:49 Dose: 5,000 units Iron Sucrose 100 mg/ Sodium (Chloride) 105 mls @ 210 mls/hr IVPB DAILY [facility] Last Admin: 10/23/16 09:50 Dose: 210 mls/hr Dextrose/Sodium Chloride (Dextrose 5%/0.45% Ns 1000 Ml) 1,000 mls @ 125 mls/hr IV .Q8H [facility] Last Admin: 10/22/16 23:39 Dose: 125 mls/hr Meropenem 1 gm/ Sodium (Chloride) 100 mls @ 100 mls/hr IVPB Q8 [facility] PRN Reason: Protocol Stop: 10/30/16 11:26 Lactobacillus Acidophilus (Bacid Acidophilus) 1 cap PO BID [facility] Last Admin: 10/23/16 09:47 Dose: 1 cap Pantoprazole Sodium (Protonix Ec Tab) 40 mg PO ACB [facility] Last Admin: 10/23/16 08:11 Dose: 40 mg Potassium Phos/Sodium Phos (Neutra-Phos) 1 pkt PO TID [facility] Last Admin: 10/23/16 09:47 Dose: 1 pkt - Labs Labs: 10/23/16 07:00 10/23/16 07:15 - Constitutional Appears: Non-toxic, No Acute Distress - Head Exam Head Exam: NORMAL INSPECTION - Neck Exam Neck Exam: absent: Lymphadenopathy, Meningismus - Respiratory Exam Respiratory Exam: Decreased Breath Sounds - Cardiovascular Exam Cardiovascular Exam: +S1, +S2 - GI/Abdominal Exam GI & Abdominal Exam: Soft, Tenderness (right upper quadrant). absent: Distended , Firm, Guarding, Rigid Assessment and Plan - Assessment and Plan (Free Text) Plan: Assessment Sepsis secondary to acute gangrenous cholecystitis S/P partial laparoscopic cholecystectomy and lysis of adhesions POD #11; new onset fever yesterday, R/O new onset sepsis; wound cx growing ESBL-producing Klebsiella hemorrhoids S/P removal history of intra-abdominal abscess S/P ex-lap and drainage peptic ulcer disease S/P perforation S/P umiblical hernia repair HTN history of hyperparathyroidism Plan continue Merrem and gave a dose of IV Vancomycin yesterday; repeat blood cx are negative x 1 day, repeat PCT is now down to 0.2, CXR negative for infiltrates; will monitor clinically - abdominal drain still with drainage although it is less; would consider reimaging the abdomen if the abdominal pain persists or worsens - discussed with medical team and residents Will continue to follow clinically
[2016-10-23] MEDS: Dextrose 5%/0.45% NS 1,000 ML IV SCH (12:25)
[2016-10-23] MEDS: Meropenem 1g/NS 100mL IVPB 100 ML IVPB SCH ×2 (13:37→22:13)
--- NOTE | 2016-10-23 16:33 | PN ---
DATE: 10/23/2016 ROOM 369 This is a 65-year-old male with persistent malignant range hypercalcemia related to underlying primar y hyperparathyroidism, and is now being followed closely for metabolic management. His latest chemistry showed a BUN of 10, sodium 135, potassium 4.7, chloride 103, CO2 of 24, glucose 98, and creatinine 1.0. The repeat calcium today is 10.9, with a magnesium of 2.3, and phosphorus of 2.8. This is clearly a transient low [id number] levels as a brief response to the Aredia infu constantino as given. Will continue the Miacalcin nasal spray also as ordered, and will obtain serial chemistries and suppl ement accordingly as needed. As mentioned in the previous notes, he actually will need long-term d efinitive management with surgical neck resection of the parathyroid adenoma to control his hypercalc emia on a permanent basis. Will follow and advise accordingly . Will also find out from the en docrine care of the patient at this time. Courtney Rios MD cc: [id number] TT: 10/23/2016 16:33:21 Confirmation # [id number] Dictation # [id number] lauren
--- NOTE | 2016-10-23 16:46 | CP.PCM.PN ---
<Corby Raymond - Last Filed: 10/23/16 16:41> Subjective - Date & Time of Evaluation Date of Evaluation: 10/23/16 Time of Evaluation: : - Subjective Subjective: Pt seen and examined. Pt reports that he still has some pain in his right upper abdomen but it is continuing to improve. Pt reports that he feels pain at the site of his incision n the right upper quadrant of his abdomen when he sneezes or coughs. Pt reports that he is tolerating his diet and ambulating well and getting into chair. Pt denies fever, chills, chest pain, shortness of breath, nausea, vomiting, diarrhea, constipation. Objective - Vital Signs/Intake and Output Vital Signs (last 24 hours): Temp Pulse Resp BP Pulse Ox 98 F 80 20 116/74 97 10/23/16 08:02 10/23/16 08:02 10/23/16 08:02 10/23/16 08:02 10/23/16 08:02 Intake and Output: 10/23/16 10/23/16 06:59 18:59 Intake Total 3000 Output Total 5 Balance 3000 -5 - Medications Medications: Current Medications Acetaminophen (Tylenol 325mg Tab) 650 mg PO Q6H PRN PRN Reason: Fever >100.4 F Last Admin: 10/22/16 06:40 Dose: 650 mg Acetaminophen (Tylenol 325mg Tab) 650 mg PO Q6H PRN PRN Reason: Pain, Mild (1-3) Acetaminophen (Tylenol 325mg Tab) 650 mg PO Q6H PRN PRN Reason: Pain, moderate (4-7) Aspirin (Ecotrin) 81 mg PO DAILY [facility] Last Admin: 10/23/16 09:47 Dose: 81 mg Calcitonin [place] (Miacalcin) 200 iu NS DAILY [facility] [place] Last Admin: 10/23/16 09:47 Dose: 1 spray Ferrous Sulfate (Feosol) 324 mg PO TID [facility] [place] Last Admin: 10/20/16 09:46 Dose: 324 mg Heparin Sodium (Porcine) (Heparin) 5,000 units SC Q12 [facility] PRN Reason: Protocol Last Admin: 10/23/16 09:49 Dose: 5,000 units Iron Sucrose 100 mg/ Sodium (Chloride) 105 mls @ 210 mls/hr IVPB DAILY [facility] [place] Last Admin: 10/23/16 09:50 Dose: 210 mls/hr MEROPENEM-0.9% SODIUM CHLORIDE (Meropenem 1g/Ns 100ml Ivpb) 100 mls @ 100 mls/ hr IVPB Q8 [facility] [place] PRN Reason: Protocol Stop: 10/30/16 11:26 Last Admin: 10/23/16 13:37 Dose: Not Given Lactobacillus Acidophilus (Bacid Acidophilus) 1 cap PO BID [facility] [place] Last Admin: 10/23/16 09:47 Dose: 1 cap Pantoprazole Sodium (Protonix Ec Tab) 40 mg PO ACB [facility] [place] Last Admin: 10/23/16 08:11 Dose: 40 mg Potassium Phos/Sodium Phos (Neutra-Phos) 1 pkt PO TID [facility] [place] Last Admin: 10/23/16 14:29 Dose: 1 pkt - Labs Labs: 10/23/16 07:00 10/23/16 07:15 - Constitutional Appears: No Acute Distress - Head Exam Head Exam: ATRAUMATIC, NORMOCEPHALIC - Eye Exam Eye Exam: EOMI, PERRL - ENT Exam ENT Exam: Mucous Membranes Moist. absent: Mucous Membranes Dry - Neck Exam Neck Exam: Full ROM. absent: Lymphadenopathy - Respiratory Exam Respiratory Exam: Clear to Ausculation Bilateral. absent: Rales, Rhonchi, Wheezes - Cardiovascular Exam Cardiovascular Exam: +S1, +S2. absent: Tachycardia, Gallop, Rubs, Murmur - GI/Abdominal Exam GI & Abdominal Exam: Soft, Tenderness, Normal Bowel Sounds. absent: Distended Additional comments: Abdomen is soft, execpt for kim-incision area, which is firm - Extremities Exam Extremities Exam: Full ROM. absent: Pedal Edema - Neurological Exam Neurological Exam: Alert, Awake, Oriented x3 - Psychiatric Exam Psychiatric exam: Normal Affect, Normal Mood - Skin Skin Exam: Normal Color, Warm Assessment and Plan - Assessment and Plan (Free Text) Assessment: SIRS: Resolved Pt afebrile overnight, nontachycardic WBC improved to 6.6 Repeat blood cultures negative after 24 hrs Repeat procalcitonin 0.2 Meropenem 1 gm q8h Cholecystitis: Day 12 s/p open subtotal cholecystectomy Pt afebrile overnight, nontachycardic WBC improved to 6.6 Infectious Disease, consulted, Dr. Pimentel. Help appreciated. CT of the abdomen showed mild thickening of the gallbladder wall; mild dilatation of the pancreatic duct in the pancreatic head and proximal body; left inguinal hernia (please see full report) Abdominal US showed gallbladder sludge, mural thickening and trace peripholecystic fluid (please see full report) EKG showed NSR w/ RBB and LAF block, moderate voltage criteria for LVH MRCP was performed showing findings w/o CBD stone and consistent with acalculous cholecystitis (please see full report) HIDA scan shows cystic duct was occluded (please see full report) LFTs within normal range Wound cultures positive for klebsiella Repeat Abd/Pelvis CT - small collection of fluid, no drainable collection ( please see full report) HIDA scan negative for bile leak (please see full report) GI signed off. Pt on regular diet Tylenol prn for fever Meropenem 1 gm q8h as per ID Continue trend WBC count, assess clinically Third Abd/Pelvis CT - subcutaneous bubbles of gas and small fluid within the anterior abdomen, punctate focus of pneumatosis anterior to the liver, small amount of fluid within the gallbladder fossa, small right pleural effusion ( please see full report) Possible rescan of abdomen and pelvis if pain continues Wound Abscess: Day 7 s/p bedside I&D Daily packing/dressing changes as per surgery Wound cultures positive for klebsiella pneumoniae Meropenem 1 gm q8h as per ID Thrombocytosis: Platelets 868, imprived from yesterday Aspirin 81 mg po qd Heme/onc, Dr. Lowry, consulted. Help appreciated. JAK2, Bcr-abl assays pending Platelet smear pending As per oncologist, pt can follow up in office as outpatient Hypercalcemia: Secondary to primary hyperparathyroidism Ca+ - 10.9 today Calcitonin 200 iu NS daily Endocrinolgy consulted, Dr. Rios, help appreciated. As per Dr. Rios, pt will need surgical exploration and parathyroid adenectomy Serial chemistries as per endocrinology Anemia: H/H:stable IV iron Iron studies show: Iron 19, TIBC 299, 6% Saturation, Ferritin 65, Folate 11.5 Continue to monitor Prophylactic Measures: GI: Protonix 40 mg IV qd DVT: Heparin 5000 units sc q12h Toradol prn for pain Zofran prn for nausea <RangasamyAjantha - Last Filed: 10/23/16 18:00> Objective - Vital Signs/Intake and Output Vital Signs (last 24 hours): Temp Pulse Resp BP Pulse Ox 98 F 80 20 116/74 97 10/23/16 08:02 10/23/16 08:02 10/23/16 08:02 10/23/16 08:02 10/23/16 08:02 Intake and Output: 10/23/16 10/23/16 06:59 18:59 Intake Total 3000 Output Total 5 Balance 3000 -5 - Medications Medications: Current Medications Acetaminophen (Tylenol 325mg Tab) 650 mg PO Q6H PRN PRN Reason: Fever >100.4 F Last Admin: 10/23/16 17:22 Dose: 650 mg Acetaminophen (Tylenol 325mg Tab) 650 mg PO Q6H PRN PRN Reason: Pain, Mild (1-3) Acetaminophen (Tylenol 325mg Tab) 650 mg PO Q6H PRN PRN Reason: Pain, moderate (4-7) Aspirin (Ecotrin) 81 mg PO DAILY [facility] Last Admin: 10/23/16 09:47 Dose: 81 mg Calcitonin [place] (Miacalcin) 200 iu NS DAILY [facility] [place] Last Admin: 10/23/16 09:47 Dose: 1 spray Ferrous Sulfate (Feosol) 324 mg PO TID [facility] [place] Last Admin: 10/20/16 09:46 Dose: 324 mg Heparin Sodium (Porcine) (Heparin) 5,000 units SC Q12 [facility] [place] PRN Reason: Protocol Last Admin: 10/23/16 09:49 Dose: 5,000 units Iron Sucrose 100 mg/ Sodium (Chloride) 105 mls @ 210 mls/hr IVPB DAILY [facility] [place] Last Admin: 10/23/16 09:50 Dose: 210 mls/hr MEROPENEM-0.9% SODIUM CHLORIDE (Meropenem 1g/Ns 100ml Ivpb) 100 mls @ 100 mls/ hr IVPB Q8 [facility] [place] PRN Reason: Protocol Stop: 10/30/16 11:26 Last Admin: 10/23/16 13:37 Dose: Not Given Lactobacillus Acidophilus (Bacid Acidophilus) 1 cap PO BID [facility] [place] Last Admin: 10/23/16 17:23 Dose: 1 cap Pantoprazole Sodium (Protonix Ec Tab) 40 mg PO ACB [facility] [place] Last Admin: 10/23/16 08:11 Dose: 40 mg Potassium Phos/Sodium Phos (Neutra-Phos) 1 pkt PO TID [facility] [place] Last Admin: 10/23/16 17:23 Dose: 1 pkt - Labs Labs: 10/23/16 07:00 10/23/16 07:15 Assessment and Plan - Assessment and Plan (Free Text) Assessment: attending note; Patient seen and examined With the resident. Patient's family by the bedside. Patient is a 65 year old male with history of PUD, hyperparathyroidism induced hypercalcemia on intranasal calcitonin, HTN, hemorrhoids s/p resection, intra abdominal abscess s/p I&D, umbilical hernia repair who got admitted for evaluation of right sided abdominal pain and found to have acute gangrenous cholecystitis s/p partial laparoscopic cholecystectomy. He also underwent bedside I&D. patient is afebrile today. Case discussed with ID in detail. Chest x-ray is negative. procalcitonin is negative. Case discussed with surgery in detail. Has ED drain. Has tenderness on the right upper quadrant. Wound and sputum culture positive for klebsiella.Continue meropenem. Got 1 dose of vancomycin. blood cs is negative. CT abdomen and pelvis did not show any acute process. As HIDA showed no bile leak. Thrombocytosis noted which is most likely reactive secondary to recent surgery and infection. Hematology consult appreciated. Improving. Continue aspirin. Endocrinology consult appreciated. Patient will follow-up with [facility] for possible parathyroid exploration. upon discharge patient will follow-up with [facility]. Attending/Attestation - Attestation I have personally seen and examined this patient.: Yes I have fully participated in the care of the patient.: Yes I have reviewed all pertinent clinical information, including history, physical exam and plan: Yes
[2016-10-23] MEDS: oxyCODONE 10 mg Immediate Release Tab PO PRN (20:28)
--- NOTE | 2016-10-23 21:59 | PN ---
DATE: 10/23/2016 This is the patient's hospital visit on the medical floor. For Dr. Lowry. SUBJECTIVE: The patient is a 65-year-old male seen sitting up in bed with family member aeronautical inspector raymundo t the bedside, as the patient speaks Occitan, with the patient now resting comfortably, reporting that his analgesics help his pain on his right midabdomen as he is status post surgery for a gangrenous g allbladder, treated for sepsis, postop day #10. Dr. Lowry was requested to see the patient for his thrombocythemia which he reports possibly is reactive. Other testing is pending. He is otherwise i n no acute distress. OBJECTIVE: PHYSICAL EXAMINATION: VITAL SIGNS: He spiked a temperature of 102.5 yesterday with a temperature today of 99, pulse of 84, respirations 20, blood pressure 112/70, pulse ox of 98%. HEENT: Unremarkable. NECK: Supple. HEART: Regular rate. LUNGS: Clear. ABDOMEN: Tenderness to the right upper quadrant to gentle palpation with dressings dry and intact wi th ED drain functional. EXTREMITIES: No edema. SKIN: Warm, dry and clear. NEUROLOGIC: Awake, alert and oriented. LABORATORY DATA: The patient's labs were done. White blood cell count of 6.6, hemoglobin 11.6, kurtis tocrit 36.2, platelet count of 868,000 with a 1,067,000 reported yesterday. His chem panel was withi n normal limits except for a calcium of 10.9 (down from 12.6 two days prior). His AST is now 82 (it was 74 yesterday). Otherwise normal chem metabolic panel. The patient had a chest x-ray done yesterday which was read as no significant interval change. A CT scan of his abdomen and pelvis was done 5 days prior. It was read as postop change consistent with r ecent cholecystectomy, punctate focus of pneumatosis anterior to the liver, right upper quadrant drai nage catheter, small fluid within the gallbladder fossa, right upper quadrant surgical cory, subcu taneous bubbles of gas and small fluid within the anterior abdomen, bilateral atelectasis, small righ t pleural effusion, bowel containing left inguinal hernia without evidence of obstruction, fat contai sherin right inguinal hernia, overall sclerotic and heterogeneous appearance of osseous structures. ASSESSMENT: Postoperative cholecystectomy with acute gangrenous cholecystitis collected on 7, which is 12 days prior; thrombocythemia, probably reactive as per Dr. Lowry's evaluation; fever of unknown origin, on antibiotics. Also sepsis secondary to above, status post hemorrhoidectomy, his tory of peptic ulcer disease with perforation, hypertension, hyperparathyroidism. PLAN: As per Dr. Lowry, is to continue present medical regimen with aspirin 81 mg daily recommende d. He is also getting heparin subQ. We will monitor clinically and with labs. The prognosis for th is patient is guarded. Srinivas Polanco MD cc: [phone] TT: 10/23/2016 21:58:30 Confirmation # [id number] Dictation # [id number] mn
[2016-10-24] MEDS: Meropenem 1g/NS 100mL IVPB 100 ML IVPB SCH ×3 (05:19→22:54)
[2016-10-24] MEDS: oxyCODONE 10 mg Immediate Release Tab PO PRN ×2 (06:27→14:14)
[2016-10-24 07:18] LABS: ADD MANUAL DIFF? NO
[2016-10-24 07:19] LABS: BASO # 0.04 K/mm3 (0.0-2.0); BASO % 0.6 % (0.0-3.0); EOS # 0.3 (0.0-0.7); EOS % 4.3 % (1.5-5.0); GRAN # 3.27 (1.4-6.5); GRAN % 45.4 % (50.0-68.0); HEMATOCRIT 36.3 % (42.0-52.0); LYMPH # 2.6 (1.2-3.4); LYMPH % 36.2 % (22.0-35.0); MEAN CELL VOLUME 81.2 fL (80.0-105.0); MEAN CORPUSCULAR HEMOGLOBIN 26.4 pg (25.0-35.0); MEAN CORPUSCULAR HGB CONC 32.5 g/dl (31.0-37.0); MEAN PLATELET VOLUME 9.3 fl (7.0-11.0); MONO % 13.5 % (1.0-6.0); RED CELL DISTRIBUTION WIDTH 13.8 % (11.5-14.5); WHITE BLOOD COUNT 7.2 10^3/ul (4.5-11.0)
[2016-10-24 07:22] LABS: PLATELET COUNT 809 10^3/uL (120.0-450.0)
[2016-10-24 07:57] LABS: ALB/GLOB RATIO 0.8 (1.1-1.8); ALKALINE PHOSPHATASE 113 U/L (38-133); ALT/SGPT 37 U/L (7-56); AST/SGOT 62 U/L (15-59); BILIRUBIN,TOTAL 0.3 mg/dL (0.2-1.3); BLOOD UREA NITROGEN 10 mg/dL (7-21); CALCIUM 11.3 mg/dL (8.4-10.5); CARBON DIOXIDE 24 mmol/L (21-33); CHLORIDE 103 mmol/L (98-107); GFR AFRICAN-AMERICAN > 60; GLUCOSE,RANDOM 93 mg/dL (70-110); SODIUM 136 mmol/L (132-148); TOTAL PROTEIN 7.5 g/dL (5.8-8.3)
[2016-10-24 08:12] LABS: URINE BILIRUBIN NEGATIVE (NEGATIVE); URINE BLOOD TRACE-LYSED (NEGATIVE); URINE GLUCOSE (UA) NEGATIVE (NEGATIVE); URINE KETONE NEGATIVE (NEGATIVE); URINE LEUKOCYTE ESTERASE NEGATIVE Leu/uL (NEGATIVE); URINE PROTEIN NEGATIVE mg/dL (<30 mg/dL); URINE UROBILINOGEN 0.2 E.U./dL (<1 E.U./dL)
[2016-10-24 08:14] LABS: URINE APPEARANCE CLEAR (CLEAR); URINE COLOR YELLOW (YELLOW)
[2016-10-24 08:31] LABS: URINE RBC 0 - 2 /hpf (0-2); URINE WBC NEGATIVE /hpf (0-6)
[2016-10-24] MEDS: Pantoprazole 40 mg EC Tab PO SCH (08:52)
[2016-10-24] MEDS: Lactobacillus Acidophilus 500 MU Cap PO SCH ×2 (10:40→20:25)
[2016-10-24] MEDS: Calcitonin 200 Int Units/Inh Nasal Spray (3.7 ml) NS SCH (10:41)
[2016-10-24] MEDS: Potassium & Sodium Phosphate PO SCH ×3 (10:45→20:25)
--- NOTE | 2016-10-24 15:18 | CT ---
PROCEDURE: CT Abdomen and Pelvis without intravenous contrast HISTORY: left upper quadrant pain COMPARISON: 10/18/2016 TECHNIQUE: Unenhanced study. Neither oral nor intravenous contrast administered. Sensitivity and specificity for acute inflammatory processes limited by the absence of oral and intravenous contrast. Radiation dose: Total exam DLP = 426.60 mGy-cm. FINDINGS: LOWER THORAX: Wrist resolution of pleural effusions. Stable atelectasis at the lung bases. LIVER: Unremarkable. No gross lesion or ductal dilatation. GALLBLADDER AND BILE DUCTS: Stable postoperative findings right upper quadrant/ gallbladder fossa. Surgical drain in stable position. Cutaneous subcutaneous findings at the site of the prior surgical procedure. PANCREAS: Unremarkable. No gross lesion or ductal dilatation. SPLEEN: Unremarkable. ADRENALS: Unremarkable. No mass. KIDNEYS AND URETERS: Stable punctate nonobstructing calculi left kidney. None measure larger than 2 mm. VASCULATURE: Unremarkable. No aortic aneurysm. BOWEL: Markedly distended stomach primarily filled with fluid common trace air within the distended stomach. Gastric distension progressive, worse compared to the prior study. APPENDIX: Unremarkable. Normal appendix. PERITONEUM: Unremarkable. No free fluid. No free air. LYMPH NODES: Unremarkable. No enlarged lymph nodes. BLADDER: Unremarkable. REPRODUCTIVE: Unremarkable. BONES: No acute fracture. OTHER FINDINGS: None. IMPRESSION: 1. Gastric distension primarily filled with fluid progressive, worse compared to the prior study. 2. Stable unilateral left nephrolithiasis, nonobstructing. 3. Stable postoperative findings right upper quadrant related cholecystectomy.
--- NOTE | 2016-10-24 16:26 | CP.PCM.PN ---
Subjective - Date & Time of Evaluation Date of Evaluation: 10/24/16 Time of Evaluation: 10:10 - Subjective Subjective: Comfortable in bed, not in distress, less pain in the abdomen, eating well, has solid BM's. Objective - Vital Signs/Intake and Output Vital Signs (last 24 hours): Temp Pulse Resp BP Pulse Ox 98.4 F 76 17 115/79 97 10/24/16 08:15 10/24/16 08:15 10/24/16 08:15 10/24/16 08:15 10/24/16 08:15 Intake and Output: 10/24/16 10/24/16 06:59 18:59 Intake Total 680 Output Total 200 Balance 480 - Medications Medications: Current Medications Acetaminophen (Tylenol 325mg Tab) 650 mg PO Q6H PRN PRN Reason: Fever >100.4 F Last Admin: 10/23/16 17:22 Dose: 650 mg Acetaminophen (Tylenol 325mg Tab) 650 mg PO Q6H PRN PRN Reason: Pain, Mild (1-3) Acetaminophen (Tylenol 325mg Tab) 650 mg PO Q6H PRN PRN Reason: Pain, moderate (4-7) Aspirin (Ecotrin) 81 mg PO DAILY [facility] Last Admin: 10/24/16 10:40 Dose: 81 mg Calcitonin [place] (Miacalcin) 200 iu NS DAILY [facility] Last Admin: 10/24/16 10:41 Dose: 1 spray Ferrous Sulfate (Feosol) 324 mg PO TID [facility] Last Admin: 10/20/16 09:46 Dose: 324 mg Heparin Sodium (Porcine) (Heparin) 5,000 units SC Q12 [facility] PRN Reason: Protocol Last Admin: 10/24/16 10:41 Dose: 5,000 units Iron Sucrose 100 mg/ Sodium (Chloride) 105 mls @ 210 mls/hr IVPB DAILY [facility] Last Admin: 10/24/16 10:24 Dose: 210 mls/hr MEROPENEM-0.9% SODIUM CHLORIDE (Meropenem 1g/Ns 100ml Ivpb) 100 mls @ 100 mls/ hr IVPB Q8 [facility] PRN Reason: Protocol Stop: 10/30/16 11:26 Last Admin: 10/24/16 14:15 Dose: 100 mls/hr Lactobacillus Acidophilus (Bacid Acidophilus) 1 cap PO BID [facility] Last Admin: 10/24/16 10:40 Dose: 1 cap Metoclopramide HCl (Reglan) 10 mg IVP Q8 [facility] Stop: 10/26/16 16:16 Oxycodone HCl (Oxycodone Immediate Release Tab) 10 mg PO Q6H PRN PRN Reason: Pain, moderate (4-7) Last Admin: 10/24/16 14:14 Dose: 10 mg Pantoprazole Sodium (Protonix Ec Tab) 40 mg PO ACB [facility] Last Admin: 10/24/16 08:52 Dose: 40 mg Potassium Phos/Sodium Phos (Neutra-Phos) 1 pkt PO TID [facility] Last Admin: 10/24/16 14:14 Dose: 1 pkt - Labs Labs: 10/24/16 07:00 10/24/16 07:00 - Constitutional Appears: Non-toxic, No Acute Distress - Head Exam Head Exam: NORMAL INSPECTION - ENT Exam ENT Exam: Mucous Membranes Moist - Neck Exam Neck Exam: absent: Lymphadenopathy, Meningismus - Respiratory Exam Respiratory Exam: Decreased Breath Sounds - Cardiovascular Exam Cardiovascular Exam: +S1, +S2 - GI/Abdominal Exam GI & Abdominal Exam: Soft. absent: Tenderness Assessment and Plan - Assessment and Plan (Free Text) Plan: Assessment Sepsis secondary to acute gangrenous cholecystitis S/P partial laparoscopic cholecystectomy and lysis of adhesions POD #12; new onset fever yesterday, R/O new onset sepsis; wound cx growing ESBL-producing Klebsiella hemorrhoids S/P removal history of intra-abdominal abscess S/P ex-lap and drainage peptic ulcer disease S/P perforation S/P umiblical hernia repair HTN history of hyperparathyroidism Plan continue Merrem; repeat blood cx are negative; repeat PCT is now down to 0.2, CXR negative for infiltrates; will monitor clinically - abdominal drain still with drainage although it is less; would consider reimaging the abdomen if the abdominal pain persists or worsens - discussed with Dr. Mckenzie Will continue to follow clinically
--- NOTE | 2016-10-24 17:08 | CP.PCM.PN ---
<Corby Raymond - Last Filed: 10/24/16 16:57> Subjective - Date & Time of Evaluation Date of Evaluation: 10/24/16 Time of Evaluation: 07:57 - Subjective Subjective: Pt seen and examined. Pt reports that his abdominal pain is improved. Pt denies fever, chills, chest pain, shortness of breath, nausea, and vomiting. Objective - Vital Signs/Intake and Output Vital Signs (last 24 hours): Temp Pulse Resp BP Pulse Ox 98.4 F 76 17 115/79 97 10/24/16 08:15 10/24/16 08:15 10/24/16 08:15 10/24/16 08:15 10/24/16 08:15 Intake and Output: 10/24/16 10/24/16 06:59 18:59 Intake Total 680 Output Total 200 Balance 480 - Medications Medications: Current Medications Acetaminophen (Tylenol 325mg Tab) 650 mg PO Q6H PRN PRN Reason: Fever >100.4 F Last Admin: 10/23/16 17:22 Dose: 650 mg Acetaminophen (Tylenol 325mg Tab) 650 mg PO Q6H PRN PRN Reason: Pain, Mild (1-3) Acetaminophen (Tylenol 325mg Tab) 650 mg PO Q6H PRN PRN Reason: Pain, moderate (4-7) Aspirin (Ecotrin) 81 mg PO DAILY [facility] Last Admin: 10/24/16 10:40 Dose: 81 mg Calcitonin [place] (Miacalcin) 200 iu NS DAILY [facility] Last Admin: 10/24/16 10:41 Dose: 1 spray Ferrous Sulfate (Feosol) 324 mg PO TID [facility] Last Admin: 10/20/16 09:46 Dose: 324 mg Heparin Sodium (Porcine) (Heparin) 5,000 units SC Q12 [facility] PRN Reason: Protocol Last Admin: 10/24/16 10:41 Dose: 5,000 units Hydromorphone HCl (Dilaudid) 0.5 mg IVP Q4H PRN PRN Reason: Pain, moderate (4-7) Iron Sucrose 100 mg/ Sodium (Chloride) 105 mls @ 210 mls/hr IVPB DAILY [facility] Last Admin: 10/24/16 10:24 Dose: 210 mls/hr MEROPENEM-0.9% SODIUM CHLORIDE (Meropenem 1g/Ns 100ml Ivpb) 100 mls @ 100 mls/ hr IVPB Q8 [facility] PRN Reason: Protocol Stop: 10/30/16 11:26 Last Admin: 10/24/16 14:15 Dose: 100 mls/hr Sodium Chloride (Sodium Chloride 0.9%) 1,000 mls @ 100 mls/hr IV .Q10H [facility] Lactobacillus Acidophilus (Bacid Acidophilus) 1 cap PO BID [facility] Last Admin: 10/24/16 10:40 Dose: 1 cap Metoclopramide HCl (Reglan) 10 mg IVP Q8 [facility] Stop: 10/26/16 16:16 Ondansetron HCl (Zofran Inj) 4 mg IVP Q4H PRN PRN Reason: Nausea/Vomiting Oxycodone HCl (Oxycodone Immediate Release Tab) 10 mg PO Q6H PRN PRN Reason: Pain, moderate (4-7) Last Admin: 10/24/16 14:14 Dose: 10 mg Pantoprazole Sodium (Protonix Inj) 40 mg IVP DAILY [facility] Potassium Phos/Sodium Phos (Neutra-Phos) 1 pkt PO TID [facility] Last Admin: 10/24/16 14:14 Dose: 1 pkt - Labs Labs: 10/24/16 07:00 10/24/16 07:00 - Constitutional Appears: No Acute Distress - Head Exam Head Exam: ATRAUMATIC, NORMOCEPHALIC - Eye Exam Eye Exam: EOMI, PERRL - ENT Exam ENT Exam: Mucous Membranes Moist. absent: Mucous Membranes Dry - Respiratory Exam Respiratory Exam: Clear to Ausculation Bilateral. absent: Rales, Rhonchi, Wheezes - Cardiovascular Exam Cardiovascular Exam: +S1, +S2. absent: Gallop, Rubs, Murmur - GI/Abdominal Exam GI & Abdominal Exam: Soft, Tenderness. absent: Distended, Rigid Additional comments: Drain present, though not draining much; RUQ tenderness; kim incisional area is firm, remainded of abdomen is soft - Extremities Exam Extremities Exam: Full ROM. absent: Pedal Edema - Neurological Exam Neurological Exam: Alert, Awake, Oriented x3 - Psychiatric Exam Psychiatric exam: Normal Affect, Normal Mood - Skin Skin Exam: Normal Color, Warm Assessment and Plan - Assessment and Plan (Free Text) Assessment: Assessment: Sepsis s/p subtotal cholecystectomy and gangrenous gallbladder Cholecystitis Wound Abscess Thrombocytosis Hypercalcemia Anemia Plan: Pt day 13 s/p open subtotal cholecystectomy, Day 8 s/p bedside I&D of wound abscess. Pt afebrile, nontachycardic, no leukocytosis. Repeat abd/Pelvis CT - gastric distension primarily filled with fluid, worse compared to the prior study; stable unilateral left nephrolithiasis; stable postoperative findings ( please see full report). Pt made NPO and started on IV fluids. Pt started on Reglan as per surgery. Possible NG tube placement if pt experiences nasuea or vomiting. Pt to be seen by GI tomorow for possible EGD. Continue merrem as per ID. Repeat blood cultures are negative. Repeat procalcitonin 0.2. Thrombocytosis improving, trending down. Calcium 11.3 today, continue miacalcin , as per endocrinology. <Karina Mckenzie - Last Filed: 10/24/16 17:52> Objective - Vital Signs/Intake and Output Vital Signs (last 24 hours): Temp Pulse Resp BP Pulse Ox 99.4 F 91 H 20 108/74 98 10/24/16 16:00 10/24/16 16:00 10/24/16 16:00 10/24/16 16:00 10/24/16 16:00 Intake and Output: 10/24/16 10/24/16 06:59 18:59 Intake Total 680 Output Total 200 Balance 480 - Medications Medications: Current Medications Acetaminophen (Tylenol 325mg Tab) 650 mg PO Q6H PRN PRN Reason: Fever >100.4 F Last Admin: 10/23/16 17:22 Dose: 650 mg Acetaminophen (Tylenol 325mg Tab) 650 mg PO Q6H PRN PRN Reason: Pain, Mild (1-3) Acetaminophen (Tylenol 325mg Tab) 650 mg PO Q6H PRN PRN Reason: Pain, moderate (4-7) Aspirin (Ecotrin) 81 mg PO DAILY [facility] Last Admin: 10/24/16 10:40 Dose: 81 mg Calcitonin [place] (Miacalcin) 200 iu NS DAILY [facility] Last Admin: 10/24/16 10:41 Dose: 1 spray Ferrous Sulfate (Feosol) 324 mg PO TID [facility] Last Admin: 10/20/16 09:46 Dose: 324 mg Heparin Sodium (Porcine) (Heparin) 5,000 units SC Q12 [facility] PRN Reason: Protocol Last Admin: 10/24/16 10:41 Dose: 5,000 units Hydromorphone HCl (Dilaudid) 0.5 mg IVP Q4H PRN PRN Reason: Pain, moderate (4-7) Iron Sucrose 100 mg/ Sodium (Chloride) 105 mls @ 210 mls/hr IVPB [facility]ILY [facility] Last Admin: 10/24/16 10:24 Dose: 210 mls/hr MEROPENEM-0.9% SODIUM CHLORIDE (Meropenem 1g/Ns 100ml Ivpb) 100 mls @ 100 mls/ hr IVPB Q8 [facility] PRN Reason: Protocol Stop: 10/30/16 11:26 Last Admin: 10/24/16 14:15 Dose: 100 mls/hr Sodium Chloride (Sodium Chloride 0.9%) 1,000 mls @ 100 mls/hr IV .Q10H [facility] Last Admin: 10/24/16 17:36 Dose: 100 mls/hr Lactobacillus Acidophilus (Bacid Acidophilus) 1 cap PO BID [facility] Last Admin: 10/24/16 10:40 Dose: 1 cap Metoclopramide HCl (Reglan) 10 mg IVP Q8 [facility] Stop: 10/26/16 16:16 Last Admin: 10/24/16 17:35 Dose: 10 mg Ondansetron HCl (Zofran Inj) 4 mg IVP Q4H PRN PRN Reason: Nausea/Vomiting Oxycodone HCl (Oxycodone Immediate Release Tab) 10 mg PO Q6H PRN PRN Reason: Pain, moderate (4-7) Last Admin: 10/24/16 14:14 Dose: 10 mg Pantoprazole Sodium (Protonix Inj) 40 mg IVP DAILY [facility] Potassium Phos/Sodium Phos (Neutra-Phos) 1 pkt PO TID [facility] Last Admin: 10/24/16 14:14 Dose: 1 pkt - Labs Labs: 10/24/16 07:00 10/24/16 07:00 Assessment and Plan - Assessment and Plan (Free Text) Assessment: Attending note; Patient seen and examined With the resident. Patient's family by the bedside. Patient is a 65 year old male with history of PUD, hyperparathyroidism induced hypercalcemia on intranasal calcitonin, HTN, hemorrhoids s/p resection, intra abdominal abscess s/p I&D, umbilical hernia repair who got admitted for evaluation of right sided abdominal pain and found to have acute gangrenous cholecystitis s/p subtotal cholecystectomy. He also underwent bedside I&D. patient is afebrile today. Case discussed with ID in detail. Chest x-ray is negative. procalcitonin is negative. Patient continues to have right upper quadrant pain; CT abdomen and pelvis showed gastric distention. CT reviewed with surgery. Nothing by mouth. IV fluids. GI reevaluation for possible EGD. Patient currently denies any nausea, vomiting. Wound and sputum culture positive for klebsiella.Continue meropenem. blood cs is negative. Thrombocytosis noted which is most likely reactive secondary to recent surgery and infection. Hematology consult appreciated. Improving. Hypercalcemia: Endocrinology consult appreciated. continue nasal calcitonin for hypercalcemia. Patient will follow-up with [facility] for possible parathyroid exploration. follow up with GI and surgery closely. upon discharge patient will follow[place] [facility]. Attending/Attestation - Attestation I have personally seen and examined this patient.: Yes I have fully participated in the care of the patient.: Yes I have reviewed all pertinent clinical information, including history, physical exam and plan: Yes
[2016-10-24] MEDS: HYDROmorphone 0.5 mg/0.5 ml ISec IVP PRN (17:35)
[2016-10-24] MEDS: Sodium Chloride 0.9% 1,000 ML IV SCH (17:36)
--- NOTE | 2016-10-25 00:07 | PN ---
DATE: 10/24/2016 This is the patient's hospital visit on the medical floor. For Dr. Lowry. SUBJECTIVE: The patient is a 65-year-old male seen lying awake in bed. Dressings on his abdomen dry and intact. Speaks [place]er with family at the bedside as translators. He had surgery for gangrenous gallbladder with sepsis with the patient having significant thrombocythemic indices afterwards, for which he is being followed by Dr. Lowry with modest improvement noted. He is otherwise reporting h is pain medicines helped. PHYSICAL EXAMINATION: VITAL SIGNS: Temperature 99.4, pulse 91, respirations 20, blood pressure 108/74, pulse ox 98%. HEENT: Unremarkable. NECK: Supple. HEART: Tachy rate, regular rhythm. LUNGS: Clear. ABDOMEN: Soft with dressings dry and intact with a ED drain functional. EXTREMITIES: No edema. SKIN: Warm, dry, and clear. NEUROLOGIC: Awake, alert, and oriented. LABORATORY DATA: The patient's labs were done with a white blood cell count of 7.2, hemoglobin 11.8, hematocrit 36.3, platelet count of 809,000 down from 1,067,000 two days prior. The patient's chem metabolic panel shows a calcium of 11.3. AST of 62, otherwise normal chem metabol ic panel. Urinalysis showed trace of blood, otherwise negative today. The patient had a CT scan of the abdomen and pelvis done today. It was read as gastric distention, p rimarily with fluid worse compared with prior study, stable unilateral left nephrolithiasis, nonobstr ucting stable postop findings right upper quadrant relating to cholecystectomy. ASSESSMENT: Postoperative cholecystectomy with gangrenous cholecystitis, 10/11/2016, 13 days prior. Thrombocythemia, probably reactive, modestly improved. Fever of unknown origin, on antibiotics. Se psis secondary to above. History of peptic ulcer disease with perforation. Hypertension. Hyperpara thyroidism. PLAN: After conversation with Dr. Lowry is to continue the present medical regimen. We await for his blood testing including JAK2 and BCR-ABL testing, results to be returned. The plan for this patient is to continue the present medical regimen. We will monitor clinically and with labs. Srinivas Polanco MD cc: [phone] TT: 10/25/2016 00:06:59 Confirmation # [id number] Dictation # [id number] tn
[2016-10-25 00:32] LABS: BCR-ABL PRIOR RESULT NOT GIVEN (()); BCR-ABL SOURCE WB (()); P190 BCR-ABL1 NOT DETECTED (()); P210 BCR-ABL1 NOT DETECTED (())
[2016-10-25] MEDS: Meropenem 1g/NS 100mL IVPB 100 ML IVPB SCH ×3 (05:41→21:35)
[2016-10-25 07:23] LABS: ADD MANUAL DIFF? NO
[2016-10-25 07:26] LABS: BASO # 0.04 K/mm3 (0.0-2.0); BASO % 0.5 % (0.0-3.0); EOS # 0.2 (0.0-0.7); EOS % 3.2 % (1.5-5.0); GRAN # 3.88 (1.4-6.5); HEMATOCRIT 34.9 % (42.0-52.0); LYMPH # 2.6 (1.2-3.4); LYMPH % 34.1 % (22.0-35.0); MEAN CELL VOLUME 80.8 fL (80.0-105.0); MEAN CORPUSCULAR HEMOGLOBIN 25.9 pg (25.0-35.0); MEAN CORPUSCULAR HGB CONC 32.1 g/dl (31.0-37.0); MEAN PLATELET VOLUME 9.2 fl (7.0-11.0); MONO # 0.8 (0.1-0.6); MONO % 10.2 % (1.0-6.0); RED CELL DISTRIBUTION WIDTH 13.4 % (11.5-14.5); WHITE BLOOD COUNT 7.5 10^3/ul (4.5-11.0)
[2016-10-25 07:30] LABS: PLATELET COUNT 759 10^3/uL (120.0-450.0)
--- NOTE | 2016-10-25 07:50 | CP.PCM.PN ---
<Marianela Cortes - Last Filed: 10/25/16 15:37> Subjective - Date & Time of Evaluation Date of Evaluation: 10/25/16 Time of Evaluation: 06:45 - Subjective Subjective: General Surgery Dr. Abdalla Pt S&E @bedside. NAEO. CT performed yesterday showed increasing distension of stomach. c/o internal RUQ pain not associated w/ incision. pt denies N/V. self reports BMx2 yesterday. NPO due to worsening distension. Nir w/ 5cc bilious fluid. Objective - Vital Signs/Intake and Output Vital Signs (last 24 hours): Temp Pulse Resp BP Pulse Ox 99.4 F 91 H 20 108/74 98 10/24/16 16:00 10/24/16 16:00 10/24/16 16:00 10/24/16 16:00 10/24/16 16:00 Intake and Output: 10/25/16 10/25/16 06:59 18:59 Intake Total 540 Output Total 809 Balance -269 - Medications Medications: Current Medications Acetaminophen (Tylenol 325mg Tab) 650 mg PO Q6H PRN PRN Reason: Fever >100.4 F Last Admin: 10/23/16 17:22 Dose: 650 mg Acetaminophen (Tylenol 325mg Tab) 650 mg PO Q6H PRN PRN Reason: Pain, Mild (1-3) Acetaminophen (Tylenol 325mg Tab) 650 mg PO Q6H PRN PRN Reason: Pain, moderate (4-7) Aspirin (Ecotrin) 81 mg PO DAILY [facility] Last Admin: 10/24/16 10:40 Dose: 81 mg Calcitonin [place] (Miacalcin) 200 iu NS DAILY [facility] Last Admin: 10/24/16 10:41 Dose: 1 spray Ferrous Sulfate (Feosol) 324 mg PO TID [facility] Last Admin: 10/20/16 09:46 Dose: 324 mg Heparin Sodium (Porcine) (Heparin) 5,000 units SC Q12 [facility] PRN Reason: Protocol Last Admin: 10/24/16 10:41 Dose: 5,000 units Hydromorphone HCl (Dilaudid) 0.5 mg IVP Q4H PRN PRN Reason: Pain, moderate (4-7) Last Admin: 10/24/16 17:35 Dose: 0.5 mg Iron Sucrose 100 mg/ Sodium (Chloride) 105 mls @ 210 mls/hr IVPB DAILY [facility] Last Admin: 10/24/16 10:24 Dose: 210 mls/hr MEROPENEM-0.9% SODIUM CHLORIDE (Meropenem 1g/Ns 100ml Ivpb) 100 mls @ 100 mls/ hr IVPB Q8 [facility] PRN Reason: Protocol Stop: 10/30/16 11:26 Last Admin: 10/25/16 05:41 Dose: 100 mls/hr Sodium Chloride (Sodium Chloride 0.9%) 1,000 mls @ 100 mls/hr IV .Q10H [facility] Last Admin: 10/24/16 17:36 Dose: 100 mls/hr Lactobacillus Acidophilus (Bacid Acidophilus) 1 cap PO BID [facility] Last Admin: 10/24/16 20:25 Dose: Not Given Metoclopramide HCl (Reglan) 10 mg IVP Q8 [facility] Stop: 10/26/16 16:16 Last Admin: 10/25/16 05:41 Dose: 10 mg Ondansetron HCl (Zofran Inj) 4 mg IVP Q4H PRN PRN Reason: Nausea/Vomiting Oxycodone HCl (Oxycodone Immediate Release Tab) 10 mg PO Q6H PRN PRN Reason: Pain, moderate (4-7) Last Admin: 10/24/16 14:14 Dose: 10 mg Pantoprazole Sodium (Protonix Inj) 40 mg IVP DAILY [facility] Potassium Phos/Sodium Phos (Neutra-Phos) 1 pkt PO TID [facility] Last Admin: 10/24/16 20:25 Dose: Not Given - Labs Labs: pending - Constitutional Appears: Non-toxic, No Acute Distress - Head Exam Head Exam: NORMAL INSPECTION - Eye Exam Eye Exam: Normal appearance - ENT Exam ENT Exam: Mucous Membranes Moist - Respiratory Exam Respiratory Exam: NORMAL BREATHING PATTERN. absent: Accessory Muscle Use, Respiratory Distress - GI/Abdominal Exam GI & Abdominal Exam: Distended, Guarding (voluntary), Soft, Tenderness (RUQ TTP) . absent: Rebound Additional comments: incision c/d 1cm opening in incision packing in place Drain in place - Extremities Exam Extremities Exam: Normal Inspection - Neurological Exam Neurological Exam: Alert, Awake - Psychiatric Exam Psychiatric exam: Normal Affect, Normal Mood - Skin Skin Exam: Dry, Normal Color, Warm Assessment and Plan - Assessment and Plan (Free Text) Assessment: 65 y/o M w/ gangrenous cholecystitis POD#14 s/p open cholecystectomy w/ worsening gastric distension and wound infection - NPO - recommend NGT - recommend EGD for decompression and eval of GOO - daily packing changes - monitor drain output - monitor Is&Os - pain management - cont medical management Pt discussed w/ Dr. Lianne Cortes DO PGY1 <Poli Abdalla - Last Filed: 10/28/16 11:00> Objective - Vital Signs/Intake and Output Vital Signs (last 24 hours): Temp Pulse Resp BP Pulse Ox 98.5 F 81 18 115/74 98 10/26/16 08:38 10/26/16 08:38 10/26/16 08:38 10/26/16 08:38 10/26/16 08:38 - Labs Labs: 10/25/16 07:00 10/25/16 07:00 Attending/Attestation - Attestation I have personally seen and examined this patient.: Yes I have fully participated in the care of the patient.: Yes I have reviewed all pertinent clinical information, including history, physical exam and plan: Yes Notes (Text): 10/28/16 10:54 Pt was seen and examined at bedside on 10/25/16 Agree with above note and assessment Pt is s/p EGD today. Pt is doing well. Tolerating liquid diet Can advance diet to Soft reg diet Pt can be DC home tomorrow. Plan d.w pt in detail F.U as out pt.
[2016-10-25 08:14] LABS: ALB/GLOB RATIO 0.8 (1.1-1.8); ALKALINE PHOSPHATASE 121 U/L (38-133); ALT/SGPT 35 U/L (7-56); AST/SGOT 51 U/L (15-59); BILIRUBIN,TOTAL 0.3 mg/dL (0.2-1.3); BLOOD UREA NITROGEN 11 mg/dL (7-21); CARBON DIOXIDE 24 mmol/L (21-33); CHLORIDE 104 mmol/L (98-107); GFR AFRICAN-AMERICAN > 60; GLUCOSE,RANDOM 92 mg/dL (70-110); POTASSIUM 4.9 mmol/L (3.6-5.0); SODIUM 134 mmol/L (132-148); TOTAL PROTEIN 7.2 g/dL (5.8-8.3)
[2016-10-25] MEDS: Calcitonin 200 Int Units/Inh Nasal Spray (3.7 ml) NS SCH (10:00)
[2016-10-25] MEDS: Potassium & Sodium Phosphate PO SCH ×3 (11:40→18:32)
[2016-10-25] MEDS: Lactobacillus Acidophilus 500 MU Cap PO SCH ×2 (11:40→18:32)
--- NOTE | 2016-10-25 13:12 | CP.PCM.PN ---
Subjective - Date & Time of Evaluation Date of Evaluation: 10/25/16 Time of Evaluation: 13:09 - Subjective Subjective: RFV: Distention of stomach S: Increasing abdominal distention noted. Gastric distention on CT scan. NGT placed with 300 cc of bilious output. Denies abdominal pain. RUQ drain removed. No vomiting. Objective - Vital Signs/Intake and Output Vital Signs (last 24 hours): Temp Pulse Resp BP Pulse Ox 99.4 F 91 H 20 108/74 98 10/24/16 16:00 10/24/16 16:00 10/24/16 16:00 10/24/16 16:00 10/24/16 16:00 Intake and Output: 10/25/16 10/25/16 06:59 18:59 Intake Total 540 Output Total 809 Balance -269 - Medications Medications: Current Medications Acetaminophen (Tylenol 325mg Tab) 650 mg PO Q6H PRN PRN Reason: Fever >100.4 F Last Admin: 10/23/16 17:22 Dose: 650 mg Acetaminophen (Tylenol 325mg Tab) 650 mg PO Q6H PRN PRN Reason: Pain, Mild (1-3) Acetaminophen (Tylenol 325mg Tab) 650 mg PO Q6H PRN PRN Reason: Pain, moderate (4-7) Aspirin (Ecotrin) 81 mg PO DAILY [facility] Last Admin: 10/24/16 10:40 Dose: 81 mg Calcitonin [place] (Miacalcin) 200 iu NS DAILY [facility] Last Admin: 10/24/16 10:41 Dose: 1 spray Ferrous Sulfate (Feosol) 324 mg PO TID [facility] Last Admin: 10/20/16 09:46 Dose: 324 mg Heparin Sodium (Porcine) (Heparin) 5,000 units SC Q12 [facility] PRN Reason: Protocol Last Admin: 10/24/16 10:41 Dose: 5,000 units Hydromorphone HCl (Dilaudid) 0.5 mg IVP Q4H PRN PRN Reason: Pain, moderate (4-7) Last Admin: 10/24/16 17:35 Dose: 0.5 mg Iron Sucrose 100 mg/ Sodium (Chloride) 105 mls @ 210 mls/hr IVPB DAILY [facility] Last Admin: 10/25/16 10:00 Dose: 210 mls/hr MEROPENEM-0.9% SODIUM CHLORIDE (Meropenem 1g/Ns 100ml Ivpb) 100 mls @ 100 mls/ hr IVPB Q8 [facility] PRN Reason: Protocol Stop: 10/30/16 11:26 Last Admin: 10/25/16 05:41 Dose: 100 mls/hr Sodium Chloride (Sodium Chloride 0.9%) 1,000 mls @ 100 mls/hr IV .Q10H [facility] Last Admin: 10/24/16 17:36 Dose: 100 mls/hr Lactobacillus Acidophilus (Bacid Acidophilus) 1 cap PO BID [facility] Last Admin: 10/25/16 11:40 Dose: Not Given Metoclopramide HCl (Reglan) 10 mg IVP Q8 [facility] Stop: 10/26/16 16:16 Last Admin: 10/25/16 05:41 Dose: 10 mg Ondansetron HCl (Zofran Inj) 4 mg IVP Q4H PRN PRN Reason: Nausea/Vomiting Oxycodone HCl (Oxycodone Immediate Release Tab) 10 mg PO Q6H PRN PRN Reason: Pain, moderate (4-7) Last Admin: 10/24/16 14:14 Dose: 10 mg Pantoprazole Sodium (Protonix Inj) 40 mg IVP DAILY [facility] Potassium Phos/Sodium Phos (Neutra-Phos) 1 pkt PO TID [facility] Last Admin: 10/25/16 11:40 Dose: Not Given - Labs Labs: 10/25/16 07:00 10/25/16 07:00 - Constitutional Appears: No Acute Distress, Chronically Ill - Head Exam Head Exam: ATRAUMATIC, NORMOCEPHALIC - Eye Exam Eye Exam: absent: Scleral icterus - ENT Exam ENT Exam: Mucous Membranes Moist, Normal Oropharynx - Respiratory Exam Respiratory Exam: NORMAL BREATHING PATTERN. absent: Wheezes, Respiratory Distress - Cardiovascular Exam Cardiovascular Exam: +S1, +S2 - GI/Abdominal Exam GI & Abdominal Exam: Distended, Soft. absent: Tenderness - Neurological Exam Neurological Exam: Alert, Oriented x3 Assessment and Plan - Assessment and Plan (Free Text) Assessment: 65 year old male with history of PUD, HTN a/w acute cholecystitis s/p cholecystectomy, hospital course complicated by wound infection requiring debridement, now with gastric distention. 1. Acute distention of stomach 2. Acute cholecystitis Plan: -uncertain etiology of gastric distention -per daughter, patient had a normal/unremarkable endoscopy about 1 month ago -recommend NG to LIS for decompression -recommend diagnostic upper endoscopy today -NPO -IV hydration and electolyte replacement -continue IV antibiotics for cholecystitis/wound infection
--- NOTE | 2016-10-25 13:17 | RAD ---
HISTORY: NGT placement COMPARISON: 10/15/2016 FINDINGS: The nasogastric tube terminates in the stomach. LUNGS: There is discoid atelectasis in the right lower lobe. There is subsegmental atelectasis in the left lower lobe. PLEURA: No significant pleural effusion identified, no pneumothorax apparent. CARDIOVASCULAR: Normal. OSSEOUS STRUCTURES: No significant abnormalities. VISUALIZED UPPER ABDOMEN: Normal. OTHER FINDINGS: None. IMPRESSION: Persistent discoid atelectasis in the right lower lobe. Superimposed pneumonia cannot be excluded.
--- NOTE | 2016-10-25 13:55 | CP.PCM.PN ---
Subjective - Date & Time of Evaluation Date of Evaluation: 10/25/16 Time of Evaluation: 09:35 - Subjective Subjective: Comfortable in bed but still with abdominal pain, upper abdomen with some distention. No fevers overnight, no diarrhea, no nausea currently. Objective - Vital Signs/Intake and Output Vital Signs (last 24 hours): Temp Pulse Resp BP Pulse Ox 99.4 F 91 H 20 108/74 98 10/24/16 16:00 10/24/16 16:00 10/24/16 16:00 10/24/16 16:00 10/24/16 16:00 Intake and Output: 10/25/16 10/25/16 06:59 18:59 Intake Total 540 Output Total 809 5 Balance -269 -5 - Medications Medications: Current Medications Acetaminophen (Tylenol 325mg Tab) 650 mg PO Q6H PRN PRN Reason: Fever >100.4 F Last Admin: 10/23/16 17:22 Dose: 650 mg Acetaminophen (Tylenol 325mg Tab) 650 mg PO Q6H PRN PRN Reason: Pain, Mild (1-3) Acetaminophen (Tylenol 325mg Tab) 650 mg PO Q6H PRN PRN Reason: Pain, moderate (4-7) Aspirin (Ecotrin) 81 mg PO DAILY [facility] Last Admin: 10/24/16 10:40 Dose: 81 mg Calcitonin [place] (Miacalcin) 200 iu NS DAILY [facility] Last Admin: 10/24/16 10:41 Dose: 1 spray Ferrous Sulfate (Feosol) 324 mg PO TID [facility] Last Admin: 10/20/16 09:46 Dose: 324 mg Heparin Sodium (Porcine) (Heparin) 5,000 units SC Q12 [facility] PRN Reason: Protocol Last Admin: 10/24/16 10:41 Dose: 5,000 units Hydromorphone HCl (Dilaudid) 0.5 mg IVP Q4H PRN PRN Reason: Pain, moderate (4-7) Last Admin: 10/24/16 17:35 Dose: 0.5 mg Iron Sucrose 100 mg/ Sodium (Chloride) 105 mls @ 210 mls/hr IVPB DAILY [facility] Last Admin: 10/25/16 10:00 Dose: 210 mls/hr MEROPENEM-0.9% SODIUM CHLORIDE (Meropenem 1g/Ns 100ml Ivpb) 100 mls @ 100 mls/ hr IVPB Q8 [facility] PRN Reason: Protocol Stop: 10/30/16 11:26 Last Admin: 10/25/16 05:41 Dose: 100 mls/hr Sodium Chloride (Sodium Chloride 0.9%) 1,000 mls @ 100 mls/hr IV .Q10H [facility] Last Admin: 10/24/16 17:36 Dose: 100 mls/hr Lactobacillus Acidophilus (Bacid Acidophilus) 1 cap PO BID [facility] Last Admin: 10/25/16 11:40 Dose: Not Given Metoclopramide HCl (Reglan) 10 mg IVP Q8 [facility] Stop: 10/26/16 16:16 Last Admin: 10/25/16 05:41 Dose: 10 mg Ondansetron HCl (Zofran Inj) 4 mg IVP Q4H PRN PRN Reason: Nausea/Vomiting Oxycodone HCl (Oxycodone Immediate Release Tab) 10 mg PO Q6H PRN PRN Reason: Pain, moderate (4-7) Last Admin: 10/24/16 14:14 Dose: 10 mg Pantoprazole Sodium (Protonix Inj) 40 mg IVP DAILY [facility] Potassium Phos/Sodium Phos (Neutra-Phos) 1 pkt PO TID [facility] Last Admin: 10/25/16 11:40 Dose: Not Given - Labs Labs: 10/25/16 07:00 10/25/16 07:00 - Constitutional Appears: Non-toxic, No Acute Distress - Head Exam Head Exam: NORMAL INSPECTION - ENT Exam ENT Exam: Mucous Membranes Moist - Neck Exam Neck Exam: absent: Lymphadenopathy, Meningismus - Respiratory Exam Respiratory Exam: Decreased Breath Sounds - Cardiovascular Exam Cardiovascular Exam: +S1, +S2 - GI/Abdominal Exam GI & Abdominal Exam: Soft, Tenderness (mild, right upper quadrant area, no ) Assessment and Plan - Assessment and Plan (Free Text) Plan: Assessment Sepsis secondary to acute gangrenous cholecystitis S/P partial laparoscopic cholecystectomy and lysis of adhesions POD #13; patient with acute progression of stomach distention as seen on CT scan from 10/24/2016, etiology to be determined wound cx growing ESBL-producing Klebsiella hemorrhoids S/P removal history of intra-abdominal abscess S/P ex-lap and drainage peptic ulcer disease S/P perforation S/P umiblical hernia repair HTN history of hyperparathyroidism Plan continue Merrem; reviewed repeat CT scan of abdomen - progressive distention of stomach, stable right upper qudarant cholecystectomy - there is plan for upper endoscopy by GI and will follow up results once it is done Will continue to follow clinically
--- NOTE | 2016-10-25 14:58 | PN ---
DATE: 10/25/[address] Lowry. SUBJECTIVE: The patient is a Togolese-speaking 65-year-old male seen lying awake in bed with NG tube n ow in his nose with modest discomfort. He is now status post surgery for gangrenous gallbladder with sepsis with significant thrombocythemia, now modestly improved on a daily basis. He is otherwise wi thout complaint, resting comfortably. OBJECTIVE PHYSICAL EXAMINATION: VITAL SIGNS: Temperature 99.4, pulse 91, respirations 20, blood pressure 108/74, pulse ox 98%. HEENT: Unremarkable except for an NG tube now suctioning brownish villegas secretions via the NG tube. NECK: Supple. HEART: Regular rate. LUNGS: Clear. ABDOMEN: Soft with dressings dry and intact with Ronak-Arias drain. EXTREMITIES: No edema. NEUROLOGIC: Awake and alert. SKIN: Otherwise, warm, dry and clear. LABORATORY DATA: The patient's labs were done. White blood cell count of 7.5, hemoglobin 11.2, kurtis tocrit 34.9 and platelet count of 759,000 down from 1,067,000 three days prior. The patient's chem metabolic panel was within normal limits except for a calcium of 11.0. The patient had a chest x-ray done earlier today. It was read as persistent discoid atelectasis, rig ht lower lobe. Superimposed pneumonia cannot be excluded with an NG tube terminating in the stomach. ASSESSMENT: Postoperative day 14 for a cholecystectomy for gangrenous cholecystitis. Thrombocythemi a, modestly improved, probably reactive. Fever of unknown origin, now antibiotics restarted. Sepsis secondary to above, history of peptic ulcer perforation, hypertension, hyperparathyroidism history, with new gastric distention with nasogastric tube. PLAN: As per Santo Sharma, with EGD today with continuation of the present medical regimen as per nathan weiss and attending with antibiotics continuing as per Dr. Pimentel with his thrombocythemia modestly i mproved. With this, the patient's labs will be monitored and monitored clinically with his JAK2 muta tion testing. BCR-ABL fusion ____ were not detected as of results from 10/22/16. However, the JAK2 m utation testing is not back. Srinivas Polanco MD cc: [id number] TT: 10/25/2016 14:57:13 Confirmation # [id number] Dictation # [id number] tn
[2016-10-25] MEDS ORDERED: Propofol 10 mg/ml Inj (20 ML) ONE (15:14)
[2016-10-25] MEDS ORDERED: Midazolam 2 MG/2 ML VIAL ONE (15:14)
[2016-10-25] MEDS ORDERED: Lactated Ringer's 1,000 ML IV SCH (15:45)
[2016-10-25] MEDS: HYDROmorphone 0.5 mg/0.5 ml ISec IVP PRN (18:49)
--- NOTE | 2016-10-25 19:56 | CP.PCM.PN ---
<Corby Raymond - Last Filed: 10/25/16 19:52> Subjective - Date & Time of Evaluation Date of Evaluation: 10/25/16 Time of Evaluation: 09:58 - Subjective Subjective: Pt seen and examined. Pt reports that he he still has pain and tenderness in his RUQ. He reports that he had one episode of diarrhea. Pt denies fever, chills , chest pain, shortness of breath, nausea, and vomiting. Objective - Vital Signs/Intake and Output Vital Signs (last 24 hours): Temp Pulse Resp BP Pulse Ox 97.4 F L 99 H 20 113/82 100 10/25/16 16:20 10/25/16 16:20 10/25/16 16:20 10/25/16 16:20 10/25/16 16:20 Intake and Output: 10/25/16 10/26/16 18:59 06:59 Intake Total 0 Output Total 2205 Balance -2205 - Medications Medications: Current Medications Acetaminophen (Tylenol 325mg Tab) 650 mg PO Q6H PRN PRN Reason: Fever >100.4 F Last Admin: 10/23/16 17:22 Dose: 650 mg Acetaminophen (Tylenol 325mg Tab) 650 mg PO Q6H PRN PRN Reason: Pain, Mild (1-3) Acetaminophen (Tylenol 325mg Tab) 650 mg PO Q6H PRN PRN Reason: Pain, moderate (4-7) Aspirin (Ecotrin) 81 mg PO DAILY [facility] Last Admin: 10/24/16 10:40 Dose: 81 mg Calcitonin [place] (Miacalcin) 200 iu NS DAILY [facility] Last Admin: 10/25/16 10:00 Dose: 1 spray Ferrous Sulfate (Feosol) 324 mg PO TID [facility] Last Admin: 10/20/16 09:46 Dose: 324 mg Heparin Sodium (Porcine) (Heparin) 5,000 units SC Q12 [facility] PRN Reason: Protocol Last Admin: 10/24/16 10:41 Dose: 5,000 units Hydromorphone HCl (Dilaudid) 0.5 mg IVP Q4H PRN PRN Reason: Pain, moderate (4-7) Last Admin: 10/25/16 18:49 Dose: 0.5 mg Iron Sucrose 100 mg/ Sodium (Chloride) 105 mls @ 210 mls/hr IVPB DAILY [facility] Last Admin: 10/25/16 10:00 Dose: 210 mls/hr MEROPENEM-0.9% SODIUM CHLORIDE (Meropenem 1g/Ns 100ml Ivpb) 100 mls @ 100 mls/ hr IVPB Q8 [facility] PRN Reason: Protocol Stop: 10/30/16 11:26 Last Admin: 10/25/16 17:13 Dose: 100 mls/hr Sodium Chloride (Sodium Chloride 0.9%) 1,000 mls @ 100 mls/hr IV .Q10H [facility] Last Admin: 10/24/16 17:36 Dose: 100 mls/hr Lactobacillus Acidophilus (Bacid Acidophilus) 1 cap PO BID [facility] Last Admin: 10/25/16 18:32 Dose: Not Given Metoclopramide HCl (Reglan) 10 mg IVP Q8 [facility] Stop: 10/26/16 16:16 Last Admin: 10/25/16 14:00 Dose: Not Given Ondansetron HCl (Zofran Inj) 4 mg IVP Q4H PRN PRN Reason: Nausea/Vomiting Oxycodone HCl (Oxycodone Immediate Release Tab) 10 mg PO Q6H PRN PRN Reason: Pain, moderate (4-7) Last Admin: 10/24/16 14:14 Dose: 10 mg Pantoprazole Sodium (Protonix Inj) 40 mg IVP DAILY [facility] Last Admin: 10/25/16 10:00 Dose: 40 mg Potassium Phos/Sodium Phos (Neutra-Phos) 1 pkt PO TID [facility] Last Admin: 10/25/16 18:32 Dose: Not Given - Labs Labs: 10/25/16 07:00 10/25/16 07:00 - Constitutional Appears: No Acute Distress - Head Exam Head Exam: ATRAUMATIC, NORMOCEPHALIC - Eye Exam Eye Exam: EOMI, PERRL - ENT Exam ENT Exam: Mucous Membranes Moist. absent: Mucous Membranes Dry - Neck Exam Neck Exam: Full ROM - Respiratory Exam Respiratory Exam: Clear to Ausculation Bilateral. absent: Rales, Rhonchi, Wheezes - Cardiovascular Exam Cardiovascular Exam: +S1, +S2. absent: Gallop, Rubs - GI/Abdominal Exam GI & Abdominal Exam: Soft, Tenderness, Normal Bowel Sounds. absent: Distended - Extremities Exam Extremities Exam: Full ROM. absent: Pedal Edema - Neurological Exam Neurological Exam: Alert, Awake, Oriented x3 - Psychiatric Exam Psychiatric exam: Normal Affect, Normal Mood - Skin Skin Exam: Normal Color, Warm Assessment and Plan - Assessment and Plan (Free Text) Assessment: Sepsis s/p subtotal cholecystectomy and gangrenous gallbladder Cholecystitis Wound Abscess Thrombocytosis Hypercalcemia Anemia Plan: Pt day 14 s/p open subtotal cholecystectomy, Day 8 s/p bedside I&D of wound abscess. Pt afebrile, nontachycardic, no leukocytosis. Repeat abd/Pelvis CT - gastric distension primarily filled with fluid, worse compared to the prior study; stable unilateral left nephrolithiasis; stable postoperative findings ( please see full report). Pt made NPO and started on IV fluids. Pt started on Reglan as per surgery. Pt had NG tube placed. Pt made NPO last night and had EGD with Dr. Wallis today. Pt had a dilated stomach and stenosis at the pylorus; dilation was performed; diffuse imflammation was found in the gastric fundus; biospies were sent (please see full EGD report). Continue merrem as per ID. Pt afebrile, tachycardic. No evidence of leukocytosis. Thrombocytosis improving. <Karina Mckenzie - Last Filed: 10/26/16 16:25> Objective - Vital Signs/Intake and Output Vital Signs (last 24 hours): Temp Pulse Resp BP Pulse Ox 98.5 F 81 18 115/74 98 10/26/16 08:38 10/26/16 08:38 10/26/16 08:38 10/26/16 08:38 10/26/16 08:38 Intake and Output: 10/26/16 10/26/16 06:59 18:59 Intake Total 1600 660 Output Total 5 Balance 1600 655 - Medications Medications: Current Medications Acetaminophen (Tylenol 325mg Tab) 650 mg PO Q6H PRN PRN Reason: Fever >100.4 F Last Admin: 10/23/16 17:22 Dose: 650 mg Acetaminophen (Tylenol 325mg Tab) 650 mg PO Q6H PRN PRN Reason: Pain, Mild (1-3) Acetaminophen (Tylenol 325mg Tab) 650 mg PO Q6H PRN PRN Reason: Pain, moderate (4-7) Aspirin (Ecotrin) 81 mg PO DAILY [facility] Last Admin: 10/24/16 10:40 Dose: 81 mg Calcitonin [place] (Miacalcin) 200 iu NS DAILY [facility] Last Admin: 10/26/16 11:57 Dose: 1 spray Ferrous Sulfate (Feosol) 324 mg PO TID [facility] Last Admin: 10/20/16 09:46 Dose: 324 mg Heparin Sodium (Porcine) (Heparin) 5,000 units SC Q12 [facility] PRN Reason: Protocol Last Admin: 10/24/16 10:41 Dose: 5,000 units Hydromorphone HCl (Dilaudid) 0.5 mg IVP Q4H PRN PRN Reason: Pain, moderate (4-7) Last Admin: 10/26/16 01:33 Dose: 0.5 mg Iron Sucrose 100 mg/ Sodium (Chloride) 105 mls @ 210 mls/hr IVPB DAILY [facility] Last Admin: 10/26/16 10:30 Dose: 210 mls/hr Sodium Chloride (Sodium Chloride 0.9%) 1,000 mls @ 100 mls/hr IV .Q10H [facility] Last Admin: 10/26/16 01:33 Dose: 100 mls/hr Lactobacillus Acidophilus (Bacid Acidophilus) 1 cap PO BID [facility] Last Admin: 10/26/16 11:57 Dose: 1 cap Ondansetron HCl (Zofran Inj) 4 mg IVP Q4H PRN PRN Reason: Nausea/Vomiting Oxycodone HCl (Oxycodone Immediate Release Tab) 10 mg PO Q6H PRN PRN Reason: Pain, moderate (4-7) Last Admin: 10/24/16 14:14 Dose: 10 mg Pantoprazole Sodium (Protonix Inj) 40 mg IVP DAILY [facility] Last Admin: 10/26/16 11:57 Dose: 40 mg Potassium Phos/Sodium Phos (Neutra-Phos) 1 pkt PO TID [facility] Last Admin: 10/26/16 11:57 Dose: 1 pkt - Labs Labs: 10/25/16 07:00 10/25/16 07:00 Assessment and Plan - Assessment and Plan (Free Text) Assessment: Attending note; Patient seen and examined With the resident. Patient's family by the bedside. Patient is a 65 year old male with history of PUD, hyperparathyroidism induced hypercalcemia on intranasal calcitonin, HTN, hemorrhoids s/p resection, intra abdominal abscess s/p I&D, umbilical hernia repair who got admitted for evaluation of right sided abdominal pain and found to have acute gangrenous cholecystitis s/p subtotal cholecystectomy. He also underwent bedside I&D. patient is afebrile today. Case discussed with ID in detail. Chest x-ray is negative. procalcitonin is negative. Patient continues to have right upper quadrant pain; CT abdomen and pelvis showed gastric distention. CT reviewed with surgery. Status post EGD; showed pyloric stenosis. Dilatation done. Started on clear liquid diet. Wound and sputum culture positive for klebsiella.Continue meropenem. blood cs is negative. Thrombocytosis; secondary to infection. Currently platelet count is decreasing. Hypercalcemia: Endocrinology consult appreciated. continue nasal calcitonin for hypercalcemia. Patient will follow-up with [facility] for possible parathyroid exploration. follow up with GI and surgery closely. upon discharge patient will follow-up with [facility]. Attending/Attestation - Attestation I have personally seen and examined this patient.: Yes I have fully participated in the care of the patient.: Yes I have reviewed all pertinent clinical information, including history, physical exam and plan: Yes
--- NOTE | 2016-10-26 00:31 | CP.PCM.PN ---
Subjective - Date & Time of Evaluation Date of Evaluation: 10/26/16 Time of Evaluation: 06:00 - Subjective Subjective: General Surgery progress note for Dr. Abdalla Pt s/e at bedside this AM. NAEO. Patient states pain is improving. Denies nausea , vomiting, fevers, chills, or any other symptoms. Had a BM in the night. Tolerating liquid diet. Objective - Vital Signs/Intake and Output Vital Signs (last 24 hours): Temp Pulse Resp BP Pulse Ox 97.4 F L 99 H 20 113/82 100 10/25/16 16:20 10/25/16 16:20 10/25/16 16:20 10/25/16 16:20 10/25/16 16:20 Intake and Output: 10/25/16 10/26/16 18:59 06:59 Intake Total 0 Output Total 2205 Balance -2205 - Medications Medications: Current Medications Acetaminophen (Tylenol 325mg Tab) 650 mg PO Q6H PRN PRN Reason: Fever >100.4 F Last Admin: 10/23/16 17:22 Dose: 650 mg Acetaminophen (Tylenol 325mg Tab) 650 mg PO Q6H PRN PRN Reason: Pain, Mild (1-3) Acetaminophen (Tylenol 325mg Tab) 650 mg PO Q6H PRN PRN Reason: Pain, moderate (4-7) Aspirin (Ecotrin) 81 mg PO DAILY [facility] Last Admin: 10/24/16 10:40 Dose: 81 mg Calcitonin [place] (Miacalcin) 200 iu NS DAILY [facility] Last Admin: 10/25/16 10:00 Dose: 1 spray Ferrous Sulfate (Feosol) 324 mg PO TID [facility] Last Admin: 10/20/16 09:46 Dose: 324 mg Heparin Sodium (Porcine) (Heparin) 5,000 units SC Q12 [facility] PRN Reason: Protocol Last Admin: 10/24/16 10:41 Dose: 5,000 units Hydromorphone HCl (Dilaudid) 0.5 mg IVP Q4H PRN PRN Reason: Pain, moderate (4-7) Last Admin: 10/25/16 18:49 Dose: 0.5 mg Iron Sucrose 100 mg/ Sodium (Chloride) 105 mls @ 210 mls/hr IVPB DAILY [facility] Last Admin: 10/25/16 10:00 Dose: 210 mls/hr MEROPENEM-0.9% SODIUM CHLORIDE (Meropenem 1g/Ns 100ml Ivpb) 100 mls @ 100 mls/ hr IVPB Q8 [facility] PRN Reason: Protocol Stop: 10/30/16 11:26 Last Admin: 10/25/16 21:35 Dose: 100 mls/hr Sodium Chloride (Sodium Chloride 0.9%) 1,000 mls @ 100 mls/hr IV .Q10H [facility] Last Admin: 10/24/16 17:36 Dose: 100 mls/hr Lactobacillus Acidophilus (Bacid Acidophilus) 1 cap PO BID [facility] Last Admin: 10/25/16 18:32 Dose: Not Given Metoclopramide HCl (Reglan) 10 mg IVP Q8 [facility] Stop: 10/26/16 16:16 Last Admin: 10/25/16 21:35 Dose: 10 mg Ondansetron HCl (Zofran Inj) 4 mg IVP Q4H PRN PRN Reason: Nausea/Vomiting Oxycodone HCl (Oxycodone Immediate Release Tab) 10 mg PO Q6H PRN PRN Reason: Pain, moderate (4-7) Last Admin: 10/24/16 14:14 Dose: 10 mg Pantoprazole Sodium (Protonix Inj) 40 mg IVP DAILY [facility] Last Admin: 10/25/16 10:00 Dose: 40 mg Potassium Phos/Sodium Phos (Neutra-Phos) 1 pkt PO TID [facility] Last Admin: 10/25/16 18:32 Dose: Not Given - Labs Labs: 10/25/16 07:00 10/25/16 07:00 - Constitutional Appears: Well, Non-toxic, No Acute Distress - Head Exam Head Exam: NORMAL INSPECTION - Eye Exam Eye Exam: Normal appearance. absent: Conjunctival injection, Scleral icterus - ENT Exam ENT Exam: Mucous Membranes Moist, Normal Oropharynx - Respiratory Exam Respiratory Exam: NORMAL BREATHING PATTERN. absent: Accessory Muscle Use, Respiratory Distress - GI/Abdominal Exam GI & Abdominal Exam: Soft, Tenderness (Moderate tenderness in the RLQ>RUQ). absent: Distended Additional comments: RUQ incision packed with iodoform guaze saturated with serous drainage. Site of previous ED insertion with minimal serous drainage. - Neurological Exam Neurological Exam: Alert, Awake, Oriented x3 - Psychiatric Exam Psychiatric exam: Normal Affect, Normal Mood - Skin Skin Exam: Dry, Normal Color, Warm Assessment and Plan - Assessment and Plan (Free Text) Assessment: 65 y/o M w/ gangrenous cholecystitis POD#15 s/p open cholecystectomy w/ resolving wound infection and pyloric stenosis - EGD yesterday with dilation of pylorus Plan - soft diet - daily packing changes - pain management - cont medical management - If patient tolerates soft diet, clear for discharge from a surgical standpoint with follow up in Dr. Abdalla's office in 1-2 weeks Pt discussed w/ Dr. Lianne Mirza, PGY1
[2016-10-26] MEDS: HYDROmorphone 0.5 mg/0.5 ml ISec IVP PRN (01:33)
[2016-10-26] MEDS: Sodium Chloride 0.9% 1,000 ML IV SCH (01:33)
[2016-10-26] MEDS: Meropenem 1g/NS 100mL IVPB 100 ML IVPB SCH (05:42)
[2016-10-26 08:39] VITALS: BP 115/74; PULSE 81; RESP 18; TEMP 98.5; O2SAT 98
[2016-10-26] MEDS: Lactobacillus Acidophilus 500 MU Cap PO SCH (11:57)
[2016-10-26] MEDS: Potassium & Sodium Phosphate PO SCH (11:57)
[2016-10-26] MEDS: Calcitonin 200 Int Units/Inh Nasal Spray (3.7 ml) NS SCH (11:57)
--- NOTE | 2016-10-26 13:00 | CP.PCM.PN ---
Subjective - Date & Time of Evaluation Date of Evaluation: 10/26/16 Time of Evaluation: 08:40 - Subjective Subjective: Patient seen and examined. No acute events. He is s/p EGD yesterday with balloon dilation of pyloric channel narrowing. No current nausea or vomiting. He is tolerating diet. ROS otherwise negative in detail Objective - Vital Signs/Intake and Output Vital Signs (last 24 hours): Temp Pulse Resp BP Pulse Ox 98.5 F 81 18 115/74 98 10/26/16 08:38 10/26/16 08:38 10/26/16 08:38 10/26/16 08:38 10/26/16 08:38 Intake and Output: 10/26/16 10/26/16 06:59 18:59 Intake Total 1600 Balance 1600 - Medications Medications: Current Medications Acetaminophen (Tylenol 325mg Tab) 650 mg PO Q6H PRN PRN Reason: Fever >100.4 F Last Admin: 10/23/16 17:22 Dose: 650 mg Acetaminophen (Tylenol 325mg Tab) 650 mg PO Q6H PRN PRN Reason: Pain, Mild (1-3) Acetaminophen (Tylenol 325mg Tab) 650 mg PO Q6H PRN PRN Reason: Pain, moderate (4-7) Aspirin (Ecotrin) 81 mg PO DAILY [facility] Last Admin: 10/24/16 10:40 Dose: 81 mg Calcitonin [place] (Miacalcin) 200 iu NS DAILY [facility] Last Admin: 10/26/16 11:57 Dose: 1 spray Ferrous Sulfate (Feosol) 324 mg PO TID [facility] Last Admin: 10/20/16 09:46 Dose: 324 mg Heparin Sodium (Porcine) (Heparin) 5,000 units SC Q12 [facility] PRN Reason: Protocol Last Admin: 10/24/16 10:41 Dose: 5,000 units Hydromorphone HCl (Dilaudid) 0.5 mg IVP Q4H PRN PRN Reason: Pain, moderate (4-7) Last Admin: 10/26/16 01:33 Dose: 0.5 mg Iron Sucrose 100 mg/ Sodium (Chloride) 105 mls @ 210 mls/hr IVPB DAILY [facility] Last Admin: 10/26/16 10:30 Dose: 210 mls/hr MEROPENEM-0.9% SODIUM CHLORIDE (Meropenem 1g/Ns 100ml Ivpb) 100 mls @ 100 mls/ hr IVPB Q8 [facility] PRN Reason: Protocol Stop: 10/30/16 11:26 Last Admin: 10/26/16 05:42 Dose: 100 mls/hr Sodium Chloride (Sodium Chloride 0.9%) 1,000 mls @ 100 mls/hr IV .Q10H [facility] Last Admin: 10/26/16 01:33 Dose: 100 mls/hr Lactobacillus Acidophilus (Bacid Acidophilus) 1 cap PO BID [facility] Last Admin: 10/26/16 11:57 Dose: 1 cap Metoclopramide HCl (Reglan) 10 mg IVP Q8 [facility] Stop: 10/26/16 16:16 Last Admin: 10/26/16 05:42 Dose: 10 mg Ondansetron HCl (Zofran Inj) 4 mg IVP Q4H PRN PRN Reason: Nausea/Vomiting Oxycodone HCl (Oxycodone Immediate Release Tab) 10 mg PO Q6H PRN PRN Reason: Pain, moderate (4-7) Last Admin: 10/24/16 14:14 Dose: 10 mg Pantoprazole Sodium (Protonix Inj) 40 mg IVP DAILY [facility] Last Admin: 10/26/16 11:57 Dose: 40 mg Potassium Phos/Sodium Phos (Neutra-Phos) 1 pkt PO TID [facility] Last Admin: 10/26/16 11:57 Dose: 1 pkt - Labs Labs: 10/25/16 07:00 10/25/16 07:00 - Constitutional Appears: No Acute Distress - Eye Exam Eye Exam: absent: Scleral icterus - ENT Exam ENT Exam: Mucous Membranes Moist - Respiratory Exam Respiratory Exam: Clear to Ausculation Bilateral - Cardiovascular Exam Cardiovascular Exam: +S1, +S2 - GI/Abdominal Exam Additional comments: abdomen soft, minimally distended, non tender to palpation, no rebound or guarding, bowel sounds present - Extremities Exam Extremities Exam: absent: Pedal Edema - Neurological Exam Neurological Exam: Alert, Oriented x3 - Skin Skin Exam: Dry Assessment and Plan - Assessment and Plan (Free Text) Assessment: 65 year old male with history of PUD, HTN a/w acute cholecystitis s/p cholecystectomy, hospital course complicated by wound infection requiring debridement, now with gastric distention s/p EGD with balloon dilation of pyloric channel narrowing. Plan: Advance diet as tolerated Continue PPI Antiemetic as needed Continue supportive care He may need repeat EGD for dilation in 4-6 weeks depending on symptomatic response D/w Dr. Mckenzie
--- NOTE | 2016-10-26 13:38 | PN ---
DATE: 10/26/2016 The patient is seen earlier today in 374, bed 2. No fevers and no chills, no nausea. Doing better. On exam, temperature is 98, blood pressure is 115/70, respiratory rate of 18. EXAMINATION OF HENT: Unremarkable. NECK: Supple. LUNGS: Have decreased breath sounds. HEART EXAMINATION: Normal S1, S2. ABDOMINAL EXAMINATION: Soft. LABORATORY EXAMINATION: Reveals a white count of 7.5, hemoglobin 11, and platelets of 759. Chemistr ies are noted. Microbiology is noted. Review of the orders reveals the patient to be on meropenem. Dr. Buenrostro's note is reviewed. St atus post endoscopy yesterday with balloon dilatation of pyloric channel narrowing; is tolerating his diet today, and he plans to advance the diet. Dr. Mirza' note is also reviewed. 's note is reviewed from yesterday. ASSESSMENT AND PLAN: This is a 65-year-old with sepsis secondary to acute gangrenous cholecystitis, status post partial laparoscopic cholecystectomy, lysis of adhesions, post-procedure day 14 with acut e progression of gastric distention on CAT scan, and now doing better from status post dilatation of the pyloric channel narrowing. Will discontinue the meropenem. The patient appears to be much improved. Case discussed with PMD. Geovani Valladares MD cc: [id number] TT: 10/26/2016 13:38:17 Confirmation # [id number] Dictation # [id number] lauren
--- NOTE | 2016-10-26 14:22 | PN ---
DATE: 10/26/2016 Hospital visit on the medical floor. For Dr. Lowry. SUBJECTIVE: The patient is a 65-year-old male with family at the bedside, admitted for gangrenous ch olecystitis for which he was operated on with good effect with significant thrombocythemic indices. He had an NG tube placed yesterday, it is now withdrawn along with a Ronak-Arias drain also no long er needed, as per surgery. With this, the patient is now reporting that he feels better once the tub e is out of his nose and is otherwise in no acute distress. He speaks Mongolian with the meter maker, a family member, present. OBJECTIVE: PHYSICAL EXAMINATION: VITAL SIGNS: Temperature 98.5, pulse 81, respirations 18, blood pressure 115/74, pulse ox 98%. HEENT: Unremarkable. Tongue is moist. NECK: Supple. HEART: Regular rate. LUNGS: Clear. ABDOMEN: With dry dressings intact. EXTREMITIES: No edema. SKIN: Warm, dry. NEUROLOGIC: Awake, alert. LABORATORY DATA: The patient's labs were not done this morning. They will be repeated in the [facility]. His most recent platelet count from yesterday was 759,000, down from 1,067,000 value 4 days prior . It should be noted BCR-ABL testing was reported as negative. The patient did have a wound culture positive for Klebsiella pneumonia dated 10/16. Urine culture was negative from 2 days prior. ASSESSMENT: Postoperative day 15 for gangrenous cholecystitis with cholecystectomy, thrombocythemia improving, probably reactive as per Dr. Lowry, fever of unknown origin, now also improved, sepsis s econdary to above, peptic ulcer perforation, history of hypertension, hyperparathyroidism. PLAN: After conversation with continue his present medical regimen. We will monitor clini jana and labs will be repeated in the morning. Srinivas Polanco MD cc: [phone] TT: 10/26/2016 14:21:15 Confirmation # [id number] Dictation # [id number] david
--- NOTE | 2016-10-26 16:36 | CP.PCM.DIS ---
Provider - Provider Date of Admission: 10/09/16 11:45 Attending physician: Karina Mckenzie MD Time Spent in preparation of Discharge (in minutes): 35 Hospital Course - Lab Results Lab Results: Micro Results 10/22/16 08:15 Blood-Venous Blood Culture - Preliminary NO GROWTH AFTER 4 DAYS 10/22/16 08:00 Blood-Venous Blood Culture - Preliminary NO GROWTH AFTER 4 DAYS 10/23/16 21:00 Urine,Clean Catch Urine Culture - Final No Growth (<1,000 CFU/ML) 10/24/16 08:05 Urine Urine Culture - Final No Growth (<1,000 CFU/ML) 10/15/16 17:00 Blood Blood Culture - Final NO GROWTH AFTER 5 DAYS 10/15/16 17:00 Blood Gram Stain - Final TEST NOT PERFORMED 10/15/16 16:45 Blood Blood Culture - Final NO GROWTH AFTER 5 DAYS 10/15/16 16:45 Blood Gram Stain - Final TEST NOT PERFORMED 10/13/16 14:14 Blood Blood Culture - Final NO GROWTH AFTER 5 DAYS 10/13/16 14:14 Blood Gram Stain - Final TEST NOT PERFORMED 10/13/16 14:14 Blood Blood Culture - Final NO GROWTH AFTER 5 DAYS 10/13/16 14:14 Blood Gram Stain - Final TEST NOT PERFORMED 10/16/16 17:10 Incision Site Gram Stain - Final 10/16/16 17:10 Incision Site Wound Culture - Final Klebsiella Pneumoniae Ssp Pneu 10/13/16 16:50 Sputum Gram Stain - Final 10/13/16 16:50 Sputum Sputum Culture - Final Klebsiella Pneumoniae Ssp Pneu 10/09/16 12:00 Blood Blood Culture - Final NO GROWTH AFTER 5 DAYS 10/09/16 12:00 Blood Gram Stain - Final TEST NOT PERFORMED 10/09/16 12:00 Blood Blood Culture - Final NO GROWTH AFTER 5 DAYS 10/09/16 12:00 Blood Gram Stain - Final TEST NOT PERFORMED 10/13/16 11:19 Urine Urine Culture - Final No Growth (<1,000 CFU/ML) 10/11/16 18:50 Other: Please Indicate Gram Stain - Final 10/11/16 18:50 Other: Please Indicate Anaerobic Culture - Final NO ANAEROBES ISOLATED. 10/11/16 18:50 Other: Please Indicate Wound Culture - Final Klebsiella Pneumoniae Ssp Pneu Most Recent Lab Values WBC 7.5 10^3/ul (4.5-11.0) 10/25/16 07:00 RBC 4.32 10^6/uL (3.5-6.1) 10/25/16 07:00 Hgb 11.2 gm/dL (14.0-18.0) L 10/25/16 07:00 Hct 34.9 % (42.0-52.0) L 10/25/16 07:00 MCV 80.8 fL (80.0-105.0) 10/25/16 07:00 MCH 25.9 pg (25.0-35.0) 10/25/16 07:00 MCHC 32.1 g/dl (31.0-37.0) 10/25/16 07:00 RDW 13.4 % (11.5-14.5) 10/25/16 07:00 Plt Count 759 10^3/uL (120.0-450.0) H* 10/25/16 07:00 Manual Plt Count 902 K/mm3 (120-450) H* 10/21/16 09:50 MPV 9.2 fl (7.0-11.0) 10/25/16 07:00 Gran % 52.0 % (50.0-68.0) 10/25/16 07:00 Lymph % (Auto) 34.1 % (22.0-35.0) 10/25/16 07:00 [place] % (Auto) 10.2 % (1.0-6.0) H 10/25/16 07:00 Eos % (Auto) 3.2 % (1.5-5.0) 10/25/16 07:00 Baso % (Auto) 0.5 % (0.0-3.0) 10/25/16 07:00 Gran # 3.88 (1.4-6.5) 10/25/16 07:00 Lymph # 2.6 (1.2-3.4) 10/25/16 07:00 [place] # 0.8 (0.1-0.6) H 10/25/16 07:00 Eos # 0.2 (0.0-0.7) 10/25/16 07:00 Baso # 0.04 K/mm3 (0.0-2.0) 10/25/16 07:00 Neutrophils % (Manual) 64 % (50.0-70.0) 10/21/16 09:50 Band Neutrophils % 3 % (0-2) H 10/10/16 06:15 Lymphocytes % (Manual) 28 % (22.0-35.0) 10/21/16 09:50 Atypical Lymphs % 2 % (0.0-0.0) H 10/21/16 09:50 Monocytes % (Manual) 4 % (1.0-6.0) 10/21/16 09:50 Eosinophils % (Manual) 2 % (0.0-3.0) 10/21/16 09:50 Platelet Evaluation High (NORMAL) 10/21/16 09:50 Anisocytosis (manual) 1+ 10/21/16 09:50 Microcytosis (manual) 1+ 10/21/16 09:50 Sodium 134 mmol/L (132-148) 10/25/16 07:00 Potassium 4.9 mmol/L (3.6-5.0) 10/25/16 07:00 Chloride 104 mmol/L (98-107) 10/25/16 07:00 Carbon Dioxide 24 mmol/L (21-33) 10/25/16 07:00 Anion Gap 11 (10-20) 10/25/16 07:00 BUN 11 mg/dL (7-21) 10/25/16 07:00 Creatinine 0.9 mg/dL (0.5-1.4) 10/25/16 07:00 Est GFR ( Amer) > 60 10/25/16 07:00 Est GFR (Non-Af Amer) > 60 10/25/16 07:00 POC Glucose (mg/dL) 125 mg/dL (65-110) H 10/20/16 11:18 Random Glucose 92 mg/dL (70-110) 10/25/16 07:00 Calcium 11.0 mg/dL (8.4-10.5) H 10/25/16 07:00 Phosphorus 2.8 mg/dL (2.5-4.5) 10/23/16 07:15 Magnesium 2.3 mg/dL (1.7-2.2) H 10/23/16 07:15 Iron 19 ug/dL (45-180) L 10/10/16 06:15 TIBC 299 ug/dL (261-462) 10/10/16 06:15 % Saturation 6 % (20-55) L 10/10/16 06:15 Ferritin 65.0 ng/mL 10/10/16 06:15 Total Bilirubin 0.3 mg/dL (0.2-1.3) 10/25/16 07:00 AST 51 U/L (15-59) 10/25/16 07:00 ALT 35 U/L (7-56) 10/25/16 07:00 Alkaline Phosphatase 121 U/L (38-133) 10/25/16 07:00 Total Protein 7.2 g/dL (5.8-8.3) 10/25/16 07:00 Albumin 3.3 g/dL (3.0-4.8) 10/25/16 07:00 Globulin 3.9 gm/dL 10/25/16 07:00 Albumin/Globulin Ratio 0.8 (1.1-1.8) L 10/25/16 07:00 Lipase 69 U/L (23-300) 10/09/16 06:10 Folate 11.5 ng/mL 10/10/16 06:15 Procalcitonin 0.20 NG/ML (0.19-0.49) 10/22/16 07:00 Urine Color Yellow (YELLOW) 10/24/16 08:05 Urine Appearance Clear (CLEAR) 10/24/16 08:05 Urine pH 7.0 (4.7-8.0) 10/24/16 08:05 Ur Specific [place] 1.015 (1.005-1.035) 10/24/16 08:05 Urine Protein Negative mg/dL (<30 mg/dL) 10/24/16 08:05 Urine Glucose (UA) Negative mg/dL (NEGATIVE) 10/24/16 08:05 Urine Ketones Negative mg/dL (NEGATIVE) 10/24/16 08:05 Urine Blood Trace-lysed (NEGATIVE) H 10/24/16 08:05 Urine Nitrate Negative (NEGATIVE) 10/24/16 08:05 Urine Bilirubin Negative (NEGATIVE) 10/24/16 08:05 Urine Urobilinogen 0.2 E.U./dL (<1 E.U./dL) 10/24/16 08:05 Ur Leukocyte Esterase Negative [place]/uL (NEGATIVE) 10/24/16 08:05 Urine RBC 0 - 2 /hpf (0-2) 10/24/16 08:05 Urine WBC Negative /hpf (0-6) 10/24/16 08:05 Ur Epithelial Cells 0 - 2 /hpf (0-5) 10/13/16 11:19 Amorphous Sediment Few 10/13/16 11:19 Urine Bacteria Few (NEG) 10/13/16 11:19 JAK2 V617F Specimen Peripheral blood (()) 10/22/16 07:00 JAK2 V617F Method See below (()) 10/22/16 07:00 JAK2 % V617F Mutation 0.0 % mutation (()) 10/22/16 07:00 JAK2 V617F Comment see note (()) 10/22/16 07:00 JAK2 V617F Review By see note (()) 10/22/16 07:00 BCR/abl Source Wb (()) 10/22/16 07:00 BCR/abl Prior Result Not given (()) 10/22/16 07:00 BCR/abl Interpretation See note (()) 10/22/16 07:00 BCR/abl1 to abl1 % 0.000 (0.000) 10/22/16 07:00 BCR/abl1 to abl1 IS % 0.000 (0.000) 10/22/16 07:00 BCR/abl1 Mnr (p190) Res Not detected (()) 10/22/16 07:00 BCR/abl1 Mjr (p210) Res Not detected (()) 10/22/16 07:00 Blood Type O POSITIVE 10/10/16 06:15 Antibody Screen Negative 10/10/16 06:15 BBK History Checked Patient has bt 10/10/16 06:15 - Hospital Course Hospital Course: Patient is a 65 year old male with history of PUD, hyperparathyroidism, hypercalcemia on intranasal calcitonin, HTN, hemorrhoids s/p resection, intra abdominal abscess s/p I&D, umbilical hernia repair who got admitted for evaluation of right sided abdominal pain and found to have acute gangrenous cholecystitis s/p subtotal cholecystectomy on 10/11/16. He also underwent bedside I&D. ED drain removed. Dressing change done by surgery today. Patient had EGD and dilataion of pylorus on 10/25/16. currently tolerating diet. No nausea or vomiting. Having regular bowel movement. Wound and sputum culture positive for klebsiella.Continue meropenem. blood cs is negative. Thrombocytosis noted which is most likely reactive secondary to recent surgery and infection. Hematology consult appreciated. Improving significantly. Hypercalcemia: Endocrinology consult appreciated. continue nasal calcitonin for hypercalcemia. Patient will follow-up with [facility] for possible parathyroid exploration. follow up with GI and surgery closely. upon discharge patient will follow[place] with [facility]. patient will be discharged home today. Follow-up with surgery in 1 week. Follow up with GI for repeat EGD as needed. Patient will follow-up with surgery for wound care dressing changes. Might need to come to the ER for daily dressing change till evaluated by surgery Dr. Gillette next week. discussed with patient's daughter and son-in-law in detail. diagnosis; Gangrenous cholecystitis Status post open cholecystectomy hypercalcemia Hyperparathyroidism Thrombocytosis Pyloric stenosis/status post EGD Discharge Exam - Head Exam Head Exam: NORMAL INSPECTION Discharge Plan - Discharge Medications Prescriptions: Calcitonin ([place]) [Miacalcin] 200 iu NS DAILY #10 spr Pantoprazole Sodium [Protonix] 40 mg PO DAILY #30 ect Acetaminophen [Tylenol 325mg tab] 325 mg PO Q6 #10 tab Ondansetron HCl [Zofran] 4 mg PO Q6 #6 tablet - Follow Up Plan Condition: STABLE Disposition: HOME/ ROUTINE Instructions: Open Cholecystectomy (DC) Additional Instructions: 1. Follow up with [facility] next week. call to confirm appointment. 2. follow up surgery next week. call to confirm appointment. 3. Follow with GI Dr. burgos at [facility] in 2 weeks. 4. small,frequent meals. 5. Follow Up with [facility] for parathyroid problems.
[2016-10-26 18:59] LABS: JAK2 V617F NOT DETECTED (())
== END 2016-10-26 17:37 | disposition home or self-care (01) | DRG 581 ==
LOC: ED 05:18 → ERH 11:45 → 3RNO 12:28 → 3RSO 10-24 09:18
PROVIDERS: ADMIT Internal Medicine; ATTEND Internal Medicine
PROC: 0FT40ZZ Resection of Gallbladder, Open Approach (ICD-10-PCS; 2016-10-11)
PROC: 0DNS4ZZ (ICD-10-PCS; 2016-10-11)
PROC: 0W9G4ZZ Drainage of Peritoneal Cavity, Percutaneous Endoscopic Approach (ICD-10-PCS; 2016-10-11)
PROC: 0FJ44ZZ Inspection of Gallbladder, Percutaneous Endoscopic Approach (ICD-10-PCS; principal; 2016-10-11 12:00)
PROC: 0W9G3ZZ Drainage of Peritoneal Cavity, Percutaneous Approach (ICD-10-PCS; 2016-10-16)
PROC: 0D768ZZ Dilation of Stomach, Via Natural or Artificial Opening Endoscopic (ICD-10-PCS; 2016-10-25)
PROC: 0DB68ZX Excision of Stomach, Via Natural or Artificial Opening Endoscopic, Diagnostic (ICD-10-PCS; 2016-10-25)
DX: A41.59 Other Gram-negative sepsis (principal); K65.1 Peritoneal abscess; K27.5 Chronic or unspecified peptic ulcer, site unspecified, with perforation; E27.8 Other specified disorders of adrenal gland; K31.1 Adult hypertrophic pyloric stenosis; K81.0 Acute cholecystitis; K40.30 Unilateral inguinal hernia, with obstruction, without gangrene, not specified as recurrent; K56.7 Ileus, unspecified; B96.1 Klebsiella pneumoniae [K. pneumoniae] as the cause of diseases classified elsewhere; J98.11 Atelectasis; T81.4XXA Infection following a procedure, initial encounter; K66.0 Peritoneal adhesions (postprocedural) (postinfection); R65.20 Severe sepsis without septic shock; D35.1 Benign neoplasm of parathyroid gland; D47.3 Essential (hemorrhagic) thrombocythemia; D50.9 Iron deficiency anemia, unspecified; E21.0 Primary hyperparathyroidism; E78.5 Hyperlipidemia, unspecified; I10 Essential (primary) hypertension; I45.10 Unspecified right bundle-branch block; K64.9 Unspecified hemorrhoids; M81.0 Age-related osteoporosis without current pathological fracture; K86.89 Other specified diseases of pancreas; Z53.31 Laparoscopic surgical procedure converted to open procedure; Z78.9 Other specified health status; Z79.82 Long term (current) use of aspirin; Z82.3 Family history of stroke; Z82.49 Family history of ischemic heart disease and other diseases of the circulatory system; Z83.3 Family history of diabetes mellitus; R40.2412 Glasgow coma scale score 13-15, at arrival to emergency department; N62 Hypertrophy of breast; N40.0 Benign prostatic hyperplasia without lower urinary tract symptoms; K31.9 Disease of stomach and duodenum, unspecified; K66.8 Other specified disorders of peritoneum; R00.0 Tachycardia, unspecified; K20.9 Esophagitis, unspecified; K29.70 Gastritis, unspecified, without bleeding

== ENCOUNTER 2016-10-27 10:06 | Emergency (ER) | payer MEDICAID, OTHER ==
[2016-10-27 10:33] VITALS: RESP 18; TEMP 97.6; BMI 20.9
--- NOTE | 2016-10-27 10:33 | ED PDOC ---
Arrival/HPI - General Chief Complaint: Abdominal Pain Time Seen by Provider: 10/27/16 10:17 Historian: Spouse - History of Present Illness Narrative History of Present Illness (Text): 10/27/16 10:49 65 year old male with a past medical history that includes hypertension, hyperparathyroidism, hypercalcemia, umbilical hernia repair, and intra abdominal abscess s/p I&D presents to the emergency department for wound dressing change after being found to have acute gangrenous cholecystitis s/p subtotal cholecystectomy on 10/11/16. Denies cough or fever. PMD: Dr. Carli Mercado Surgeon: Dr. Abdalla Time/Duration: < week Symptom Onset: Gradual Symptom Course: Unchanged Modifying Factors (Text): None Associated Symptoms (Text): None Past Medical History - Provider Review Nursing Documentation Reviewed: Yes - Infectious Disease Hx of Infectious Diseases: None - Tetanus Immunization Tetanus Immunization: Unknown - Reproductive Currently : No - Cardiac Hx Cardiac Disorders: Yes Hx Hypertension: Yes - Pulmonary Hx Respiratory Disorders: No - Neurological HX Cerebrovascular Accident: No Hx Transient Ischemic Attacks (TIA): No - HEENT Hx HEENT Disorder: No (WEARS RX GLASSES) - Renal Hx Renal Disorder: No - Endocrine/Metabolic Hx Endocrine Disorders: Yes Hx Hyperthyroidism: Yes - Hematological/Oncological Hx Blood Disorders: No Hx Blood Transfusions: No - Integumentary Hx Dermatological Disorder: No - Musculoskeletal/Rheumatological Hx Musculoskeletal Disorders: No Hx Falls: No Hx Fractures: No - Gastrointestinal Hx Gastrointestinal Disorders: Yes Hx Hemorrhoids: Yes - Genitourinary/Gynecological Hx Genitourinary Disorders: No - Psychiatric Hx Psychophysiologic Disorder: No Hx Substance Use: No - Surgical History Hx Cholecystectomy: Yes - Anesthesia Hx Anesthesia: Yes Hx Anesthesia Reactions: No Hx Malignant Hyperthermia: No Family/Social History - Physician Review Nursing Documentation Reviewed: Yes Family/Social History: Unknown Family HX Smoking Status: Never Smoked Hx Alcohol Use: No Hx Substance Use: No Allergies/Home Meds Allergies/Adverse Reactions: Allergies No Known Allergies Allergy (Verified 10/27/16 10:29) Home Medications: Home Meds Medication Instructions Recorded Confirmed Multivitamin [Multivitamins] 1 tab PO DAILY 10/09/16 10/09/16 Review of Systems - Physician Review All systems were reviewed & negative as marked: Yes - Review of Systems Constitutional: absent: Fevers Respiratory: absent: SOB, Cough Cardiovascular: absent: Chest Pain Gastrointestinal: Other (Abdominal surgical wound with mild pain, drainage) Physical Exam Vital Signs Reviewed: Yes Vital Signs Temp Pulse Resp BP Pulse Ox 10/27/16 10:28 97.6 F 108 H 18 118/85 100 Temperature: Afebrile Blood Pressure: Normal Pulse: Tachycardic Respiratory Rate: Normal Appearance: Positive for: Well-Appearing, Non-Toxic, Comfortable Pain Distress: None Mental Status: Positive for: Alert and Oriented X 3 - Systems Exam Head: Present: Atraumatic, Normocephalic Pupils: Present: PERRL Extroacular Muscles: Present: EOMI Conjunctiva: Present: Normal Mouth: Present: Moist Mucous Membranes Neck: Present: Normal Range of Motion Respiratory/Chest: Present: Clear to Auscultation, Good Air Exchange. No: Respiratory Distress, Accessory Muscle Use Cardiovascular: Present: Regular Rate and Rhythm, Normal S1, S2. No: Murmurs Abdomen: Present: Normal Bowel Sounds, Other (Surgical wound with some tenderness and slight discharge, serosanguineous. 2 cm open wound dehiscence ). No: Distention, Peritoneal Signs Back: Present: Normal Inspection Upper Extremity: Present: Normal Inspection. No: Cyanosis, Edema Lower Extremity: Present: Normal Inspection. No: Edema Neurological: Present: GCS=15, CN II-XII Intact, Speech Normal Skin: Present: Warm, Dry, Normal Color. No: Rashes Psychiatric: Present: Alert, Oriented x 3, Normal Insight, Normal Concentration Medical Decision Making ED Course and Treatment: Impression: 65 year old male with a past medical history that includes hypertension, hyperparathyroidism, hypercalcemia, umbilical hernia repair, and intra abdominal abscess s/p I&D presents to the emergency department for wound dressing change after being found to have acute gangrenous cholecystitis s/p subtotal cholecystectomy on 10/11/16. Differential Diagnosis included but are not limited to: Wound check needs packing change Plan: -- Surgery consult -- Reassess and disposition Prior Visits: Notes and results from previous visits were reviewed. Patient last seen in the ED on 10/09/16 for abdominal pain and admitted for possible cholecystitis. Progress Notes: 10/27/16 12:52 vice president of human resourcesKatie came to evaluate patient and he change the packing. Instructions were given for daughter for wound care tomorrow. He needs to follow up with Dr. Abdalla as instructed either Friday or . - Scribe Statement The provider has reviewed the documentation as recorded by the Betty Barrientos Provider Scribe Attestation: All medical record entries made by the Betty were at my direction and personally dictated by me. I have reviewed the chart and agree that the record accurately reflects my personal performance of the history, physical exam, medical decision making, and the department course for this patient. I have also personally directed, reviewed, and agree with the discharge instructions and disposition. Disposition/Present on Arrival - Present on Arrival Any Indicators Present on Arrival: No History of DVT/PE: No History of Uncontrolled Diabetes: No Urinary Catheter: No History of Decub. Ulcer: No History Surgical Site Infection Following: None - Disposition Have Diagnosis and Disposition been Completed?: Yes Diagnosis: Visit for wound check Disposition: HOME/ ROUTINE Disposition Time: 12:00 Patient Plan: Discharge Patient Problems: Current Active Problems Problem Status Diagnosed Visit for wound check Acute Condition: IMPROVED Discharge Instructions (ExitCare): Acute Wound Care (ED) Additional Instructions: Mr Hearn, thank you for letting us take care of you today. Your provider was Dr. Rasheed. You were treated for Wound Check. The emergency medical care you received today was directed at your acute symptoms. If you were prescribed any medication, please fill it and take as directed. It may take several days for your symptoms to resolve. Return to the Emergency Department if your symptoms worsen, do not improve, or if you have any other problems. Please contact your doctor or call one of the physicians/clinics you have been referred to that are listed on the Patient Visit Information form that is included in your discharge packet. Bring any paperwork you were given at discharge with you along with any medications you are taking to your follow up visit. Our treatment cannot replace ongoing medical care by a primary care provider (PCP) outside of the emergency department. Thank you for allowing the [facility] team to be part of your care today. If you had an X-Ray or CT scan: A Radiologist will review the ED reading if any change in treatment is needed we will contact you. If you had a blood, urine, or wound culture: It will take several days for the results, if any change in treatment is needed we will contact you. If you had an STI test: It will take 48 hours for the results. Please call after 1 week if you have not heard back. Referrals: Carli Mercado [facility] [Primary Care Provider] - Follow up with primary Poli Abdalla MD [Medical Doctor] - Follow up with primary
[2016-10-27 12:55] VITALS: BP 120/78; PULSE 88; O2SAT 99
== END 2016-10-27 12:55 | disposition home or self-care (01) ==
LOC: ED 10:06
DX: Z48.817 Encounter for surgical aftercare following surgery on the skin and subcutaneous tissue (principal)

== ENCOUNTER 2018-06-28 08:50 | Inpatient (IN) | payer MEDICAID, OTHER ==
[2018-06-28 09:00] VITALS: BMI 25.8
--- NOTE | 2018-06-28 09:37 | ED PDOC ---
Arrival/HPI - General Chief Complaint: Abdominal Pain Historian: Patient - History of Present Illness Narrative History of Present Illness (Text): 06/28/18 09:27 67 y/o male, pmh including htn/pancreatitis/PUD/Cholecystitis/Hyperparathyroidism/Intra-abdominal mass, nkda, c/o generalized abdominal pain with nausea/vomiting. Pt. stated that he has been having nausea/vomiting/abdominal distension and 1 episode of loose stool since 2 days ago. Aching pain, associated with nausea, only can tolerate po fluid soup but limited amount, no chest pain, no palpitation, no urinary symptoms, no coughing, no shortness of breath, no numbness or tingling, no other medical or psychological complaints. Past Medical History - Provider Review Nursing Documentation Reviewed: Yes - Infectious Disease Hx of Infectious Diseases: None - Tetanus Immunization Tetanus Immunization: Unknown - Cardiac Hx Cardiac Disorders: Yes Hx Hypertension: Yes - Pulmonary Hx Respiratory Disorders: No - Neurological Hx Neurological Disorder: No - HEENT Hx HEENT Disorder: No - Renal Hx Renal Disorder: No - Endocrine/Metabolic Hx Endocrine Disorders: Yes Hx Hyperthyroidism: Yes - Hematological/Oncological Other/Comment: HYPERCALCEMIA - Integumentary Hx Dermatological Disorder: No - Musculoskeletal/Rheumatological Hx Musculoskeletal Disorders: Yes Hx Osteoporosis: Yes - Gastrointestinal Hx Gastrointestinal Disorders: Yes Hx Bowel Surgery: Yes Hx Gall Bladder Disease: Yes Hx Gastroesophageal Reflux: Yes Hx Hemorrhoids: Yes Hx Pancreatitis: Yes HX Swallowing Problems: Yes Other/Comment: RECTAL PROLAPSE - Genitourinary/Gynecological Hx Genitourinary Disorders: No Other/Comment: INGUINAL HERNIA - Psychiatric Hx Psychophysiologic Disorder: No Hx Substance Use: No - Surgical History Hx Cholecystectomy: Yes Other/Comment: PYLORIC STENOSIS WITH DILITATION. - Anesthesia Hx Anesthesia: Yes Hx Anesthesia Reactions: No Hx Malignant Hyperthermia: No Family/Social History - Physician Review Nursing Documentation Reviewed: Yes Family/Social History: Unknown Family HX Smoking Status: Never Smoked Hx Alcohol Use: No Hx Substance Use: No Allergies/Home Meds Allergies/Adverse Reactions: Allergies No Known Allergies Allergy (Verified 12/08/17 10:32) Home Medications: Home Meds Medication Instructions Recorded Confirmed Lisinopril [Zestril] 5 mg PO 06/28/18 Pantoprazole [Protonix] 40 mg PO 06/28/18 Zolpidem [Ambien] 5 mg PO 06/28/18 hydroCHLOROthiazide [Microzide] 06/28/18 Review of Systems - Review of Systems Constitutional: absent: Fatigue, Fevers Eyes: absent: Vision Changes ENT: absent: Hearing Changes Respiratory: absent: SOB, Cough Cardiovascular: Chest Pain Gastrointestinal: Nausea, Vomiting. absent: Abdominal Pain Musculoskeletal: absent: Arthralgias, Back Pain Skin: absent: Rash, Pruritis Neurological: absent: Headache, Dizziness Psychiatric: absent: Anxiety, Depression Physical Exam Vital Signs Reviewed: Yes Vital Signs Temp Pulse Resp BP Pulse Ox 06/28/18 09:00 97.9 F 100 H 20 142/96 H 98 Temperature: Afebrile Blood Pressure: Hypertensive Respiratory Rate: Normal Appearance: Positive for: Well-Appearing, Non-Toxic Pain Distress: Moderate Mental Status: Positive for: Alert and Oriented X 3 - Systems Exam Head: Present: Atraumatic, Normocephalic Pupils: Present: PERRL Extroacular Muscles: Present: EOMI Conjunctiva: Present: Normal Mouth: Present: Moist Mucous Membranes Neck: Present: Normal Range of Motion Respiratory/Chest: Present: Clear to Auscultation, Good Air Exchange. No: Respiratory Distress, Accessory Muscle Use Cardiovascular: Present: Regular Rate and Rhythm, Normal S1, S2. No: Murmurs Abdomen: Present: Tenderness (upper abdomen), Distention (mild), Normal Bowel Sounds, Scars. No: Peritoneal Signs, Rebound, Guarding, Rovsing's Sign Present, Hernias Back: Present: Normal Inspection Upper Extremity: Present: Normal Inspection. No: Cyanosis, Edema Lower Extremity: Present: Normal Inspection. No: Edema Neurological: Present: GCS=15, CN II-XII Intact, Speech Normal Skin: Present: Warm, Dry, Normal Color. No: Rashes Psychiatric: Present: Alert, Oriented x 3, Normal Insight, Normal Concentration Medical Decision Making ED Course and Treatment: 06/28/18 09:40 -labs -ekg -cxr -CT abd po/iv contrast -IVF/pepcid/zofran/morphine -observe and reassess 06/28/18 13:25 -EKG: NSR @ 86 BPM, RBBB and Left anterior fasicular block, no acute ST or T wave changes noted -CXR show Hyperinflation may be seen in the setting of COPD. -CT abdomen and pelvis with po/iv contrast: Dilated fluid-filled small bowel loops. Several small bowel loops demonstrate fecalization. Appearance consistent with small bowel obstruction with transition point appearing in the anterior abdomen (series 3, image 114). Mildly dilated pancreatic duct measures approximately 4 mm. The prostate gland appears heterogeneous and measures approximately 3.6 x 4.8 cm. Recommend correlation with PSA. -Labs show no acute finding -Lipase is within normal limit -Mg is within normal limit -Trop is negative after 24 hours. -UA show no acute findings except trace leuko, IV rocephine ordered, pending urine culture. -Keep patient NPO, NG tube ordered, pain controlled to comfortable level for the patient, discussed with the patient and daughter about this labs/radiology result and plan of care, will need admission, will keep fluid @ 100cc/hr. -Paging hospitalist for admission. 06/28/18 13:46 -I spoke to the hospitalist Dr. Perez, discussed about the labs/radiology results/treatment plan, agreed to admit to his service, paged out to the surgical pathologist as well. 06/28/18 14:10 -sales consultant residential manager Dr. Cantu, awared of the case and radiology findings, will come to evaluate the patient and discussed with his surgical attending Dr. Andre Victor since Dr. Powell operated this patient in January 2018 06/28/18 13:26 PROCEDURE: NASOGASTROSTRIC TUBE PLACEMENT Performed by the emergency provider Consent: Discussion of the risks, benefits, and alternatives to the procedure, along with informed consent was precluded by the urgency of the procedure and the patient condition. Timeout: A timeout to verify the correct patient, procedure, and site was performed immediately prior to the procedure. Indication: Small bowel obstruction Gastrostomy Tube Size: 16 Chinese Confirmation: Gastrostomy tube placement was verified by CXR Post-procedure: Patient tolerated the procedure well with no immediate complications, yellow green color fluid suction out approx. 1000cc with still suctioning. Xray ordered for confirmation. 06/28/18 18:00 -Chest xray: No active disease. In situ NGT as described - RAD Interpretation Radiology Orders: LOWER THORAX: Bibasilar atelectasis. No visible pleural effusion or pneumothorax. LIVER: Unremarkable. GALLBLADDER AND BILE DUCTS: Cholecystectomy. PANCREAS: Dilated pancreatic duct measures approximately 4 mm. SPLEEN: Unremarkable. ADRENALS: Unremarkable. KIDNEYS AND URETERS: The kidneys enhance symmetrically. No hydronephrosis or obstructing renal calculus. BLADDER: The urinary bladder appears unremarkable. REPRODUCTIVE: The prostate gland appears heterogeneous and measures approximately 3.6 x 4.8 cm. APPENDIX: The appendix appears within normal limits of caliber. No secondary signs of acute appendicitis. BOWEL: Dilated fluid-filled small bowel loops. Several small bowel loops demonstrate fecalization. Appearance consistent with small bowel obstruction with transition point appearing in the anterior abdomen (series 3, image 114). PERITONEUM: No significant free fluid. No definite free air. LYMPH NODES: No bulky lymphadenopathy identified. VASCULATURE: No aortic aneurysm. No atherosclerotic calcification or mural plaque present. BONES: Degenerative changes. Overall sclerotic heterogeneous appearance of the osseous structures. OTHER FINDINGS: None. IMPRESSION: Dilated fluid-filled small bowel loops. Several small bowel loops demonstrate fecalization. Appearance consistent with small bowel obstruction with transition point appearing in the anterior abdomen (series 3, image 114). Mildly dilated pancreatic duct measures approximately 4 mm. The prostate gland appears heterogeneous and measures approximately 3.6 x 4.8 cm. Recommend correlation with PSA. Cholecystectomy. HISTORY: abdominal pain COMPARISON: Chest x-ray performed 10/25/16 TECHNIQUE: Chest, one view. FINDINGS: LUNGS: Hyperinflation may be seen in the setting of COPD. No focal consolidation. Please note that chest x-ray has limited sensitivity for the detection of pulmonary masses. PLEURA: No significant pleural effusion identified. No definite pneumothorax . CARDIOVASCULAR: Heart size appears within normal limits. No significant atherosclerotic calcification present. OSSEOUS STRUCTURES: Degenerative changes. VISUALIZED UPPER ABDOMEN: Unremarkable. OTHER FINDINGS: None. IMPRESSION: Hyperinflation may be seen in the setting of COPD. Date of service: 06/28/2018 HISTORY: medical clearance COMPARISON: Comparison made with prior chest radiograph 06/28/2018 at 0943 hr as well as CT scan of the abdomen and pelvis 06/28/2018 at 1249 hr which also image both lung bases.. FINDINGS: In situ NGT, the tip of which lies left upper quadrant of the abdomen. LUNGS: No active pulmonary disease. PLEURA: No significant pleural effusion identified, no pneumothorax apparent. CARDIOVASCULAR: No appreciable aortic atherosclerotic calcification present.. Aorta slightly ectatic and uncoiled. Heart appears borderline/mildly enlarged.. No pulmonary vascular congestion. OSSEOUS STRUCTURES: No significant abnormalities. VISUALIZED UPPER ABDOMEN: Normal. OTHER FINDINGS: None. IMPRESSION: No active disease. In situ NGT as described Systems Navigator: Radiologist - PA / RESEARCH TEST ENGINE OPERATOR / Resident Statement /DO has reviewed & agrees with the documentation as recorded. Disposition/Present on Arrival - Present on Arrival Any Indicators Present on Arrival: No History of DVT/PE: No History of Uncontrolled Diabetes: No Urinary Catheter: No History of Decub. Ulcer: No History Surgical Site Infection Following: None - Disposition Have Diagnosis and Disposition been Completed?: Yes Diagnosis: Bowel obstruction, UTI (urinary tract infection) Disposition: HOSPITALIZED Disposition Time: 13:26 Patient Plan: Admission, Observation Patient Problems: Current Active Problems Problem Status Onset Bowel obstruction Acute UTI (urinary tract infection) Acute Condition: STABLE
[2018-06-28] MEDS ORDERED: Morphine 4 mg/ml ISec IVP STA (09:38)
[2018-06-28] MEDS ORDERED: Sodium Chloride 0.9% 1,000 ML IV SCH ×2 (09:45→15:15)
[2018-06-28 10:09] LABS: BASO # 0.01 K/mm3 (0.0-2.0); BASO % 0.1 % (0.0-3.0); EOS # 0.1 (0.0-0.7); EOS % 0.6 % (1.5-5.0); GRAN # 7.43 (1.4-6.5); GRAN % 74.3 % (50.0-68.0); HEMOGLOBIN 15.2 g/dL (14.0-18.0); LYMPH # 1.7 (1.2-3.4); LYMPH % 17.4 % (22.0-35.0); MEAN CELL VOLUME 81.1 fl (80.0-105.0); MEAN CORPUSCULAR HEMOGLOBIN 26.7 pg (25.0-35.0); MEAN CORPUSCULAR HGB CONC 32.9 g/dl (31.0-37.0); MEAN PLATELET VOLUME 9.2 fl (7.0-11.0); MONO # 0.8 (0.1-0.6); MONO % 7.6 % (1.0-6.0); RBC 5.7 10^6/uL (3.5-6.1)
[2018-06-28 10:17] LABS: ALB/GLOB RATIO 1.2 (1.1-1.8); ALBUMIN 4.6 g/dL (3.0-4.8); ALT/SGPT 21 U/L (7-56); AST/SGOT 29 U/L (17-59); BLOOD UREA NITROGEN 16 mg/dL (7-21); CALCIUM 9.5 mg/dL (8.4-10.5); GFR NON-AFRICAN AMERICAN > 60; LIPASE 72 U/L (23-300)
[2018-06-28 10:28] LABS: TROPONIN I < 0.01 ng/mL
[2018-06-28 10:32] LABS: URINE BILIRUBIN NEGATIVE (NEGATIVE); URINE BLOOD NEGATIVE (NEGATIVE); URINE GLUCOSE (UA) NEGATIVE (NEGATIVE); URINE LEUKOCYTE ESTERASE TRACE Leu/uL (NEGATIVE); URINE PROTEIN TRACE mg/dL (<30 mg/dL); URINE UROBILINOGEN 0.2 E.U./dL (<1 E.U./dL)
[2018-06-28] MEDS ORDERED: Iohexol 240 (50 ml) ONE (10:32)
[2018-06-28 10:34] LABS: URINE APPEARANCE CLEAR (CLEAR); URINE BACTERIA FEW (NEG); URINE COLOR YELLOW (YELLOW); URINE RBC 0 - 2 /hpf (0-2)
[2018-06-28] MEDS ORDERED: Iohexol 350 MG/100 ML VIAL ONE (12:23)
--- NOTE | 2018-06-28 12:47 | RAD ---
HISTORY: abdominal pain COMPARISON: Chest x-ray performed 10/25/16 TECHNIQUE: Chest, one view. FINDINGS: LUNGS: Hyperinflation may be seen in the setting of COPD. No focal consolidation. Please note that chest x-ray has limited sensitivity for the detection of pulmonary masses. PLEURA: No significant pleural effusion identified. No definite pneumothorax . CARDIOVASCULAR: Heart size appears within normal limits. No significant atherosclerotic calcification present. OSSEOUS STRUCTURES: Degenerative changes. VISUALIZED UPPER ABDOMEN: Unremarkable. OTHER FINDINGS: None. IMPRESSION: Hyperinflation may be seen in the setting of COPD.
--- NOTE | 2018-06-28 13:17 | CT ---
PROCEDURE: CT Abdomen and Pelvis with oral and IV contrast. HISTORY: generalized abd pain/nausea/vomiting, prior surgery COMPARISON: CT abdomen and pelvis with contrast performed 10/18/16 TECHNIQUE: Contiguous axial images of the abdomen and pelvis. Oral and IV contrast was administered. Coronal and Sagittal reformats generated and reviewed. Contrast dose: 100 mL Omnipaque 350 Radiation dose: Total exam DLP = 336.59 mGy-cm. This CT exam was performed using one or more of the following dose reduction techniques: Automated exposure control, adjustment of the mA and/or kV according to patient size, and/or use of iterative reconstruction technique. FINDINGS: LOWER THORAX: Bibasilar atelectasis. No visible pleural effusion or pneumothorax. LIVER: Unremarkable. GALLBLADDER AND BILE DUCTS: Cholecystectomy. PANCREAS: Dilated pancreatic duct measures approximately 4 mm. SPLEEN: Unremarkable. ADRENALS: Unremarkable. KIDNEYS AND URETERS: The kidneys enhance symmetrically. No hydronephrosis or obstructing renal calculus. BLADDER: The urinary bladder appears unremarkable. REPRODUCTIVE: The prostate gland appears heterogeneous and measures approximately 3.6 x 4.8 cm. APPENDIX: The appendix appears within normal limits of caliber. No secondary signs of acute appendicitis. BOWEL: Dilated fluid-filled small bowel loops. Several small bowel loops demonstrate fecalization. Appearance consistent with small bowel obstruction with transition point appearing in the anterior abdomen (series 3, image 114). PERITONEUM: No significant free fluid. No definite free air. LYMPH NODES: No bulky lymphadenopathy identified. VASCULATURE: No aortic aneurysm. No atherosclerotic calcification or mural plaque present. BONES: Degenerative changes. Overall sclerotic heterogeneous appearance of the osseous structures. OTHER FINDINGS: None. IMPRESSION: Dilated fluid-filled small bowel loops. Several small bowel loops demonstrate fecalization. Appearance consistent with small bowel obstruction with transition point appearing in the anterior abdomen (series 3, image 114). Mildly dilated pancreatic duct measures approximately 4 mm. The prostate gland appears heterogeneous and measures approximately 3.6 x 4.8 cm. Recommend correlation with PSA. Cholecystectomy. Findings discussed with Dr. Godoy 06/28/18 at 1:08 p.m..
[2018-06-28] MEDS ORDERED: cefTRIAXone 1 gm 1 GM/100 ML BAG IVPB STA (13:47)
--- NOTE | 2018-06-28 15:22 | CP.PCM.HP ---
<Michelle Wolfe - Last Filed: 06/28/18 17:18> History of Present Illness - History of Present Illness History of Present Illness: Resident History & Physical for Hospitalist Service Patient is a 67 year old [place] male with past medical history of HTN, PUD, pyloric stenosis presenting with chief complaint of abdominal discomfort that began about two days ago. History was obtained from daughter who was at bedside. Patient has been constipated however did have one loose watery bowel movement last night. He also admits to nausea and two episodes of emesis last night. He states he has no appetite. Of note, patient recently had inguinal hernia surgery about 5 months ago. Patient denies fevers, chills, headache, dizziness, chest pain, shortness of breath, dysuria. PMH: HTN, PUD, pyloric stenosis s/p dilation, pancreatitis, hyperparathyroidism PSH: pierce, stomach perforation and umbilical hernia repair, left inguinal hernia repair, hemorrhoidectomy, partial parathyroidectomy SHx: denies alcohol, tobacco, recreational drug use Allergies: NKDA FHx: mother (stroke) Home meds: Lisinopril 5 mg QD, HCTZ 12.5 QD, pantoprazole 40 mg QD, Zolpidem 5 mg QD, Vit D supplement PMD: Dr. Mercado 12 point ROS negative except as stated in HPI Present on Admission - Present on Admission Any Indicators Present on Admission: No Review of Systems - Review of Systems All systems: reviewed and no additional remarkable complaints except (as stated in HPI) Past Patient History - Infectious Disease Hx of Infectious Diseases: None - Tetanus Immunizations Tetanus Immunization: Unknown - Past Medical History & Family History Past Medical History?: Yes - Past Social History Smoking Status: Never Smoked - CARDIAC Hx Cardiac Disorders: Yes Hx Hypertension: Yes - PULMONARY Hx Respiratory Disorders: No - NEUROLOGICAL Hx Neurological Disorder: No - HEENT Hx HEENT Problems: No - RENAL Hx Chronic Kidney Disease: No - ENDOCRINE/METABOLIC Hx Endocrine Disorders: Yes Hx Hyperthyroidism: Yes - HEMATOLOGICAL/ONCOLOGICAL Other/Comment: HYPERCALCEMIA - INTEGUMENTARY Hx Dermatological Problems: No - MUSCULOSKELETAL/RHEUMATOLOGICAL Hx Falls: No - GASTROINTESTINAL Hx Gastrointestinal Disorders: Yes Hx Gall Bladder Disease: Yes Hx Gastroesophageal Reflux: Yes Hx Pancreatitis: Yes HX Swallowing Problems: Yes Other/Comment: RECTAL PROLAPSE - GENITOURINARY/GYNECOLOGICAL Hx Genitourinary Disorders: No Other/Comment: INGUINAL HERNIA - PSYCHIATRIC Hx Psychophysiologic Disorder: No - SURGICAL HISTORY Hx Cholecystectomy: Yes Other/Comment: PYLORIC STENOSIS WITH DILITATION. - ANESTHESIA Hx Anesthesia: Yes Hx Anesthesia Reactions: No Hx Malignant Hyperthermia: No Meds Allergies/Adverse Reactions: Allergies Allergy/AdvReac Type Severity Reaction Status Date / Time No Known Allergies Allergy Verified 12/08/17 10:32 Physical Exam - Constitutional Appears: Non-toxic, No Acute Distress - Head Exam Head Exam: ATRAUMATIC, NORMOCEPHALIC - Eye Exam Eye Exam: EOMI, Normal appearance Pupil Exam: NORMAL ACCOMODATION - ENT Exam ENT Exam: Mucous Membranes Moist, Normal Exam - Neck Exam Neck exam: Positive for: Full Rom. Negative for: Lymphadenopathy, Tenderness, Thyromegaly - Respiratory Exam Respiratory Exam: Clear to Auscultation Bilateral, NORMAL BREATHING PATTERN. absent: Accessory Muscle Use, Decreased Breath Sounds, Rales, Rhonchi, Wheezes, Respiratory Distress - Cardiovascular Exam Cardiovascular Exam: REGULAR RHYTHM, +S1, +S2. absent: Systolic Murmur - GI/Abdominal Exam GI & Abdominal Exam: Distended, Guarding, Hernia (umbilical), Hypoactive Bowel Sounds, Soft, Tenderness (mild, LLQ ). absent: Firm, Mass, Rebound Additional comments: midline ventral surgical scar RUQ, RLQ surgical scars - Extremities Exam Extremities exam: Positive for: normal capillary refill, normal inspection, pedal pulses present. Negative for: calf tenderness, pedal edema - Neurological Exam Neurological exam: Alert, CN II-XII Intact, Oriented x3 - Psychiatric Exam Psychiatric exam: Normal Affect, Normal Mood - Skin Skin Exam: Dry, Intact, Normal Color, Warm Results - Vital Signs Recent Vital Signs: Last Vital Signs Temp 97.6 F 06/28/18 10:06 Pulse 56 L 06/28/18 11:05 Resp 18 06/28/18 15:08 BP 126/77 06/28/18 11:05 Pulse Ox 99 06/28/18 11:05 - Labs Result Diagrams: 06/28/18 10:00 06/28/18 10:00 Labs: Laboratory Results - last 24 hr 06/28/18 06/28/18 06/28/18 10:00 10:00 10:00 WBC 10.0 RBC 5.70 Hgb 15.2 Hct 46.2 MCV 81.1 MCH 26.7 MCHC 32.9 RDW 13.0 Plt Count 284 MPV 9.2 Gran % 74.3 H Lymph % (Auto) 17.4 L Logan % (Auto) 7.6 H Eos % (Auto) 0.6 L Baso % (Auto) 0.1 Gran # 7.43 H Lymph # (Auto) 1.7 Logan # (Auto) 0.8 H Eos # (Auto) 0.1 Baso # (Auto) 0.01 Sodium 138 Potassium 4.2 Chloride 100 Carbon Dioxide 26 Anion Gap 15 BUN 16 Creatinine 1.2 Est GFR ( Amer) > 60 Est GFR (Non-Af Amer) > 60 Random Glucose 107 Calcium 9.5 Magnesium 2.0 Total Bilirubin 1.1 AST 29 ALT 21 Alkaline Phosphatase 82 Troponin I < 0.01 Total Protein 8.3 Albumin 4.6 Globulin 3.8 Albumin/Globulin Ratio 1.2 Lipase 72 Urine Color Yellow Urine Appearance Clear Urine pH 6.0 Ur Specific [place] 1.020 Urine Protein Trace H Urine Glucose (UA) Negative Urine Ketones 40 H Urine Blood Negative Urine Nitrate Negative Urine Bilirubin Negative Urine Urobilinogen 0.2 Ur Leukocyte Esterase Trace H Urine RBC 0 - 2 Urine WBC 2 - 5 Ur Epithelial Cells None Urine Bacteria Few Assessment & Plan - Assessment and Plan (Free Text) Assessment: Patient is a 67 year old [place] male with past medical history of HTN, PUD, pyloric stenosis presenting with chief complaint of constipation and abdominal discomfort admitted for workup and management of small bowel obstruction. Plan: Small bowel obstruction - patient has extensive abdominal surgical history - CT abd/pelvis shows small bowel fecalization consistent with SBO - Lipase, LFTs within normal limits - Surgery consulted. Appreciate recs. - s/p NG tube insertion - NS @ 113 ccs/hr - Protonix 40 mg IV daily - Zofran 4 mg IV Q6H PRN - Toradol PRN for pain control - NPO diet Hypertension - hold home meds d/t NPO - Hydralazine IV PRN PUD - Protonix 40 mg IV daily GI/DVT PPX - Protonix 40 mg IV daily - SCDs Case reviewed with attending Dr. Ana Wolfe PGY-1 - Date & Time Date: 06/28/18 Time: 15:00 <Aminah Perez - Last Filed: 06/28/18 17:49> Results - Vital Signs Recent Vital Signs: Last Vital Signs Temp 97.6 F 06/28/18 10:06 Pulse 95 H 06/28/18 15:27 Resp 17 06/28/18 15:27 BP 140/92 H 06/28/18 15:27 Pulse Ox 99 06/28/18 15:27 - Labs Result Diagrams: 06/28/18 10:00 06/28/18 10:00 Labs: Laboratory Results - last 24 hr 06/28/18 06/28/18 06/28/18 10:00 10:00 10:00 WBC 10.0 RBC 5.70 Hgb 15.2 Hct 46.2 MCV 81.1 MCH 26.7 MCHC 32.9 RDW 13.0 Plt Count 284 MPV 9.2 Gran % 74.3 H Lymph % (Auto) 17.4 L Logan % (Auto) 7.6 H Eos % (Auto) 0.6 L Baso % (Auto) 0.1 Gran # 7.43 H Lymph # (Auto) 1.7 Logan # (Auto) 0.8 H Eos # (Auto) 0.1 Baso # (Auto) 0.01 Sodium 138 Potassium 4.2 Chloride 100 Carbon Dioxide 26 Anion Gap 15 BUN 16 Creatinine 1.2 Est GFR ( Amer) > 60 Est GFR (Non-Af Amer) > 60 Random Glucose 107 Calcium 9.5 Magnesium 2.0 Total Bilirubin 1.1 AST 29 ALT 21 Alkaline Phosphatase 82 Troponin I < 0.01 Total Protein 8.3 Albumin 4.6 Globulin 3.8 Albumin/Globulin Ratio 1.2 Lipase 72 Urine Color Yellow Urine Appearance Clear Urine pH 6.0 Ur Specific [place] 1.020 Urine Protein Trace H Urine Glucose (UA) Negative Urine Ketones 40 H Urine Blood Negative Urine Nitrate Negative Urine Bilirubin Negative Urine Urobilinogen 0.2 Ur Leukocyte Esterase Trace H Urine RBC 0 - 2 Urine WBC 2 - 5 Ur Epithelial Cells None Urine Bacteria Few Attending/Attestation - Attestation I have personally seen and examined this patient.: Yes I have fully participated in the care of the patient.: Yes I have reviewed all pertinent clinical information: Yes Notes (Text): 06/28/18 17:44 67 year old male with past medical history of hypertension, PUD, and extensive surgical abdominal history as above who presents with abdominal pain, nausea and vomiting. Found to have SBO. Continue with NPO, NGT, and iv fluids. Protonix and zofran prn. Surgery evaluation is requested. Aminah Perez MD Hospitalist.
--- NOTE | 2018-06-28 15:55 | CP.PCM.CON ---
History of Present Illness - History of Present Illness History of Present Illness: Consult Note- Dr. Novak Reason For Consult: Small Bowel Obstruction 67M pmhx significant for Hyperthyroidism, Gastritis, Pyloric stenosis s/p EGD Dilatation, PUD, gastric perforation s/p russel patch in 2016, gangrenous cholecystitis s/p open cholecystectomy, presents to [facility] ED w/ generalized abdominal pain localized to right lower quadrant for 1 day with associated nausea and multiple episodes of non-bloody, non-bilious emesis. Patient states food contents from previous 3 meals came while vomiting. States passing flatus and had 1 loose BM earlier today and a regular BM yesterday. Patient has not had similar pain in the past. Daughter is at bedside to office helper clerical in translation. PMH: stated above, hemorrhoids s/p hemorrhoidectomy, intraabdominal abscess s/p drainage, PUD, hyperthyroidism, hypercalcemia PSH: Left Inguinal hernia repair w/ mesh laparoscopic (01/2018), EGD w/ pyloric dilatation, open cholecystectomy, hemorrhoids s/p hemorrhoidectomy, intraabdominal abscess s/p drainage, exploratory laparotomy, prepyloric peptic ulcer perforation s/p russel patch closure, and open unbilical hernia repair s/p closure without mesh (03/2016) ALL: NKDA SocialHx: denies tobacco, ETOH, recreational drug use FHx: Diabetes, HTN 12 pt ROS conducted, negative otherwise stated above Review of Systems - Review of Systems All systems: reviewed and no additional remarkable complaints except - Constitutional Constitutional: As Per HPI Past Patient History - Infectious Disease Hx of Infectious Diseases: None - Tetanus Immunizations Tetanus Immunization: Unknown - Past Medical History & Family History Past Medical History?: Yes - Past Social History Smoking Status: Never Smoked - CARDIAC Hx Cardiac Disorders: Yes Hx Hypertension: Yes - PULMONARY Hx Respiratory Disorders: No - NEUROLOGICAL Hx Neurological Disorder: No - HEENT Hx HEENT Problems: No - RENAL Hx Chronic Kidney Disease: No - ENDOCRINE/METABOLIC Hx Endocrine Disorders: Yes Hx Hyperthyroidism: Yes - HEMATOLOGICAL/ONCOLOGICAL Other/Comment: HYPERCALCEMIA - INTEGUMENTARY Hx Dermatological Problems: No - MUSCULOSKELETAL/RHEUMATOLOGICAL Hx Falls: No - GASTROINTESTINAL Hx Gastrointestinal Disorders: Yes Hx Gall Bladder Disease: Yes Hx Gastroesophageal Reflux: Yes Hx Pancreatitis: Yes HX Swallowing Problems: Yes Other/Comment: RECTAL PROLAPSE - GENITOURINARY/GYNECOLOGICAL Hx Genitourinary Disorders: No Other/Comment: INGUINAL HERNIA - PSYCHIATRIC Hx Psychophysiologic Disorder: No - SURGICAL HISTORY Hx Cholecystectomy: Yes Other/Comment: PYLORIC STENOSIS WITH DILITATION. - ANESTHESIA Hx Anesthesia: Yes Hx Anesthesia Reactions: No Hx Malignant Hyperthermia: No Meds Allergies/Adverse Reactions: Allergies Allergy/AdvReac Type Severity Reaction Status Date / Time No Known Allergies Allergy Verified 12/08/17 10:32 - Medications Medications: Current Medications Sodium Chloride (Sodium Chloride 0.9%) 1,000 mls @ 100 mls/hr IV .Q10H [facility] Last Admin: 06/28/18 10:01 Dose: 100 mls/hr Sodium Chloride (Sodium Chloride 0.9%) 1,000 mls @ 113 mls/hr IV .Q8H51M [facility] Ketorolac Tromethamine (Toradol) 15 mg IVP Q6H PRN PRN Reason: Pain, moderate (4-7) Ketorolac Tromethamine (Toradol) 30 mg IVP Q12H PRN PRN Reason: Pain, severe (8-10) Ondansetron HCl (Zofran Inj) 4 mg IVP Q6H PRN PRN Reason: Nausea/Vomiting Pantoprazole Sodium (Protonix Inj) 40 mg IVP DAILY [facility] Physical Exam - Constitutional Appears: Non-toxic, No Acute Distress - Head Exam Head Exam: ATRAUMATIC - Eye Exam Eye Exam: EOMI. absent: Scleral icterus - ENT Exam ENT Exam: Mucous Membranes Moist - Respiratory Exam Respiratory Exam: NORMAL BREATHING PATTERN. absent: Accessory Muscle Use, Respiratory Distress - Cardiovascular Exam Cardiovascular Exam: +S1, +S2. absent: Bradycardia, Tachycardia - GI/Abdominal Exam GI & Abdominal Exam: Soft, Tenderness (moderate tenderness to deep palpation) Additional comments: Midline incision well healed Tyrone incision well healed palpable mass inferior epigastrum, non-tender, non-erythematous - Rectal Exam Rectal Exam: NORMAL INSPECTION. absent: Bloody Stool, Hemorrhoids Additional comments: Stool in rectal vault - Extremities Exam Extremities exam: Negative for: calf tenderness - Neurological Exam Neurological exam: Alert, Oriented x3 - Psychiatric Exam Psychiatric exam: Normal Affect - Skin Skin Exam: Intact, Normal Color Results - Vital Signs Recent Vital Signs: Last Vital Signs Temp 97.6 F 06/28/18 10:06 Pulse 95 H 06/28/18 15:27 Resp 17 06/28/18 15:27 BP 140/92 H 06/28/18 15:27 Pulse Ox 99 06/28/18 15:27 - Labs Result Diagrams: 06/28/18 10:00 06/28/18 10:00 Labs: Laboratory Results - last 24 hr 06/28/18 06/28/18 06/28/18 10:00 10:00 10:00 WBC 10.0 RBC 5.70 Hgb 15.2 Hct 46.2 MCV 81.1 MCH 26.7 MCHC 32.9 RDW 13.0 Plt Count 284 MPV 9.2 Gran % 74.3 H Lymph % (Auto) 17.4 L Jay % (Auto) 7.6 H Eos % (Auto) 0.6 L Baso % (Auto) 0.1 Gran # 7.43 H Lymph # (Auto) 1.7 Jay # (Auto) 0.8 H Eos # (Auto) 0.1 Baso # (Auto) 0.01 Sodium 138 Potassium 4.2 Chloride 100 Carbon Dioxide 26 Anion Gap 15 BUN 16 Creatinine 1.2 Est GFR ( Amer) > 60 Est GFR (Non-Af Amer) > 60 Random Glucose 107 Calcium 9.5 Magnesium 2.0 Total Bilirubin 1.1 AST 29 ALT 21 Alkaline Phosphatase 82 Troponin I < 0.01 Total Protein 8.3 Albumin 4.6 Globulin 3.8 Albumin/Globulin Ratio 1.2 Lipase 72 Urine Color Yellow Urine Appearance Clear Urine pH 6.0 Ur Specific [place] 1.020 Urine Protein Trace H Urine Glucose (UA) Negative Urine Ketones 40 H Urine Blood Negative Urine Nitrate Negative Urine Bilirubin Negative Urine Urobilinogen 0.2 Ur Leukocyte Esterase Trace H Urine RBC 0 - 2 Urine WBC 2 - 5 Ur Epithelial Cells None Urine Bacteria Few Assessment & Plan - Assessment and Plan (Free Text) Assessment: 67M w/ hx of multiple abdominal surgeries w/ Small bowel obstruction Plan: - Pain control PRN - NPO - IVF - NGT to LIWS - Strict Intake/output - bowel rest - repeat labs in AM - discussed [facility]/ [facility]
--- NOTE | 2018-06-28 16:27 | RAD ---
Date of service: 06/28/2018 HISTORY: medical clearance COMPARISON: Comparison made with prior chest radiograph 06/28/2018 at 0943 hr as well as CT scan of the abdomen and pelvis 06/28/2018 at 1249 hr which also image both lung bases.. FINDINGS: In situ NGT, the tip of which lies left upper quadrant of the abdomen. LUNGS: No active pulmonary disease. PLEURA: No significant pleural effusion identified, no pneumothorax apparent. CARDIOVASCULAR: No appreciable aortic atherosclerotic calcification present.. Aorta slightly ectatic and uncoiled. Heart appears borderline/mildly enlarged.. No pulmonary vascular congestion. OSSEOUS STRUCTURES: No significant abnormalities. VISUALIZED UPPER ABDOMEN: Normal. OTHER FINDINGS: None. IMPRESSION: No active disease. In situ NGT as described
[2018-06-28] MEDS: Lactated Ringer's 1,000 ML IV SCH (18:11)
[2018-06-29] MEDS: Lactated Ringer's 1,000 ML IV SCH (04:48)
[2018-06-29 07:23] LABS: BASO # 0.01 K/mm3 (0.0-2.0); BASO % 0.1 % (0.0-3.0); EOS # 0.2 (0.0-0.7); EOS % 2.6 % (1.5-5.0); GRAN # 4.15 (1.4-6.5); GRAN % 53.1 % (50.0-68.0); LYMPH # 2.9 (1.2-3.4); LYMPH % 37.3 % (22.0-35.0); MEAN CELL VOLUME 81.1 fl (80.0-105.0); MEAN CORPUSCULAR HEMOGLOBIN 25.9 pg (25.0-35.0); MEAN CORPUSCULAR HGB CONC 31.9 g/dl (31.0-37.0); MEAN PLATELET VOLUME 9.2 fl (7.0-11.0); MONO # 0.5 (0.1-0.6); MONO % 6.9 % (1.0-6.0); RBC 4.98 10^6/uL (3.5-6.1); RED CELL DISTRIBUTION WIDTH 13.2 % (11.5-14.5); WHITE BLOOD COUNT 7.8 10^3/uL (4.5-11.0)
[2018-06-29 07:24] LABS: HEMOGLOBIN 12.9 g/dL (14.0-18.0)
--- NOTE | 2018-06-29 07:40 | CP.PCM.PN ---
<Mily Ortiz - Last Filed: 06/29/18 11:39> Subjective - Date & Time of Evaluation Date of Evaluation: 06/29/18 Time of Evaluation: 07:39 - Subjective Subjective: Surgery Progress note for Dr. Novak Patient seen and examined at bedside this morning during morning surgery team rounds. NGT clamped at 7am during the rounds. He denies PRINCE, nausea, vomiting, chest pain, palpitations, SOB, fevers, chills, night sweats. Patient also seen after rounds and continues to denies these symptoms. Last BM was 2 days ago at home. Patient endorses feeling constipated. *Silverware Supervisor used: Flaco Mulligan. Name: Flynn, ID: [id number]. Objective - Vital Signs/Intake and Output Vital Signs (last 24 hours): Temp Pulse Resp BP Pulse Ox 99.2 F 84 20 117/85 99 06/28/18 22:00 06/28/18 22:00 06/28/18 22:00 06/28/18 22:00 06/28/18 22:00 Intake and Output: 06/29/18 06/29/18 06:59 18:59 Intake Total 0 Output Total 300 220 Balance -300 -220 - Medications Medications: Current Medications Hydralazine HCl (Apresoline) 5 mg IVP Q6H PRN PRN Reason: Systolic Blood Pressure Lactated Ringer's (Lactated Ringer's) 1,000 mls @ 115 mls/hr IV .Q8H42M [facility] Last Admin: 06/29/18 04:48 Dose: 115 mls/hr Ketorolac Tromethamine (Toradol) 15 mg IVP Q6H PRN PRN Reason: Pain, moderate (4-7) Last Admin: 06/28/18 16:32 Dose: 15 mg Ketorolac Tromethamine (Toradol) 30 mg IVP Q12H PRN PRN Reason: Pain, severe (8-10) Ondansetron HCl (Zofran Inj) 4 mg IVP Q6H PRN PRN Reason: Nausea/Vomiting Last Admin: 06/28/18 16:32 Dose: 4 mg Pantoprazole Sodium (Protonix Inj) 40 mg IVP DAILY JESSICA - Labs Labs: 06/29/18 07:00 06/28/18 10:00 - Constitutional Appears: Well, Non-toxic - Head Exam Head Exam: ATRAUMATIC, NORMAL INSPECTION, NORMOCEPHALIC - Eye Exam Eye Exam: Normal appearance - Neck Exam Neck Exam: Normal Inspection - Respiratory Exam Respiratory Exam: Clear to Ausculation Bilateral, NORMAL BREATHING PATTERN - Cardiovascular Exam Cardiovascular Exam: REGULAR RHYTHM - GI/Abdominal Exam GI & Abdominal Exam: Distended (mild distension), Soft, Tenderness (mild TTP RLQ and LLQ), Normal Bowel Sounds. absent: Firm, Guarding, Rigid, Rebound - Extremities Exam Extremities Exam: Normal Inspection - Back Exam Back Exam: NORMAL INSPECTION - Neurological Exam Neurological Exam: Alert, Awake, Oriented x3 - Psychiatric Exam Psychiatric exam: Normal Affect, Normal Mood - Skin Skin Exam: Dry, Intact, Normal Color, Warm Assessment and Plan - Assessment and Plan (Free Text) Assessment: 67M with pmhx of Gastritis, Pyloric stenosis s/p EGD Dilatation, PUD, gastric perforation s/p russel patch in 2015, gangrenous cholecystitis s/p open cholecystectomy admitted for SBO. SBO -s/p NGT clamp 7am and removal 11am today, 06/29. Patient tolerated procedures well. -advancement to clear liquid diet ordered -pain meds and antiemetics PRN -recheck abdominal exam and for n/v symptoms Mily Ortiz DO PGY1 <John Novak - Last Filed: 06/29/18 12:34> Objective - Vital Signs/Intake and Output Vital Signs (last 24 hours): Temp Pulse Resp BP Pulse Ox 98.6 F 74 18 113/75 100 06/29/18 06:00 06/29/18 06:00 06/29/18 06:00 06/29/18 06:00 06/29/18 06:00 Intake and Output: 06/29/18 06/29/18 06:59 18:59 Intake Total 0 Output Total 300 220 Balance -300 -220 - Medications Medications: Current Medications Hydralazine HCl (Apresoline) 5 mg IVP Q6H PRN PRN Reason: Systolic Blood Pressure Lactated Ringer's (Lactated Ringer's) 1,000 mls @ 115 mls/hr IV .Q8H42M [facility] Last Admin: 06/29/18 04:48 Dose: 115 mls/hr Ketorolac Tromethamine (Toradol) 15 mg IVP Q6H PRN PRN Reason: Pain, moderate (4-7) Last Admin: 06/28/18 16:32 Dose: 15 mg Ketorolac Tromethamine (Toradol) 30 mg IVP Q12H PRN PRN Reason: Pain, severe (8-10) Ondansetron HCl (Zofran Inj) 4 mg IVP Q6H PRN PRN Reason: Nausea/Vomiting Last Admin: 06/28/18 16:32 Dose: 4 mg Pantoprazole Sodium (Protonix Inj) 40 mg IVP DAILY [facility] Last Admin: 06/29/18 10:11 Dose: 40 mg - Labs Labs: 06/29/18 07:00 06/29/18 07:00 Attending/Attestation - Attestation Notes (Text): 06/29/18 12:34 Follow up xray indicates passage of contrast throughout colon. OK to advance3 diet as tolerated
[2018-06-29 07:53] LABS: ALB/GLOB RATIO 1.1 (1.1-1.8); ALBUMIN 3.5 g/dL (3.0-4.8); ALT/SGPT 23 U/L (7-56); AST/SGOT 22 U/L (17-59); BLOOD UREA NITROGEN 16 mg/dL (7-21); CALCIUM 8.4 mg/dL (8.4-10.5); GFR NON-AFRICAN AMERICAN > 60
--- NOTE | 2018-06-29 08:10 | CARD ---
APPROVED REPORT Date of service: 06/28/2018 EKG Measurement Heart [id number] OR [id number] <Conclusion> Normal sinus rhythm Right bundle branch block Left anterior fascicular block Bifascicular block NSSTW changes No change
--- NOTE | 2018-06-29 09:12 | CP.PCM.PN ---
<Michelle Wolfe - Last Filed: 06/29/18 14:58> Subjective - Date & Time of Evaluation Date of Evaluation: 06/29/18 Time of Evaluation: 07:30 - Subjective Subjective: Resident Progress Note for Hospitalist Service Patient examined at bedside. Daughter was also present. No acute events overnight. Patient states that his pain is much improved, rates the severity level a +2/10. Patient states he has been passing flatus however had not had a bowel movement yet. Denies fevers, chills, nausea, vomiting, dysuria. Objective - Vital Signs/Intake and Output Vital Signs (last 24 hours): Temp Pulse Resp BP Pulse Ox 99.2 F 84 20 117/85 99 06/28/18 22:00 06/28/18 22:00 06/28/18 22:00 06/28/18 22:00 06/28/18 22:00 Intake and Output: 06/29/18 06/29/18 06:59 18:59 Intake Total 0 Output Total 300 220 Balance -300 -220 - Medications Medications: Current Medications Hydralazine HCl (Apresoline) 5 mg IVP Q6H PRN PRN Reason: Systolic Blood Pressure Lactated Ringer's (Lactated Ringer's) 1,000 mls @ 115 mls/hr IV .Q8H42M [facility] Last Admin: 06/29/18 04:48 Dose: 115 mls/hr Ketorolac Tromethamine (Toradol) 15 mg IVP Q6H PRN PRN Reason: Pain, moderate (4-7) Last Admin: 06/28/18 16:32 Dose: 15 mg Ketorolac Tromethamine (Toradol) 30 mg IVP Q12H PRN PRN Reason: Pain, severe (8-10) Ondansetron HCl (Zofran Inj) 4 mg IVP Q6H PRN PRN Reason: Nausea/Vomiting Last Admin: 06/28/18 16:32 Dose: 4 mg Pantoprazole Sodium (Protonix Inj) 40 mg IVP DAILY [facility] - Labs Labs: 06/29/18 07:00 06/29/18 07:00 - Additional Findings Additional findings: - Constitutional Appears: Non-toxic, No Acute Distress - Head Exam Head Exam: ATRAUMATIC, NORMOCEPHALIC - Eye Exam Eye Exam: EOMI, Normal appearance - ENT Exam ENT Exam: Mucous Membranes Moist, Normal Exam - Neck Exam Neck exam: Positive for: Full Rom - Respiratory Exam Respiratory Exam: Clear to Auscultation Bilateral, NORMAL BREATHING PATTERN - Cardiovascular Exam Cardiovascular Exam: REGULAR RHYTHM, +S1, +S2 - GI/Abdominal Exam GI & Abdominal Exam: Hernia (umbilical), Hypoactive Bowel Sounds, Soft. absent: Firm, Mass, Rebound, Tenderness Additional comments: midline ventral surgical scar RUQ, RLQ surgical scars - Extremities Exam Extremities exam: Positive for: normal capillary refill, normal inspection, pedal pulses present - Neurological Exam Neurological exam: Alert, Oriented x3 - Psychiatric Exam Psychiatric exam: Normal Affect, Normal Mood - Skin Skin Exam: Dry, Intact, Normal Color, Warm Assessment and Plan - Assessment and Plan (Free Text) Assessment: Patient is a 67 year old [place]ian male with past medical history of HTN, PUD, pyloric stenosis presenting with chief complaint of constipation and abdominal discomfort admitted for workup and management of small bowel obstruction. Plan: Small bowel obstruction - patient has extensive abdominal surgical history - CT abd/pelvis shows small bowel fecalization consistent with SBO - repeat abd xray shows improvement in SBO - Lipase, LFTs within normal limits - Surgery consulted. Recs appreciated. - s/p NG tube insertion - LR @ 115 ccs/hr - Protonix 40 mg IV daily - Zofran 4 mg IV Q6H PRN - Toradol PRN for pain control - tolerating liquid diet - GI consulted for evaluation of pt's history of recurrent pyloric stenosis. Recs appreciated. Hypertension - holding home meds - Hydralazine IV PRN PUD - Protonix 40 mg IV daily GI/DVT PPX - Protonix 40 mg IV daily - SCDs Case reviewed with attending Dr. Camila Wolfe PGY-1 <Cheri Jensen - Last Filed: 07/01/18 14:58> Objective - Vital Signs/Intake and Output Vital Signs (last 24 hours): Temp Pulse Resp BP Pulse Ox 98.2 F 62 16 137/87 97 06/30/18 06:00 06/30/18 06:00 06/30/18 06:00 06/30/18 06:00 06/30/18 06:00 - Labs Labs: 06/30/18 07:00 06/30/18 07:00 Attending/Attestation - Attestation I have personally seen and examined this patient.: Yes I have fully participated in the care of the patient.: Yes I have reviewed all pertinent clinical information, including history, physical exam and plan: Yes Notes (Text): 07/01/18 14:58 Medical record note made by the resident after discussion with my direction and input after the patient was personally seen and examined by me. I have reviewed the chart and agree that the record accurately reflects by personal performance of the history, physical exam, data review, and medical decision-making, in the course for the patient. I have also personally directed the plan of care.
--- NOTE | 2018-06-29 12:41 | RAD ---
Date of service: 06/29/2018 HISTORY: SBO COMPARISON: CT 06/28/2018 FINDINGS: BOWEL: There improvement in the pattern of small bowel obstruction compared to the distribution dispatcher film of the CT scan. Contrast is seen in the colon. There is a single loop of dilated small bowel adjacent to the transverse colon. BONES: Normal. OTHER FINDINGS: None. IMPRESSION: Improved small bowel obstruction
--- NOTE | 2018-06-29 13:35 | CP.PCM.CON ---
<Es Flores - Last Filed: 06/29/18 14:56> History of Present Illness - History of Present Illness History of Present Illness: Gastroneterology Fellow/PGY6 Consult Note 67 year old male with PMH of PUD with perforated prepyloric viscous s/p russel patch repair 05/2016 complicated by post-operative pyloric stenosis with serial dilations (starting 09/2016, last 12/08/17 to 12-15mm dilation), primary hyperparathyroidism s/p partial parathyroidectomy, and HTN presenting with abdominal pain. Patient notes remote occurrence of poor appetite and nausea for the last fifteen days with development of lower abdominal pain for the last two days. Associated food/bilious vomitus episodes with one loose stool on Friday. At present, notes improving lower abdominal discomfort and distension with no further episodes of vomiting. Admits to flatus without bowel movement. Denies chest pain, epigastric pain, hematemesis, melena, hematochezia, or unintentional weight loss. Notes prior daily formed bowel movements 1-2 times per day. Prior serial EGDs for pyloric stenosis 09/2016, 10/2016, 01/2017, and most recent 12/08/2017 with pathology showing LAGA esophagitis, H. pylori negative gastritis, and normal doudenal mucosa. No prior colonoscopy as it was postponed due to pyloric stenosis and inability to tolerate bowel prep. Family History- denies stomach cancer, colon cancer Social History- denies tobacco, alcohol, or illicit drug use Surgical History- cholecystectomy 10/2016, perforated peptic viscous s/p Russel patch with umbilical hernia repair 05/2016, left inguinal hernia repair 01/2018 , hemorrhoidectomy 05/2016 partial parathyroidectomy Review of Systems - Review of Systems Review of Systems: 12-point review of systems negative except for as above Past Patient History - Infectious Disease Hx of Infectious Diseases: None - Tetanus Immunizations Tetanus Immunization: Unknown - Past Medical History & Family History Past Medical History?: Yes - Past Social History Smoking Status: Never Smoked - CARDIAC Hx Cardiac Disorders: Yes Hx Hypertension: Yes - PULMONARY Hx Respiratory Disorders: No - NEUROLOGICAL Hx Neurological Disorder: No - HEENT Hx HEENT Problems: No - RENAL Hx Chronic Kidney Disease: No - ENDOCRINE/METABOLIC Hx Endocrine Disorders: Yes Hx Hyperthyroidism: Yes - HEMATOLOGICAL/ONCOLOGICAL Other/Comment: HYPERCALCEMIA - INTEGUMENTARY Hx Dermatological Problems: No - MUSCULOSKELETAL/RHEUMATOLOGICAL Hx Musculoskeletal Disorders: Yes Hx Osteoporosis: Yes - GASTROINTESTINAL Hx Gastrointestinal Disorders: Yes Hx Bowel Surgery: Yes Hx Gall Bladder Disease: Yes Hx Gastroesophageal Reflux: Yes Hx Hemorrhoids: Yes Hx Pancreatitis: Yes HX Swallowing Problems: Yes Other/Comment: RECTAL PROLAPSE - GENITOURINARY/GYNECOLOGICAL Hx Genitourinary Disorders: No Other/Comment: INGUINAL HERNIA - PSYCHIATRIC Hx Psychophysiologic Disorder: No Hx Substance Use: No - SURGICAL HISTORY Hx Cholecystectomy: Yes Other/Comment: PYLORIC STENOSIS WITH DILITATION. - ANESTHESIA Hx Anesthesia: Yes Hx Anesthesia Reactions: No Hx Malignant Hyperthermia: No Meds Allergies/Adverse Reactions: Allergies Allergy/AdvReac Type Severity Reaction Status Date / Time No Known Allergies Allergy Verified 12/08/17 10:32 - Medications Medications: Current Medications Hydralazine HCl (Apresoline) 5 mg IVP Q6H PRN PRN Reason: Systolic Blood Pressure Lactated Ringer's (Lactated Ringer's) 1,000 mls @ 115 mls/hr IV .Q8H42M [facility] Last Admin: 06/29/18 04:48 Dose: 115 mls/hr Ketorolac Tromethamine (Toradol) 15 mg IVP Q6H PRN PRN Reason: Pain, moderate (4-7) Last Admin: 06/28/18 16:32 Dose: 15 mg Ketorolac Tromethamine (Toradol) 30 mg IVP Q12H PRN PRN Reason: Pain, severe (8-10) Ondansetron HCl (Zofran Inj) 4 mg IVP Q6H PRN PRN Reason: Nausea/Vomiting Last Admin: 06/28/18 16:32 Dose: 4 mg Pantoprazole Sodium (Protonix Inj) 40 mg IVP DAILY [facility] Last Admin: 06/29/18 10:11 Dose: 40 mg Physical Exam - Constitutional Appears: Non-toxic, No Acute Distress - Head Exam Head Exam: ATRAUMATIC, NORMOCEPHALIC - Eye Exam Eye Exam: EOMI, PERRL. absent: Scleral icterus Pupil Exam: PERRL. absent: Miosis, Mydriatic - ENT Exam ENT Exam: Mucous Membranes Moist, Normal Oropharynx - Neck Exam Neck exam: Positive for: Full Rom, Normal Inspection - Respiratory Exam Respiratory Exam: Clear to Auscultation Bilateral. absent: Rales, Rhonchi, Wheezes - Cardiovascular Exam Cardiovascular Exam: RRR, +S1, +S2. absent: Gallop, Rubs - GI/Abdominal Exam GI & Abdominal Exam: Distended, Hypoactive Bowel Sounds, Soft, Tenderness. absent: Firm, Guarding, Organomegaly, Rebound, Rigid Additional comments: mild B/L LQ discomfort to palpation - Extremities Exam Extremities exam: Positive for: normal inspection. Negative for: pedal edema - Neurological Exam Neurological exam: Alert - Psychiatric Exam Psychiatric exam: Normal Affect, Normal Mood - Skin Skin Exam: Dry, Intact, Normal Color, Warm Results - Vital Signs Recent Vital Signs: Last Vital Signs Temp 98.6 F 06/29/18 06:00 Pulse 74 06/29/18 06:00 Resp 18 06/29/18 06:00 BP 113/75 06/29/18 06:00 Pulse Ox 100 06/29/18 06:00 - Labs Result Diagrams: 06/29/18 07:00 06/29/18 07:00 Labs: Laboratory Results - last 24 hr 06/29/18 06/29/18 07:00 07:00 WBC 7.8 D RBC 4.98 Hgb 12.9 L D Hct 40.4 L MCV 81.1 MCH 25.9 MCHC 31.9 RDW 13.2 Plt Count 249 MPV 9.2 Gran % 53.1 Lymph % (Auto) 37.3 H Mot[place] % (Auto) 6.9 H Eos % (Auto) 2.6 Baso % (Auto) 0.1 Gran # 4.15 Lymph # (Auto) 2.9 Mot[place] # (Auto) 0.5 Eos # (Auto) 0.2 Baso # (Auto) 0.01 Sodium 138 Potassium 4.1 Chloride 104 Carbon Dioxide 24 Anion Gap 13 BUN 16 Creatinine 1.2 Est GFR ( Amer) > 60 Est GFR (Non-Af Amer) > 60 Random Glucose 80 Calcium 8.4 Phosphorus 3.1 Magnesium 1.8 Total Bilirubin 1.0 AST 22 ALT 23 Alkaline Phosphatase 65 Total Protein 6.5 Albumin 3.5 Globulin 3.1 Albumin/Globulin Ratio 1.1 Assessment & Plan - Assessment and Plan (Free Text) Assessment: 67 year old male with PMH of PUD with perforated prepyloric viscous s/p rusesl patch repair 05/2016 complicated by post-operative pyloric stenosis with serial dilations (starting 09/2016, last 12/08/17 to 12-15mm dilation), primary hyperparathyroidism s/p partial parathyroidectomy, and HTN presenting with abdominal pain. Active treatment of improving SBO on CT A/P PO/IV contrast. Prior serial EGDs for pyloric stenosis 09/2016, 10/2016, 01/2017, and most recent 12/08/2017 with pathology showing LAGA esophagitis, H. pylori negative gastritis, and normal doudenal mucosa. No prior colonoscopy as it was postponed due to pyloric stenosis and inability to tolerate bowel prep. Plan: -surgery managing- NGT removed, advanced to clear liquid diet today -serial abdominal x-ray- improving obstruction -supportive care- pain control -will benefit from repeat endoscopic evaluation of history of pyloric stenosis with last dilation 12/2017 to rule out partial gastric outlet obstruction -will monitor diet trial, if unable to tolerate, will discuss inpatient endoscopic evaluation -will follow clinical course - <Carlos Diez - Last Filed: 06/29/18 15:27> Meds - Medications Medications: Current Medications Hydralazine HCl (Apresoline) 5 mg IVP Q6H PRN PRN Reason: Systolic Blood Pressure Lactated Ringer's (Lactated Ringer's) 1,000 mls @ 115 mls/hr IV .Q8H42M [facility] Last Admin: 06/29/18 04:48 Dose: 115 mls/hr Ketorolac Tromethamine (Toradol) 15 mg IVP Q6H PRN PRN Reason: Pain, moderate (4-7) Last Admin: 06/28/18 16:32 Dose: 15 mg Ketorolac Tromethamine (Toradol) 30 mg IVP Q12H PRN PRN Reason: Pain, severe (8-10) Ondansetron HCl (Zofran Inj) 4 mg IVP Q6H PRN PRN Reason: Nausea/Vomiting Last Admin: 06/28/18 16:32 Dose: 4 mg Pantoprazole Sodium (Protonix Inj) 40 mg IVP DAILY [facility] Last Admin: 06/29/18 10:11 Dose: 40 mg Results - Vital Signs Recent Vital Signs: Last Vital Signs Temp 98 F 06/29/18 14:00 Pulse 71 06/29/18 14:00 Resp 18 06/29/18 14:00 BP 133/83 06/29/18 14:00 Pulse Ox 99 11/26/18 14:00 - Labs Result Diagrams: 06/29/18 15:15 06/29/18 07:00 Labs: Laboratory Results - last 24 hr 06/29/18 06/29/18 06/29/18 07:00 07:00 15:15 WBC 7.8 D 6.3 RBC 4.98 4.96 Hgb 12.9 L D 12.9 L Hct 40.4 L 40.3 L MCV 81.1 81.3 MCH 25.9 26.0 MCHC 31.9 32.0 RDW 13.2 13.3 Plt Count 249 213 MPV 9.2 9.6 Gran % 53.1 50.9 Lymph % (Auto) 37.3 H 38.6 H Motley % (Auto) 6.9 H 7.0 H Eos % (Auto) 2.6 3.3 Baso % (Auto) 0.1 0.2 Gran # 4.15 3.20 Lymph # (Auto) 2.9 2.4 Motley # (Auto) 0.5 0.4 Eos # (Auto) 0.2 0.2 Baso # (Auto) 0.01 0.01 Sodium 138 Potassium 4.1 Chloride 104 Carbon Dioxide 24 Anion Gap 13 BUN 16 Creatinine 1.2 Est GFR ( Amer) > 60 Est GFR (Non-Af Amer) > 60 Random Glucose 80 Calcium 8.4 Phosphorus 3.1 Magnesium 1.8 Total Bilirubin 1.0 AST 22 ALT 23 Alkaline Phosphatase 65 Total Protein 6.5 Albumin 3.5 Globulin 3.1 Albumin/Globulin Ratio 1.1 Attending/Attestation - Attestation I have fully participated in the care of the patient.: Yes I have reviewed all pertinent clinical information: Yes Notes (Text): 06/29/18 15:25 PUD complicated by perforated viscous s/p russel patch repair History of pyloric stenosis s/p dilation HTN Hyperparathyroidism Abdominal pain, vomiting - SBO - Clear liquid diet as tolerated - Follow up surgical recommendations regarding bowel obstruction - Patient would benefit from elective outpatient endoscopic follow up after resolution of acute obstructive symptoms - AXR performed today shows improvement in small bowel dilation, will continue to monitor patient clinical course
[2018-06-29 15:22] LABS: BASO # 0.01 K/mm3 (0.0-2.0); BASO % 0.2 % (0.0-3.0); EOS # 0.2 (0.0-0.7); EOS % 3.3 % (1.5-5.0); GRAN # 3.2 (1.4-6.5); GRAN % 50.9 % (50.0-68.0); HEMOGLOBIN 12.9 g/dL (14.0-18.0); LYMPH # 2.4 (1.2-3.4); LYMPH % 38.6 % (22.0-35.0); MEAN CELL VOLUME 81.3 fl (80.0-105.0); MEAN PLATELET VOLUME 9.6 fl (7.0-11.0); MONO # 0.4 (0.1-0.6); RBC 4.96 10^6/uL (3.5-6.1); RED CELL DISTRIBUTION WIDTH 13.3 % (11.5-14.5); WHITE BLOOD COUNT 6.3 10^3/uL (4.5-11.0)
[2018-06-29 16:02] LABS: ALB/GLOB RATIO 1.2 (1.1-1.8); ALBUMIN 3.5 g/dL (3.0-4.8); ALT/SGPT 19 U/L (7-56); AST/SGOT 24 U/L (17-59); BLOOD UREA NITROGEN 16 mg/dL (7-21); CALCIUM 8.6 mg/dL (8.4-10.5); GFR NON-AFRICAN AMERICAN > 60
[2018-06-29 23:15] VITALS: PULSE 62
[2018-06-30] MEDS: Lactated Ringer's 1,000 ML IV SCH ×2 (00:04→09:49)
--- NOTE | 2018-06-30 06:23 | CP.PCM.PN ---
Subjective - Date & Time of Evaluation Date of Evaluation: 06/30/18 Time of Evaluation: 06:23 - Subjective Subjective: Resident Progress Note for Hospitalist Service Objective - Vital Signs/Intake and Output Vital Signs (last 24 hours): Temp Pulse Resp BP Pulse Ox 97.9 F 62 20 142/93 H 98 06/29/18 23:14 06/29/18 23:14 06/29/18 23:14 06/29/18 23:14 06/29/18 23:14 Intake and Output: 06/29/18 06/30/18 18:59 06:59 Intake Total 420 Output Total 220 Balance -220 420 - Medications Medications: Current Medications Hydralazine HCl (Apresoline) 5 mg IVP Q6H PRN PRN Reason: Systolic Blood Pressure Lactated Ringer's (Lactated Ringer's) 1,000 mls @ 115 mls/hr IV .Q8H42M [facility] Last Admin: 06/30/18 00:04 Dose: 115 mls/hr Ketorolac Tromethamine (Toradol) 15 mg IVP Q6H PRN PRN Reason: Pain, moderate (4-7) Last Admin: 06/28/18 16:32 Dose: 15 mg Ketorolac Tromethamine (Toradol) 30 mg IVP Q12H PRN PRN Reason: Pain, severe (8-10) Ondansetron HCl (Zofran Inj) 4 mg IVP Q6H PRN PRN Reason: Nausea/Vomiting Last Admin: 06/28/18 16:32 Dose: 4 mg Pantoprazole Sodium (Protonix Inj) 40 mg IVP DAILY [facility] Last Admin: 06/29/18 10:11 Dose: 40 mg - Labs Labs: 06/29/18 15:15 06/29/18 15:15
[2018-06-30 07:01] VITALS: BP 137/87; RESP 16; TEMP 98.2; O2SAT 97
[2018-06-30 07:23] LABS: BASO # 0.01 K/mm3 (0.0-2.0); BASO % 0.2 % (0.0-3.0); EOS # 0.2 (0.0-0.7); EOS % 3.4 % (1.5-5.0); GRAN # 3.13 (1.4-6.5); GRAN % 47.9 % (50.0-68.0); HEMOGLOBIN 13.1 g/dL (14.0-18.0); LYMPH # 2.7 (1.2-3.4); LYMPH % 41.3 % (22.0-35.0); MEAN CELL VOLUME 81.1 fl (80.0-105.0); MEAN CORPUSCULAR HEMOGLOBIN 25.8 pg (25.0-35.0); MEAN CORPUSCULAR HGB CONC 31.8 g/dl (31.0-37.0); MEAN PLATELET VOLUME 9.4 fl (7.0-11.0); MONO # 0.5 (0.1-0.6); MONO % 7.2 % (1.0-6.0); RBC 5.08 10^6/uL (3.5-6.1); RED CELL DISTRIBUTION WIDTH 13.3 % (11.5-14.5); WHITE BLOOD COUNT 6.5 10^3/uL (4.5-11.0)
--- NOTE | 2018-06-30 07:24 | CP.PCM.PN ---
Subjective - Date & Time of Evaluation Date of Evaluation: 06/30/18 Time of Evaluation: 07:24 - Subjective Subjective: Surgery Progress note for Dr. Novak Patient seen and examined at bedside this morning. Patient states he had a soft BM this morning. He has been able to tolerate the liquid diet. Denies nausea, vomiting, abdominal pain, fever, chills. 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 Objective - Vital Signs/Intake and Output Vital Signs (last 24 hours): Temp Pulse Resp BP Pulse Ox 98.2 F 62 16 137/87 97 06/30/18 06:00 06/30/18 06:00 06/30/18 06:00 06/30/18 06:00 06/30/18 06:00 Intake and Output: 06/30/18 06/30/18 06:59 18:59 Intake Total 420 Balance 420 - Medications Medications: Current Medications Hydralazine HCl (Apresoline) 5 mg IVP Q6H PRN PRN Reason: Systolic Blood Pressure Lactated Ringer's (Lactated Ringer's) 1,000 mls @ 115 mls/hr IV .Q8H42M [facility] Last Admin: 06/30/18 00:04 Dose: 115 mls/hr Ketorolac Tromethamine (Toradol) 15 mg IVP Q6H PRN PRN Reason: Pain, moderate (4-7) Last Admin: 06/28/18 16:32 Dose: 15 mg Ketorolac Tromethamine (Toradol) 30 mg IVP Q12H PRN PRN Reason: Pain, severe (8-10) Ondansetron HCl (Zofran Inj) 4 mg IVP Q6H PRN PRN Reason: Nausea/Vomiting Last Admin: 06/28/18 16:32 Dose: 4 mg Pantoprazole Sodium (Protonix Inj) 40 mg IVP DAILY [facility] Last Admin: 06/29/18 10:11 Dose: 40 mg - Labs Labs: 06/29/18 15:15 06/29/18 15:15 - Constitutional Appears: Well, Non-toxic - Head Exam Head Exam: ATRAUMATIC, NORMAL INSPECTION - Eye Exam Eye Exam: Normal appearance - Neck Exam Neck Exam: Normal Inspection - Respiratory Exam Respiratory Exam: Clear to Ausculation Bilateral, NORMAL BREATHING PATTERN - Cardiovascular Exam Cardiovascular Exam: REGULAR RHYTHM - GI/Abdominal Exam GI & Abdominal Exam: Soft, Normal Bowel Sounds. absent: Guarding, Rigid, Tenderness - Neurological Exam Neurological Exam: Alert, Awake, Oriented x3 - Psychiatric Exam Psychiatric exam: Normal Affect, Normal Mood - Skin Skin Exam: Dry, Intact, Normal Color, Warm Assessment and Plan - Assessment and Plan (Free Text) Assessment: 67 year old male with SBO -NGT clamped and removed successfully 06/29, yesterday. Patient has been tolerating liquid diet without nausea/vomiting. -Order for advancement to regular food for lunch today, 06/30 -continue to monitor bowel function -If patient able to tolerate regular food, we will sign off today Mily Ortiz DO PGY1
[2018-06-30 07:36] LABS: ALB/GLOB RATIO 1.1 (1.1-1.8); ALBUMIN 3.6 g/dL (3.0-4.8); ALT/SGPT 25 U/L (7-56); AST/SGOT 27 U/L (17-59); BLOOD UREA NITROGEN 9 mg/dL (7-21); CALCIUM 8.9 mg/dL (8.4-10.5); GFR NON-AFRICAN AMERICAN > 60
--- NOTE | 2018-06-30 10:10 | CP.PCM.DIS ---
<Michelle Wolfe L - Last Filed: 06/30/18 11:37> Provider - Provider Date of Admission: 06/29/18 11:43 Attending physician: Cheri Jensen MD Primary care physician: Dr. Thomas Consults: Dr. Kishore Diez Time Spent in preparation of Discharge (in minutes): 45 Diagnosis - Discharge Diagnosis (1) Bowel obstruction Status: Resolved Hospital Course - Lab Results Lab Results: Micro Results 06/28/18 16:00 Urine,Clean Catch Urine Culture - Final No Growth (<1,000 CFU/ML) Most Recent Lab Values WBC 6.5 10^3/uL (4.5-11.0) 06/30/18 07:00 RBC 5.08 10^6/uL (3.5-6.1) 06/30/18 07:00 Hgb 13.1 g/dL (14.0-18.0) L 06/30/18 07:00 Hct 41.2 % (42.0-52.0) L 06/30/18 07:00 MCV 81.1 fl (80.0-105.0) 06/30/18 07:00 MCH 25.8 pg (25.0-35.0) 06/30/18 07:00 MCHC 31.8 g/dl (31.0-37.0) 06/30/18 07:00 RDW 13.3 % (11.5-14.5) 06/30/18 07:00 Plt Count 248 10^3/uL (120.0-450.0) 06/30/18 07:00 MPV 9.4 fl (7.0-11.0) 06/30/18 07:00 Gran % 47.9 % (50.0-68.0) L 06/30/18 07:00 Lymph % (Auto) 41.3 % (22.0-35.0) H 06/30/18 07:00 [place] % (Auto) 7.2 % (1.0-6.0) H 06/30/18 07:00 Eos % (Auto) 3.4 % (1.5-5.0) 06/30/18 07:00 Baso % (Auto) 0.2 % (0.0-3.0) 06/30/18 07:00 Gran # 3.13 (1.4-6.5) 06/30/18 07:00 Lymph # (Auto) 2.7 (1.2-3.4) 06/30/18 07:00 [place] # (Auto) 0.5 (0.1-0.6) 06/30/18 07:00 Eos # (Auto) 0.2 (0.0-0.7) 06/30/18 07:00 Baso # (Auto) 0.01 K/mm3 (0.0-2.0) 06/30/18 07:00 Sodium 139 mmol/L (132-148) 06/30/18 07:00 Potassium 4.2 mmol/L (3.6-5.0) 06/30/18 07:00 Chloride 104 mmol/L (98-107) 06/30/18 07:00 Carbon Dioxide 30 mmol/L (21-33) 06/30/18 07:00 Anion Gap 10 (10-20) 06/30/18 07:00 BUN 9 mg/dL (7-21) 06/30/18 07:00 Creatinine 1.1 mg/dl (0.8-1.5) 06/30/18 07:00 Est GFR ( Amer) > 60 06/30/18 07:00 Est GFR (Non-Af Amer) > 60 06/30/18 07:00 Random Glucose 90 mg/dL (70-110) 06/30/18 07:00 Calcium 8.9 mg/dL (8.4-10.5) 06/30/18 07:00 Phosphorus 2.8 mg/dL (2.5-4.5) 06/30/18 07:00 Magnesium 1.9 mg/dL (1.7-2.2) 06/30/18 07:00 Total Bilirubin 1.0 mg/dL (0.2-1.3) 06/30/18 07:00 AST 27 U/L (17-59) 06/30/18 07:00 ALT 25 U/L (7-56) 06/30/18 07:00 Alkaline Phosphatase 68 U/L (38-126) 06/30/18 07:00 Troponin I < 0.01 ng/mL 06/28/18 10:00 Total Protein 6.8 g/dL (5.8-8.3) 06/30/18 07:00 Albumin 3.6 g/dL (3.0-4.8) 06/30/18 07:00 Globulin 3.2 gm/dL 06/30/18 07:00 Albumin/Globulin Ratio 1.1 (1.1-1.8) 06/30/18 07:00 Lipase 72 U/L (23-300) 06/28/18 10:00 Urine Color Yellow (YELLOW) 06/28/18 10:00 Urine Appearance Clear (CLEAR) 06/28/18 10:00 Urine pH 6.0 (4.7-8.0) 06/28/18 10:00 Ur Specific [place] 1.020 (1.005-1.035) 06/28/18 10:00 Urine Protein Trace mg/dL (<30 mg/dL) H 06/28/18 10:00 Urine Glucose (UA) Negative mg/dL (NEGATIVE) 06/28/18 10:00 Urine Ketones 40 mg/dL (NEGATIVE) H 06/28/18 10:00 Urine Blood Negative (NEGATIVE) 06/28/18 10:00 Urine Nitrate Negative (NEGATIVE) 06/28/18 10:00 Urine Bilirubin Negative (NEGATIVE) 06/28/18 10:00 Urine Urobilinogen 0.2 E.U./dL (<1 E.U./dL) 06/28/18 10:00 Ur Leukocyte Esterase Trace Kannan/uL (NEGATIVE) H 06/28/18 10:00 Urine RBC 0 - 2 /hpf (0-2) 06/28/18 10:00 Urine WBC 2 - 5 /hpf (0-6) 06/28/18 10:00 Ur Epithelial Cells None /hpf (0-5) 06/28/18 10:00 Urine Bacteria Few (NEG) 06/28/18 10:00 - Hospital Course Hospital Course: On admission: Patient is a 67 year old Cambodian male with past medical history of HTN, PUD, pyloric stenosis presenting with chief complaint of abdominal discomfort that began about two days ago. History was obtained from daughter who was at bedside. Patient has been constipated however did have one loose watery bowel movement last night. He also admits to nausea and two episodes of emesis last night. He states he has no appetite. Of note, patient recently had inguinal hernia surgery about 5 months ago. Patient denies fevers, chills, headache, dizziness, chest pain, shortness of breath, dysuria. Hospital course: CT abd/pelvis shows small bowel fecalization consistent with SBO. Surgery was consulted. NG tube was inserted. Patient was placed on mainte nance fluids, Protonix 40 mg IV daily, Zofran 4 mg IV Q6H PRN, Toradol PRN for pain control. Repeat abd xray showed improvement in SBO. Patient tolerated advancement to liquid diet. GI consulted for evaluation of pt's history of recurrent pyloric stenosis. Recommended outpatient followup if advancement of diet is tolerated. Patient had bowel movement. Patient was medically optimized for discharge. Please refer to EMR for full summary. - Date & Time of H&P Date of H&P: 06/28/18 Time of H&P: 15:19 Discharge Exam - Additional Findings Additional findings: - Constitutional Appears: Non-toxic, No Acute Distress - Head Exam Head Exam: ATRAUMATIC, NORMOCEPHALIC - Eye Exam Eye Exam: EOMI, Normal appearance - Respiratory Exam Respiratory Exam: Clear to Auscultation Bilateral, NORMAL BREATHING PATTERN - Cardiovascular Exam Cardiovascular Exam: REGULAR RHYTHM, +S1, +S2 - GI/Abdominal Exam GI & Abdominal Exam: Hernia (umbilical), Hypoactive Bowel Sounds, Soft. absent: Firm, Mass, Rebound, Tenderness Additional comments: midline ventral surgical scar RUQ, RLQ surgical scars - Extremities Exam Extremities exam: Positive for: normal capillary refill, normal inspection, pedal pulses present - Neurological Exam Neurological exam: Alert, Oriented x3 - Psychiatric Exam Psychiatric exam: Normal Affect, Normal Mood - Skin Skin Exam: Dry, Intact, Normal Color, Warm Discharge Plan - Follow Up Plan Condition: STABLE Disposition: HOME/ ROUTINE Patient education suggested?: Yes Instructions: Small Bowel Obstruction (DC) Additional Instructions: Please follow up with your primary care doctor Dr. Thomas in the clinic within one week. Please also follow up with a GI doctor at [facility] in [place] within one week for evaluation for pyloric stenosis and outpatient endoscopy. The phone number to the [facility] clinic is . Try to avoid large meals as this may be associated with increased chance of having small bowel obstruction. Resume your home medications as prescribed. Return to ED if symptoms return or worsen. <Cheri Jensen - Last Filed: 07/01/18 14:54> Provider - Provider Date of Admission: 06/29/18 11:43 Attending physician: Cheri Jensen MD Hospital Course - Lab Results Lab Results: Micro Results 06/28/18 16:00 Urine,Clean Catch Urine Culture - Final No Growth (<1,000 CFU/ML) Most Recent Lab Values WBC 6.5 10^3/uL (4.5-11.0) 06/30/18 07:00 RBC 5.08 10^6/uL (3.5-6.1) 06/30/18 07:00 Hgb 13.1 g/dL (14.0-18.0) L 06/30/18 07:00 Hct 41.2 % (42.0-52.0) L 06/30/18 07:00 MCV 81.1 fl (80.0-105.0) 06/30/18 07:00 MCH 25.8 pg (25.0-35.0) 06/30/18 07:00 MCHC 31.8 g/dl (31.0-37.0) 06/30/18 07:00 RDW 13.3 % (11.5-14.5) 06/30/18 07:00 Plt Count 248 10^3/uL (120.0-450.0) 06/30/18 07:00 MPV 9.4 fl (7.0-11.0) 06/30/18 07:00 Gran % 47.9 % (50.0-68.0) L 06/30/18 07:00 Lymph % (Auto) 41.3 % (22.0-35.0) H 06/30/18 07:00 [place] % (Auto) 7.2 % (1.0-6.0) H 06/30/18 07:00 Eos % (Auto) 3.4 % (1.5-5.0) 06/30/18 07:00 Baso % (Auto) 0.2 % (0.0-3.0) 06/30/18 07:00 Gran # 3.13 (1.4-6.5) 06/30/18 07:00 Lymph # (Auto) 2.7 (1.2-3.4) 06/30/18 07:00 [place] # (Auto) 0.5 (0.1-0.6) 06/30/18 07:00 Eos # (Auto) 0.2 (0.0-0.7) 06/30/18 07:00 Baso # (Auto) 0.01 K/mm3 (0.0-2.0) 06/30/18 07:00 Sodium 139 mmol/L (132-148) 06/30/18 07:00 Potassium 4.2 mmol/L (3.6-5.0) 06/30/18 07:00 Chloride 104 mmol/L (98-107) 06/30/18 07:00 Carbon Dioxide 30 mmol/L (21-33) 06/30/18 07:00 Anion Gap 10 (10-20) 06/30/18 07:00 BUN 9 mg/dL (7-21) 06/30/18 07:00 Creatinine 1.1 mg/dl (0.8-1.5) 06/30/18 07:00 Est GFR ( Amer) > 60 06/30/18 07:00 Est GFR (Non-Af Amer) > 60 06/30/18 07:00 Random Glucose 90 mg/dL (70-110) 06/30/18 07:00 Calcium 8.9 mg/dL (8.4-10.5) 06/30/18 07:00 Phosphorus 2.8 mg/dL (2.5-4.5) 06/30/18 07:00 Magnesium 1.9 mg/dL (1.7-2.2) 06/30/18 07:00 Total Bilirubin 1.0 mg/dL (0.2-1.3) 06/30/18 07:00 AST 27 U/L (17-59) 06/30/18 07:00 ALT 25 U/L (7-56) 06/30/18 07:00 Alkaline Phosphatase 68 U/L (38-126) 06/30/18 07:00 Troponin I < 0.01 ng/mL 06/28/18 10:00 Total Protein 6.8 g/dL (5.8-8.3) 06/30/18 07:00 Albumin 3.6 g/dL (3.0-4.8) 06/30/18 07:00 Globulin 3.2 gm/dL 06/30/18 07:00 Albumin/Globulin Ratio 1.1 (1.1-1.8) 06/30/18 07:00 Lipase 72 U/L (23-300) 06/28/18 10:00 Urine Color Yellow (YELLOW) 06/28/18 10:00 Urine Appearance Clear (CLEAR) 06/28/18 10:00 Urine pH 6.0 (4.7-8.0) 06/28/18 10:00 Ur Specific [place] 1.020 (1.005-1.035) 06/28/18 10:00 Urine Protein Trace mg/dL (<30 mg/dL) H 06/28/18 10:00 Urine Glucose (UA) Negative mg/dL (NEGATIVE) 06/28/18 10:00 Urine Ketones 40 mg/dL (NEGATIVE) H 06/28/18 10:00 Urine Blood Negative (NEGATIVE) 06/28/18 10:00 Urine Nitrate Negative (NEGATIVE) 06/28/18 10:00 Urine Bilirubin Negative (NEGATIVE) 06/28/18 10:00 Urine Urobilinogen 0.2 E.U./dL (<1 E.U./dL) 06/28/18 10:00 Ur Leukocyte Esterase Trace Kannan/uL (NEGATIVE) H 06/28/18 10:00 Urine RBC 0 - 2 /hpf (0-2) 06/28/18 10:00 Urine WBC 2 - 5 /hpf (0-6) 06/28/18 10:00 Ur Epithelial Cells None /hpf (0-5) 06/28/18 10:00 Urine Bacteria Few (NEG) 06/28/18 10:00 Attending/Attestation - Attestation I have personally seen and examined this patient.: Yes I have fully participated in the care of the patient.: Yes I have reviewed all pertinent clinical information, including history, physical exam and plan: Yes Notes (Text): 07/01/18 14:47 Medical record note made by the resident after discussion with my direction and input after the patient was personally seen and examined by me. I have reviewed the chart and agree that the record accurately reflects by personal performance of the history, physical exam, data review, and medical decision-making, in the course for the patient. I have also personally directed the plan of care. 67 year old [place] male with past medical history of HTN, PUD, pyloric stenosis , presenting with chief complaint of abdominal discomfort that began about two days ago. CT abd/pelvis shows small bowel showed small bowel obstruction with transitional point.He was seen in consultation with Surgery and was managed conservatively. Patient has responded well to conservative therapy.Abdominal pain has improved. Patient had bowel movement last night.He is tolerating food. Patient was also seen by GI. He will follow up with his GI as out patient for out patient endoscopy. Management plan was discussed in detail with patient. Education was provided. 07/01/18 14:54
--- NOTE | 2018-06-30 13:11 | CP.PCM.PN ---
Subjective - Date & Time of Evaluation Date of Evaluation: 06/30/18 Time of Evaluation: 13:03 - Subjective Subjective: Gastroenterology Fellow/PGY6 Progress Note Patient notes resolved abdominal pain. Tolerated liquid diet. Passing flatus. A 12-point review of systems negative except for as above. Objective - Vital Signs/Intake and Output Vital Signs (last 24 hours): Temp Pulse Resp BP Pulse Ox 98.2 F 62 16 137/87 97 06/30/18 06:00 06/30/18 06:00 06/30/18 06:00 06/30/18 06:00 06/30/18 06:00 Intake and Output: 06/30/18 06/30/18 06:59 18:59 Intake Total 420 Balance 420 - Medications Medications: Current Medications Hydralazine HCl (Apresoline) 5 mg IVP Q6H PRN PRN Reason: Systolic Blood Pressure Lactated Ringer's (Lactated Ringer's) 1,000 mls @ 115 mls/hr IV .Q8H42M [facility] Last Admin: 06/30/18 09:49 Dose: 115 mls/hr Ketorolac Tromethamine (Toradol) 15 mg IVP Q6H PRN PRN Reason: Pain, moderate (4-7) Last Admin: 06/28/18 16:32 Dose: 15 mg Ketorolac Tromethamine (Toradol) 30 mg IVP Q12H PRN PRN Reason: Pain, severe (8-10) Ondansetron HCl (Zofran Inj) 4 mg IVP Q6H PRN PRN Reason: Nausea/Vomiting Last Admin: 06/28/18 16:32 Dose: 4 mg Pantoprazole Sodium (Protonix Inj) 40 mg IVP DAILY [facility] Last Admin: 06/30/18 09:44 Dose: 40 mg - Labs Labs: 06/30/18 07:00 06/30/18 07:00 - Constitutional Appears: Non-toxic, No Acute Distress - Head Exam Head Exam: ATRAUMATIC, NORMOCEPHALIC - Eye Exam Eye Exam: EOMI, PERRL. absent: Scleral icterus Pupil Exam: PERRL. absent: Miosis, Mydriatic - ENT Exam ENT Exam: Mucous Membranes Moist, Normal Oropharynx - Neck Exam Neck Exam: Full ROM, Normal Inspection - Respiratory Exam Respiratory Exam: Clear to Ausculation Bilateral. absent: Rales, Rhonchi, Wheezes - Cardiovascular Exam Cardiovascular Exam: RRR, +S1, +S2. absent: Gallop, Rubs - GI/Abdominal Exam GI & Abdominal Exam: Soft, Normal Bowel Sounds. absent: Distended, Firm, Guarding, Rigid, Tenderness, Organomegaly, Rebound - Extremities Exam Extremities Exam: Normal Inspection. absent: Pedal Edema - Neurological Exam Neurological Exam: Alert, Awake - Psychiatric Exam Psychiatric exam: Normal Affect, Normal Mood - Skin Skin Exam: Dry, Intact, Normal Color, Warm Assessment and Plan - Assessment and Plan (Free Text) Assessment: 67 year old male with PMH of PUD with perforated prepyloric viscous s/p russel patch repair 05/2016 complicated by post-operative pyloric stenosis with serial dilations (starting 09/2016, last 12/08/17 to 12-15mm dilation), primary hyperparathyroidism s/p partial parathyroidectomy, and HTN presenting with abdominal pain. Active treatment of improving SBO on CT A/P PO/IV contrast. Prior serial EGDs for pyloric stenosis 09/2016, 10/2016, 01/2017, and most recent 12/08/2017 with pathology showing LAGA esophagitis, H. pylori negative gastritis, and normal doudenal mucosa. No prior colonoscopy as it was postponed due to pyloric stenosis and inability to tolerate bowel prep. Plan: -advance diet as tolerated -resolved abdominal pain -counselled on need for colonoscopy for colorectal cancer screening -recommend outpatient endoscopic evaluation of history of pyloric stenosis with last dilation 12/2017
== END 2018-06-30 13:41 | disposition home or self-care (01) | DRG 247 ==
LOC: ED 08:50 → ERH 13:45 → 5RNO 16:02 → OBSVTOIN 06-29 11:43
PROVIDERS: ADMIT Internal Medicine; ATTEND Internal Medicine
PROC: 0D9670Z Drainage of Stomach with Drainage Device, Via Natural or Artificial Opening (ICD-10-PCS; principal; 2018-06-29)
DX: K56.609 Unspecified intestinal obstruction, unspecified as to partial versus complete obstruction (principal); I10 Essential (primary) hypertension; E21.0 Primary hyperparathyroidism; K21.9 Gastro-esophageal reflux disease without esophagitis; M81.0 Age-related osteoporosis without current pathological fracture; N39.0 Urinary tract infection, site not specified; Z87.11 Personal history of peptic ulcer disease